=== PATIENT | female | born 1990 | race Caucasian/White ===

== ENCOUNTER 2021-05-09 09:49 | Outpatient (REF) | payer OTHER, SELFPAY ==
[2021-05-09 11:26] LABS: MANUAL DIFF FLAG NO
[2021-05-09 11:31] LABS: Basophils Percent Auto 0.5 % (0-2); Eosinophils Absolute Auto 0.3 X10*3/uL (0.0-0.4); Eosinophils Percent Auto 5.2 % (0-4); Hematocrit 39.8 % (37.0-47.0); Hemoglobin 13.6 g/dl (12.0-16.0); Imm Gran Abs Auto 0.03 X10*3/uL (0.00-0.03); Imm Gran Pct Auto 0.5 % (0.0-0.4); Lymphocytes Percent Auto 35.1 % (20-40); Mean Corpuscular HGB Conc 34.2 g/dl (31.0-35.0); Mean Corpuscular Volume 87.9 fL (80.0-98.0); Monocytes Absolute Auto 0.4 X10*3/uL (0.1-1.2); Monocytes Percent Auto 6.2 % (2-11); Neutrophils Percent Auto 52.5 % (45-73); Platelet Count 204 X10*3/uL (160-400); Red Blood Count 4.53 X10*6/uL (4.20-5.50); White Blood Count 5.8 X10*3/uL (4.8-10.8)
[2021-05-09 11:47] LABS: Alanine Aminotransferase 62 U/L (0-31); Albumin Level 4.3 g/dL (3.5-5.0); Alkaline Phosphatase 72 U/L (39-117); Anion Gap 9 (12-20); Aspartate Amino Transferase 24 U/L (5-31); Bilirubin Total 0.4 mg/dL (0.0-1.0); Blood Urea Nitrogen 14 mg/dL (9-16); Calcium 9.4 mg/dL (8.4-10.2); Carbon Dioxide 23 mmol/L (22-29); Chloride 110 mmol/L (96-108); Estimated Glomerular Filt Rate > 60; Glucose Random 126 mg/dL (60-115); Potassium 3.9 mmol/L (3.3-5.1); Sodium 138 mmol/L (135-145)
[2021-05-09 12:08] LABS: HBS Num1 242.15 mIU/mL (0-7.99); Hepatitis B Core Antibody Nonreactive (Nonreactive); ~Hepatitis B Surface Antibody REACTIVE (Nonreactive)
[2021-05-09 12:25] LABS: HBsAGNum1 0.25 S/CO (0.00-0.99); Hepatitis B Surface Antigen Negative (Negative); ~HepC Num1 0.23 S/CO (0.00-0.79); ~Hepatitis C Antibody Nonreactive (Nonreactive)
[2021-05-11 19:31] LABS: TS Negative Control Passed; TS Panel A 0; TS Panel B 0; TS Positive Control Passed; TSpotTB Negative (Negative)
== END 2021-05-09 09:50 | disposition home or self-care (01) ==
LOC: HO.WFDLDS 09:49
PROVIDERS: Visit Provider Physician Assistant Medical
DX: Z11.1 Encounter for screening for respiratory tuberculosis (principal); L73.2 Hidradenitis suppurativa
CPT/HCPCS: 36415; 80053; 85025; 86481; 86704; 86706; 86803; 87340

== ENCOUNTER 2021-06-10 10:12 | Outpatient (REF) | payer OTHER, SELFPAY ==
[2021-06-10 11:25] LABS: MANUAL DIFF FLAG NO
[2021-06-10 11:49] LABS: Basophils Percent Auto 0.3 % (0-2); Eosinophils Absolute Auto 0.3 X10*3/uL (0.0-0.4); Eosinophils Percent Auto 5.6 % (0-4); Hematocrit 38.7 % (37.0-47.0); Imm Gran Abs Auto 0.02 X10*3/uL (0.00-0.03); Imm Gran Pct Auto 0.3 % (0.0-0.4); Lymphocytes Absolute Auto 2.8 X10*3/uL (1.2-4.9); Lymphocytes Percent Auto 46.7 % (20-40); Mean Corpuscular HGB Conc 33.6 g/dl (31.0-35.0); Mean Corpuscular Volume 89.4 fL (80.0-98.0); Mean Platelet Volume 10.4 fL (9.4-12.3); Monocytes Absolute Auto 0.5 X10*3/uL (0.1-1.2); Monocytes Percent Auto 8.9 % (2-11); Neutrophils Absolute Auto 2.3 x10*3/uL (2.0-8.3); Neutrophils Percent Auto 38.2 % (45-73); Platelet Count 209 X10*3/uL (160-400); Red Blood Count 4.33 X10*6/uL (4.20-5.50); Red Cell Distribution Width 11.9 % (11.0-16.0)
[2021-06-10 12:37] LABS: Alanine Aminotransferase 135 U/L (0-31); Albumin Level 4.4 g/dL (3.5-5.0); Alkaline Phosphatase 73 U/L (39-117); Anion Gap 14 (12-20); Aspartate Amino Transferase 48 U/L (5-31); Bilirubin Total 0.3 mg/dL (0.0-1.0); Blood Urea Nitrogen 22 mg/dL (9-16); Calcium 9.4 mg/dL (8.4-10.2); Carbon Dioxide 19 mmol/L (22-29); Chloride 110 mmol/L (96-108); Cholesterol 254 mg/dL; Estimated Glomerular Filt Rate > 60; Glucose Fasting 87 mg/dL (60-99); HDL Cholesterol 35 mg/dL; LDL Cholesterol Calculated 150 mg/dl; Sodium 139 mmol/L (135-145); Thyroid Stimulating Hormone 3.04 uIU/mL (0.32-4.0); Total Protein 7.3 g/dL (6.5-8.0); Triglycerides 348 mg/dL; Vitamin D 25-OH Total 35.2 ng/mL (>30)
[2021-06-10 12:39] LABS: Estimated Average Glucose 91 mg/dL; Hemoglobin A1c % 4.8 %
[2021-06-10 13:16] LABS: T4 Thyroxine 5.3 ug/dL (4.5-12.0)
[2021-06-12 20:37] LABS: Triiodothyronine T3 Total 97 ng/dL (76-181)
== END 2021-06-10 10:13 | disposition home or self-care (01) ==
LOC: HO.WFDLDS 10:12
PROVIDERS: Visit Provider Nurse Practitioner
DX: F25.0 Schizoaffective disorder, bipolar type (principal); F40.01 Agoraphobia with panic disorder
CPT/HCPCS: 36415; 80053; 80061; 82306; 83036; 84436; 84443; 84480; 85025

== ENCOUNTER 2021-06-12 09:32 | Outpatient (REF) | payer OTHER, SELFPAY ==
[2021-06-12 11:55] LABS: Anion Gap 12 (12-20); Blood Urea Nitrogen 19 mg/dL (9-16); Calcium 9.3 mg/dL (8.4-10.2); Carbon Dioxide 20 mmol/L (22-29); Chloride 108 mmol/L (96-108); Estimated Glomerular Filt Rate > 60; Glucose Random 88 mg/dL (60-115); Potassium 4.3 mmol/L (3.3-5.1); Sodium 136 mmol/L (135-145)
== END 2021-06-12 09:33 | disposition home or self-care (01) ==
LOC: HO.WFDLDS 09:32
PROVIDERS: Visit Provider Physician Assistant Medical
DX: G40.209 Localization-related (focal) (partial) symptomatic epilepsy and epileptic syndromes with complex partial seizures, not intractable, without status epilepticus (principal)
CPT/HCPCS: 36415; 80048

== ENCOUNTER 2021-11-14 09:04 | Outpatient (REF) | payer OTHER, SELFPAY ==
[2021-11-14 10:33] LABS: MANUAL DIFF FLAG NO
[2021-11-14 10:49] LABS: Basophils Percent Auto 0.4 % (0-2); Eosinophils Absolute Auto 0.4 X10*3/uL (0.0-0.4); Eosinophils Percent Auto 7.9 % (0-4); Hematocrit 37.6 % (37.0-47.0); Hemoglobin 12.8 g/dl (12.0-16.0); Imm Gran Abs Auto 0.01 X10*3/uL (0.00-0.03); Imm Gran Pct Auto 0.2 % (0.0-0.4); Lymphocytes Absolute Auto 2.1 X10*3/uL (1.2-4.9); Lymphocytes Percent Auto 38.9 % (20-40); Mean Corpuscular Hemoglobin 30.7 pg (27.0-33.0); Mean Corpuscular Volume 90.2 fL (80.0-98.0); Mean Platelet Volume 10.5 fL (9.4-12.3); Monocytes Absolute Auto 0.4 X10*3/uL (0.1-1.2); Monocytes Percent Auto 6.8 % (2-11); Neutrophils Absolute Auto 2.4 x10*3/uL (2.0-8.3); Neutrophils Percent Auto 45.8 % (45-73); Platelet Count 206 X10*3/uL (160-400); Red Blood Count 4.17 X10*6/uL (4.20-5.50); Red Cell Distribution Width 11.9 % (11.0-16.0); White Blood Count 5.3 X10*3/uL (4.8-10.8)
[2021-11-14 11:08] LABS: Alanine Aminotransferase 84 U/L (0-31); Albumin Level 4.6 g/dL (3.5-5.0); Alkaline Phosphatase 71 U/L (39-117); Anion Gap 14 (12-20); Aspartate Amino Transferase 29 U/L (5-31); Bilirubin Total 0.3 mg/dL (0.0-1.0); Blood Urea Nitrogen 17 mg/dL (9-16); Calcium 9.2 mg/dL (8.4-10.2); Carbon Dioxide 21 mmol/L (22-29); Chloride 111 mmol/L (96-108); Estimated Glomerular Filt Rate 56; Glucose Fasting 90 mg/dL (60-99); Potassium 4.3 mmol/L (3.3-5.1); Sodium 142 mmol/L (135-145); Total Protein 7.1 g/dL (6.5-8.0)
[2021-11-14 11:28] LABS: T4 Thyroxine 4.3 ug/dL (4.5-12.0); Thyroid Stimulating Hormone 1.73 uIU/mL (0.32-4.0)
[2021-11-17 11:37] LABS: Triiodothyronine T3 Total 89 ng/dL (76-181)
== END 2021-11-14 09:05 | disposition home or self-care (01) ==
LOC: HO.WFDLDS 09:04
PROVIDERS: Visit Provider Nurse Practitioner
DX: F25.0 Schizoaffective disorder, bipolar type (principal); F40.01 Agoraphobia with panic disorder; Z79.899 Other long term (current) drug therapy
CPT/HCPCS: 36415; 80053; 80178; 84436; 84443; 84480; 85025

== ENCOUNTER → 2021-11-27 07:54 | Outpatient (BNVA) | payer OTHER, SELFPAY | PROVIDERS: PCP Internal Medicine; Visit Provider Psychiatry & Neurology Neurology | DX: G40.209 Localization-related (focal) (partial) symptomatic epilepsy and epileptic syndromes with complex partial seizures, not intractable, without status epilepticus (principal); G47.10 Hypersomnia, unspecified; R06.83 Snoring | CPT/HCPCS: 99202 ==

== ENCOUNTER → 2021-12-12 13:07 | Outpatient (REF) | payer OTHER, SELFPAY | LOC: HO.SL 13:07 | PROVIDERS: PCP Internal Medicine; Visit Provider Psychiatry & Neurology Neurology | DX: G47.19 Other hypersomnia (principal); R06.83 Snoring | CPT/HCPCS: 95806 ==

== ENCOUNTER → 2022-02-10 13:27 | Outpatient (BNVA) | payer OTHER, SELFPAY | PROVIDERS: PCP Internal Medicine; Visit Provider Psychiatry & Neurology Neurology | DX: G40.209 Localization-related (focal) (partial) symptomatic epilepsy and epileptic syndromes with complex partial seizures, not intractable, without status epilepticus (principal); G47.10 Hypersomnia, unspecified; R06.83 Snoring | CPT/HCPCS: 99212 ==

== ENCOUNTER → 2022-02-23 19:30 | Outpatient (REF) | payer OTHER, SELFPAY | LOC: HO.SL 19:30 | PROVIDERS: Visit Provider Psychiatry & Neurology Neurology | DX: G47.10 Hypersomnia, unspecified (principal); R06.83 Snoring | CPT/HCPCS: 95810 ==

== ENCOUNTER 2022-03-18 11:16 | Outpatient (REF) | payer OTHER, SELFPAY ==
--- NOTE | ~2022-03-18 | MR_ITS ---
EXAMINATION: MRI OF THE BRAIN WITHOUT CONTRAST CLINICAL INFORMATION: Malignant neoplasm of the brain. Astrocytoma follow-up. COMPARISON: MRI scan of the brain [facility] 06/03/2019. TECHNIQUE: MRI of the brain was obtained using routine sequences without contrast. The patient states allergy to Gadavist. FINDINGS: There are sequelae of a left temporoparietal craniotomy for resection of a underlying tumor. There is a resection cavity with CSF without significant surrounding hemosiderin staining. There is an area of fullness in the anteromedial hippocampal region on the left, which has mild increased FLAIR signal with corresponding low T2/FLAIR, and is unchanged compared to prior imaging. No mass effect is demonstrated, the sylvian fissure is slightly patulous. No diffusion abnormalities are identified to suggest an acute or subacute infarct. No mass effect or midline shift is seen. The ventricles and sulci are normal in size. Brain parenchymal signal elsewhere is unremarkable. No extra-axial fluid collections are seen. The brainstem and cerebellum are normal. There is mild low gradient signal from the craniotomy in the left temporoparietal regions. The cerebellar tonsillar tips are slightly low-lying and have a mildly pointed configuration, extending 4.5 mm below the level of foramen magnum, which may be consistent with a mild Chiari I malformation. Marrow signal, and midline structures are normal. The major intracranial flow-voids at the level of the port lions of [place] are preserved. The dural venous sinus flow-voids are maintained. The mastoid air cells are well-aerated. There is minimal mucoperiosteal thickening of the left maxillary sinus. MR/MR head/brain wo con IMPRESSION: 1. There are sequelae of a left sided temporoparietal craniotomy for resection of an underlying tumor. The resection cavity contains CSF without significant surrounding hemosiderin. There is an area of fullness in the anteromedial hippocampal region on the left, similar compared to prior imaging. There is no mass effect. Imaging is slightly suboptimal as no intravenous contrast was given. 2. The cerebellar tonsillar tips are low-lying and have a pointed configuration, which may be consistent with a mild Chiari I malformation. Correlate clinically.
== END 2022-03-18 11:17 | disposition home or self-care (01) ==
LOC: HO.MRI 11:16
PROVIDERS: Visit Provider Psychiatry & Neurology Neurology
DX: C71.9 Malignant neoplasm of brain, unspecified (principal)
CPT/HCPCS: 70551

== ENCOUNTER 2022-04-03 12:49 | Outpatient (REF) | payer OTHER, SELFPAY ==
--- NOTE | 2022-04-03 12:53 | EEG_ITS ---
Waking background activity consists of low voltage fast frequencies seen diffusely, intermixed with a low voltage 8 to 9 hertz posterior alpha frequency. Recurrent episodes of sharp configuration theta at 5 to 6 hertz are seen from the left central parietal region with some phase reversal at C3. The patient remains asymptomatic. During sleep, symmetrical frontal central sleep spindles develop over both hemispheres. Arousals are unremarkable. IMPRESSION: This EEG is considered mildly abnormal due to focal theta slowing and sharp configuration theta transients seen from the left central region suggesting a focus of cerebral irritability in the left central parietal region. The patient remains clinically asymptomatic. Clinical correlation is suggested. MD TAYLOR Oconnor/STEWART / [phone]
== END 2022-04-03 12:50 | disposition home or self-care (01) ==
LOC: HO.NEURO 12:49
PROVIDERS: Visit Provider Psychiatry & Neurology Neurology
DX: G40.209 Localization-related (focal) (partial) symptomatic epilepsy and epileptic syndromes with complex partial seizures, not intractable, without status epilepticus (principal)
CPT/HCPCS: 95708

== ENCOUNTER → 2022-06-11 09:10 | Outpatient (BNVA) | payer OTHER, SELFPAY | PROVIDERS: PCP Internal Medicine; Visit Provider Psychiatry & Neurology Neurology | DX: C71.9 Malignant neoplasm of brain, unspecified (principal); G40.209 Localization-related (focal) (partial) symptomatic epilepsy and epileptic syndromes with complex partial seizures, not intractable, without status epilepticus; R06.83 Snoring; G47.19 Other hypersomnia; F25.9 Schizoaffective disorder, unspecified; E66.9 Obesity, unspecified; Z68.36 Body mass index [BMI] 36.0-36.9, adult; Z79.899 Other long term (current) drug therapy | CPT/HCPCS: 99212 ==

== ENCOUNTER 2022-12-15 10:28 | Outpatient (AMB) | payer OTHER, SELFPAY ==
[2022-12-15 10:35] VITALS: BP 122/64; PULSE 86; O2SAT 99
--- NOTE | 2022-12-15 10:35 | A.OFFVIS_ITS ---
Intake Vital Signs 12/15/22 10:35 Weight 216 lb 6 oz BP 122/64 Blood Pressure Location Rt brachial Position Sitting Pulse 86 Pulse Source Pulse Oximeter Pulse Oximetry (%) 99 Oxygen Delivery Method Room Air Intake Visit Reasons: 6m seizure disorder-confirmed Intake Note: Pt presents today 6 month seizure fup no issues Allergies lamotrigine [From LAMICTAL] Allergy (Unknown, Verified 12/15/22 10:39) RASH gadobutrol [From Gadavist] Allergy (Verified 12/15/22 10:39) hives Medication List - Last Reconciled 12/15/22 by Patricia Goldberg MD acetaminophen (Tylenol Extra Strength) 500 mg PO Q6H PRN adalimumab (Humira Pen Crohn's-Ulc Colitis-Hid Sup Starter) inject one - 40 mg/0.8 mL pen every 2 weeks subcutaneously every week; betamethasone dipropionate 0.05% 1 appl topical BID chlorhexidine gluconate 4% (Hibiclens) 1 appl topical Q5M clindamycin phosphate 1% 1 appl topical DAILY clindamycin phosphate 1% 1 appl topical DAILY lorazepam 1 mg PO BID PRN medroxyprogesterone 10 mg PO .[id number] metformin 500 mg PO BID olanzapine 7.5 mg PO DAILY oxcarbazepine 600 mg PO BID Shower Chair As directed topiramate 1 tab qam and 1.5 tabs qhs orally 2 times a day; ( 100mg qama nd 150mg qhs ) HPI HPI Comments History of Present Illness Details 32y/o female comes for follow up of seiz ure disorder.she is doing well. Last week she felt like she was going to get seizures but did OK the rest of the time . No auras. Her daytime fatigue has improved with decrease in topiramate and olanzapine dose. Her trileptal dose was increased to 600mg bid . Her home sleep test was inconclusive. Her sleep study was normal. Previous history- She started having episodes at 9 mths of age - the episode was right hand raising followed by head turning to right and staring, unresponsive lasting 30- 60 seconds . 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 No chemo or radiation and was followed up at [facility] . she continued to have seizures though the semiology changed over time. No episodes of generalized tonic clonic seizures. she was tried on multiple medicationsThis includes lamictal, tegretol, depakote, keppra. .Currently she is on topiramate 150mg bi d and trileptal 600mg bid Now the seizures are more like staring episodes and can stand during some of the episodes. The episodes are milder and less frequent with less post ictal fatigue.she has 1 episode a month. She started having auditory hallucinations few years ago - she was trying to run into her neighbors yard thinking was getting her. Crisis was called and was hospitalized.she is diagnosed with schizoaffective disorder and is on lithium , risperdal ,geodan ,lorazepam as needed.She sees Jn Monsalve at [facility] she was seeing a neurologist at [facility] and then transferred to Dr. Parada she reports sleep issues in the past 2 years . she gained about 70 lbs in past 2 years related to medications ( haloperidol) SHe lives at home with parents and likes crafts . she graduated high school [employer] Medical History Hidradenitis suppurativa Astrocytoma brain tumor Complex partial seizures Schizoaffective disorder Surgical History H/O craniotomy Family History Father HTN (hypertension) Gout Diabetes mellitus Mother HTN (hypertension) Diabetes mellitus Psoriasis Social History Alcohol intake: current Patient Tobacco Use Status: Never used Tobacco Physical Exam Vital Signs: Last Vital Signs Pulse 86 12/15/22 10:35 BP 122/64 12/15/22 10:35 Pulse Ox 99 12/15/22 10:35 Oxygen Delivery Method Room Air 12/15/22 10:35 Assessment & Plan Assessment & Plan (1) Complex partial seizures: Code(s): G40.209 - Localization-related (focal) (partial) symptomatic epilepsy and epileptic syndromes with complex partial seizures, not intractable, without status epilepticus (2) Snoring: Code(s): R06.83 - Snoring (3) Hypersomnia: Comment: multifactorial medications Code(s): G47.10 - Hypersomnia, unspecified Plan Trileptal to 600mg bid topiramate 100mg qam and 150mg qhs Psychiatry follow up Reviewed mRI to monitor residual tumour Coding Level of Care Code Est Pt Level 4 (00990) Diagnoses Complex partial seizures G40.209 Snoring R06.83 Hypersomnia G47.10
== END 2022-12-15 10:56 | disposition home or self-care (01) ==
PROVIDERS: Visit Provider Psychiatry & Neurology Neurology
DX: G40.209 Localization-related (focal) (partial) symptomatic epilepsy and epileptic syndromes with complex partial seizures, not intractable, without status epilepticus (principal); R06.83 Snoring; G47.10 Hypersomnia, unspecified
CPT/HCPCS: 99214

== ENCOUNTER → 2022-12-15 10:28 | Outpatient (BNVA) | payer OTHER, SELFPAY | PROVIDERS: Visit Provider Psychiatry & Neurology Neurology | DX: G40.209 Localization-related (focal) (partial) symptomatic epilepsy and epileptic syndromes with complex partial seizures, not intractable, without status epilepticus (principal); R06.83 Snoring; G47.10 Hypersomnia, unspecified | CPT/HCPCS: 99212 ==

== ENCOUNTER 2023-03-12 14:10 | Outpatient (AMB) | payer OTHER, SELFPAY ==
--- NOTE | 2023-03-12 14:18 | MHC.OFFVIS ---
Intake Vital Signs 03/12/23 14:22 Height 5 ft 3 in Weight 214 lb 4 oz BMI 37.9 BP 122/72 Blood Pressure Location Rt brachial Position Sitting Respiration 16 Pulse 80 Pulse Source Pulse Oximeter Pulse Oximetry (%) 97 Oxygen Delivery Method Room Air Intake Visit Reasons: Urgent f/u - Confirmed Intake Note: Pt presents to the office for an urgent visit for evaluation of increase in seizures. Technology Methodology Consultant Required: No Allergies lamotrigine [From LAMICTAL] Allergy (Unknown, Verified 03/12/23 14:20) RASH gadobutrol [From Gadavist] Allergy (Verified 03/12/23 14:20) hives HPI HPI Comments History of Present Illness Details 32y/o female comes for follow up of seizure disorder.she is reporting brief episodes where she sees darkness, sees shadows of person trying to pull her out of seizure and hears voices. she has about 7-8 episodes a day and each episode lasts less than 1 minute. AFter the episode she has a brief headache or feels cold. she was seen by her facilities maintenance supervisor who did not think it was psychological.These are similar episodes that she had as a child Last week she felt like she was going to get seizures but did OK the rest of the time . No auras. Her topiramate she was supposed to be on 100mg qam and 150mg qhs but she is taking 100mg bid . Her trileptal dose 600mg bid . Her home sleep test was inconclusive. Her sleep study was normal. Previous history- She started having episodes at 9 mths of age - the episode was right hand raising followed by head turning to right and staring, unresponsive lasting 30-60 seconds . 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 No chemo or radiation and was followed up at [facility] . she continued to have seizures though the semiology changed over time. No episodes of generalized tonic clonic seizures. she was tried on multiple medicationsThis includes lamictal, tegretol, depakote, keppra. .Currently she is on topiramate 150mg bid and trileptal 600mg bid Now the seizures are more like staring episodes and can stand during some of the episodes. The episodes are milder and less frequent with less post ictal fatigue.she has 1 episode a month. She started having auditory hallucinations few years ago - she was trying to run into her neighbors yard thinking was getting her. Crisis was called and was hospitalized.she is diagnosed with schizoaffective disorder and is on lithium , risperdal ,geodan ,lorazepam as needed.She sees Jn Monsalve at [facility] she was seeing a neurologist at [facility] and then transferred to Dr. Parada she reports sleep issues in the past 2 years . she gained about 70 lbs in past 2 years related to medications ( haloperidol) SHe lives at home with parents and likes crafts . she graduated high school [employer] Medical History Hidradenitis suppurativa Astrocytoma brain tumor Complex partial seizures Schizoaffective disorder Surgical History H/O craniotomy Family History Father HTN (hypertension) Gout Diabetes mellitus Mother HTN (hypertension) Diabetes mellitus Psoriasis Social History Alcohol intake: current Patient Tobacco Use Status: Never used Tobacco Physical Exam Vital Signs: Last Vital Signs Pulse 80 03/12/23 14:22 Resp 16 03/12/23 14:22 BP 122/72 03/12/23 14:22 Pulse Ox 97 03/12/23 14:22 Oxygen Delivery Method Room Air 03/12/23 14:22 BMI result Body Mass Index 37.9 Const General: cooperative, healthy appearing, comfortable and no acute distress Nutritional Appearance: obese Orientation/consciousness: patient oriented x3 HEENT Other: mallampatti grade 4 Eyes Pupils: Equal, round and reactive pupils present Neuro Other: no involuntary movements General: patient oriented x3 Cranial nerves: Yes CN's II-XII intact bilaterally, Yes Facial sensation intact/muscles of mastication intact, Yes Equal, round and reactive pupils present, Yes Normal accommodation reflex present, Yes Bilaterally intact EOM present, Yes Nystagmus not present, Yes Normal facial strength present, Yes Midline tongue present and Yes Symmetric palate elevation present Cognition (Neuro): normal cognition Gait exam (Neuro): Normal gait present Motor exam (neuro): 5/5 motor strength present throughout, Normal motor muscle tone present throughout and Pronator motor function present Coordination: [id number] test normal Psych Appearance: grossly normal Speech and movement: Normal speech and movement present Assessment & Plan Assessment & Plan (1) Complex partial seizures: Comment: likely breakthrough seizures Code(s): G40.209 - Localization-related (focal) (partial) symptomatic epilepsy and epileptic syndromes with complex partial seizures, not intractable, without status epilepticus (2) Snoring: Code(s): R06.83 - Snoring (3) Hypersomnia: Comment: multifactorial medications Code(s): G47.10 - Hypersomnia, unspecified Plan Trileptal to 600mg bid INCREASE topiramate 100mg qam and 150mg qhs Reviewed mRI to monitor residual tumour Coding Level of Care Code Est Pt Level 4 (07139) Diagnoses Complex partial seizures G40.209 Snoring R06.83 Hypersomnia G47.10
[2023-03-12 14:22] VITALS: BP 122/72; PULSE 80; RESP 16; O2SAT 97; BMI 37.9
== END 2023-03-12 16:01 | disposition home or self-care (01) ==
PROVIDERS: PCP Internal Medicine; Visit Provider Psychiatry & Neurology Neurology
DX: G40.209 Localization-related (focal) (partial) symptomatic epilepsy and epileptic syndromes with complex partial seizures, not intractable, without status epilepticus (principal); R06.83 Snoring; G47.10 Hypersomnia, unspecified
CPT/HCPCS: 99214

== ENCOUNTER → 2023-03-12 14:10 | Outpatient (BNVA) | payer OTHER, SELFPAY | PROVIDERS: PCP Internal Medicine; Visit Provider Psychiatry & Neurology Neurology | DX: G40.209 Localization-related (focal) (partial) symptomatic epilepsy and epileptic syndromes with complex partial seizures, not intractable, without status epilepticus (principal); G47.10 Hypersomnia, unspecified; R06.83 Snoring | CPT/HCPCS: 99212 ==

== ENCOUNTER 2023-06-15 09:01 | Outpatient (AMB) | payer OTHER, SELFPAY ==
--- NOTE | 2023-06-15 09:03 | A.OFFVIS_ITS ---
Intake Vital Signs 06/15/23 09:04 Height 5 ft 3 in Weight 214 lb 6 oz BMI 38.0 BP 112/68 Blood Pressure Location Rt brachial Position Sitting Respiration 16 Pulse 82 Pulse Source Pulse Oximeter Pulse Oximetry (%) 98 Oxygen Delivery Method Room Air Intake Visit Reasons: 6m seizure disorder-LVM Intake Note: Pt presents for a 3 month follow up for complex partial seizures. Physics Instructor Required: No Allergies lamotrigine [From LAMICTAL] Allergy (Unknown, Verified 06/15/23 09:04) RASH gadobutrol [From Gadavist] Allergy (Verified 06/15/23 09:04) hives HPI HPI Comments History of Present Illness Details 32y/o female comes for follow up of seiz ure disorder.she was reporting brief episodes where she sees darkness, sees shadows of person trying to pull her out of seizure and hears voices.It has decreased significantly 1-2 times a month . she is tired after these episodes. Her topiramate she was supposed to be on 100mg qam and 150mg qhs . Her trileptal dose 600mg bid . Her home sleep test was inconclusive. Her sleep study was normal. Previous history- She started having episodes at 9 mths of age - the episode was right hand raising followed by head turning to right and staring, unresponsive lasting 30- 60 seconds . 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 No chemo or radiation and was followed up at [facility] . she continued to have seizures though the semiology changed over time. No episodes of generalized tonic clonic seizures. she was tried on multiple medicationsThis includes lamictal, tegretol, depakote, keppra. .Currently she is on topiramate 150mg bi d and trileptal 600mg bid Now the seizures are more like staring episodes and can stand during some of the episodes. The episodes are milder and less frequent with less post ictal fatigue.she has 1 episode a month. She started having auditory hallucinations few years ago - she was trying to run into her neighbors yard thinking was getting her. Crisis was called and was hospitalized.she is diagnosed with schizoaffective disorder and is on lithium , risperdal ,geodan ,lorazepam as needed.She [facility] she was seeing a neurologist at [facility] and then transferred to Dr. Parada she reports sleep issues in the past 2 years . she gained about 70 lbs in past 2 years related to medications ( haloperidol) SHe lives at home with parents and likes crafts . she graduated high school [employer] Medical History Hidradenitis suppurativa Astrocytoma brain tumor Complex partial seizures Schizoaffective disorder Surgical History H/O craniotomy Family History Father HTN (hypertension) Gout Diabetes mellitus Mother HTN (hypertension) Diabetes mellitus Psoriasis Social History Alcohol intake: current Patient Tobacco Use Status: Never used Tobacco Physical Exam Vital Signs: Last Vital Signs Pulse 82 06/15/23 09:04 Resp 16 06/15/23 09:04 BP 112/68 06/15/23 09:04 Pulse Ox 98 06/15/23 09:04 Oxygen Delivery Method Room Air 06/15/23 09:04 BMI result Body Mass Index 38.0 Const General: cooperative, healthy appearing, comfortable and no acute distress Nutritional Appearance: obese Orientation/consciousness: patient oriented x3 HEENT Other: mallampatti grade 4 Eyes Pupils: Equal, round and reactive pupils present Neuro Other: no involuntary movements General: patient oriented x3 Cranial nerves: Yes CN's II-XII intact bilaterally, Yes Facial sensation intact/muscles of mastication intact, Yes Equal, round and reactive pupils present, Yes Normal accommodation reflex present, Yes Bilaterally intact EOM pr esent, Yes Nystagmus not present, Yes Normal facial strength present, Yes Midline tongue present and Yes Symmetric palate elevation present Cognition (Neuro): normal cognition Gait exam (Neuro): Normal gait present Motor exam (neuro): 5/5 motor strength present throughout, Normal motor muscle tone present throughout and Pronator motor function present Coordination: [id number] test normal Psych Appearance: grossly normal Speech and movement: Normal speech and movement present Assessment & Plan Assessment & Plan (1) Complex partial seizures: Comment: likely breakthrough seizures Code(s): G40.209 - Localization-related (focal) (partial) symptomatic epilepsy and epileptic syndromes with complex partial seizures, not intractable, without status epilepticus Plan Trileptal to 600mg bid Continue topiramate 100mg qam and 150mg qhs Reviewed mRI to monitor residual tumour Orders: Orders Comprehensive Met. Panel Today G40.209 - Localization-related (focal) (partial) symptomatic epilepsy and epileptic syndromes with complex partial seizures, not intractable, without status epilepticus Complete Blood Count Auto Diff Today G40.209 - Localization-related (focal) (partial) symptomatic epilepsy and epileptic syndromes with complex partial seizures, not intractable, without status epilepticus Medications: Refilled topiramate 1 tab qam 1.5 tabs qhs orally; 60 tabs 6RF Coding Level of Care Code Est Pt Level 4 (61846) Diagnoses Complex partial seizures G40.209
[2023-06-15 09:04] VITALS: BP 112/68; PULSE 82; RESP 16; O2SAT 98; BMI 38.0
== END 2023-06-15 09:34 | disposition home or self-care (01) ==
PROVIDERS: PCP Internal Medicine; Visit Provider Psychiatry & Neurology Neurology
DX: G40.209 Localization-related (focal) (partial) symptomatic epilepsy and epileptic syndromes with complex partial seizures, not intractable, without status epilepticus (principal)
CPT/HCPCS: 99214

== ENCOUNTER → 2023-06-15 09:01 | Outpatient (BNVA) | payer OTHER, SELFPAY | PROVIDERS: PCP Internal Medicine; Visit Provider Psychiatry & Neurology Neurology | DX: R06.83 Snoring (principal); G47.19 Other hypersomnia; G40.209 Localization-related (focal) (partial) symptomatic epilepsy and epileptic syndromes with complex partial seizures, not intractable, without status epilepticus; G47.10 Hypersomnia, unspecified | CPT/HCPCS: 99212 ==

== ENCOUNTER 2023-10-21 10:00 | Outpatient (AMB) | payer OTHER, SELFPAY ==
--- NOTE | 2023-10-21 09:48 | A.OFFPC_ITS ---
Vital Signs 10/21/23 10:19 Height 5 ft 3.98 in Weight 205 lb BMI 35.2 BP 110/68 Blood Pressure Location Rt brachial Position Sitting Respiration 16 Pulse 80 Pulse Source Pulse Oximeter Temp 98.3 F Temp Source Oral Pulse Oximetry (%) 97 Oxygen Delivery Method Room Air Intake Visit Reasons: New patient Intake Note: New patient visit Allergies lamotrigine [From LAMICTAL] Allergy (Unknown, Verified 06/15/23 09:04) RASH gadobutrol [From Gadavist] Allergy (Verified 06/15/23 09:04) hives ozempic Allergy (Unknown, Uncoded 10/21/23 09:49) gi issues Medication List - Last Reconciled 10/21/23 by Sunitha Guardado PA-C acetaminophen (Tylenol Extra Strength) 500 mg PO Q6H PRN adalimumab (Humira Pen Crohn's-[facility] Colitis-Hid Sup Starter) inject one - 40 mg/0.8 mL pen every 2 weeks subcutaneously every week; adalimumab (Humira) inject one - 40 mg/0.8 mL syringe every 2 weeks subcut ammonium lactate 12% 1 appl topical DAILY betamethasone dipropionate 0.05% 1 appl topical BID chlorhexidine gluconate 4% (Hibiclens) 1 appl topical Q5M cholecalciferol (vitamin D3) 50 mcg PO DAILY cholecalciferol (vitamin D3) 50 mcg PO DAILY clindamycin phosphate 1% 1 appl topical DAILY clindamycin phosphate 1% 1 appl topical DAILY diclofenac sodium 1% (Arthritis Pain (diclofenac)) 2 grams topical QID escitalopram oxalate 10 mg PO DAILY famotidine 20 mg PO BID fluocinonide 0.05% 1 appl topical BID lisinopril 5 mg PO DAILY lorazepam 1 mg PO BID PRN lorazepam 1 mg PO BID PRN medroxyprogesterone 10 mg PO .c77ssmo metformin 500 mg PO BID olanzapine 7.5 mg PO DAILY oxcarbazepine 600 mg PO BID Shower Chair As directed spironolactone 50 mg PO QAM topiramate 1 tab qam 1.5 tabs qhs orally; Tobacco use date assessed: 10/21/23 Dental Screening Dental Screen Date: 10/21/23 Did you have a dental visit in the last 12 months?: Yes Did you have a dental problem in the last 6 months where you did not have access to dental care?: No Was dental information given to patient?: Patient has dentist HPI New patient HPI Details Patient is a 32-year-old female with a significant past medical history of hypertension, hyperlipidemia, type 2 diabetes, fatty liver schizoaffective schizophrenia, h/o astrocytoma, hidradenitis suppurative and seizures States last week she noted left ear discomfort. She states that it is on the outer part of her ear and it started off as a pimple and then she tried pushing on it and it got larger and now it is a little tender and red. No fever or chills. She has been using warm compresses. She denies any pain in her face or head. CV: Blood pressure today in the office is 110/68. She is on lisinopril 5 mg. GI: LFTs have been elevated since 2018. Last US was 2022 which was consistent withmoderate to severe fatty liver. She follows with GI at [facility]. She has an appointment scheduled in November. Endo: Last A1c was <7. Sees podiatry and eye services. She is on metformin 500 mg twice a day. Tolerates this well. She has tried Ozempic in the past and had nausea. She really wants to lose weight. She is trying to make better choices while eating. Derm: States that the BARRY as well-controlled with Humira. She follows with [facility]. Psych: Currently well-controlled. Recently had Lexapro added to her regimen and states that it has been helpful in controlling her anxiety. No SI/HI. Neuro: No breakthrough seizures. Doing well with her current regimen. Up-to-date with Neurology. [place]: Follows routinely. [facility] Medical History (Updated 10/21/23 @ 12:58 by Sunitha Guardado PA-C) Primary brain astrocytoma Uncontrolled type 2 diabetes mellitus with hyperglycemia Severe obesity (BMI 35.0-39.9) with comorbidity Seizure disorder Schizo-affective schizophrenia Major depression, recurrent, chronic Hyperlipidemia HTN (hypertension) History of astrocytoma of brain Generalized anxiety disorder Fatty liver Controlled type 2 diabetes mellitus Hidradenitis suppurativa Astrocytoma brain tumor Complex partial seizures Schizoaffective disorder Surgical History (Updated 10/21/23 @ 09:53 by Rosario Pleitez CMA) S/P brain surgery H/O craniotomy Family History (Updated 10/21/23 @ 09:56 by Rosario Pleitez CMA) Father HTN (hypertension) Gout Diabetes mellitus Depression Mother HTN (hypertension) Diabetes mellitus Psoriasis Depression Other FH: mental illness Social History Housing: Condominium Alcohol intake: current Patient Tobacco Use Status: Never used Tobacco e-Cigarette/Vaping Use: Never Used Second Hand Smoke Exposure: No service: No Current occupational status: disabled Cognitive needs: No Hearing needs: No Vision needs: Yes (glasses) Questionnaire PHQ-9 Over the last 2 weeks, how often have you been bothered by any of the following problems? 1. Little interest or pleasure in doing things: not at all 2. Feeling down, depressed, or hopeless: not at all 3. Trouble falling or staying asleep, or sleeping too much: more than half the days 4. Feeling tired or having little energy: not at all 5. Poor appetite or overeating: several days 6. Feeling bad about yourself - or that you are a failure or have let yourself or your family down: not at all 7. Trouble concentrating on things, such as reading the newspaper or watching television: not at all 8. Moving or speaking so slowly that other people could have noticed. Or the opposite - being so fidgety or restless that you have been moving around a lot more than usual: not at all 9. Thoughts that you would be better off or of hurting yourself in some way: not at all Total score: 3 Depression Screening Interpretation: Positive Depression Screening Follow-up: Existing condition and In treatment Depression Screening Done: Yes 61536 - PHQ-9 Billing: Yes Source: Developed by Drs. Al Garza, Eleanor Newell, Valdez Bautista and colleagues, with an educational tae from [employer]. Thrive Questionnaire Date Thrive assessed: 10/21/23 I am a: Patient What is your living situation today?: I have a steady place to live Within the past 12 months, did the food you bought not last and you didn't have the money to get more?: Never true Within the past 12 months, did you worry whether your food would run out before you got money to buy more?: Never true Do you have trouble paying for medicines?: No Do you have trouble getting transportation to medical appointments?: No Do you have trouble paying your heating and electricity bill?: No Do you have trouble taking care of your child, family member or friend?: No Do you have trouble with day-to-day activities such as bathing, preparing meals, shopping, managing finances, etc.?: No Are you currently unemployed and looking for a job?: Yes Are you interested in more education?: Yes Please select the resources that you would like help with: None Currently or been in a relationship where the following occur: No concerns reported THRIVE Score: 0 AUDIT C Alcohol Use Questionnaire (AUDIT-C) 1. How often do you have a drink containing alcohol?: Monthly or less 2. How many drinks containing alcohol do you have on a typical day when you are drinking?: 1 or 2 3. How often do you have six or more drinks on one occasion?: Never Total Score: 1 JENNA-7 AMB Questionnaire JENNA-7 Date JENNA - 7 assessed: 10/21/23 Feeling nervous, anxious, or on edge: 3 = Nearly every day Not being able to stop or control worryin = Not at all Worrying too much about different things: 0 = Not at all Trouble relaxin = Not at all Being so restless that it is hard to sit still: 0 = Not at all Becoming easily annoyed or irritable: 2 = More than half the days Feeling afraid as if something awful might happen: 1 = Several days Total JENNA-7 score (0-4 normal; 5-9 mild; 10-14 moderate; 15-21 severe): 6 Source: Developed by Drs. Al Garza, Eleanor Newell, Valdez Bautista and colleagues, with an educational tae from [employer]. JENNA-7 Assessment Billing JENNA-7 Assessment Tool: JENNA-7 Assessment 31553 Physical exam (Primary Care) Vital Signs: Last Vital Signs Temp 98.3 F 10/21/23 10:19 Pulse 80 10/21/23 10:19 Resp 16 10/21/23 10:19 BP 110/68 10/21/23 10:19 Pulse Ox 97 10/21/23 10:19 Oxygen Delivery Method Room Air 10/21/23 10:19 BMI result Body Mass Index 35.2 BMI Assessment/Plan discussion: High (We will start Mounjaro) BMI High, discussed plan: lifestyle, weight reduction, dietary and physical activity Tobacco/Smoking Status: Tobacco use Status Tobacco use date assessed 10/21/23 10/21/23 09:56 Patient Tobacco Use Status Never used Tobacco 10/21/23 09:56 e-Cigarette/Vaping Use Never Used 10/21/23 10:26 PHQ-9: PHQ-9 Score PHQ-9: Total score 3 10/21/23 10:47 Depression Screening Interpretation: Positive Depression Screening Follow-up: Existing condition and In treatment Thrive Assessment: Date of Thrive Assessment Date Thrive assessed 10/21/23 10/21/23 10:34 Currently or been in a relationship where the following occur: No concerns reported Const Orientation/consciousness: patient oriented x3 HENMT Other: There is a pea-sized, fluctuant, erythematous lesion noted over the left tragus. No tenderness surrounding the area. TM WNL. Canal clear. No mastoid tenderness. No lymphadenopathy. Ears: hearing grossly normal bilaterally Neck Thyroid: Thyroid normal Lymphatic: no lymphadenopathy noted Resp Auscultation: clear to auscultation bilaterally Cardio Rate: regular rate Rhythm: regular rhythm Heart sounds: S1 normal heart sound present and S2 normal heart sound present GI Inspection: Yes normal to inspection Palpation (GI): Soft to palpation and Other GI palpation findings present (nontender, no cva tenderness) Auscultation: normoactive bowel sounds Rectal Exam - Female: deferred Skin General skin exam: no rashes or lesions noted Neuro General: patient oriented x3, gait normal and no focal motor deficits Assessment and Plan Assessment & Plan (1) Controlled type 2 diabetes mellitus: Code(s): E11.9 - Type 2 diabetes mellitus without complications 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 Discussed risks and benefits and adverse effects including nausea, vomiting, increased risk of pancreatitis and thyroid malignancy. Continue with the metformin. Diabetic labs ordered today. I will refer her for diabetic Education as she did have this 1 time at [facility] but found that it was unhelpful. She would also like to see a occupational safety and health manager. Referral placed. (2) Schizoaffective disorder: Code(s): F25.9 - Schizoaffective disorder, unspecified Qualifiers: Schizoaffective disorder type: depressive Qualified Code(s): F25.1 - Schizoaffective disorder, depressive type Plan: Stable. (3) Fatty liver: Code(s): K76.0 - Fatty (change of) liver, not elsewhere classified Plan: Discussed the importance of weight loss. Following with GI. Limiting use of Tylenol. (4) HTN (hypertension): Code(s): I10 - Essential (primary) hypertension Qualifiers: Hypertension type: primary hypertension Qualified Code(s): I10 - Essential (primary) hypertension Plan: Continue current regimen (5) Hyperlipidemia: Code(s): E78.5 - Hyperlipidemia, unspecified Qualifiers: Hyperlipidemia type: mixed hyperlipidemia Qualified Code(s): E78.2 - Mixed hyperlipidemia Plan: We will check labs today. (6) Abscess of left earlobe: Code(s): H60.02 - Abscess of left external ear Plan: Start on doxycycline. Discussed risks and benefits and adverse effects of this medication including GI upset. I have encouraged her to continue with warm compresses. Advised to follow up in the ER if anything worsens or changes. Patient understands and agrees with this plan. Orders: Orders Comprehensive [place]. Panel Fast Today E11.9 - Type 2 diabetes mellitus without complications, E78.5 - Hyperlipidemia, unspecified, F25.9 - Schizoaffective disorder, unspecified, I10 - Essential (primary) hypertension, K76.0 - Fatty (change of) liver, not elsewhere classified Lipid Panel Today E11.9 - Type 2 diabetes mellitus without complications, E78.5 - Hyperlipidemia, unspecified, F25.9 - Schizoaffective disorder, unspecified, I1 0 - Essential (primary) hypertension, K76.0 - Fatty (change of) liver, not elsewhere classified Hemoglobin A1c Today E11.9 - Type 2 diabetes mellitus without complications, E78.5 - Hyperlipidemia, unspecified, F25.9 - Schizoaffective disorder, unspecified, I10 - Essential (primary) hypertension, K76.0 - Fatty (change of) liver, not elsewhere classified Microalbumin, Random (w Creat) Today E11.9 - Type 2 diabetes mellitus without complications, E78.5 - Hyperlipidemia, unspecified, F25.9 - Schizoaffective disorder, unspecified, I10 - Essential (primary) hypertension, K76.0 - Fatty (change of) liver, not elsewhere classified TSH reflex Free T4 Today E11.9 - Type 2 diabetes mellitus without complications, E78.5 - Hyperlipidemia, unspecified, F25.9 - Schizoaffective disorder, unspecified, I10 - Essential (primary) hypertension, K76.0 - Fatty (change of) liver, not elsewhere classified Complete Blood Count Auto Diff Today E11.9 - Type 2 diabetes mellitus without complications, E78.5 - Hyperlipidemia, unspecified, F25.9 - Schizoaffective disorder, unspecified, I10 - Essential (primary) hypertension, K76.0 - Fatty (change of) liver, not elsewhere classified Referrals Tool Builder Nutrition Referral E11.9 - Type 2 diabetes mellitus without complications Diabetes Education Referral E11.9 - Type 2 diabetes mellitus without complications Medications: New doxycycline hyclate 100 mg PO BID 20 tabs 0RF tirzepatide (Mounjaro) 2.5 mg (0.5 mL) subcut QWEEK 2 mL 2RF 4 weeks Coding Level of Care Code Est Pt Level 4 (82023) Complex EM visit Add On G2211 Diagnoses Controlled type 2 diabetes mellitus without complication, without long-term current use of insulin E11.9 Diabetes mellitus correction insulin use: without 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
[2023-10-21 10:19] VITALS: BP 110/68; PULSE 80; RESP 16; TEMP 36.8; O2SAT 97; BMI 35.2
== END 2023-10-21 11:26 | disposition home or self-care (01) ==
PROVIDERS: PCP Physician Assistant; Visit Provider Physician Assistant
DX: E11.9 Type 2 diabetes mellitus without complications (principal); F25.1 Schizoaffective disorder, depressive type; K76.0 Fatty (change of) liver, not elsewhere classified; I10 Essential (primary) hypertension; E78.2 Mixed hyperlipidemia; H60.02 Abscess of left external ear
CPT/HCPCS: 99214; G2211

== ENCOUNTER 2023-11-05 14:18 | Outpatient (REF) | payer OTHER, SELFPAY ==
[2023-11-05 14:51] LABS: MANUAL DIFF FLAG NO
[2023-11-05 15:02] LABS: Basophils Absolute Auto 0.1 X10*3/uL (0.0-0.2); Basophils Percent Auto 0.7 % (0-2); Eosinophils Absolute Auto 0.5 X10*3/uL (0.0-0.4); Eosinophils Percent Auto 6.8 % (0-4); Hematocrit 39.4 % (37.0-47.0); Hemoglobin 13.8 g/dl (12.0-16.0); Imm Gran Abs Auto 0.02 X10*3/uL (0.00-0.03); Imm Gran Pct Auto 0.3 % (0.0-0.4); Lymphocytes Absolute Auto 2.9 X10*3/uL (1.2-4.9); Lymphocytes Percent Auto 42.6 % (20-40); Mean Corpuscular Hemoglobin 31.6 pg (27.0-33.0); Mean Corpuscular Volume 90.2 fL (80.0-98.0); Mean Platelet Volume 10.2 fL (9.4-12.3); Monocytes Absolute Auto 0.6 X10*3/uL (0.1-1.2); Monocytes Percent Auto 8.1 % (2-11); Neutrophils Absolute Auto 2.9 x10*3/uL (2.0-8.3); Neutrophils Percent Auto 41.5 % (45-73); Platelet Count 191 X10*3/uL (160-400); Red Blood Count 4.37 X10*6/uL (4.20-5.50); Red Cell Distribution Width 11.6 % (11.0-16.0); White Blood Count 6.9 X10*3/uL (4.8-10.8)
[2023-11-05 15:21] LABS: Alanine Aminotransferase 54 U/L (0-31); Albumin Level 4.4 g/dL (3.5-5.0); Alkaline Phosphatase 63 U/L (39-117); Anion Gap 12 (12-20); Aspartate Amino Transferase 29 U/L (5-31); Bilirubin Total 0.2 mg/dL (0.0-1.0); Blood Urea Nitrogen 19 mg/dL (9-16); Calcium 9.6 mg/dL (8.4-10.2); Carbon Dioxide 22 mmol/L (22-29); Chloride 110 mmol/L (96-108); Estimated Glomerular Filt Rate > 60; Glucose Random 100 mg/dL (60-115); Potassium 4.1 mmol/L (3.3-5.1); Sodium 140 mmol/L (135-145); Total Protein 7.3 g/dL (6.5-8.0)
== END 2023-11-05 14:19 | disposition home or self-care (01) ==
LOC: HO.LAB 14:18
PROVIDERS: PCP Physician Assistant; Visit Provider Physician Assistant Medical
DX: L73.2 Hidradenitis suppurativa (principal); E28.2 Polycystic ovarian syndrome; Z79.899 Other long term (current) drug therapy; E11.9 Type 2 diabetes mellitus without complications
CPT/HCPCS: 36415; 80053; 85025; 99211

== ENCOUNTER 2023-11-05 14:56 | Outpatient (AMB) | payer OTHER, SELFPAY ==
--- NOTE | 2023-11-05 15:34 | A.OFFVIS_ITS ---
Intake Intake Visit Reasons: T2DM Alcohol Rubber Required: No Accompanied by: Mother Allergies lamotrigine [From LAMICTAL] Allergy (Unknown, Verified 06/15/23 09:04) RASH gadobutrol [From Gadavist] Allergy (Verified 06/15/23 09:04) hives ozempic Allergy (Unknown, Uncoded 10/21/23 09:49) gi issues HPI Comprehensive Diabetes Asmnt Most Recent Diabetes Results: Creatinine 0.88 mg/dL (0.5-1.4) 11/05/23 Blood Urea Nitrogen 19 mg/dL (9-16) H 11/05/23 Sodium 140 mmol/L (135-145) 11/05/23 Potassium 4.1 mmol/L (3.3-5.1) 11/05/23 Chloride 110 mmol/L (96-108) H 11/05/23 Carbon Dioxide 22 mmol/L (22-29) 11/05/23 Calcium 9.6 mg/dL (8.4-10.2) 11/05/23 AST 29 U/L (5-31) 11/05/23 ALT 54 U/L (0-31) H 11/05/23 Total Protein 7.3 g/dL (6.5-8.0) 11/05/23 Albumin 4.4 g/dL (3.5-5.0) 11/05/23 [facility] Medical History (Updated 10/21/23 @ 12:58 by Sunitha Guardado PA-C) Primary brain astrocytoma Uncontrolled type 2 diabetes mellitus with hyperglycemia Severe obesity (BMI 35.0-39.9) with comorbidity Seizure disorder Schizo-affective schizophrenia Major depression, recurrent, chronic Hyperlipidemia HTN (hypertension) History of astrocytoma of brain Generalized anxiety disorder Fatty liver Controlled type 2 diabetes mellitus Hidradenitis suppurativa Astrocytoma brain tumor Complex partial seizures Schizoaffective disorder Surgical History (Updated 10/21/23 @ 09:53 by Rosario Pleitez CMA) S/P brain surgery H/O craniotomy Family History (Updated 10/21/23 @ 09:56 by Rosario Pleitez CMA) Father HTN (hypertension) Gout Diabetes mellitus Depression Mother HTN (hypertension) Diabetes mellitus Psoriasis Depression Other FH: mental illness Social History Housing: Condominium Alcohol intake: current Patient Tobacco Use Status: Never used Tobacco e-Cigarette/Vaping Use: Never Used Second Hand Smoke Exposure: No service: No Current occupational status: disabled Cognitive needs: No Hearing needs: No Vision needs: Yes (glasses) Assessment & Plan Assessment & Plan (1) Controlled type 2 diabetes mellitus: Code(s): E11.9 - Type 2 diabetes mellitus without complications Qualifiers: Diabetes mellitus snf insulin use: without snf use Diabetes mellitus complication status: without complication Qualified Code(s): E11.9 - Type 2 diabetes mellitus without complications Plan: Learning objectives: The patient was provided with verbal and written education on the following topics as outlined below. The patient met all learning objectives and was able to verbalize understanding and provide teach back of education topics discussed . The patient was provided with the opportunity to ask questions and all questions were answered. Patient Assessment Patient questions/concerns patient at visit with her mother, patient reports her last A1c done by home nurse was 5%, patient was diagnosed with diabetes approximately a year and a half ago with an A1c in the high 6% Patient will be seeing registered dietitian on 11/25/2023, she is interested in weight loss What is Diabetes? Pathophysiology How the body produces and uses insulin Identify type of DM Risk factors Signs of Diabetes Brief overview of Diabetes Management Monitoring blood sugar Following a meal plan Regular exercise Maintaining a healthy weight Taking medication as needed Members of the care team (PCP, RN, MA, RD, CDE, coal trimmer machine operator) Blood glucose monitoring When/how often to test Target blood sugar ranges Patient did not bring meter to today's visit, reports that she test glucose once a day Introduction to Nutrition Importance of healthy diet in managing DM Diet is personalized to individual preference Review patient?s regular diet/food preferences Who prepares meals/does food shopping/ Dining out?/ Barriers? How diet effects glucose Eating 3 balanced meals a day with small, healthy snacks between meals Review food groups Carbohydrates: What is a carbohydrate/Which food/food groups are considered ca rbohydrates Effect of carbohydrates on blood glucose Portion sizes Reading food labels Basic carb counting (if applicable per nursing assessment) Plate method Meal planning Recommendations: Follow plate method, consistent carbs and read nutritional labels. Smart Goal: Patient will make commitment to physical activity goal Educational Materials: The patient was provided with the following written educational materials: Planning Healthy Meals Handout Patient Response to instructions: Comprehension of Instructions: Fair Readiness to make changes: Contemplation How confident they feel about making changes: Poor Portions of this note were created using voice recognition software, please excuse any words or phrases that may have been misinterpreted. Patient Instructions: Include regular daily activity. ADA recommends 30 minutes of exercise 5 days a week. Weight loss talk to PCP or Director Of Corporate Responsibility before starting new plan. Test blood sugar as directed; Fasting and 2hpp largest meal. Watch trends in results. Utilize results and to assess how food, physical activity and medications affect blood sugar results. Bring glucometer or CGM to next visit. Be knowledgeable about diabetes medication, its action, side effects, efficacy, toxicity, prescribed dosage, appropriate timing and frequency of administration, effect of missed and delayed doses and instructions for storage, travel and sa fety. Problem solving techniques to monitor hypo/hyperglycemia episodes and treatments. Reduce risk reduction behaviors, smoking cessation, regular eye, foot and dental examinations. Patient will follow-up with Diabetes Education nurse as needed Coding Level of Care Code Est Pt Level 1 (64762) Diagnoses Controlled type 2 diabetes mellitus without complication, without long-term current use of insulin E11.9 Diabetes mellitus snf insulin use: without snf use Diabetes mellitus complication status: without complication
== END 2023-11-05 15:37 | disposition home or self-care (01) ==
PROVIDERS: PCP Physician Assistant; Visit Provider Registered Nurse Diabetes Educator
DX: E11.9 Type 2 diabetes mellitus without complications (principal)

== ENCOUNTER 2023-11-25 13:20 | Outpatient (AMB) | payer OTHER, SELFPAY ==
[2023-11-25 13:48] VITALS: BMI 36.2
--- NOTE | 2023-11-25 13:48 | A.OFFVIS_ITS ---
VS Expanded 11/25/23 13:48 12/02/23 13:54 Height 5 ft 3.9 in 5 ft 3.9 in Weight 210 lb 5.136 oz 210 lb BMI 36.2 36.2 Intake Visit Reasons: T2DM Allergies lamotrigine [From LAMICTAL] Allergy (Unknown, Verified 06/15/23 09:04) RASH gadobutrol [From Gadavist] Allergy (Verified 06/15/23 09:04) hives ozempic Allergy (Unknown, Uncoded 10/21/23 09:49) gi issues Nutrition Presentation Details: Pt presets fro MNT for T2DM. Pt was referred by Cheryl from Endocrinology Pt presents with the mom during this appt. Pt reports having a tendency to have increased intake of foods more so in the evening and also keeping sedentary. BS Monitoring Most Recent Diabetes Results: Creatinine 0.88 mg/dL (0.5-1.4) 11/05/23 Blood Urea Nitrogen 19 mg/dL (9-16) H 11/05/23 Sodium 140 mmol/L (135-145) 11/05/23 Potassium 4.1 mmol/L (3.3-5.1) 11/05/23 Chloride 110 mmol/L (96-108) H 11/05/23 Carbon Dioxide 22 mmol/L (22-29) 11/05/23 Calcium 9.6 mg/dL (8.4-10.2) 11/05/23 AST 29 U/L (5-31) 11/05/23 ALT 54 U/L (0-31) H 11/05/23 Total Protein 7.3 g/dL (6.5-8.0) 11/05/23 Albumin 4.4 g/dL (3.5-5.0) 11/05/23 KEC-Lxyenav-Vv.Jeor Equation Height: 5 ft 3.9 in Weight: 210 lb Resting Metabolic Rate: 1642.67 Calculated Activity Level: Sedentary Calories Needed to Maintain Weight: 1971.20 Diagnosis Nutrition problem #1: excessive energy intake As related to (etiology) #1: diagnosis As evidenced by (sign/symptom) #1: knowledge deficit of diet COUNTS INCLUDE 234 BEDS AT THE [facility] Medical History (Updated 10/21/23 @ 12:58 by Sunitha Guardado PA-C) Primary brain astrocytoma Uncontrolled type 2 diabetes mellitus with hyperglycemia Severe obesity (BMI 35.0-39.9) with comorbidity Seizure disorder Schizo-affective schizophrenia Major depression, recurrent, chronic Hyperlipidemia HTN (hypertension) History of astrocytoma of brain Generalized anxiety disorder Fatty liver Controlled type 2 diabetes mellitus Hidradenitis suppurativa Astrocytoma brain tumor Complex partial seizures Schizoaffective disorder Surgical History (Updated 10/21/23 @ 09:53 by Rosario Pleitez CMA) S/P brain surgery H/O craniotomy Family History (Updated 10/21/23 @ 09:56 by Rosario Pleitez CMA) Father HTN (hypertension) Gout Diabetes mellitus Depression Mother HTN (hypertension) Diabetes mellitus Psoriasis Depression Other FH: mental illness Social History Housing: Condominium Alcohol intake: current Patient Tobacco Use Status: Never used Tobacco e-Cigarette/Vaping Use: Never Used Second Hand Smoke Exposure: No service: No Current occupational status: disabled Cognitive needs: No Hearing needs: No Vision needs: Yes (glasses) Assessment & Plan Assessment & Plan (1) Controlled type 2 diabetes mellitus: Code(s): E11.9 - Type 2 diabetes mellitus without complications Category: Medical Qualifiers: Diabetes mellitus terminal gauger supervisor insulin use: without halfway use Diabetes mellitus complication status: without complication Qualified Code(s): E11.9 - Type 2 diabetes mellitus without complications Plan: Wt: 95 Kg ( 12/21 ) Est kcal needs as per MSJ: 2000 (40% carb, 30% protein/fat) Est fluid needs as per 25-30 ml/d: 3000 Est prot per day as per 1 g/kg bw: 95 Recommend fiber intake : 8-10 g per day and gradually increase to 25-28 g per day for women and 35-38 g for men or as tolerated Recommend sodium intake per day : less than 1500 mg less than 2000 mg Educated patient on: ( R = reviewed V = verbalizes understanding N/R = needs review N/A = not applicable * Food sources of carbohydrate, adequate serving sizes and its role in various health conditions: R * Differences between complex carbohydrates a simple carbohydrates, role of fiber in diet: R * Lean protein sources of foods: R * Differences between types of fats and role in diet (mono on saturated fat fatty acids, saturated fatty acids, trans fats): R V N/R * Food sources of sodium in salt and healthy modifications for heart health in kidney health: R V R/V * Vitamins and minerals: R V N/R * Healthy plate method concept: R * Physical activity: Benefits a precaution: R V N/R * Hypoglycemia protocol (rule of 15): R V N/R * Dietary prevention of Hyperglycemia: R Patient Instructions: Work on following healthy plate method reducing on total carbs to 60 g at dinner and less than 20 g carbs as bedtime snack see list of food ideas/options Keep hydrated by having water, low sugar beverages , herb/fruit infused water Coding Level of Care Code Nutr Indiv Intake (86023) Diagnoses Controlled type 2 diabetes mellitus without complication, without long-term c urrent use of insulin E11.9 Diabetes mellitus halfway insulin use: without terminal gauger supervisor use Diabetes mellitus complication status: without complication Time Spent (min) 30
[2023-12-02 13:54] VITALS: BMI 36.2
== END 2023-11-25 14:12 | disposition home or self-care (01) ==
PROVIDERS: PCP Physician Assistant; Visit Provider Dietitian, Registered
DX: E11.9 Type 2 diabetes mellitus without complications (principal)

== ENCOUNTER → 2023-11-25 13:20 | Outpatient (BNVA) | payer OTHER, SELFPAY | PROVIDERS: PCP Physician Assistant; Visit Provider Dietitian, Registered | DX: E11.9 Type 2 diabetes mellitus without complications (principal); E66.9 Obesity, unspecified; Z71.3 Dietary counseling and surveillance; Z68.36 Body mass index [BMI] 36.0-36.9, adult | CPT/HCPCS: 97802 ==

== ENCOUNTER 2023-12-12 09:59 | Outpatient (REF) | payer OTHER, SELFPAY ==
[2023-12-12 10:38] LABS: MANUAL DIFF FLAG NO
[2023-12-12 11:01] LABS: Basophils Percent Auto 0.4 % (0-2); Eosinophils Absolute Auto 0.7 X10*3/uL (0.0-0.4); Eosinophils Percent Auto 9.8 % (0-4); Hematocrit 40.6 % (37.0-47.0); Hemoglobin 14.7 g/dl (12.0-16.0); Imm Gran Abs Auto 0.03 X10*3/uL (0.00-0.03); Imm Gran Pct Auto 0.4 % (0.0-0.4); Lymphocytes Absolute Auto 2.4 X10*3/uL (1.2-4.9); Mean Corpuscular HGB Conc 36.2 g/dl (31.0-35.0); Mean Corpuscular Hemoglobin 31.7 pg (27.0-33.0); Mean Corpuscular Volume 87.7 fL (80.0-98.0); Mean Platelet Volume 10.2 fL (9.4-12.3); Monocytes Absolute Auto 0.4 X10*3/uL (0.1-1.2); Monocytes Percent Auto 5.8 % (2-11); Neutrophils Absolute Auto 3.5 x10*3/uL (2.0-8.3); Neutrophils Percent Auto 49.6 % (45-73); Platelet Count 209 X10*3/uL (160-400); Red Blood Count 4.63 X10*6/uL (4.20-5.50); Red Cell Distribution Width 11.6 % (11.0-16.0); White Blood Count 7.1 X10*3/uL (4.8-10.8)
[2023-12-12 11:06] LABS: Estimated Average Glucose 94 mg/dL; Hemoglobin A1c % 4.9 % (<6.0)
[2023-12-12 11:34] LABS: Alanine Aminotransferase 68 U/L (0-31); Albumin Level 4.6 g/dL (3.5-5.0); Alkaline Phosphatase 75 U/L (39-117); Anion Gap 12 (12-20); Aspartate Amino Transferase 33 U/L (5-31); Bilirubin Total 0.5 mg/dL (0.0-1.0); Blood Urea Nitrogen 18 mg/dL (9-16); Calcium 9.7 mg/dL (8.4-10.2); Carbon Dioxide 20 mmol/L (22-29); Chloride 109 mmol/L (96-108); Cholesterol 282 mg/dL (<200); Estimated Glomerular Filt Rate > 60; Glucose Fasting 96 mg/dL (60-99); HDL Cholesterol 41 mg/dL (>40); LDL Cholesterol Calculated 188 mg/dL (<100); Potassium 4.2 mmol/L (3.3-5.1); Sodium 137 mmol/L (135-145); Total Protein 7.8 g/dL (6.5-8.0); Triglycerides 266 mg/dL (<150)
[2023-12-12 11:51] LABS: Creatinine Urine 149.97 mg/dL
[2023-12-12 11:51] LABS: TSH reflex Free T4 0.71 uIU/mL (0.32-4.0)
== END 2023-12-12 10:00 | disposition home or self-care (01) ==
LOC: HO.LAB 09:59
PROVIDERS: Absent Provider Physician Assistant Medical; PCP Physician Assistant; Visit Provider Physician Assistant
DX: K76.0 Fatty (change of) liver, not elsewhere classified (principal); F25.9 Schizoaffective disorder, unspecified; E78.5 Hyperlipidemia, unspecified; I10 Essential (primary) hypertension; E11.9 Type 2 diabetes mellitus without complications
CPT/HCPCS: 36415; 80053; 80061; 82043; 82570; 83036; 84443; 85025

== ENCOUNTER 2023-12-16 10:21 | Outpatient (AMB) | payer OTHER, SELFPAY ==
--- NOTE | 2023-12-16 10:21 | MHC.PC.OV ---
Vital Signs 12/16/23 10:29 Height 5 ft 3.9 in Weight 206 lb 6 oz BMI 35.5 BP 102/68 Blood Pressure Location Rt brachial Position Sitting Pulse 83 Pulse Source Pulse Oximeter Pulse Oximetry (%) 98 Oxygen Delivery Method Room Air Intake Visit Reasons: follow up labs and mounjaro Intake Note: Follow up labs. Stopped mounjaro due diarrhea, sulfur burp, stomach ached Accompanied by: Mother Allergies lamotrigine [From LAMICTAL] Allergy (Unknown, Verified 12/16/23 10:26) RASH tirzepatide [From Mounjaro] Allergy (Unknown, Verified 12/16/23 10:26) gi upset gadobutrol [From Gadavist] Allergy (Verified 12/16/23 10:26) hives ozempic Allergy (Unknown, Uncoded 12/16/23 10:26) gi issues Medication List - Last Reconciled 12/16/23 by Sunitha Guardado PA-C adalimumab (Humira Pen Crohn's-[facility] Colitis-Hid Sup Starter) inject one - 40 mg/0.8 mL pen every 2 weeks subcutaneously every week; adalimumab (Humira) inject one - 40 mg/0.8 mL syringe every 2 weeks subcut ammonium lactate 12% 1 appl topical DAILY betamethasone dipropionate 0.05% 1 appl topical BID blood sugar diagnostic ([employer]Touch Ultra Test strips) Use daily as directed to monitor blood sugars chlorhexidine gluconate 4% (Hibiclens) 1 appl topical Q5M cholecalciferol (vitamin D3) 50 mcg PO DAILY cholecalciferol (vitamin D3) 50 mcg PO DAILY clindamycin phosphate 1% 1 appl topical DAILY clindamycin phosphate 1% 1 appl topical DAILY diclofenac sodium 1% (Arthritis Pain (diclofenac)) 2 grams topical QID escitalopram oxalate 10 mg PO DAILY famotidine 20 mg PO BID fluocinonide 0.05% 1 appl topical BID lisinopril 5 mg PO DAILY lorazepam 1 mg PO BID PRN lorazepam 1 mg PO BID PRN medroxyprogesterone 10 mg PO .[id number] metformin 500 mg PO BID olanzapine 7.5 mg PO DAILY oxcarbazepine 600 mg PO BID Shower Chair As directed spironolactone 50 mg PO QAM topiramate 1 tab qam and 1 1/2 tab qhs orally; Tobacco use date assessed: 10/21/23 Dental Screening Dental Screen Date: 10/21/23 HPI follow up labs and mounjaro HPI Details Patient is a 33-year-old female with a significant past medical history of hypertension, hyperlipidemia, type 2 diabetes, fatty liver schizoaffective schizophrenia, h/o astrocytoma, hidradenitis suppurative and seizures -she does complain today of tinnitus. This started earlier this urine is on and off. It happens in both ears. No decreased hearing. It does not sound like it goes with her pulse. She states that she can is here faint buzzing sound. It is frustrating to her. She would like to see ENT. CV: Blood pressure today in the office is 102/68. She is on lisinopril 5 mg. Last cholesterol was elevated. She has never been on a statin before. She says that she has a hard time avoiding fatty foods and would like to try a medication. GI: LFTs have been elevated since 2018. Last US was 2022 which was consistent withm oderate to severe fatty liver. She follows with GI at [facility]. She had an appointment last week. States that everything has been stable. Endo: Last A1c was 4.9. She was trialed on Mounjaro which she states that she did not tolerate.. She he is on metformin 500 mg twice a day. Tolerates this well. She has been working harder on her diet and has lost a few lb. Derm: States that the BARRY as well-controlled with Humira. She follows with [facility]. Psych: Currently well-controlled. Follows with psychiatry. No SI/HI. Neuro: No breakthrough seizures. Doing well with her current regimen. Up-to-date with Neurology. Pediatric Social Worker: Follows routinely. [facility] Medical History (Updated 12/16/23 @ 10:50 by Sunitha Guardado PA-C) Primary brain astrocytoma Uncontrolled type 2 diabetes mellitus with hyperglycemia Severe obesity (BMI 35.0-39.9) with comorbidity Seizure disorder Schizo-affective schizophrenia Major depression, recurrent, chronic Hyperlipidemia HTN (hypertension) History of astrocytoma of brain Generalized anxiety disorder Fatty liver Controlled type 2 diabetes mellitus Hidradenitis suppurativa Astrocytoma brain tumor Complex partial seizures Schizoaffective disorder Surgical History (Updated 10/21/23 @ 09:53 by Rosario Pleitez CMA) S/P brain surgery H/O craniotomy Family History (Updated 10/21/23 @ 09:56 by Rosario Pleitez CMA) Father HTN (hypertension) Gout Diabetes mellitus Depression Mother HTN (hypertension) Diabetes mellitus Psoriasis Depression Other FH: mental illness Social History Housing: Condominium Alcohol intake: current Patient Tobacco Use Status: Never used Tobacco e-Cigarette/Vaping Use: Never Used Second Hand Smoke Exposure: No service: No Current occupational status: disabled Cognitive needs: No Hearing needs: No Vision needs: Yes (glasses) Questionnaire Thrive Questionnaire Date Thrive assessed: 12/14/23 I am a: Patient JENNA-7 AMB Questionnaire JENAN-7 Date JENNA - 7 assessed: 10/21/23 Source: Developed by Drs. Al Garza, Eleanor Newell, Valdez Bautista and colleagues, with an educational tae from [employer]. Physical exam (Primary Care) Vital Signs: Last Vital Signs Pulse 83 12/16/23 10:29 BP 102/68 12/16/23 10:29 Pulse Ox 98 12/16/23 10:29 Oxygen Delivery Method Room Air 12/16/23 10:29 BMI result Body Mass Index 35.5 Tobacco/Smoking Status: Tobacco use Status Tobacco use date assessed 10/21/23 12/16/23 10:21 Patient Tobacco Use Status Never used Tobacco 12/16/23 10:21 e-Cigarette/Vaping Use Never Used 12/16/23 10:21 Thrive Assessment: Date of Thrive Assessment Date Thrive assessed 12/14/23 12/16/23 10:21 Const Orientation/consciousness: patient oriented x3 HENMT Ears: hearing grossly normal bilaterally Neck Thyroid: Thyroid normal Lymphatic: no lymphadenopathy noted Resp Auscultation: clear to auscultation bilaterally Cardio Rate: regular rate Rhythm: regular rhythm Heart sounds: S1 normal heart sound present and S2 normal heart sound present GI Inspection: Yes normal to inspection Palpation (GI): Soft to palpation and Other GI palpation findings present (nontender, no cva tenderness) Auscultation: normoactive bowel sounds Rectal Exam - Female: deferred Skin General skin exam: no rashes or lesions noted Neuro General: patient oriented x3, gait normal and no focal motor deficits Results Reviewed Results Reviewed: Laboratory Tests 09/14/24 10:36 WBC 7.1 RBC 4.63 Hgb 14.7 Hct 40.6 MCV 87.7 MCH 31.7 Plt Count 209 Sodium 137 Potassium 4.2 Chloride 109 H Carbon Dioxide 20 L Anion Gap 12 BUN 18 H Creatinine 0.82 Estimated GFR > 60 Fasting Glucose 96 Estimat Average Glucose 94 Hemoglobin A1c % 4.9 Calcium 9.7 Total Bilirubin 0.5 AST 33 H ALT 68 H Alkaline Phosphatase 75 Triglycerides 266 H Cholesterol 282 H LDL Cholesterol, Calc 188 H HDL Cholesterol 41 TSH 0.71 Assessment and Plan Assessment & Plan (1) Tinnitus of both ears: Code(s): H93.13 - Tinnitus, bilateral Plan: Referral to ENT placed (2) Controlled type 2 diabetes mellitus: Code(s): E11.9 - Type 2 diabetes mellitus without complications Qualifiers: Diabetes mellitus complication status: without complication Diabetes mellitus extermination inspector insulin use: without extermination inspector use Qualified Code(s): E11.9 - Type 2 diabetes mellitus without complications Plan: reduced metformin to 500 mg once a day. We will monitor and recheck in 3 months. (3) HTN (hypertension): Code(s): I10 - Essential (primary) hypertension Qualifiers: Hypertension type: primary hypertension Qualified Code(s): I10 - Essential (primary) hypertension Plan: Continue current regimen (4) Hyperlipidemia: Code(s): E78.5 - Hyperlipidemia, unspecified Qualifiers: Hyperlipidemia type: mixed hyperlipidemia Qualified Code(s): E78.2 - Mixed hyperlipidemia Plan: will start simvastatin. We discussed risks, benefits and adverse effects of this medication at length. We will recheck lipids and LFTs after starting medicine. Orders: Orders Hemoglobin A1c Today E11.9 - Type 2 diabetes mellitus without complications, E78.2 - Mixed hyperlipidemia, I10 - Essential (primary) hypertension Comprehensive [place]. Panel Fast Today E11.9 - Type 2 diabetes mellitus without complications, E78.2 - Mixed hyperlipidemia, I10 - Essential (primary) hypertension Lipid Panel Today E11.9 - Type 2 diabetes mellitus without complications, E78.2 - Mixed hyperlipidemia, I10 - Essential (primary) hypertension Referrals Ear/Nose/Throat Referral H93.13 - Tinnitus, bilateral Medications: New simvastatin 10 mg PO BEDTIME 90 tabs 2RF Changed From metformin 500 mg PO BID To metformin 500 mg PO DAILY 90 tabs 3RF Coding Level of Care Code Est Pt Level 4 (19625) Complex EM visit Add On G2211 Diagnoses Tinnitus of both ears H93.13 Controlled type 2 diabetes mellitus without complication, without long-term current use of insulin E11.9 Diabetes mellitus complication status: without complication Diabetes mellitus extermination inspector insulin use: without fci use Primary hypertension I10 Hypertension type: primary hypertension Mixed hyperlipidemia E78.2 Hyperlipidemia type: mixed hyperlipidemia
[2023-12-16 10:29] VITALS: BP 102/68; PULSE 83; O2SAT 98; BMI 35.5
== END 2023-12-16 12:30 | disposition home or self-care (01) ==
PROVIDERS: PCP Physician Assistant; Visit Provider Physician Assistant
DX: H93.13 Tinnitus, bilateral (principal); E11.9 Type 2 diabetes mellitus without complications; I10 Essential (primary) hypertension; E78.2 Mixed hyperlipidemia

== ENCOUNTER → 2023-12-16 10:21 | Outpatient (BNVA) | payer OTHER, SELFPAY | PROVIDERS: PCP Physician Assistant; Visit Provider Physician Assistant ==

== ENCOUNTER 2023-12-16 11:13 | Outpatient (REF) | payer OTHER, SELFPAY ==
[2023-12-16 14:13] LABS: MANUAL DIFF FLAG NO
[2023-12-16 14:29] LABS: Basophils Absolute Auto 0.1 X10*3/uL (0.0-0.2); Basophils Percent Auto 0.7 % (0-2); Eosinophils Absolute Auto 0.8 X10*3/uL (0.0-0.4); Eosinophils Percent Auto 11.8 % (0-4); Hematocrit 40.3 % (37.0-47.0); Hemoglobin 13.9 g/dl (12.0-16.0); Imm Gran Abs Auto 0.04 X10*3/uL (0.00-0.03); Imm Gran Pct Auto 0.6 % (0.0-0.4); Lymphocytes Absolute Auto 2.8 X10*3/uL (1.2-4.9); Lymphocytes Percent Auto 39.7 % (20-40); Mean Corpuscular HGB Conc 34.5 g/dl (31.0-35.0); Mean Corpuscular Hemoglobin 31.2 pg (27.0-33.0); Mean Corpuscular Volume 90.4 fL (80.0-98.0); Mean Platelet Volume 10.6 fL (9.4-12.3); Monocytes Absolute Auto 0.4 X10*3/uL (0.1-1.2); Neutrophils Absolute Auto 2.9 x10*3/uL (2.0-8.3); Neutrophils Percent Auto 41.2 % (45-73); Platelet Count 189 X10*3/uL (160-400); Red Blood Count 4.46 X10*6/uL (4.20-5.50); Red Cell Distribution Width 11.9 % (11.0-16.0); White Blood Count 7.1 X10*3/uL (4.8-10.8)
[2023-12-16 15:21] LABS: Alanine Aminotransferase 62 U/L (0-31); Albumin Level 4.3 g/dL (3.5-5.0); Alkaline Phosphatase 68 U/L (39-117); Anion Gap 10 (12-20); Aspartate Amino Transferase 28 U/L (5-31); Bilirubin Total 0.3 mg/dL (0.0-1.0); Blood Urea Nitrogen 17 mg/dL (9-16); Calcium 9.2 mg/dL (8.4-10.2); Carbon Dioxide 21 mmol/L (22-29); Chloride 114 mmol/L (96-108); Estimated Glomerular Filt Rate > 60; Glucose Random 91 mg/dL (60-115); Potassium 3.8 mmol/L (3.3-5.1); Sodium 141 mmol/L (135-145); Total Protein 7.4 g/dL (6.5-8.0)
[2023-12-19 16:13] LABS: TS Negative Control Passed; TS Panel A 0; TS Panel B 0; TS Positive Control Passed; TSpotTB Negative (Negative)
== END 2023-12-16 11:14 | disposition home or self-care (01) ==
LOC: HO.WFDLDS 11:13
PROVIDERS: Referring Provider Physician Assistant Medical; Visit Provider Psychiatry & Neurology Neurology
DX: G40.209 Localization-related (focal) (partial) symptomatic epilepsy and epileptic syndromes with complex partial seizures, not intractable, without status epilepticus (principal); I10 Essential (primary) hypertension; E78.5 Hyperlipidemia, unspecified; H93.13 Tinnitus, bilateral; E11.9 Type 2 diabetes mellitus without complications; Z79.899 Other long term (current) drug therapy; E78.2 Mixed hyperlipidemia
CPT/HCPCS: 36415; 80053; 85025; 86481; 99212

== ENCOUNTER 2023-12-17 15:14 | Outpatient (AMB) | payer OTHER, SELFPAY ==
--- NOTE | 2023-12-17 15:14 | MHC.OFFVIS ---
Vital Signs 12/17/23 15:17 Height 5 ft 3.9 in Weight 209 lb 2 oz BMI 36.0 BP 112/78 Blood Pressure Location Rt brachial Position Sitting Pulse 96 Pulse Source Pulse Oximeter Pulse Oximetry (%) 98 Oxygen Delivery Method Room Air Intake Visit Reasons: 6 Month F/U Intake Note: Patient presents for a 6 mo f/u- Complex partial seizures. 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 Required: No Accompanied by: Mother Allergies lamotrigine [From LAMICTAL] Allergy (Unknown, Verified 12/17/23 15:17) RASH tirzepatide [From Mounjaro] Allergy (Unknown, Verified 12/17/23 15:17) gi upset gadobutrol [From Gadavist] Allergy (Verified 12/17/23 15:17) hives ozempic Allergy (Unknown, Uncoded 12/16/23 10:26) gi issues Medication List - Last Reconciled 12/17/23 by Patricia Goldberg MD adalimumab (Humira Pen Crohn's-[facility] Colitis-Hid Sup Starter) inject one - 40 mg/0.8 mL pen every 2 weeks subcutaneously every week; adalimumab (Humira) inject one - 40 mg/0.8 mL syringe every 2 weeks subcut ammonium lactate 12% 1 appl topical DAILY betamethasone dipropionate 0.05% 1 appl topical BID blood sugar diagnostic ([employer] Ultra Test strips) Use daily as directed to monitor blood sugars chlorhexidine gluconate 4% (Hibiclens) 1 appl topical Q5M cholecalciferol (vitamin D3) 50 mcg PO DAILY clindamycin phosphate 1% 1 appl topical DAILY clindamycin phosphate 1% 1 appl topical DAILY diclofenac sodium 1% (Arthritis Pain (diclofenac)) 2 grams topical QID famotidine 20 mg PO BID fluocinonide 0.05% 1 appl topical BID lisinopril 5 mg PO DAILY lorazepam 1 mg PO BID PRN medroxyprogesterone 10 mg PO .[id number] metformin 500 mg PO DAILY olanzapine 7.5 mg PO DAILY oxcarbazepine 600 mg PO BID Shower Chair As directed simvastatin 10 mg PO BEDTIME spironolactone 50 mg PO QAM topiramate 1 tab qam and 1 1/2 tab qhs orally; HPI Comments Details: 32y/o female comes for follow up of seizure disorder. she reports 3-4 episodes of seizure ( vision is blurred and dark for 1 minute) and auras ( out of body experience) lasting 30 seconds last weekend. she is compliant with medications. Her topiramate she was supposed to be on 100mg qam and 150mg qhs . Her trileptal dose 600mg bid . Her home sleep test was inconclusive. Her sleep study was normal. Previous history- She started having episodes at 9 mths of age - the episode was right hand raising followed by head turning to right and staring, unresponsive lasting 30-60 seconds . 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 No chemo or radiation and was followed up at [facility] . she continued to have seizures though the semiology changed over time. No episodes of generalized tonic clonic seizures. she was tried on multiple medicationsThis includes lamictal, tegretol, depakote, keppra. .Currently she is on topiramate 150mg bid and trileptal 600mg bid Now the seizures are more like staring episodes and can stand during some of the episodes. The episodes are milder and less frequent with less post ictal fatigue.she has 1 episode a month. She started having auditory hallucinations few years ago - she was trying to run into her neighbors yard thinking was getting her. Crisis was called and was hospitalized.she is diagnosed with schizoaffective disorder and is on lithium , risperdal ,geodan ,lorazepam as needed.She sees Jn Monsalve at [facility] she was seeing a neurologist at [facility] and then transferred to Dr. Parada she reports sleep issues in the past 2 years . she gained about 70 lbs in past 2 years related to medications ( haloperidol) SHe lives at home with parents and likes crafts . she graduated high school [employer] Medical History Primary brain astrocytoma Uncontrolled type 2 diabetes mellitus with hyperglycemia Severe obesity (BMI 35.0-39.9) with comorbidity Seizure disorder Schizo-affective schizophrenia Major depression, recurrent, chronic Hyperlipidemia HTN (hypertension) History of astrocytoma of brain Generalized anxiety disorder Fatty liver Controlled type 2 diabetes mellitus Hidradenitis suppurativa Astrocytoma brain tumor Complex partial seizures Schizoaffective disorder Surgical History S/P brain surgery H/O craniotomy Family History Father HTN (hypertension) Gout Diabetes mellitus Depression Mother HTN (hypertension) Diabetes mellitus Psoriasis Depression Other FH: mental illness Social History Housing: Condominium Alcohol intake: current Patient Tobacco Use Status: Never used Tobacco e-Cigarette/Vaping Use: Never Used Second Hand Smoke Exposure: No service: No Current occupational status: disabled Cognitive needs: No Hearing needs: No Vision needs: Yes (glasses) Physical Exam Vital Signs: Last Vital Signs Pulse 96 12/17/23 15:17 BP 112/78 12/17/23 15:17 Pulse Ox 98 12/17/23 15:17 Oxygen Delivery Method Room Air 12/17/23 15:17 BMI result Body Mass Index 36.0 Const General: cooperative, healthy appearing, comfortable and no acute distress Nutritional Appearance: obese Orientation/consciousness: patient oriented x3 HEENT Other: mallampatti grade 4 Eyes Pupils: Equal, round and reactive pupils present Neuro Other: no involuntary movements General: patient oriented x3 Cranial nerves: Yes CN's II-XII intact bilaterally, Yes Facial sensation intact/muscles of mastication intact, Yes Equal, round and reactive pupils present, Yes Normal accommodation reflex present, Yes Bilaterally intact EOM present, Yes Nystagmus not present, Yes Normal facial strength present, Yes Midline tongue present and Yes Symmetric palate elevation present Cognition (Neuro): normal cognition Gait exam (Neuro): Normal gait present Motor exam (neuro): 5/5 motor strength present throughout, Normal motor muscle tone present throughout and Pronator motor function present Coordination: [id number] test normal Psych Appearance: grossly normal Speech and movement: Normal speech and movement present Assessment & Plan Assessment & Plan (1) Complex partial seizures: Comment: likely breakthrough seizures Code(s): G40.209 - Localization-related (focal) (partial) symptomatic epilepsy and epileptic syndromes with complex partial seizures, not intractable, without status epilepticus Category: Medical Plan Trileptal to 600mg bid Increase topiramate 150mg qam and 150mg qhs Repeat MRI- with [facility] to monitor residual astrocytoma Orders: Orders MR head/brain wo/w con Today Z85.841 - Personal history of malignant neoplasm of brain Medications: Changed From topiramate 1 tab qam and 1 1/2 tab qhs orally; 75 tabs 6RF To topiramate (1.5 x 100 mg) 150 mg orally ; 90 tabs 6RF Coding Level of Care Code Est Pt Level 4 (98729) Complex EM visit Add On G2211 Diagnoses Complex partial seizures G40.209
[2023-12-17 15:17] VITALS: BP 112/78; PULSE 96; O2SAT 98; BMI 36.0
== END 2023-12-17 15:44 | disposition home or self-care (01) ==
PROVIDERS: PCP Internal Medicine; Visit Provider Psychiatry & Neurology Neurology
DX: G40.209 Localization-related (focal) (partial) symptomatic epilepsy and epileptic syndromes with complex partial seizures, not intractable, without status epilepticus (principal)
CPT/HCPCS: 99214; G2211

== ENCOUNTER → 2023-12-17 15:14 | Outpatient (BNVA) | payer OTHER, SELFPAY | PROVIDERS: PCP Internal Medicine; Visit Provider Psychiatry & Neurology Neurology | DX: G40.209 Localization-related (focal) (partial) symptomatic epilepsy and epileptic syndromes with complex partial seizures, not intractable, without status epilepticus (principal) | CPT/HCPCS: 99212 ==

== ENCOUNTER 2024-01-20 13:13 | Outpatient (AMB) | payer OTHER, SELFPAY ==
--- NOTE | 2024-01-20 13:15 | A.OFFPC_ITS ---
Vital Signs 01/20/24 13:16 Height 5 ft 3.9 in Weight 208 lb 6 oz BMI 35.9 BP 114/78 Blood Pressure Location Rt brachial Position Sitting Pulse 92 Pulse Source Pulse Oximeter Pulse Oximetry (%) 99 Oxygen Delivery Method Room Air Intake Visit Reasons: Cyst on her ear Intake Note: Cyst on left ear Mental Health Coordinator Required: No Allergies lamotrigine [From LAMICTAL] Allergy (Unknown, Verified 01/20/24 13:16) RASH tirzepatide [From Mounjaro] Allergy (Unknown, Verified 01/20/24 13:16) gi upset gadobutrol [From Gadavist] Allergy (Verified 01/20/24 13:16) hives ozempic Allergy (Unknown, Uncoded 01/20/24 13:16) gi issues Tobacco use date assessed: 10/21/23 Dental Screening Dental Screen Date: 10/21/23 HPI Cyst on her ear HPI Details Patient is a 33-year-old female with a significant past medical history of hypertension, hyperlipidemia, type 2 diabetes, fatty liver schizoaffective schizophrenia, h/o astrocytoma, hidradenitis suppurative and seizures presenting today for a follow up. HEENT: At our last visit I did refer her to ENT for tinnitus. She states that she has not yet heard yet but is aware that there is a long wait for ENT. She requests a referral today to General surgery as she keeps getting a recurrent abscess of the left tragus. She has seen Dermatology who told her that they are not comfortable removing the cyst but it should come out and needs to be seen by a general surgeon. She states that they tried to triamcinolone injection recently which was effective for a few weeks but then it reoccurred. It last reoccurred and ruptured on 01/14. No surrounding erythema. CV: Blood pressure today in the office is 114/78. She is on lisinopril 5 mg. Last cholesterol was elevated. She has never been on a statin before. She says that she has a hard time avoiding fatty foods and would like to try a medication. GI: LFTs have been elevated since 2018. Last US was 2022 which was consistent with severe fatty liver. She follows with GI at [facility]. She had an appointment last month. States that everything has been stable. Endo: Last A1c was 4.9. She was trialed on Mounjaro which she states that she did not tolerate. She tried Ozempic as well which caused nausea and vomiting. She he is on metformin 500 mg twice a day. Tolerates this well. She has been working harder on her diet and has lost a few lb. Derm: States that the BARRY as well-controlled with Humira. She follows with [facility]. Psych: Currently well-controlled. Follows with psychiatry. No SI/HI. Neuro: Recently has had breakthrough seizures is scheduled tonight to get an MRI. Up-to-date with Neurology. 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 [facility] Medical History Primary brain astrocytoma Uncontrolled type 2 diabetes mellitus with hyperglycemia Severe obesity (BMI 35.0-39.9) with comorbidity Seizure disorder Schizo-affective schizophrenia Major depression, recurrent, chronic Hyperlipidemia HTN (hypertension) History of astrocytoma of brain Generalized anxiety disorder Fatty liver Controlled type 2 diabetes mellitus Hidradenitis suppurativa Astrocytoma brain tumor Complex partial seizures Schizoaffective disorder Surgical History S/P brain surgery H/O craniotomy Family History Father HTN (hypertension) Gout Diabetes mellitus Depression Mother HTN (hypertension) Diabetes mellitus Psoriasis Depression Other FH: mental illness Social History Housing: Condominium Alcohol intake: current Patient Tobacco Use Status: Never used Tobacco e-Cigarette/Vaping Use: Never Used Second Hand Smoke Exposure: No service: No Current occupational status: disabled Cognitive needs: No Hearing needs: No Vision needs: Yes (glasses) Questionnaire Thrive Questionnaire Date Thrive assessed: 12/14/23 JENNA-7 AMB Questionnaire JNENA-7 Date JENNA - 7 assessed: 10/21/23 Source: Developed by Drs. Al Garza, Eleanor Newell, Valdez Bautista and colleagues, with an educational tae from [employer]. Physical exam (Primary Care) Vital Signs: Last Vital Signs Pulse 92 01/20/24 13:16 BP 114/78 01/20/24 13:16 Pulse Ox 99 01/20/24 13:16 Oxygen Delivery Method Room Air 01/20/24 13:16 BMI result Body Mass Index 35.9 Tobacco/Smoking Status: Tobacco use Status Tobacco use date assessed 10/21/23 01/20/24 13:19 Patient Tobacco Use Status Never used Tobacco 01/20/24 13:19 e-Cigarette/Vaping Use Never Used 01/20/24 13:19 Thrive Assessment: Date of Thrive Assessment Date Thrive assessed 12/14/23 01/20/24 13:19 Const Orientation/consciousness: patient oriented x3 HENMT Other: There is a small, lump noted over the October. Ears: hearing grossly normal bilaterally Neck Thyroid: Thyroid normal Lymphatic: no lymphadenopathy noted Resp Auscultation: clear to auscultation bilaterally Cardio Rate: regular rate Rhythm: regular rhythm Heart sounds: S1 normal heart sound present and S2 normal heart sound present GI Inspection: Yes normal to inspection Palpation (GI): Soft to palpation and Other GI palpation findings present (nontender, no cva tenderness) Auscultation: normoactive bowel sounds Rectal Exam - Female: deferred Skin General skin exam: no rashes or lesions noted Neuro General: patient oriented x3, gait normal and no focal motor deficits Coding Level of Care Code Est Pt Level 4 (06137) Complex EM visit Add On G2211 Diagnoses Abscess of left earlobe H60.02 Primary hypertension I10 Hypertension type: primary hypertension Controlled type 2 diabetes mellitus without complication, without long-term current use of insulin E11.9 Diabetes mellitus fdc insulin use: without fdc use Diabetes mellitus complication status: without complication Assessment & Plan Assessment & Plan (1) Abscess of left earlobe: Code(s): H60.02 - Abscess of left external ear Category: Medical Plan: Referral to General surgery placed. (2) HTN (hypertension): Code(s): I10 - Essential (primary) hypertension Category: Medical Qualifiers: Hypertension type: primary hypertension Qualified Code(s): I10 - Essential (primary) hypertension Plan: WNL. Continue current regimen (3) Controlled type 2 diabetes mellitus: Code(s): E11.9 - Type 2 diabetes mellitus without complications Category: Medical Qualifiers: Diabetes mellitus termite exterminator insulin use: without termite exterminator use Diabetes mellitus complication status: without complication Qualified Code(s): E11.9 - Type 2 diabetes mellitus without complications Plan: Doing well with metformin. Blood sugars have been normal. Plan Follow up in a few months. Labs prior to appointment. Patient understands and agrees with the plan. Orders: Referrals General Surgery Referral H60.02 - Abscess of left external ear
[2024-01-20 13:16] VITALS: BP 114/78; PULSE 92; O2SAT 99; BMI 35.9
== END 2024-01-20 13:48 | disposition home or self-care (01) ==
LOC: HO.HMCFM 13:13
PROVIDERS: PCP Physician Assistant; Visit Provider Physician Assistant
DX: H60.02 Abscess of left external ear (principal); I10 Essential (primary) hypertension; E11.9 Type 2 diabetes mellitus without complications

== ENCOUNTER → 2024-01-20 18:10 | Outpatient (BNV) | payer OTHER, SELFPAY | PROVIDERS: PCP Internal Medicine; Visit Provider Radiology Diagnostic Radiology | DX: R56.9 Unspecified convulsions (principal); Z85.841 Personal history of malignant neoplasm of brain | CPT/HCPCS: 70551 ==

== ENCOUNTER 2024-01-20 18:14 | Outpatient (REF) | payer OTHER, SELFPAY ==
--- NOTE | ~2024-01-20 | MR_ITS ---
EXAMINATION: MR BRAIN WITHOUT CONTRAST CLINICAL INFORMATION: . Seizures. Personal history of malignancy of the brain (astrocytoma). Status post surgery. COMPARISON: MRI dated March 18, 2022. TECHNIQUE: MRI of the brain was obtained using routine sequences without contrast. FINDINGS: Submitted for interpretation on 02/10/2024. Limited examination due to lack of IV contrast. No restricted diffusion. Status post anterior left temporal lobe resection resulting in extra-axial CSF prominence. There is hyperintense T2 FLAIR signal at the parenchyma surgical site and likely extending into the left hippocampus.. No acute intracranial hemorrhage, mass effect, midline shift, hydrocephalus or herniation. Susceptibility signal mixed with hyperintense T2 FLAIR signal within the left temporoparietal bony calvarium likely post treatment changes. Flow-void signal within the main cerebral vessels is normal. Posterior cranial fossa contents demonstrated no signal abnormality or mass effect. There is a borderline position of the cerebellar tonsils. Sellar/suprasellar region demonstrated no signal abnormality or masses. MR/MR head/brain wo con IMPRESSION: No acute brain abnormality. Post surgical/treatment changes. This could be a source of seizures. Electronically signed by: Ramesh Mccarthy MD 02/10/2024 08:43 AM EST
== END 2024-01-20 18:15 | disposition home or self-care (01) ==
LOC: HO.MRI 18:14
PROVIDERS: PCP Internal Medicine; Visit Provider Psychiatry & Neurology Neurology
DX: Z85.841 Personal history of malignant neoplasm of brain (principal); H60.02 Abscess of left external ear; I10 Essential (primary) hypertension; E11.9 Type 2 diabetes mellitus without complications
CPT/HCPCS: 70551; 99212

== ENCOUNTER 2024-02-09 10:08 | Outpatient (AMB) | payer OTHER, SELFPAY ==
--- NOTE | 2024-02-09 10:09 | A.OFFVIS_ITS ---
Vital Signs 3 02/09/24 10:14 Height 5 ft 3.9 in Weight 208 lb 2 oz BMI 35.8 BP 121/73 Blood Pressure Location Lt brachial Position Sitting Pulse 95 Intake Visit Reasons: Abscess~ Lt ear Intake Note: Patient is seen in office for abscess of the left ear. Pt c/o: onset for a year, rené on and off, last time was a months ago, has used antbx and steroids in the past with no relief, currently is just a bump, not irritated Allergies lamotrigine [From LAMICTAL] Allergy (Unknown, Verified 02/09/24 10:15) RASH tirzepatide [From Mounjaro] Allergy (Unknown, Verified 02/09/24 10:15) gi upset gadobutrol [From Gadavist] Allergy (Verified 02/09/24 10:15) hives ozempic Allergy (Unknown, Uncoded 02/09/24 10:15) gi issues Medication List - Last Reconciled 02/09/24 by Albino Mckee MD adalimumab (Humira [facility] St[facility]) inject one - 40 mg/0.8 mL pen every 2 weeks subcutaneously every week; adalimumab (Humira) inject one - 40 mg/0.8 mL syringe every 2 weeks subcut ammonium lactate 12% 1 appl topical DAILY betamethasone dipropionate 0.05% 1 appl topical BID blood sugar diagnostic (Pepperf[employer].comTouch Ultra Test strips) Use daily as directed to monitor blood sugars chlorhexidine gluconate 4% (Hibiclens) 1 appl topical Q5M cholecalciferol (vitamin D3) 50 mcg PO DAILY clindamycin phosphate 1% 1 appl topical DAILY clindamycin phosphate 1% 1 appl topical DAILY diclofenac sodium 1% (Arthritis Pain (diclofenac)) 2 grams topical QID famotidine 20 mg PO BID fluocinonide 0.05% 1 appl topical BID lisinopril 5 mg PO DAILY lorazepam 1 mg PO BID PRN medroxyprogesterone 10 mg PO .[id number] metformin 500 mg PO DAILY olanzapine 7.5 mg PO DAILY oxcarbazepine 600 mg PO BID Shower Chair As directed simvastatin 10 mg PO BEDTIME spironolactone 50 mg PO QAM topiramate orally; 1 1/2 tab bid HPI Comments Details: 33-year-old female patient presenting for evaluation of a recurrent left ear cyst located in the tragus. She has undergone previous infections at the site over the past year requiring antibiotics. The cyst has increased in size to the size of a pea and subsequently broke open draining a combination of pus and blood. There is significant amount of pain at the time but currently she denies any discharge or pain. She presents today to discuss excision of this lesion. [facility] Medical History Primary brain astrocytoma Uncontrolled type 2 diabetes mellitus with hyperglycemia Severe obesity (BMI 35.0-39.9) with comorbidity Seizure disorder Schizo-affective schizophrenia Major depression, recurrent, chronic Hyperlipidemia HTN (hypertension) History of astrocytoma of brain Generalized anxiety disorder Fatty liver Controlled type 2 diabetes mellitus Hidradenitis suppurativa Astrocytoma brain tumor Complex partial seizures Schizoaffective disorder Surgical History S/P brain surgery H/O craniotomy Family History Father HTN (hypertension) Gout Diabetes mellitus Depression Mother HTN (hypertension) Diabetes mellitus Psoriasis Depression Other FH: mental illness Social History Housing: Condominium Alcohol intake: current Patient Tobacco Use Status: Never used Tobacco e-Cigarette/Vaping Use: Never Used Second Hand Smoke Exposure: No service: No Current occupational status: disabled Cognitive needs: No Hearing needs: No Vision needs: Yes (glasses) Review of Systems Const All systems reviewed & are unremarkable except as noted in HPI and below Denies fever(s), Denies headache(s), Denies night sweats and Denies weakness ENT Denies headache(s) Card Denies chest pain, Denies irregular heart rhythm, Denies palpitations and Denies dyspnea Resp Denies cough, Denies excessive phlegm production and Denies dyspnea GI Denies abdominal pain, Denies bloating, Denies change in bowel habits, Denies constipation, Denies heartburn, Denies diarrhea, Denies nausea and Denies vomiting Denies urinary frequency Musc Denies back pain, Denies muscle weakness and Denies numbness Skin/Breast Denies changing lesions and Denies unusual bruising Neuro Denies headache(s), Denies numbness, Reports seizure-like activity and Denies weakness Psych Denies anxiety and Denies depression Endo Denies palpitations Harman/Lymph Denies lymphadenopathy Physical Exam Vital Signs: Last Vital Signs Pulse 95 02/09/24 10:14 BP 121/73 02/09/24 10:14 BMI result Body Mass Index 36.3 Const General: cooperative and no acute distress Nutritional Appearance: well nourished Orientation/consciousness: patient oriented x3 Limitations: no limitations HEENT Head: Yes normocephalic and Yes atraumatic Ears: hearing grossly normal bilaterally Outer ear/TM images: 2 1. Scar area with central punctum suggestive of an epidermal inclusion cyst at the tragus left ear. No current infection noted. Resp Effort & Inspection: normal respiratory effort, no audible wheezes, no cough and no respiratory distress Cardio Jugular venous distension: no JVD GI Inspection: Yes normal to inspection Palpation (GI): Soft to palpation Skin Other: Warm, dry, no rash, left ear cyst as noted above Neuro General: patient oriented x3 Extrem General: Yes no clubbing, cyanosis or edema Assessment & Plan Assessment & Plan (1) Epidermal inclusion cyst: Comment: Left ear with recurrent infections Code(s): L72.0 - Epidermal cyst Category: Medical Plan 33-year-old female patient with recurrent infections involving the left tragus of the ear. I recommended an excision of the lesion either under local anesthesia verses general anesthesia. After discussion of the procedure, risks, and alternatives, she consents to excision of the left ear cyst as a short-stay surgery. Coding Level of Care Code New Pt Level 4 (18256) Diagnoses Epidermal inclusion cyst L72.0
[2024-02-09 10:14] VITALS: BP 121/73; PULSE 95; BMI 35.8
== END 2024-02-09 10:26 | disposition home or self-care (01) ==
PROVIDERS: PCP Physician Assistant; Referring Provider Physician Assistant; Visit Provider Surgery
DX: L72.0 Epidermal cyst (principal)
CPT/HCPCS: 99204

== ENCOUNTER → 2024-02-09 10:08 | Outpatient (BNVA) | payer OTHER, SELFPAY | PROVIDERS: PCP Physician Assistant; Referring Provider Physician Assistant; Visit Provider Surgery | DX: L72.0 Epidermal cyst (principal) | CPT/HCPCS: 99202 ==

== ENCOUNTER 2024-03-16 11:29 | Outpatient (AMB) | payer OTHER, SELFPAY ==
--- NOTE | 2024-03-16 11:42 | MHC.PC.OV ---
Vital Signs 03/16/24 11:46 Height 5 ft 3.9 in Weight 211 lb BMI 36.3 BMI Reason not done Palliative Care Patient BP 104/68 Blood Pressure Location Rt brachial Position Sitting Pulse 86 Pulse Source Pulse Oximeter Pulse Oximetry (%) 99 Oxygen Delivery Method Room Air Intake Visit Reasons: follow up labs/preop cyst Intake Note: Preop for cyst removal Correspondence Coordinator Required: No Allergies lamotrigine [From LAMICTAL] Allergy (Unknown, Verified 03/16/24 11:44) RASH tirzepatide [From Mounjaro] Allergy (Unknown, Verified 03/16/24 11:44) gi upset gadobutrol [From Gadavist] Allergy (Verified 03/16/24 11:44) hives ozempic Allergy (Unknown, Uncoded 03/16/24 11:44) gi issues Tobacco use date assessed: 10/21/23 Dental Screening Dental Screen Date: 10/21/23 HPI follow up labs/preop cyst HPI Details The patient is a 33-year-old female presenting with a request for a preoperative evaluation for the removal of a left ear cyst. The surgery is expected to be performed under general anesthesia, although its date has not yet been confirmed. In addition to the issue concerning the ear cyst, the patient struggles with several chronic conditions. Type 2 diabetes mellitus is being managed with 500 mg of metformin daily. Although not regularly checking blood glucose levels, she reports occasional monitoring with a reading of 95 mg/dL and no episodes of hypoglycemia. Her essential hypertension appears well-controlled with lisinopril 5 mg daily, presenting with a blood pressure reading of 104/68 mmHg at the visit. Hyperlipidemia treatment with simvastatin has not resulted in any side effects such as myalgia. Has not yet rechecked labs Regarding her seizure disorder, the patient experienced one or two seizure events in the past month. Though the MRI showed no changes, she remains on Topamax without recent dosage adjustments. It is noted that the patient may require a letter of clearance from her neurologist for surgery due to her uncontrolled seizure activity. Moreover, the patient is managing her anxiety disorder with olanzapine and lorazepam, using lorazepam primarily for situational necessity rather than on a daily basis, as previous trials with buspirone were unsuccessful. Lastly, her hidradenitis suppurativa is stable under treatment with Humira, although there has been a recent change in the dispensing pharmacy. [facility] Medical History Primary brain astrocytoma Uncontrolled type 2 diabetes mellitus with hyperglycemia Severe obesity (BMI 35.0-39.9) with comorbidity Seizure disorder Schizo-affective schizophrenia Major depression, recurrent, chronic Hyperlipidemia HTN (hypertension) History of astrocytoma of brain Generalized anxiety disorder Fatty liver Controlled type 2 diabetes mellitus Hidradenitis suppurativa Astrocytoma brain tumor Complex partial seizures Schizoaffective disorder Surgical History S/P brain surgery H/O craniotomy Family History Father HTN (hypertension) Gout Diabetes mellitus Depression Mother HTN (hypertension) Diabetes mellitus Psoriasis Depression Other FH: mental illness Social History Housing: Condominium Alcohol intake: current Patient Tobacco Use Status: Never used Tobacco e-Cigarette/Vaping Use: Never Used Second Hand Smoke Exposure: No service: No Current occupational status: disabled Cognitive needs: No Hearing needs: No Vision needs: Yes (glasses) Questionnaire Thrive Questionnaire Date Thrive assessed: 12/14/23 I am a: Patient What is your living situation today?: I have a steady place to live Within the past 12 months, did the food you bought not last and you didn't have the money to get more?: Never true Within the past 12 months, did you worry whether your food would run out before you got money to buy more?: Never true Do you have trouble paying for medicines?: No Do you have trouble getting transportation to medical appointments?: No Do you have trouble paying your heating and electricity bill?: No Do you have trouble taking care of your child, family member or friend?: No Do you have trouble with day-to-day activities such as bathing, preparing meals, shopping, managing finances, etc.?: No Are you currently unemployed and looking for a job?: Yes Are you interested in more education?: No Please select the resources that you would like help with: None Currently or been in a relationship where the following occur: No concerns reported THRIVE Score: 0 JENNA-7 AMB Questionnaire JENNA-7 Date JENNA - 7 assessed: 10/21/23 Source: Developed by Drs. Al Garza, Eleanor Newell, Valdez Bautista and colleagues, with an educational tae from [employer]. Physical exam (Primary Care) Vital Signs: Last Vital Signs Pulse 86 03/16/24 11:46 BP 104/68 03/16/24 11:46 Pulse Ox 99 03/16/24 11:46 Oxygen Delivery Method Room Air 03/16/24 11:46 BMI result Body Mass Index 36.3 Tobacco/Smoking Status: Tobacco use Status Tobacco use date assessed 10/21/23 03/16/24 11:42 Patient Tobacco Use Status Never used Tobacco 03/16/24 11:42 e-Cigarette/Vaping Use Never Used 03/16/24 11:42 Thrive Assessment: Date of Thrive Assessment Date Thrive assessed 12/14/23 03/16/24 11:42 Currently or been in a relationship where the following occur: No concerns reported Const Orientation/consciousness: patient oriented x3 HENMT Ears: hearing grossly normal bilaterally Neck Thyroid: Thyroid normal Lymphatic: no lymphadenopathy noted Resp Auscultation: clear to auscultation bilaterally Cardio Rate: regular rate Rhythm: regular rhythm Heart sounds: S1 normal heart sound present and S2 normal heart sound present GI Inspection: Yes normal to inspection Palpation (GI): Soft to palpation and Other GI palpation findings present (nontender, no cva tenderness) Auscultation: normoactive bowel sounds Rectal Exam - Female: deferred Skin General skin exam: no rashes or lesions noted Neuro General: patient oriented x3, gait normal and no focal motor deficits Coding Level of Care Code Est Pt Level 4 (00054) Complex EM visit Add On G2211 Diagnoses Controlled type 2 diabetes mellitus without complication, without long-term current use of insulin E11.9 Diabetes mellitus supervisor intermediates insulin use: without supervisor intermediates use Diabetes mellitus complication status: without complication Primary hypertension I10 Hypertension type: primary hypertension Mixed hyperlipidemia E78.2 Hyperlipidemia type: mixed hyperlipidemia Epidermal inclusion cyst L72.0 Pre-op exam Z01.818 Assessment & Plan Assessment & Plan (1) Controlled type 2 diabetes mellitus: Code(s): E11.9 - Type 2 diabetes mellitus without complications Category: Medical Qualifiers: Diabetes mellitus supervisor intermediates insulin use: without halfway use Diabetes mellitus complication status: without complication Qualified Code(s): E11.9 - Type 2 diabetes mellitus without complications Plan: Continue current regimen. A1c ordered. (2) HTN (hypertension): Code(s): I10 - Essential (primary) hypertension Category: Medical Qualifiers: Hypertension type: primary hypertension Qualified Code(s): I10 - Essential (primary) hypertension Plan: WNL. Continue current regimen (3) Hyperlipidemia: Code(s): E78.5 - Hyperlipidemia, unspecified Category: Medical Qualifiers: Hyperlipidemia type: mixed hyperlipidemia Qualified Code(s): E78.2 - Mixed hyperlipidemia Plan: Tolerating the simvastatin. Recheck LFTs and lipids. (4) Epidermal inclusion cyst: Comment: Left ear with recurrent infections Code(s): L72.0 - Epidermal cyst Category: Medical Plan: Discussed the benefits of doing this in the office as opposed to under general anesthesia. Advised if she has to go under general anesthesia she will need to talk with her neurologist as her seizures have not been well-controlled in the last couple of weeks. (5) Pre-op exam: Code(s): Z01.818 - Encounter for other preprocedural examination Category: Medical Plan: EKG today is normal sinus rhythm at a rate of 80 beats per minute with nonspecific ST wave abnormalities. No prior study to compare. Preop labs ordered We will follow up pending test results. Orders: Orders Complete Blood Count Auto Diff Today E11.9 - Type 2 diabetes mellitus without complications, E78.2 - Mixed hyperlipidemia, I10 - Essential (primary) hypertension, L72.0 - Epidermal cyst, Z01.818 - Encounter for other preprocedural examination Prothrombin Time INR Today E11.9 - Type 2 diabetes mellitus without complications, E78.2 - Mixed hyperlipidemia, I10 - Essential (primary) hypertension, L72.0 - Epidermal cyst, Z01.818 - Encounter for other preprocedural examination AMB EKG-In Office Today E11.9 - Type 2 diabetes mellitus without complications, E78.2 - Mixed hyperlipidemia, I10 - Essential (primary) hypertension, L72.0 - Epidermal cyst, Z01.818 - Encounter for other preprocedural examination
[2024-03-16 11:46] VITALS: BP 104/68; PULSE 86; O2SAT 99; BMI 36.3
== END 2024-03-16 12:23 | disposition home or self-care (01) ==
PROVIDERS: PCP Physician Assistant; Visit Provider Physician Assistant
DX: E11.9 Type 2 diabetes mellitus without complications (principal); I10 Essential (primary) hypertension; E78.2 Mixed hyperlipidemia; L72.0 Epidermal cyst; Z01.818 Encounter for other preprocedural examination

== ENCOUNTER → 2024-03-16 11:29 | Outpatient (BNVA) | payer OTHER, SELFPAY | PROVIDERS: PCP Physician Assistant; Visit Provider Physician Assistant | DX: Z01.818 Encounter for other preprocedural examination (principal); L72.0 Epidermal cyst; E78.2 Mixed hyperlipidemia; I10 Essential (primary) hypertension; E11.9 Type 2 diabetes mellitus without complications | CPT/HCPCS: 99212 ==

== ENCOUNTER 2024-03-29 09:51 | Outpatient (REF) | payer OTHER, SELFPAY ==
[2024-03-29 11:25] LABS: MANUAL DIFF FLAG NO
[2024-03-29 11:28] LABS: Basophils Absolute Auto 0.1 X10*3/uL (0.0-0.2); Basophils Percent Auto 0.7 % (0-2); Eosinophils Absolute Auto 0.6 X10*3/uL (0.0-0.4); Eosinophils Percent Auto 7.5 % (0-4); Hematocrit 39.2 % (37.0-47.0); Hemoglobin 13.4 g/dl (12.0-16.0); Imm Gran Abs Auto 0.03 X10*3/uL (0.00-0.03); Imm Gran Pct Auto 0.4 % (0.0-0.4); Lymphocytes Absolute Auto 2.9 X10*3/uL (1.2-4.9); Lymphocytes Percent Auto 39.4 % (20-40); Mean Corpuscular HGB Conc 34.2 g/dl (31.0-35.0); Mean Corpuscular Hemoglobin 30.1 pg (27.0-33.0); Mean Corpuscular Volume 88.1 fL (80.0-98.0); Mean Platelet Volume 10.2 fL (9.4-12.3); Monocytes Absolute Auto 0.4 X10*3/uL (0.1-1.2); Monocytes Percent Auto 5.8 % (2-11); Neutrophils Absolute Auto 3.4 x10*3/uL (2.0-8.3); Neutrophils Percent Auto 46.2 % (45-73); Platelet Count 187 X10*3/uL (160-400); Red Blood Count 4.45 X10*6/uL (4.20-5.50); Red Cell Distribution Width 11.8 % (11.0-16.0); White Blood Count 7.4 X10*3/uL (4.8-10.8)
[2024-03-29 11:34] LABS: INTERNATIONAL NORM RATIO 0.9 (0.9-1.1); Prothrombin Time 10.8 SEC (10.9-12.4)
[2024-03-29 11:37] LABS: Estimated Average Glucose 94 mg/dL; Hemoglobin A1C 107.9279 umol/L; Hemoglobin A1c % 4.9 % (<6.0); Total Hemoglobin (HGBA1C) 3533.0304 umol/L
[2024-03-29 12:22] LABS: Alanine Aminotransferase 55 U/L (0-31); Albumin Level 4.2 g/dL (3.5-5.0); Alkaline Phosphatase 79 U/L (39-117); Anion Gap 12 (12-20); Aspartate Amino Transferase 26 U/L (5-31); Bilirubin Total 0.2 mg/dL (0.0-1.0); Blood Urea Nitrogen 16 mg/dL (9-16); Calcium 8.8 mg/dL (8.4-10.2); Carbon Dioxide 18 mmol/L (22-29); Chloride 115 mmol/L (96-108); Cholesterol 186 mg/dL (<200); Estimated Glomerular Filt Rate > 60; Glucose Fasting 96 mg/dL (60-99); HDL Cholesterol 34 mg/dL (>40); LDL Cholesterol Calculated 86 mg/dL (<100); Potassium 3.8 mmol/L (3.3-5.1); Sodium 141 mmol/L (135-145); Total Protein 7.1 g/dL (6.5-8.0); Triglycerides 333 mg/dL (<150)
== END 2024-03-29 09:52 | disposition home or self-care (01) ==
LOC: HO.WFDLDS 09:51
PROVIDERS: Visit Provider Physician Assistant
DX: Z01.818 Encounter for other preprocedural examination (principal); I10 Essential (primary) hypertension; E11.9 Type 2 diabetes mellitus without complications; E78.2 Mixed hyperlipidemia; L72.0 Epidermal cyst
CPT/HCPCS: 36415; 80053; 80061; 83036; 85025; 85610

== ENCOUNTER 2024-04-05 13:30 | Outpatient (AMB) | payer OTHER, SELFPAY ==
--- NOTE | 2024-04-05 14:08 | MHC.OFFVIS ---
Vital Signs 04/05/24 14:09 Height 5 ft 3.9 in Weight 210 lb 15.718 oz BMI 36.3 BP 104/62 Blood Pressure Location Lt brachial Position Sitting Intake Visit Reasons: excision cyst of left ear Intake Note: Patient is seen for office procedure, excision of left ear cyst. Independent Sales Representative Required: No Accompanied by: Mother Allergies lamotrigine [From LAMICTAL] Allergy (Unknown, Verified 04/05/24 14:09) RASH tirzepatide [From Mounjaro] Allergy (Unknown, Verified 04/05/24 14:09) gi upset gadobutrol [From Gadavist] Allergy (Verified 04/05/24 14:09) hives ozempic Allergy (Unknown, Uncoded 04/05/24 14:09) gi issues HPI Comments Details: Patient returns for excision of the epidermal inclusion cyst of her left ear, tragus. She denies any recent infections. We reviewed the procedure, risks, and alternatives and she consents to the surgery. [facility] Medical History Primary brain astrocytoma Uncontrolled type 2 diabetes mellitus with hyperglycemia Severe obesity (BMI 35.0-39.9) with comorbidity Seizure disorder Schizo-affective schizophrenia Major depression, recurrent, chronic Hyperlipidemia HTN (hypertension) History of astrocytoma of brain Generalized anxiety disorder Fatty liver Controlled type 2 diabetes mellitus Hidradenitis suppurativa Astrocytoma brain tumor Complex partial seizures Schizoaffective disorder Surgical History S/P brain surgery H/O craniotomy Family History Father HTN (hypertension) Gout Diabetes mellitus Depression Mother HTN (hypertension) Diabetes mellitus Psoriasis Depression Other FH: mental illness Social History Housing: Condominium Alcohol intake: current Patient Tobacco Use Status: Never used Tobacco e-Cigarette/Vaping Use: Never Used Second Hand Smoke Exposure: No service: No Current occupational status: disabled Cognitive needs: No Hearing needs: No Vision needs: Yes (glasses) Physical Exam Vital Signs: BMI result Body Mass Index 36.3 HEENT Outer ear/TM images: 1. Site of cysts left ear, approximately 3 mm diameter Office Procedures Excision Details: Preoperative diagnosis: Epidermal inclusion cyst tragus left ear Postoperative diagnosis: Same Procedure: Excision of epidermal inclusion cyst tragus left ear Surgeon: Albino Mckee MD Quality Control Scientist: None Anesthesia: Lidocaine 1% with epinephrine Indications for procedure: Multiple infections involving the tragus left ear with a persistent epidermal inclusion cyst Operative findings: 2 apparent epidermal inclusion cysts located in the left tragus Specimen: Epidermal inclusion cyst tragus left ear Estimated blood loss: Less than 1 mL Complications: None Procedure details: Patient was brought to the procedure room and placed in a supine position with her head turned to the right. After assuring informed consent and confirming the site of surgery in the ear, the skin was prepped with Betadine and draped in a sterile fashion. Local anesthesia was then infiltrated around the cyst. Elliptical incision oriented transversely was then created over the tragus to include the cyst and the central punctum. Incision was carried out through subcutaneous tissue up to the cyst wall. Sharp dissection was used to dissect the cyst wall from the subcutaneous tissue. A 2nd cyst was noted slightly adjacent to this and was also included in the excision. Both lesions were passed off the table and sent to pathology for further examination. Light pressure was held to maintain hemostasis. Skin was then closed using a single 5 0 nylon suture. A sterile bandage was then applied. The patient tolerated the procedure well. She was discharged to home in stable condition. [id number]-[id number] face/ear/eyelid/nose/lip/mucous membrane <0.5cm Procedure code (CPT) selection complete Assessment & Plan Assessment & Plan (1) Epidermal inclusion cyst: Comment: Left ear with recurrent infections Code(s): L72.0 - Epidermal cyst Category: Medical Plan Patient presents with an epidermal inclusion cyst with previous infections involving the tragus of the left ear. She underwent excision of the cyst today and tolerated the procedure well. She will return in 1 week for suture removal. Orders: Orders Surgical Today L72.0 - Epidermal cyst Coding Level of Care Code Procedure Only Diagnoses Epidermal inclusion cyst L72.0 CPT Codes Face/Ear/Eyelid/Nose/Lip/Mucous Membrane - CPT: 80659-Wjyobrwy face/ear/eyelid/nose/lip/mucous membrane <0.5cm ([id number])
[2024-04-05 14:09] VITALS: BP 104/62; BMI 36.3
== END 2024-04-05 14:14 | disposition home or self-care (01) ==
PROVIDERS: PCP Physician Assistant; Visit Provider Surgery
DX: L72.0 Epidermal cyst (principal)
CPT/HCPCS: 11441

== ENCOUNTER 2024-04-05 13:30 | Outpatient (REF) | payer OTHER, SELFPAY | END 2024-04-05 13:31 | disposition home or self-care (01) | LOC: HO.LNP 13:30 | PROVIDERS: PCP Physician Assistant; Visit Provider Surgery | DX: L72.0 Epidermal cyst (principal) | CPT/HCPCS: 11441; 88304 ==

== ENCOUNTER 2024-04-12 11:30 | Outpatient (AMB) | payer OTHER, SELFPAY ==
--- NOTE | 2024-04-12 11:35 | MHC.OFFVIS ---
Vital Signs 04/12/24 11:42 Height 5 ft 3.9 in Weight 209 lb 6 oz BMI 36.0 BP 135/78 Blood Pressure Location Lt brachial Position Sitting Pulse 89 Intake Visit Reasons: s/p excision cyst of left ear Intake Note: Patient is seen in office for post op assessment post excision of epidermal inclusion cyst of the left ear. Pt c/o: denies any concerns, suture removed at visit off proc: 04/05/24 Executive Staff Assistant Required: No Accompanied by: Mother Allergies lamotrigine [From LAMICTAL] Allergy (Unknown, Verified 04/12/24 11:43) RASH tirzepatide [From Mounjaro] Allergy (Unknown, Verified 04/12/24 11:43) gi upset gadobutrol [From Gadavist] Allergy (Verified 04/12/24 11:43) hives ozempic Allergy (Unknown, Uncoded 04/12/24 11:43) gi issues HPI Comments Details: 33-year-old female status post excision of a left ear tragus skin cyst. Pathology confirmed an epidermal inclusion cyst. She tolerated the procedure well but does report itchiness at the incision. [facility] Medical History Primary brain astrocytoma Uncontrolled type 2 diabetes mellitus with hyperglycemia Severe obesity (BMI 35.0-39.9) with comorbidity Seizure disorder Schizo-affective schizophrenia Major depression, recurrent, chronic Hyperlipidemia HTN (hypertension) History of astrocytoma of brain Generalized anxiety disorder Fatty liver Controlled type 2 diabetes mellitus Hidradenitis suppurativa Astrocytoma brain tumor Complex partial seizures Schizoaffective disorder Surgical History S/P brain surgery H/O craniotomy Family History Father HTN (hypertension) Gout Diabetes mellitus Depression Mother HTN (hypertension) Diabetes mellitus Psoriasis Depression Other FH: mental illness Social History Housing: Condominium Alcohol intake: current Patient Tobacco Use Status: Never used Tobacco e-Cigarette/Vaping Use: Never Used Second Hand Smoke Exposure: No service: No Current occupational status: disabled Cognitive needs: No Hearing needs: No Vision needs: Yes (glasses) Physical Exam Vital Signs: Last Vital Signs Pulse 89 04/12/24 11:42 BP 135/78 04/12/24 11:42 BMI result Body Mass Index 36.0 HEENT Other: Incision over the left tragus is clean, dry, and intact. Sutures removed and wounds found to be well healed. Assessment & Plan Assessment & Plan (1) Epidermal inclusion cyst: Comment: Left ear with recurrent infections Code(s): L72.0 - Epidermal cyst Category: Medical Plan 33-year-old female status post excision of a left ear tragus cyst. She tolerated the procedure well the wounds are healing nicely. She should follow up as needed. Coding Level of Care Code Global (91561) Diagnoses Epidermal inclusion cyst L72.0
[2024-04-12 11:42] VITALS: BP 135/78; PULSE 89; BMI 36.0
== END 2024-04-12 11:45 | disposition home or self-care (01) ==
PROVIDERS: PCP Physician Assistant; Visit Provider Surgery
DX: L72.0 Epidermal cyst (principal)
CPT/HCPCS: 99024

== ENCOUNTER → 2024-04-12 11:30 | Outpatient (BNVA) | payer OTHER, SELFPAY | PROVIDERS: PCP Physician Assistant; Visit Provider Surgery | DX: Z48.817 Encounter for surgical aftercare following surgery on the skin and subcutaneous tissue (principal); Z98.890 Other specified postprocedural states | CPT/HCPCS: 99212 ==

== ENCOUNTER 2024-04-28 14:16 | Outpatient (AMB) | payer OTHER, SELFPAY ==
--- NOTE | 2024-04-28 14:23 | A.OFFPC_ITS ---
Vital Signs 04/28/24 14:25 Height 5 ft 3.9 in Weight 213 lb 8 oz BMI 36.8 BP 108/70 Blood Pressure Location Rt brachial Position Sitting Pulse 78 Pulse Source Pulse Oximeter Pulse Oximetry (%) 98 Oxygen Delivery Method Room Air Intake Visit Reasons: f/u ENDO Intake Note: Diabetes follow up. Lab results. Cutter First Required: No Accompanied by: Parent Allergies lamotrigine [From LAMICTAL] Allergy (Unknown, Verified 04/12/24 11:43) RASH tirzepatide [From Mounjaro] Allergy (Unknown, Verified 04/12/24 11:43) gi upset gadobutrol [From Gadavist] Allergy (Verified 04/12/24 11:43) hives ozempic Allergy (Unknown, Uncoded 04/12/24 11:43) gi issues Medication List - Last Reconciled 04/28/24 by Sunitha Guardado PA-C adalimumab (Humira Pen [facility] Colitis-Hid Sup Starter) inject one - 40 mg/0.8 mL pen every 2 weeks subcutaneously every week; adalimumab (Humira) inject one - 40 mg/0.8 mL syringe every 2 weeks subcut ammonium lactate 12% 1 appl topical DAILY betamethasone dipropionate 0.05% 1 appl topical BID blood sugar diagnostic (ZINK ImagingTouch Ultra Test strips) Use daily as directed to monitor blood sugars chlorhexidine gluconate 4% (Hibiclens) 1 appl topical Q5M cholecalciferol (vitamin D3) 50 mcg PO DAILY clindamycin phosphate 1% 1 appl topical DAILY diclofenac sodium 1% (Arthritis Pain (diclofenac)) 2 grams topical QID famotidine 20 mg PO BID fluocinonide 0.05% 1 appl topical BID lisinopril 5 mg PO DAILY lorazepam 1 mg PO BID PRN metformin 500 mg PO DAILY olanzapine 7.5 mg PO DAILY oxcarbazepine 600 mg PO BID Shower Chair As directed simvastatin 10 mg PO BEDTIME spironolactone 50 mg PO QAM topiramate orally; 1 1/2 tab bid Tobacco use date assessed: 10/21/23 Dental Screening Dental Screen Date: 10/21/23 HPI f/u ENDO HPI Details Patient is a 33-year-old female who presents today for a follow up. Endo: Last A1c was 4.9. She is on 500 mg of metformin but does not notice any significant appetite suppression or improvement of her cycles. She would like to trial coming off of this. CV: Blood pressure today in the office is 108/70. She is on lisinopril 5 mg daily. Her cholesterol is controlled with simvastatin 10 mg. Tolerating this well. No myalgias. Derm: She is following with Dermatology for her HS. She is well-controlled with Humira, Hibiclens, spironolactone. Psych: Stable. Is doing a lot better with the current dosage of the olanzapine. The only concern is that the olanzapine is causing increased appetite. Patient is really struggling with her appetite in the evening. She has what the psychiatrist know. [facility] Medical History Primary brain astrocytoma Uncontrolled type 2 diabetes mellitus with hyperglycemia Severe obesity (BMI 35.0-39.9) with comorbidity Seizure disorder Schizo-affective schizophrenia Major depression, recurrent, chronic Hyperlipidemia HTN (hypertension) History of astrocytoma of brain Generalized anxiety disorder Fatty liver Controlled type 2 diabetes mellitus Hidradenitis suppurativa Astrocytoma brain tumor Complex partial seizures Schizoaffective disorder Surgical History S/P brain surgery H/O craniotomy Family History Father HTN (hypertension) Gout Diabetes mellitus Depression Mother HTN (hypertension) Diabetes mellitus Psoriasis Depression Other FH: mental illness Social History Housing: Condominium Alcohol intake: current Patient Tobacco Use Status: Never used Tobacco e-Cigarette/Vaping Use: Never Used Second Hand Smoke Exposure: No service: No Current occupational status: disabled Cognitive needs: No Hearing needs: No Vision needs: Yes (glasses) Questionnaire PHQ-9 Over the last 2 weeks, how often have you been bothered by any of the following problems? 1. Little interest or pleasure in doing things: not at all 2. Feeling down, depressed, or hopeless: not at all 3. Trouble falling or staying asleep, or sleeping too much: not at all 4. Feeling tired or having little energy: not at all 5. Poor appetite or overeating: nearly every day 6. Feeling bad about yourself - or that you are a failure or have let yourself or your family down: not at all 7. Trouble concentrating on things, such as reading the newspaper or watching television: not at all 8. Moving or speaking so slowly that other people could have noticed. Or the opposite - being so fidgety or restless that you have been moving around a lot more than usual: not at all 9. Thoughts that you would be better off or of hurting yourself in some way: not at all Total score: 3 Source: Developed by Drs. Al Garza, Eleanor Newell, Valdez Bautista and colleagues, with an educational tae from [email or web address]. Thrive Questionnaire Date Thrive assessed: 04/21/24 I am a: Patient What is your living situation today?: I have a steady place to live Within the past 12 months, did the food you bought not last and you didn't have the money to get more?: Never true Within the past 12 months, did you worry whether your food would run out before you got money to buy more?: Never true Do you have trouble paying for medicines?: No Do you have trouble getting transportation to medical appointments?: No Do you have trouble paying your heating and electricity bill?: No Do you have trouble taking care of your child, family member or friend?: No Do you have trouble with day-to-day activities such as bathing, preparing meals, shopping, managing finances, etc.?: No Are you currently unemployed and looking for a job?: No Are you interested in more education?: No Please select the resources that you would like help with: None Currently or been in a relationship where the following occur: No concerns repo rted THRIVE Score: 0 AUDIT C Alcohol Use Questionnaire (AUDIT-C) 1. How often do you have a drink containing alcohol?: Monthly or less 2. How many drinks containing alcohol do you have on a typical day when you are drinking?: 1 or 2 3. How often do you have six or more drinks on one occasion?: Never Total Score: 1 JENNA-7 AMB Questionnaire JENNA-7 Date JENNA - 7 assessed: 10/21/23 Feeling nervous, anxious, or on edge: 3 = Nearly every day Not being able to stop or control worryin = Nearly every day Worrying too much about different things: 3 = Nearly every day Trouble relaxin = Nearly every day Being so restless that it is hard to sit still: 0 = Not at all Becoming easily annoyed or irritable: 2 = More than half the days Feeling afraid as if something awful might happen: 2 = More than half the days Total JENNA-7 score (0-4 normal; 5-9 mild; 10-14 moderate; 15-21 severe): 16 Source: Developed by Drs. Al Garza, Eleanor Newell, Valdez Bautista and colleagues, with an educational tae from [email or web address]. Physical exam (Primary Care) Vital Signs: Last Vital Signs Pulse 78 04/28/24 14:25 BP 108/70 04/28/24 14:25 Pulse Ox 98 04/28/24 14:25 Oxygen Delivery Method Room Air 04/28/24 14:25 BMI result Body Mass Index 36.8 Tobacco/Smoking Status: Tobacco use Status Tobacco use date assessed 10/21/23 04/28/24 14:24 Patient Tobacco Use Status Never used Tobacco 04/28/24 14:24 e-Cigarette/Vaping Use Never Used 04/28/24 14:24 PHQ-9: PHQ-9 Score PHQ-9: Total score 3 04/28/24 14:24 Thrive Assessment: Date of Thrive Assessment Date Thrive assessed 04/21/24 04/28/24 14:24 Currently or been in a relationship where the following occur: No concerns reported Const Orientation/consciousness: patient oriented x3 HENMT Ears: hearing grossly normal bilaterally Neck Thyroid: Thyroid normal Lymphatic: no lymphadenopathy noted Resp Auscultation: clear to auscultation bilaterally Cardio Rate: regular rate Rhythm: regular rhythm Heart sounds: S1 normal heart sound present and S2 normal heart sound present GI Inspection: Yes normal to inspection Palpation (GI): Soft to palpation and Other GI palpation findings present (nontender, no cva tenderness) Auscultation: normoactive bowel sounds Rectal Exam - Female: deferred Skin General skin exam: no rashes or lesions noted Neuro General: patient oriented x3, gait normal and no focal motor deficits Results Reviewed Results Reviewed: Laboratory Tests 12/12/23 10:35 Urine Creatinine 149.97 Urine Microalbumin 39.0 Microalb/Creat Ratio 26.0 Coding Level of Care Code Est Pt Level 4 (59065) Complex EM visit Add On G2211 Diagnoses Controlled type 2 diabetes mellitus without complication, without long-term current use of insulin E11.9 Diabetes mellitus vehicle glass technician insulin use: without retirement use Diabetes mellitus complication status: without complication Primary hypertension I10 Hypertension type: primary hypertension Mixed hyperlipidemia E78.2 Hyperlipidemia type: mixed hyperlipidemia Assessment & Plan Assessment & Plan (1) Controlled type 2 diabetes mellitus: Code(s): E11.9 - Type 2 diabetes mellitus without complications Category: Medical Qualifiers: Diabetes mellitus vehicle glass technician insulin use: without retirement use Diabetes mellitus complication status: without complication Qualified Code(s): E11.9 - Type 2 diabetes mellitus without complications Plan: We will check in a few months after stopping metformin. She is going to try to control this with diet. (2) HTN (hypertension): Code(s): I10 - Essential (primary) hypertension Category: Medical Qualifiers: Hypertension type: primary hypertension Qualified Code(s): I10 - Essential (primary) hypertension Plan: WNL. Continue current regimen (3) Hyperlipidemia: Code(s): E78.5 - Hyperlipidemia, unspecified Category: Medical Qualifiers: Hyperlipidemia type: mixed hyperlipidemia Qualified Code(s): E78.2 - Mixed hyperlipidemia Plan: Lipids and LFTs ordered to be rechecked. Orders: Orders Comprehensive Met. Panel Today E11.9 - Type 2 diabetes mellitus without complications, E78.2 - Mixed hyperlipidemia, I10 - Essential (primary) hypertension Hemoglobin A1c Today E11.9 - Type 2 diabetes mellitus without complications, E78.2 - Mixed hyperlipidemia, I10 - Essential (primary) hypertension, R73.01 - I mpaired fasting glucose Lipid Panel Today E11.9 - Type 2 diabetes mellitus without complications, E78.2 - Mixed hyperlipidemia, I10 - Essential (primary) hypertension Medications: Discontinued metformin Discontinued Reason: Doctor's Order 500 mg PO DAILY 90 tabs 3RF Patient Instructions: Stop metformin ask your psychiatrist about phentermine if phentermine is not a good option, ask insurance about covering wegovy recheck labs in 3 months after stopping metformin
[2024-04-28 14:25] VITALS: BP 108/70; PULSE 78; O2SAT 98; BMI 36.8
--- OUTSIDE RECORDS SUMMARY | 2024-04-28 18:05 | XMS_ITS | Encounter Summary ---
Author Organization [facility] Address [address] [place] [address] Care Team Providers Care Organic Section Technical Lead Name Role Phone Prakash Perez MD Primary Care Provider Adarsh Blanchard MD Primary Care Provider Brian Larios MD Primary Care Provider Adarsh Smith MD Primary Care Provider Brian Larios MD Primary Care Provider Ruben Barry MD Unavailable [phone] Robinson Zelaya MD Unavailable Unavailable Aracelis Arteaga MD Primary Care Prov ider Aracelis Arteaga MD Primary Care Prov ider Patricia Goldberg MD Unavailable Unavailable Encounter Details Date Type Department Care Team Description 05/17/2012 Analysis Analyst Report Medical Records [address] [place] [address] Rene Gupta MD Social History Tobacco Use Types Packs/Day Years Used Date Smoking Tobacco: Never Smokeless Tobacco: Never Alcohol Use Standard Drinks/Week Comments Yes 0 (1 standard drink = 0.6 oz pur e alcohol) rarely Sex Assigned at Date Recorded Not on file Job Start Date Occupation Industry Not on file Not on file Not on file documented as of this encounter Plan of Treatment Not on file documented as of this encounter Visit Diagnoses Not on filedocumented in this encounter Care Teams Organic Section Technical Lead Relationship Specialty Start Date End Date Prakash Perez MD PCP - General Internal Medicine 01/20/12 04/04/13 Adarsh Valverde MD PCP - General Internal Medicine 04/05/13 Brian Gonzalez MD PCP - General Internal Medicine 01/12/14 12/07/14 Adarsh Valverde MD PCP - General Internal Medicine 12/08/14 Brian Gonzalez MD PCP - General Internal Medicine 12/11/14 10/16/21 Aracelis Arteaga MD [address] [place] [id number] PCP - General Internal Medicine 10/28/21 Aracelis Arteaga MD [address] [place] [id number] PCP - General Internal Medicine 10/17/21 10/27/21 Ruben Franco MD [address] [place] [address] [place] [address] Specialist Cardiovascular Disease 08/12/21 2 Robinson Zelaya MD [address] [place] [address] [place] [address] Specialist Cardiovascular Disease 08/12/21 Patricia Goldberg MD [address] [place] [id number] Specialist Neurology 06/17/23 documented as of this encounter
--- OUTSIDE RECORDS SUMMARY | 2024-04-28 18:06 | XMS_ITS | Encounter Summary ---
Author Organization [facility] Address [address] [place] [address] Care Team Providers Care Bog Worker Name Role Phone Prakash Perez MD Primary Care Provider Adarsh Blanchard MD Primary Care Provider Brian Larios MD Primary Care Provider Adarsh Smith MD Primary Care Provider Brian Larios MD Primary Care Provider Ruben Barry MD Unavailable [phone] Robinson Zelaya MD Unavailable Unavailable Aracelis Arteaga MD Primary Care Prov ider Aracelis Arteaga MD Primary Care Prov ider Patricia Goldberg MD Unavailable Unavailable Encounter Details Date Type Department Care Team Description 09/03/2012 Transfer Records Medical Records [address] [place] [address] Abstract, Provider Social History Tobacco Use Types Packs/Day Years [...] on filedocumented in this encounter Care Teams Bog Worker Relationship Specialty Start Date End Date Prakash Perez MD PCP - General Internal Medicine 01/20/12 04/04/13 Adarsh Valverde MD PCP - General Internal Medicine 04/05/13 Brian Gonzalez MD PCP - General Internal Medicine 01/12/14 12/07/14 Adarsh Valverde MD PCP - General Internal Medicine 12/08/14 Brian Gonzalez MD PCP - General Internal Medicine 12/11/14 10/16/21 Aracelis Arteaga MD [address] [place] [id number] PCP - General Internal Medicine 10/28/21 Aracelis Arteaga MD [address] [place] [id number] PCP - General Internal Medicine 10/17/21 10/27/21 Ruben Franco MD [address] [place] [address] [place] [address] Specialist Cardiovascular Disease 08/12/21 2 Robinson Zelaya MD [address] [place] [address] [place] [address] Specialist Cardiovascular Disease 08/12/21 Patricia Goldberg MD [address] [place] [id number] Specialist Neurology 06/17/23 documented as of this encounter
--- OUTSIDE RECORDS SUMMARY | 2024-04-28 18:06 | XMS_ITS | Encounter Summary ---
Author Organization [facility] Address [address] [place] [address] Care Team Providers Care C Programmer Name Role Phone Brian Gonzalez MD Primary Care Provider Ruben Barry MD Unavailable [phone] Robinson Zelaya MD Unavailable Unavailable Aracelis Arteaga MD Primary Care Prov ider Aracelis Arteaga MD Primary Care Prov ider Patricia Goldberg MD Unavailable Unavailable Encounter Details Date Type Department Care Team Description 01/10/2021 Placing Judge Report Medical Records [address] [place] [id number] Prakash Parada MD Social History Tobacco Use Types Packs/Day Years Used Date Smoking Tobacco: Never Smokeless Tobacco: Never Alcohol Use Standard Drinks/Week Comments Yes 0 (1 standard drink = 0.6 oz pur e alcohol) rarely Sex Assigned at Date Recorded Not on file Job Start Date Occupation Industry Not on file Not on file Not on file COVID-19 Exposure Response Date Recorded In the last month, have you been in contact with someone who was confirmed or suspected to have Coronavirus / COVID-19? Unable to assess 12/26/2020 8:26 AM EDT documented as of this encounter Plan of Treatment Not on file documented as of this encounter Visit Diagnoses Not on filedocumented in this encounter Care Teams C Programmer Relationship Specialty Start Date End Date Brian Gonzalez MD PCP - General Internal Medicine 12/11/14 10/16/21 Aracelis Arteaga MD [address] [place] [id number] PCP - General Internal Medicine 10/28/21 Aracelis Arteaga MD [address] [place] [id number] PCP - General Internal Medicine 10/17/21 10/27/21 Ruben Franco MD [address] [place] [address] [place] [address] Specialist Cardiovascular Disease 08/12/21 2 Robinson Zelaya MD [address] [place] [address] [place] [address] Specialist Cardiovascular Disease 08/12/21 Patricia Goldberg MD [address] [place] [id number] Specialist Neurology 06/17/23 documented as of this encounter
--- OUTSIDE RECORDS SUMMARY | 2024-04-28 18:06 | XMS_ITS | Encounter Summary ---
Author Organization [facility] Address [address] [place] [address] Care Team Providers Care Licensed Nuclear Operator Name Role Phone Brian Gonzalez MD Primary Care Provider Ruben Barry MD Unavailable [phone] Robinson Zelaya MD Unavailable Unavailable Aracelis Arteaga MD Primary Care Prov ider Aracelis Arteaga MD Primary Care Prov ider Patricia Goldberg MD Unavailable Unavailable Encounter Details Date Type Department Care Team Description 09/27/2018 [place] Net Report Medical Records [address] [place] [id number] [facility] Social History Tobacco Use Types Packs/Day Years [...] on filedocumented in this encounter Care Teams Licensed Nuclear Operator Relationship Specialty Start Date End Date Brian Gonzalez MD PCP - General Internal Medicine 12/11/14 10/16/21 Aracelis Arteaga MD [address] [place] [address] [phone] PCP - General Internal Medicine 10/28/21 Aracelis Arteaga MD [address] [place] [phone] PCP - General Internal Medicine 10/17/21 10/27/21 Ruben Franco MD [address] [place] [address] Dr Uribe [address] [place] [phone] Specialist Cardiovascular Disease 08/12/21 2 Robinson Zelaya MD [address] [place] [address] [place] [address] Specialist Cardiovascular Disease 08/12/21 Patricia Goldberg MD [address] [place] [phone] Specialist Neurology 06/17/23 documented as of this encounter
--- OUTSIDE RECORDS SUMMARY | 2024-04-28 18:06 | XMS_ITS | Encounter Summary ---
Author Organization [employer] [facility] Address [address] [place] [address] Care Team Providers Care Dental Mechanic Name Role Phone Brian Gonzalez MD Primary Care Provider Ruben Barry MD Unavailable [phone] Robinson Zelaya MD Unavailable Unavailable Aracelis Arteaga MD Primary Care Prov ider Aracelis Arteaga MD Primary Care Prov ider Patricia Goldberg MD Unavailable Unavailable Encounter Details Date Type Department Care Team Description 01/04/2019 Old Medical Records Medical Records [address] [place] [id number] Abstract, Provider Social History Tobacco Use Types [...] on filedocumented in this encounter Care Teams Dental Mechanic Relationship Specialty Start Date End Date Brian Gonzalez MD PCP - General Internal Medicine 12/11/14 10/16/21 Aracelis Arteaga MD [address] [place] [phone] PCP - General Internal Medicine 10/28/21 Aracelis Arteaga MD [address] [place] [phone] PCP - General Internal Medicine 10/17/21 10/27/21 Ruben Franco MD [address] [place] [address] Dr Uribe [address] [place] [phone] Specialist Cardiovascular Disease 08/12/21 2 Robinson Zelaya MD [address] [place] [address] [place] [address] Specialist Cardiovascular Disease 08/12/21 Patricia Goldberg MD [address] [place] [phone] Specialist Neurology 06/17/23 documented as of this encounter
--- OUTSIDE RECORDS SUMMARY | 2024-04-28 18:06 | XMS_ITS | Encounter Summary ---
Author Organization [facility] Address [address] [place] [address] Care Team Providers Care Supervisor Paint Name Role Phone Brian Gonzalez MD Primary Care Provider Adarsh Smith MD Primary Care Provider Brian Larios MD Primary Care Provider Ruben Barry MD Unavailable [phone] Robinson Zelaya MD Unavailable Unavailable Aracelis Arteaga MD Primary Care Prov ider Aracelis Arteaga MD Primary Care Prov ider Patricia Goldberg MD Unavailable Unavailable Encounter Details Date Type Department Care Team Description 06/26/2014 Track Car Operator Report Medical Records [address] [place] [id number] [place] [address] Social History Tobacco Use Types Packs/Day Years [...] on filedocumented in this encounter Care Teams Supervisor Paint Relationship Specialty Start Date End Date Brian Gonzalez MD PCP - General Internal Medicine 01/12/14 12/07/14 Adarsh Valverde MD PCP - General Internal Medicine 12/08/14 5 Brian Gonzalez MD PCP - General Internal Medicine 12/11/14 10/16/21 Aracelis Arteaga MD [address] [place] [phone] PCP - General Internal Medicine 10/28/21 Aracelis Arteaga MD [address] [place] [phone] PCP - General Internal Medicine 10/17/21 10/27/21 Ruben Franco MD [address] [place] [address] Dr Uribe [address] [place] [phone] Specialist Cardiovascular Disease 08/12/21 2 Robinson Zelaya MD [address] [place] [address] Dr Uribe [address] [place] [phone] Specialist Cardiovascular Disease 08/12/21 Patricia Goldberg MD [address] [place] [phone] Specialist Neurology 06/17/23 documented as of this encounter
--- OUTSIDE RECORDS SUMMARY | 2024-04-28 18:06 | XMS_ITS | Encounter Summary ---
Author Organization [facility] Address [address] [place] [address] Care Team Providers Care Hourly Manager Name Role Phone Brian Gonzalez MD Primary Care Provider Ruben Barry MD Unavailable [phone] Robinson Zelaya MD Unavailable Unavailable Aracelis Arteaga MD Primary Care Prov ider Aracelis Arteaga MD Primary Care Prov ider Patricia Goldberg MD Unavailable Unavailable Reason for Visit * Reason Onset Date Comments refill request 08/02/2020 Encounter Details Date Type Department Care Team Description 08/02/2020 Refill Allergy [place] [address] [place] [id number] Lor Contreras MD refill request Social History Tobacco Use Types Packs/Day Years [...] or suspected to have Coronavirus / COVID-19? No / Unsure 07/04/2020 1:29 PM EDT documented as of this encounter Miscellaneous Notes * Telephone Encounter - Jennifer Chatman - 08/02/2020 11:58 AM EDT ISABELLE 07.11.20 telehealth NOV 10.31.20 in office documented in this encounter Plan of Treatment Not on file documented as of this encounter Visit Diagnoses Not on filedocumented in this encounter Care Teams Hourly Manager Relationship Specialty Start Date End Date Brian Gonzalez MD PCP - General Internal Medicine 12/11/14 10/16/21 Aracelis Arteaga MD [address] [place] [phone] PCP - General Internal Medicine 10/28/21 Aracelis Arteaga MD [address] [place] [phone] PCP - General Internal Medicine 10/17/21 10/27/21 Ruben Franco MD [address] [place] [address] [place] [address] Specialist Cardiovascular Disease 08/12/21 2 Robinson Zelaya MD [address] [place] [address] [place] [address] Specialist Cardiovascular Disease 08/12/21 Patricia Goldberg MD [address] [place] [address] Specialist Neurology 06/17/23 documented as of this encounter
--- OUTSIDE RECORDS SUMMARY | 2024-04-28 18:06 | XMS_ITS | Data Portability ---
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 There are no urgent indications for alteration of management for neurology. The patient explicitly says that she is happy with current management. She is unsure if there is any current side effect from oxcarbazepine and topiramate. Her mother adds that somnolence which has been the main side effect from medications in general in recent times is also a potential side effect from many of her psychiatric medications. These are being actively changed. For all of the above reasons, we will make no changes, just take over management of the medications. Richard Dominguez nurse practitioner manages her from the psychiatric context. The mother says that he is not in the same address as is shown in the [employer] EMR for us to fax a note. We will try to obtain his updated address and include him with it for copies of all of our notes. LETICIA Stearns January 10, 2021 I have taken over the following medications with 90-day supply and refills: Topiramate 50 mg twice a day Topiramate 100 mg twice a day Oxcarbazepine 600 mg twice a day Follow-up in 6 months or sooner with neurological concerns. Please bring her mother to all neurology outpatient visits. 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 She and her mother feel that her seizures are stable from standpoint of frequency although she does describe a slightly increased frequency of 1-2 events per month compared to 1 event every 1 to 2 months described at consult. There have been some flashing lights in red that move transiently when she takes perphenazine from her psychiatrist. She has not had any eye pain to suggest acute angle glaucoma and she has also seen her java consultant and has reported that there is nothing to treat other than dry eyes. Discussed her mother's question of whether and underlying seizure would present itself as a hallucination to Tal: this would be exceedingly rare. Confirmed today that we do have her records from [facility] from Dr. Ruth from 09/24/2020 (brain MRI from April 30, 2017 is summarized in data review.) Has had more recent EEG and brain MRI at [facility] about 2 years ago. We will request these records PREVIOUSLY January 10, 2021: There are no urgent indications for alteration of management for neurology. The patient explicitly says that she is happy with current management. She is unsure if there is any current side effect from oxcarbazepine and topiramate. Her mother adds that somnolence which has been the main side effect from medications in general in recent times is also a potential side effect from many of her psychiatric medications. These are being actively changed. For all of the above reasons, we will make no changes, just take over management of the medications. Richard Dominguez nurse practitioner manages her from the psychiatric context. The mother says that he is not in the same address as is shown in the [employer] EMR for us to fax a note. We will try to obtain his updated address and include him with it for copies of all of our notes. LETICIA Stearns June 04, 2021 We will obtain electrolyte levels with particular attention to sodium to establish a baseline while you are on ox carbamazepine. We have faxed this to the [facility] laboratory at [address] in [place] at your request. This address was newly added to our EMR so please do not hesitate to contact us if you have any difficulties when you go to the lab. CONTINUE Topiramate 50 mg twice a day. 90-day Rx with 3 refills sent to your pharmacy today CONTINUE topiramate 100 mg twice a day. 90-day Rx with 3 refills sent to your pharmacy today CONTINUE oxcarbazepine 600 mg twice a day. 90-day Rx with 3 refills sent to your pharmacy today We will request records from [facility] with your MRI and EEG from about 2 years ago. Follow-up in 1 month after your electrolyte levels and if there are no issues, we may resume 6-month follow-ups (or sooner with neurological concerns). Please bring her mother to all neurology outpatient visits. Discussed with Dr. Parada, impression and plan were developed with him. CC Richard AGUILAR I have reviewed chart note, discussed the situation with Melanie Santacruz neurology PA, and agree with note contents and with assessment/plan in particular. Prakash Parada MD, PhD [email or web address] Not available 06/05/2021 14:36:58 Plan of Treatment Reminders Order Date Submit Date Provider Last Modified By Organization Details Last Modified Time Details Appointments None recorded. Lab BMP, serum or plasma - R94.4 Attn Phlebotomy 2021 022 sally 1 [facility], [address] [facility], [place], [address], 13:49:46 Referral None recorded. Procedures None recorded. Surgeries None recorded. Imaging None recorded. Medication Orders oxcarbazepi ne 600 mg tablet 2020 021 [facility], [address] [place], [address], 12:46:13 topiramate 100 mg tablet 2020 021 [facility], [address] [place], [address], 12:46:15 topiramate 50 mg tablet 2020 [facility], [address] [place], [address], 12:46:13 oxcarbazepi ne 600 mg tablet 2021 [facility], [address] [place], [address], 13:35:57 topiramate 100 mg tablet 2021 [facility], [address] [place], [address], 13:36:53 topiramate 50 mg tablet 2021 [facility], [address] [place], [address], 13:37:27 Patient TargetsNo targets recorded. Patient InstructionsNo instructions recorded. Reason for Referral None Reported. Results Created Date Observation Date Name Description Value Unit Range Abnormal Flag Note LastModifiedBy Organization Detail LastModifiedTime 06/06/19 22 06/03/2019 MRI, brain , w/wo contr ast No observ ation record ed. Not Available 06/05 09:58:59 Result Notes None recorded. Problems Name Problem SNOMED Code Status Onset Date Resolution Date Notes Provider Name and Address Organization Details Recorded Time Seizure 35707287 Active Nella Veliz [facility] 01/10/2021 11:17:10 Problem Notes None recorded. Procedures Surgical History Date Name Laterality Status Provider Name and Address Organization Details Recorded Time craniotomy completed Nella Veliz [facility] 01/10/2021 11:18:51 Imaging Results Imaging Date Name Status LastModified by Organiz ation Details LastModified Time 06/03/2019 MRI, brain, w/wo contrast completed Information not available 06/05/2021 09:58:59 Procedure Notes None recorded. Medical Equipment None Reported. Allergies Allergen ID Allergen Name Allergen Category Reaction Reaction Severity Criticality Documentation Date Start Date Code Code System Note Provider Name and Address Organization Details Recorded Time 606 gadobutro l medicatio n Not available Not available Not available 01/10/2021 76279 RxNorm Nella Veliz [facility] 11:25:59 607 Lamictal medicatio n Not available Not available Not available 01/10/2021 57450 2 RxNorm Nella Veliz [facility] 11:26:07 Medications Name Sig Start Date Stop Date Status Note LastModified by Organization Details LastModified Time medroxyprog esterone 10 mg tablet TAKE 1 TABLET BY MOUTH ONCE DAILY FOR 10 DAYS active Not Available Not Available No t Available oxcarbazepi ne 150 mg tablet TAKE 1 TABLET BY MOUTH EVERY EVENING WITH 600 MG TABLET FOR TOTAL DOSE OF 750 EVERY EVENING 01/10 completed Not Available Not Available Not Available haloperidol 5 mg tablet TAKE ONE TABLET BY MOUTH TWICE A DAY active Not Available Not Available No t Available cetirizine 10 mg tablet TAKE ONE TABLET BY MOUTH ONCE DAILY active Not Available Not Available No t Available lithium carbonate 150 mg capsule TAKE ONE CAPSULE BY MOUTH EVERY MORNING active Not Available Not Available No t Available ciprofloxac in 500 mg tablet TAKE 1 TABLET BY MOUTH TWICE A DAY FOR 7 DAYS active Not Available Not Available No t Available prednisolon e acetate 1 % eye drops,suspe nsion INSTILL 1 DROP IN EACH EYE FOUR TIMES A DAY active Not Available Not Available No t Available lorazepam 0.5 mg tablet TAKE ONE TABLET BY MOUTH AT BEDTIME NEEDED active Not Available Not Available No t Available lithium carbonate 300 mg capsule TAKE ONE CAPSULE BY MOUTH TWICE A DAY active Not Available Not Available No t Available perphenazin e 4 mg tablet TAKE ONE TABLET BY MOUTH TWICE A DAY active Not Available Not Available No t Available oxcarbazepi ne 600 mg tablet TAKE ONE TABLET BY MOUTH TWICE A DAY 2021 active Not Available Not Available Not Avai lable diclofenac sodium 75 mg tablet,nathalia yed release TAKE ONE TABLET BY MOUTH TWICE A DAY WITH FOOD active Not Available Not Available No t Available topiramate 200 mg tablet TAKE 1 TABLET BY MOUTH TWICE A DAY 01/10 completed Not Available Not Available Not Available dexamethaso ne sodium phosphate 4 mg/mL injection solution APPLY 1 ML ON THE SKIN DIRECTED; TO BE USED BY PHYSICAL THERAPIST S DIRECTED. active Not Available Not Available No t Available lorazepam 1 mg tablet TAKE ONE TABLET BY MOUTH TWICE A DAY NEEDED active Not Available Not Available No t Available perphenazin e 8 mg tablet TAKE 1 TABLET BY MOUTH TWICE A DAY. active Not Available Not Available No t Available ketoconazol e 2 % topical cream APPLY ON THE SKIN, IN BETWEEN ALL TOES, ONCE A DAY FOR 2-3 WEEKS active Not Available Not Available No t Available betamethaso ne dipropionat e 0.05 % topical ointment APPLY TO INFLAMED LESIONS ON THE BUTTOCKS TWICE DAILY FOR UP TO 2 WEEKS, BREAK FOR 1 WEEK. REPEAT NEEDED active Not Available Not Available No t Available topiramate 100 mg tablet TAKE ONE TABLET BY MOUTH TWICE A DAY active Not Available Not Available No t Available clotrimazol e 1 % topical cream APPLY TO AFFECTED AREAS ON FEET TWICE A DAY FOR 2 WEEKS active Not Available Not Available No t Available Hibiclens 4 % topical liquid USE EVERY OTHER DAY BODY WASH TO AFFECTED AREAS ON THE BODY active Not Available Not Available No t Available topiramate 50 mg tablet TAKE ONE TABLET BY MOUTH TWICE A DAY active Not Available Not Available No t Available paliperidon e ER 9 mg tablet,exte nded release 24 hr TAKE 1 TABLET BY MOUTH EVERY MORNING active Not Available Not Available No t Available paliperidon e ER 6 mg tablet,exte nded release 24 hr TAKE 1 TABLET BY MOUTH EVERY MORNING active Not Available Not Available No t Available olopatadine 0.2 % eye drops INSTILL 1 DROP INTO EACH EYE TWO TIMES A DAY NEEDED FOR ITCHING active Not Available Not Available No t Available Vraylar 6 mg capsule TAKE ONE CAPSULE BY MOUTH AT BEDTIME active Not Available Not Available No t Available Vraylar 1.5 mg capsule TAKE ONE CAPSULE BY MOUTH AT BEDTIME active Not Available Not Available No t Available Humira(CF) Pen 40 mg/0.4 mL subcutaneou s kit active Not Available Not Available Not Available Humira(CF) Pen Crohn's-Ulc Colitis-Hid Sup Strt 80 mg/0.8 mL subcut kt active Not Available Not Available No t Available Vitals Date Recorded Body height Body mass index (BMI) Body weight Provider Name and Address Organization Details Last Updated DateTime 01/10/2021 162.56 cm 36 kg/m2 00900.4 g Nella Veliz [facility] 01/10/2021 11:10:21 Social History Question Answer Notes LastModified by Organizat ion Details LastModified Time Tobacco Smoking Status Never Smoker Nella zepeda [facility] 01/10/2021 11:18:09 What Is Your Level Of Alcohol Consumption? Occasional Information not available 01/10/2021 What Is Your Level Of Caffeine Consumption? Occasional Information not available 01/10/2021 What Is Your Relationship Status? Single Information not available 01/10/2021 Sex: Unknown Functional Status None recorded. Mental Status None recorded. Family History Relationship Description Onset Age of this Age Resolved Age Notes LastModified by Organization Details LastModified Time Mother Diabetes mellitus Not available 01/10 11:19:53 Father Hypertensive disorder Not available 01/10 11:20:01 Maternal Grandfather Leukemia Not available 11:20:24 Paternal Grandfather Carcinoma of colon Not available 01/10 11:20:47 Maternal Aunt Malignant tumor of breast Not available 01/10 11:21:05 Maternal Aunt Malignant tumor of ovary Not available 01/10 11:25:28 Medical History No medical history recorded. Gynecological HistoryNo gynecological history recorded. Obstetrics History GPAL:G 0 P 0 0 0 0 Past Encounters Encounter ID Performer Location Encounter Start Date Encounter Closed Date Diagnosis/Indication Diagnosis SNOMED-CT Code Diagnosis ICD10 Code Diagnosis Note [id number] Prakash Parada MD [facility] [address] [place] [address] [place] [address] 01/10/2021 11:08:49 01/10/2021 13:08:35 Focal onset impaired awareness epileptic seizure 335818470 G40.209 Absence seizure 03510289 G40.A09 Decreased level of consciousness 189287073 R40.4 [id number] Prakash Parada MD [facility] [address] [place] [address] [place] [address] 06/04/2021 10:09:35 06/06/2021 16:48:46 Focal onset impaired awareness epileptic seizure 127711002 G40.209 Absence seizure 00648430 G40.A09 Decreased level of consciousness 857850527 R40.4 Health Concerns Section Related Observation LastModified by Organization Detai ls LastModified Time None Recorded Concern Status LastModified by Organization Details LastModified Time None Recorded Advance Directives Directive None Recorded Payers Encounter Date Sequence Insurance Name Policy Number Policy Hamm Covered Member ID Hamm Member ID Guarantor Name 01/10/2021 1 [facility] - DOS PRIOR TO 2022 - DUAL ELIGIBLE (MEDICARE REPLACEMENT/AD VANTAGE - HMO) Wale Gaston [id number] Wale Stearns 06/04/2021 1 [facility] - DOS PRIOR TO 2022 - DUAL ELIGIBLE (MEDICARE REPLACEMENT/AD VANTAGE - HMO) Wale Gaston [id number] Wale Stearns Notes Date Note Type Note Provider Name and Address Organization Details Recorded Time 01/10/2021 text/html She presents for initial neurology consultation for assessment and 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 Past history includes schizoaffective disorder under management of psychiatry. She is accompanied by her mother, Wanda Stearns. She lives with her parents. She takes her medications independently although her mother helps her put medications in her medication organizer once a week. Both mother and daughter feel that she has seizures every month to 2 months. Her mother adds that the longest. Between seizures has been about 6 months. Sometimes the patient reports feeling somewhat off to her mother and the mother is unsure whether this reflected a seizure. The patient describes her most recent seizure: She was walking and remembers having trouble turning off the water in the sink. The next thing she remembers she was in her bedroom. She never went back to turn off the water as after which she thought that she had turned off the water. Her mother last witnessed a seizure about a year ago although her daughter tells her about other seizures. The last witnessed seizure by the mother started when she observed her daughter kind of falter at the kitchen sink. As usual when she asked if she was okay she did not respond. Soon after she did begin to speak but was slurring and was confused. She denied that there had been or was a seizure. The whole event lasts a minute or less after which she is tired but not confused. She then remembers retrospectively that she just had a seizure. Seizures were different earlier in the patient's life from her mother's observation, starting as an infant: She would turn her head to the right and her right arm would go up. She would turn ashen and gasp or go up. An event lasted under a minute and she would invariably fall asleep. This stereotypic character was unchanged until about 2019 when seizures started becoming more like the above described seizure at the kitchen sink a year ago. Her mother thinks that addition of Topamax may have correlated with this transformation of the seizures. She is currently on oxcarbazepine 600 mg twice a day and topiramate 150 mg twice a day. Most recent changes have been in topiramate with successive reductions from 200/200 down to 150/200 down to 150/150 in September and November 2020, each reduction for drowsiness. Neither patient nor mother have noticed any definitive increase in seizure frequency. There was also a reduction of oxcarbazepine from 900 mg twice a day down 600 mg twice a day. Again, for drowsiness, and again neither remember an increase of seizures around that time. This has all been done by previous neurologist at [facility] who is moving to [place], last visit in August 2020 and from whom I have notes from 2018 in the chart. He has been managing by telephone since then. Previous medications have included Tegretol, gabapentin, levetiracetam and Depakote. Neither patient nor mother remember precisely the reason for transitioning off these medications but her mother generally remembers that seizure breakthrough generally was the reason to move toward other medications. Her mother describes mood disorder emerging in 2012 and 10-day hospitalization in 2018 with association new diagnosis of schizoaffective disorder. There was another hospitalization for 6 weeks in 2019 during which time lithium and paliperidone were started. During late summer and early 2020, psychiatry has been actively adjusting medications. Prakash Parada MD [address] [place] [address] [place], [phone], [facility] 01/10/2021 13:07:21 06/04/2021 text/html Follow up for assessment and 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 Past history includes schizoaffective disorder under management of psychiatry. She is accompanied by her mother, Wanda Stearns. She lives with her parents. She takes her medications independently although her mother helps her put medications in her medication organizer once a week Since January 10, 2022 initial neurology consultation, she reports that breakthrough seizures are about the same. She says that this is usually 1-2 seizures every month (note at consult she said 1 every 1 to 2 months). This usually last about 1 minute. The left or the right arm twitches. She has some awareness of this. Her mother notes that the character is a little different than it was a few years ago: , she would collapse but now she can be standing and make eye contact but she stopped speaking and will often slur her words and her arm can be seen trembling. Sometimes she does not realize it is happening. She reports that she has been getting some red flashing lights in her vision. There is not any eye pain. She has started perphenazine with her psychiatrist which helps does not last. She has been to her java consultant who does not have any specific recommendation other than [id number] drops for dry eyes. Her mother has noticed that she seems to have hallucinations but only transiently and sometimes wonders if this is hallucinations blend into the seizure activity and given her history of left temporal lobe astrocytoma, wonders if this could be related. Her most recent MRI and EEG were done at [facility] 2 years ago. Which confirm that we have records from [facility] from 4 years ago. She continues on topiramate 150 mg daily and on oxcarbazepine 600 mg tablet twice daily.Since her last visit, she is also on diclofenac for plantar fasciitis and has started Humira weekly 40 mg auto injection pen for hidradenitis January 10 2022 initial neurology consultation reviewed:Both mother and daughter feel that she has seizures every month to 2 months. Her mother adds that the longest. Between seizures has been about 6 months. Sometimes the patient reports feeling somewhat off to her mother and the mother is unsure whether this reflected a seizure. The patient describes her most recent seizure: She was walking and remembers having trouble turning off the water in the sink. The next thing she remembers she was in her bedroom. She never went back to turn off the water as after which she thought that she had turned off the water. Her mother last witnessed a seizure about a year ago although her daughter tells her about other seizures. The last witnessed seizure by the mother started when she observed her daughter kind of falter at the kitchen sink. As usual when she asked if she was okay she did not respond. Soon after she did begin to speak but was slurring and was confused. She denied that there had been or was a seizure. The whole event lasts a minute or less after which she is tired but not confused. She then remembers retrospectively that she just had a seizure. Seizures were different earlier in the patient's life from her mother's observation, starting as an infant: She would turn her head to the right and her right arm would go up. She would turn ashen and gasp or go up. An event lasted under a minute and she would invariably fall asleep. This stereotypic character was unchanged until about 2019 when seizures started becoming more like the above described seizure at the kitchen sink a year ago. Her mother thinks that addition of Topamax may have correlated with this transformation of the seizures. She is currently on oxcarbazepine 600 mg twice a day and topiramate 150 mg twice a day. Most recent changes have been in topiramate with successive reductions from 200/200 down to 150/200 down to 150/150 in September and November 2020, each reduction for drowsiness. Neither patient nor mother have noticed any definitive increase in seizure frequency. There was also a reduction of oxcarbazepine from 900 mg twice a day down 600 mg twice a day. Again, for drowsiness, and again neither remember an increase of seizures around that time. This has all been done by previous neurologist at [facility] who is moving to [place], last visit in August 2020 and from whom I have notes from 2018 in the chart. He has been managing by telephone since then. Previous medications have included Tegretol, gabapentin, levetiracetam and Depakote. Neither patient nor mother remember precisely the reason for transitioning off these medications but her mother generally remembers that seizure breakthrough generally was the reason to move toward other medications. Her mother describes mood disorder emerging in 2012 and 10-day hospitalization in 2019 with association new diagnosis of schizoaffective disorder. There was another hospitalization for 6 weeks in 2019 during which time lithium and paliperidone were started. During late summer and early 2020, psychiatry has been actively adjusting medications. Prakash Parada MD [address] [place] [address] [place], [phone], [facility] 06/05/2021 14:37:13 OBGyn Episode No OBEpisode recorded.
--- OUTSIDE RECORDS SUMMARY | 2024-04-28 18:06 | XMS_ITS | Encounter Summary ---
Author Organization [facility] Address [address] [place] [address] Care Team Providers Care Certified Prosthetist Vice President Name Role Phone Brian Gonzalez MD Primary Care Provider Ruben Barry MD Unavailable [phone] Robinson Zelaya MD Unavailable Unavailable Aracelis Arteaga MD Primary Care Prov ider Aracelis Arteaga MD Primary Care Prov ider Patricia Goldberg MD Unavailable Unavailable Encounter Details Date Type Department Care Team Description 09/24/2020 Advertising Specialist Report Medical Records [address] [place] [id number] [place] [address] Social History Tobacco Use Types Packs/Day Years [...] on filedocumented in this encounter Care Teams Certified Prosthetist Vice President Relationship Specialty Start Date End Date Brian Gonzalez MD PCP - General Internal Medicine 12/11/14 10/16/21 Aracelis Arteaga MD [address] [place] [address] PCP - General Internal Medicine 10/28/21 Aracelis Arteaga MD [address] [place] [address] PCP - General Internal Medicine 10/17/21 10/27/21 Ruben Franco MD [address] [place] [address] Dr Uribe [address] [place] [address] Specialist Cardiovascular Disease 08/12/21 2 Robinson Zelaya MD [address] [place] [address] [place] [address] Specialist Cardiovascular Disease 08/12/21 Patricia Goldberg MD [address] [place] [address] Specialist Neurology 06/17/23 documented as of this encounter
--- OUTSIDE RECORDS SUMMARY | 2024-04-28 18:07 | XMS_ITS | Encounter Summary ---
Demographics Address [address] [place] [address] Home Phone Preferred Language Occitan Marital Status Unknown Confucianist Affiliation Unknown Race White Ethnic Group Unknown Author Organization [facility] Address [address] [place] [address] Phone Support Name Relationship Address Phone Karon Stearns Mother [address] [place] [address] Prakash Ferrari Father [address] [place] [address] Care Team Providers Care Commercial Attache Name Role Phone Nuria Luna MD Primary Care Provider Encounter Details Date Type Department Care Team (Late st Contact Info) Description 01/15/2010 Documentation [facility] Family Medicine [address] [place], [place] [id number] Family Medicine, Physician [address] [place], [place] [address] Social History Tobacco Use Types Packs/Day Years Used Date Smoking Tobacco: Never Assessed Comments Unknown Sex and Gender Information Value Date Recorded Sex Assigned at Not on file Legal Sex Female 4:31 PM EDT Gender Identity Not on file Sexual Orientation Not on file documented as of this encounter Plan of Treatment Not on file documented as of this encounter Visit Diagnoses Not on filedocumented in this encounter Care Teams Commercial Attache Relationship Specialty Start Date End Date Nuria Luna MD [address] [place] [address] JATINDER De Santiago [address] PCP - General 11/07/16 06/29/22 documented as of this encounter
--- OUTSIDE RECORDS SUMMARY | 2024-04-28 18:07 | XMS_ITS | Encounter Summary ---
Author Organization [employer] [facility] Address [address] [place] [address] Care Team Providers Care Marketing Analytics Manager Name Role Phone Brian Gonzalez MD Primary Care Provider Robinson Brody MD Unavailable Unavailable Aracelis Arteaga MD Primary Care Prov ider Aracelis Arteaga MD Primary Care Prov ider Patricia Goldberg MD Unavailable Unavailable Encounter Details Date Type Department Care Team Description 08/28/2021 [facility] Medical Records [address] [place] [address] Abstract, Provider Social History Tobacco Use Types [...] Exposure Response Date Recorded In the last 10 days, have yo u been in contact with someone who was confirmed or suspected to have Coronavirus/COVID-19? No / Unsure 08/07/2021 8:08 AM EDT documented as of this encounter Plan of Treatment Not on file documented as of this encounter Visit Diagnoses Not on filedocumented in this encounter Care Teams Marketing Analytics Manager Relationship Specialty Start Date End Date Brian Gonzalez MD PCP - General Internal Medicine 12/11/14 10/16/21 Aracelis Arteaga MD [address] [place] [address] PCP - General Internal Medicine 10/28/21 Aracelis Arteaga MD [address] [place] [address] PCP - General Internal Medicine 10/17/21 10/27/21 Robinson Zelaya MD Specialist Cardiovascular Disease 08/12/21 Patricia Goldberg MD [address] [place] [address] Specialist Neurology 06/17/23 documented as of this encounter
--- OUTSIDE RECORDS SUMMARY | 2024-04-28 18:07 | XMS_ITS | Encounter Summary ---
Demographics Address [address] [place] [address] Home Phone Preferred Language Frisian Marital Status Unknown Restorationist Affiliation Unknown Race White Ethnic Group Unknown Author Organization [facility] Address [address] [place] [address] Phone Support Name Relationship Address Phone Karon Stearns Mother [address] [place] [address] Prakash Ferrari Father [address] [place] [address] Care Team Providers Care Drier Tender Name Role Phone Nuria Luna MD Primary Care Provider [phone] Encounter Details Date Type Department Care Team (Late st Contact Info) Description 11/13/2016 Conversion Encounter [facility] [address] [place] [address] Social History Tobacco Use Types Packs/Day Years [...] on filedocumented in this encounter Care Teams Drier Tender Relationship Specialty Start Date End Date Nuria Luna MD [address] [place] [address] PCP - General 11/07/16 06/29/22 documented as of this encounter
--- OUTSIDE RECORDS SUMMARY | 2024-04-28 18:07 | XMS_ITS | Encounter Summary ---
Author Organization [facility] Address [address] [place] [address] Care Team Providers Care Director Custom Name Role Phone Robinson Zelaya MD Unavailable Unavailable Aracelis Arteaga MD Primary Care Prov ider Patricia Goldberg MD Unavailable Unavailable Encounter Details Date Type Department Care Team Description 02/12/2022 Telephone [facility] [address] [address] Tarik Harris DPM [address] [address] Social History Tobacco Use Types Packs/Day Years Used Date Smoking Tobacco: Never Smokeless Tobacco: Never Alcohol Use Standard Drinks/Week Comments Yes 0 (1 standard drink = 0.6 oz pur e alcohol) wine - maybe twice per year Sex Assigned at Date Recorded Not on file Job Start Date Occupation Industry Not on file Not on file Not on file COVID-19 Exposure Response Date Recorded In the last 10 days, have jessica u been in contact with someone who was confirmed or suspected to have Coronavirus/COVID-19? No / Unsure 01/13/2022 10:01 AM EDT documented as of this encounter Plan of Treatment Not on file documented as of this encounter Visit Diagnoses Not on filedocumented in this encounter Care Teams Director Custom Relationship Specialty Start Date End Date Aracelis Arteaga MD [address] [place] [address] PCP - General Internal Medicine 10/28/21 Robinson Zelaya MD Specialist Cardiovascular Disease 08/12/21 Patricia Goldberg MD [address] [place] [address] Specialist Neurology 06/17/23 documented as of this encounter
--- OUTSIDE RECORDS SUMMARY | 2024-04-28 18:07 | XMS_ITS | Encounter Summary ---
Author Organization [facility] Address [address] [place] [address] Care Team Providers Care Fiberglass Roller Name Role Phone Brian Gonzalez MD Primary Care Provider Ruben Barry MD Unavailable [phone] Robinson Zelaya MD Unavailable Unavailable Aracelis Arteaga MD Primary Care Prov ider Aracelis Arteaga MD Primary Care Prov ider Patricia Goldberg MD Unavailable Unavailable Reason for Visit * Reason Onset Date Comments Medicare Wellness Visit 09/10/2015 Encounter Details Date Type Department Care Team Description 09/10/2015 Telephone [facility] [address] [phone] Wellness Nurse, [address] [phone] Medicare Wellness Visit Social History Tobacco Use Types Packs/Day Years Used Date Smoking Tobacco: Never Smokeless Tobacco: Never Alcohol Use Standard Drinks/Week Comments Yes 0 (1 standard drink = 0.6 oz pur e alcohol) rarely Sex Assigned at Date Recorded Not on file Job Start Date Occupation Industry Not on file Not on file Not on file documented as of this encounter Miscellaneous Notes * Telephone Encounter - Rinku Alberts - 09/10/2015 12:48 PM EDT Patient cancelled appointment for 06.15.16, would like a call back to zack her visit, call back at [phone] documented in this encounter Plan of Treatment Not on file documented as of this encounter Visit Diagnoses Not on filedocumented in this encounter Care Teams Fiberglass Roller Relationship Specialty Start Date End Date Brian Gonzalez MD PCP - General Internal Medicine 12/11/14 10/16/21 Aracelis Arteaga MD [address] [place] [address] PCP - General Internal Medicine 10/28/21 Aracelis Arteaga MD [address] [place] [address] PCP - General Internal Medicine 10/17/21 10/27/21 Ruben Franco MD [address] [place] [address] [place] [address] Specialist Cardiovascular Disease 08/12/21 2 Robinson Zelaya MD [address] [place] [address] [place] [address] Specialist Cardiovascular Disease 08/12/21 Patricia Goldberg MD [address] [place] [address] Specialist Neurology 06/17/23 documented as of this encounter
--- OUTSIDE RECORDS SUMMARY | 2024-04-28 18:07 | XMS_ITS | Clinical Summary ---
Demographics Address [address] [place] [address] Home Phone Preferred Language Bahraini Marital Status Unknown Jew Affiliation Unknown Race White Ethnic Group Unknown Author Organization [facility] Address [address] [place] [address] Phone Support Name Relationship Address Phone Karon Stearns Mother [address] [place] [address] Prakash Ferrari Father [address] [place] [address] Care Team Providers Care Regional Dedicated Truck Driver Name Role Phone Unavailable Primary Care Provider Unavailabl e Immunizations Name Administration Dates Next Due DTP 09/23/1995, 2,02/16/1991,12/15,1990 HPV, Quadrivalent 06/02/2008,02/03/2008,11/09/19 08 Hep B, ped/adol 02/25/2000, 0,08/22/1999,09/22 Hib (PRP-T) 11/15/1991, 1,1990,10/13 Influenza Split 12/28/2009 Influenza, injectable, trivalent 02/03/2008,122 03/2005 MMR 09/23/1995,11/15/1991 Meningococcal Conj (Menactra) MCV4P 07/31/2006 OPV 09/23/1995, 2,1990,10/13 Td (adult) (MBL), 2 Lf tetan us toxoid, PF, adsorbed 09/16/2001 Tdap 11/09/2007 Family History Relation Name Status Comments Father Alive Father: Alive a nd well Maternal Grandfather Alive Materna l grandfather: Coronary artery disease Mother Alive Mother: Alive a nd well Social History Tobacco Use Types Packs/Day Years Used Date Smoking Tobacco: Never Assessed Comments Unknown Sex and Gender Information Value Date Recorded Sex Assigned at Not on file Legal Sex Female 4:31 PM EDT Gender Identity Not on file Sexual Orientation Not on file Last Filed Vital Signs Vital Sign Reading Time Taken Comments Blood Pressure 116/64 12/27/2009 12:00 AM EDT Pulse - - Temperature - - Respiratory Rate - - Oxygen Saturation - - Inhaled Oxygen Concentration - - Weight 80.3 kg (177 lb) 12/27/2009 12:00 AM EDT Height 162.6 cm (5' 4 ) 12/27/2009 12:00 AM EDT Body Mass Index 30.38 12/27/2009 12:00 AM EDT Plan of Treatment Health Maintenance Due Date Last Done Comments Varicella Vaccines (1 of 2 - 13+ 2-dose series) 08/11/2003 Consider Men B Vaccine (1 of 2 - Bexsero 2-dose series) 2006 DTaP,Tdap,and Td Vaccines (7 - Td or Tdap) 11/08/2017 11/09/2007, 09/16/2001, 09/23/1995, Additional history exists Influenza Vaccines (#1) 2023 12/29/19, 02/03/2008, 03/19/2006 COVID-19 Vaccine ( season) 2023 HIB Vaccines Completed 11/15/1991, 01/29, 1990, Additional history exists IPV Vaccines Completed 09/23/1995, 10/28, 1990, Additional history exists MMR Vaccines Completed 09/23/1995, 11/15/1991 Hepatitis B Vaccines Completed 02/25/2000, 10/04/1999, 08/22/1999, Additional history exists Meningococcal Vaccine Aged Out 07/31/2006 No kristin silvia eligible based on patient's age to complete this topic HPV Vaccines Completed 06/02/2008, 11/0 08/2007, 11/09/2007 Hepatitis A Vaccines Aged Out No long er eligible based on patient's age to complete this topic Men B Vaccine Aged Out No longer elig ible based on patient's age to complete this topic Pneumococcal Vaccine Aged Out No long er eligible based on patient's age to complete this topic
--- OUTSIDE RECORDS SUMMARY | 2024-04-28 18:07 | XMS_ITS | Encounter Summary ---
Author Organization [facility] Address [address] [place] [address] Care Team Providers Care Diagnostics Sales Developer Name Role Phone Robinson Zelaya MD Unavailable Unavailable Aracelis Arteaga MD Primary Care Prov ider Patricia Goldberg MD Unavailable Unavailable Reason for Visit * Reason Onset Date Comments Medication 07/13/2023 Encounter Details Date Type Department Care Team Description 07/13/2023 Telephone [facility] [address] [phone] Tarik Harris DPM [address] [address] Medication Social History Tobacco Use Types Packs/Day Years [...] encounter Miscellaneous Notes * Telephone Encounter - Greta Haywood C.M.A. - 07/13/2023 11:38 AM EDT ISABELLE 03/04/2023 NOV 07/30/23 Please advise if you will prescribe * Telephone Encounter - Mali Kelsey - 07/13/2023 11:28 AM EDT Received call from patient she is requesting a Script for her Diclofenac Topical Gel. She states itwas Previously prescribed by her by PCP, but she will no longer prescribe it. Her next OV is on 07/[address] Harris. [facility]/ Please call her back @ [phone] w/any questions. Thanks. documented in this encounter Plan of Treatment Not on file documented as of this encounter Visit Diagnoses Not on filedocumented in this encounter Care Teams Diagnostics Sales Developer Relationship Specialty Start Date End Date Aracelis Arteaga MD [address] [place] [address] PCP - General Internal Medicine 10/28/21 Robinson Zelaya MD Specialist Cardiovascular Disease 08/12/21 Patricia Goldberg MD [address] [place] [address] Specialist Neurology 06/17/23 documented as of this encounter
--- OUTSIDE RECORDS SUMMARY | 2024-04-28 18:07 | XMS_ITS | Encounter Summary ---
Author Organization [facility] Address [address] [place] [address] Care Team Providers Care Field Technical Assistant Name Role Phone Brian Gonzalez MD Primary Care Provider Ruben Barry MD Unavailable [phone] Robinson Zelaya MD Unavailable Unavailable Aracelis Arteaga MD Primary Care Prov ider Aracelis Arteaga MD Primary Care Prov ider Patricia Goldberg MD Unavailable Unavailable Encounter Details Date Type Department Care Team Description 11/15/2020 Pt. Non Urgent Medic al Question Adult Medicine [address] [address] Brian Gonzalez MD Social History Tobacco Use Types Packs/Day [...] have Coronavirus / COVID-19? No / Unsure 10/31/2020 10:23 AM EDT documented as of this encounter Plan of Treatment Not on file documented as of this encounter Visit Diagnoses Not on filedocumented in this encounter Care Teams Field Technical Assistant Relationship Specialty Start Date End Date Brian Gonzalez MD PCP - General Internal Medicine 12/11/14 10/16/21 Aracelis Arteaga MD [address] [place] [address] PCP - General Internal Medicine 10/28/21 Aracelis Arteaga MD [address] [place] [address] PCP - General Internal Medicine 10/17/21 10/27/21 Ruben Franco MD [address] [place] [address] [place] [address] Specialist Cardiovascular Disease 08/12/21 2 Robinson Zelaya MD [address] [place] [address] [place] [address] Specialist Cardiovascular Disease 08/12/21 Patricia Goldberg MD [address] [place] [address] Specialist Neurology 06/17/23 documented as of this encounter
--- OUTSIDE RECORDS SUMMARY | 2024-04-28 18:07 | XMS_ITS | Encounter Summary ---
Demographics Address [address] [place] [address] Home Phone Preferred Language Maltese Marital Status Unknown Rastafarian Affiliation Unknown Race White Ethnic Group Unknown Author Organization [facility] Address [address] [place] [address] Phone Support Name Relationship Address Phone Karon Stearns Mother [address] [place] [address] Prakash Ferrari Father [address] [place] [address] Care Team Providers Care Tandem Operator Name Role Phone Nuria Luna MD Primary Care Provider Encounter Details Date Type Department Care Team (Late st Contact Info) Description 10/29/2010 Documentation [facility] [address] [place], [place] [phone] Family Medicine, Physician [address] [place], [place] [address] Social History Tobacco Use Types Packs/Day Years [...] on filedocumented in this encounter Care Teams Tandem Operator Relationship Specialty Start Date End Date Nuria Luna MD [address] [place] [address] JATINDER De Santiago [address] PCP - General 11/07/16 06/29/22 documented as of this encounter
--- OUTSIDE RECORDS SUMMARY | 2024-04-28 18:07 | XMS_ITS | Encounter Summary ---
Author Organization [facility] Address [address] [place] [address] Care Team Providers Care Radio Installer Automobile Name Role Phone Brian Gonzalez MD Primary Care Provider Ruben Barry MD Unavailable [phone] Robinson Zelaya MD Unavailable Unavailable Aracelis Arteaga MD Primary Care Prov ider Aracelis Arteaga MD Primary Care Prov ider Patricia Goldberg MD Unavailable Unavailable Encounter Details Date Type Department Care Team Description 06/04/2021 Char Filter Tank Tender Head Report Medical Records [address] [place] [address] Melanie Santacruz PA-C Social History Tobacco Use Types Packs/Day Years [...] on filedocumented in this encounter Care Teams Radio Installer Automobile Relationship Specialty Start Date End Date Brian Gonzalez MD PCP - General Internal Medicine 12/11/14 10/16/21 Aracelis Arteaga MD [address] [place] [address] [phone] PCP - General Internal Medicine 10/28/21 Aracelis Arteaga MD [address] [place] [address] PCP - General Internal Medicine 10/17/21 10/27/21 Ruben Franco MD [address] [place] [address] Dr Uribe [address] [place] [address] Specialist Cardiovascular Disease 08/12/21 2 Robinson Zelaya MD [address] [place] [address] [place] [address] Specialist Cardiovascular Disease 08/12/21 Patricia Goldberg MD [address] [place] [address] Specialist Neurology 06/17/23 documented as of this encounter
--- OUTSIDE RECORDS SUMMARY | 2024-04-28 18:07 | XMS_ITS | Encounter Summary ---
Author Organization [employer] [facility] Address [address] [place] [address] Care Team Providers Care Construction Rep Name Role Phone Brian Gonzalez MD Primary Care Provider Ruben Barry MD Unavailable [phone] Robinson Zelaya MD Unavailable Unavailable Aracelis Arteaga MD Primary Care Prov ider Aracelis Arteaga MD Primary Care Prov ider Patricia Goldberg MD Unavailable Unavailable Encounter Details Date Type Department Care Team Description 09/19/2015 Wellness Visit Medical Records [address] [place] [address] Brian Gonzalez MD Social History Tobacco Use [...] on filedocumented in this encounter Care Teams Construction Rep Relationship Specialty Start Date End Date Brian Gonzalez MD PCP - General Internal Medicine 12/11/14 10/16/21 Aracelis Arteaga MD [address] [place] [address] PCP - General Internal Medicine 10/28/21 Aracelis Arteaga MD [address] [place] [address] PCP - General Internal Medicine 10/17/21 10/27/21 Ruben Franco MD [address] [place] [address] Dr Uribe [address] [place] [address] Specialist Cardiovascular Disease 08/12/21 2 Robinson Zelaya MD [address] [place] [address] [place] [address] Specialist Cardiovascular Disease 08/12/21 Patricia Goldberg MD [address] [place] [address] Specialist Neurology 06/17/23 documented as of this encounter
--- OUTSIDE RECORDS SUMMARY | 2024-04-28 18:07 | XMS_ITS | Encounter Summary ---
Author Organization [facility] Address [address] [place] [address] Care Team Providers Care Window Cleaner Name Role Phone Brian Gonzalez MD Primary Care Provider Ruben Barry MD Unavailable [phone] Robinson Zelaya MD Unavailable Unavailable Aracelis Arteaga MD Primary Care Prov ider Aracelis Arteaga MD Primary Care Prov ider Patricia Goldberg MD Unavailable Unavailable Encounter Details Date Type Department Care Team Description 07/10/2021 Pt. Non Urgent Medic al Question Adult Medicine [address] [phone] Brian Gonzalez MD Social History Tobacco Use [...] on filedocumented in this encounter Care Teams Window Cleaner Relationship Specialty Start Date End Date Brian Gnozalez MD PCP - General Internal Medicine 12/11/14 10/16/21 Aracelis Arteaga MD [address] [place] [address] PCP - General Internal Medicine 10/28/21 Aracelis Arteaga MD [address] [place] [address] PCP - General Internal Medicine 10/17/21 10/27/21 Ruben Franco MD [address] [place] [address] Dr Uribe [address] [place] [address] Specialist Cardiovascular Disease 08/12/21 2 Robinson Zelaya MD [address] [place] [address] Dr Uribe [address] [place] [address] Specialist Cardiovascular Disease 08/12/21 Patricia Goldberg MD [address] [place] [address] Specialist Neurology 06/17/23 documented as of this encounter
--- OUTSIDE RECORDS SUMMARY | 2024-04-28 18:07 | XMS_ITS | Encounter Summary ---
Author Organization [facility] Address [address] [place] [address] Care Team Providers Care Information Systems Manager Name Role Phone Robinson Zelaya MD Unavailable Unavailable Aracelis Arteaga MD Primary Care Prov ider Aracelis Arteaga MD Primary Care Prov ider Patricia Goldberg MD Unavailable Unavailable Reason for Visit * Reason Onset Date Comments REFERRAL 10/18/2021 Encounter Details Date Type Department Care Team Description 10/18/2021 Telephone [facility] [address] [address] Tarik Harris DPM [address] [address] REFERRAL Social History Tobacco Use Types Packs/Day Years [...] Recorded In the last 10 days, have jessiac u been in contact with someone who was confirmed or suspected to have Coronavirus/COVID-19? No / Unsure 10/16/2021 10:38 AM EDT documented as of this encounter Plan of Treatment Not on file documented as of this encounter Visit Diagnoses Not on filedocumented in this encounter Care Teams Information Systems Manager Relationship Specialty Start Date End Date Aracelis Arteaga MD [address] [place] [address] PCP - General Internal Medicine 10/28/21 Aracelis Arteaga MD [address] [place] [address] PCP - General Internal Medicine 10/17/21 10/27/21 Robinson Zelaya MD Specialist Cardiovascular Disease 08/12/21 Patricia Goldberg MD [address] [place] [address] Specialist Neurology 06/17/23 documented as of this encounter
--- OUTSIDE RECORDS SUMMARY | 2024-04-28 18:07 | XMS_ITS | Encounter Summary ---
Author Organization [facility] Address [address] [place] [address] Care Team Providers Care Public Health Service Officer Name Role Phone Robinson Zelaya MD Unavailable Unavailable Aracelis Arteaga MD Primary Care Prov ider Patricia Goldberg MD Unavailable Unavailable Reason for Visit * Reason Onset Date Comments refill request 11/11/2022 Encounter Details Date Type Department Care Team Description 11/11/2022 Refill Adult Medicine [address] [address] Aracelis Arteaga MD [address] [place] [address] [phone] refill request Social History Tobacco Use Types [...] encounter Miscellaneous Notes * Telephone Encounter - Dariusz Aguirre - 11/11/2022 10:46 AM EDT Patient would like script to be: E-PRESCRIBED/FAXED TO PHARMACY WHEN WAS THE PATIENT'S LAST APPOINTMENT IN ADULT MEDICINE? 08/19/22 WHEN WAS THE LAST TIME THE PATIENT SAW THEIR PCP? 07/23/22 Does patient have an upcoming appointment? (THE MEDICATION REQUESTED IS ON THE MED LIST ABOVE) All of the medications requested were on the CURRENT MEDS list Did you check the Pharmacy information above?: YES Patient wants: 90 -day supply Is this a mail order prescription request ? NO If the refill is from a FAXED refill request what is the RX # listed on the fax? N/A Patients current insurance carrier is: Payor: [employer] [facility] QSecure MCR / Plan: [facility] / Product Type: HMO [id number] documented in this encounter Plan of Treatment Not on file documented as of this encounter Visit Diagnoses Not on filedocumented in this encounter Care Teams Public Health Service Officer Relationship Specialty Start Date End Date Aracelis Arteaga MD [address] [place] [address] PCP - General Internal Medicine 10/28/21 Robinson Zelaya MD Specialist Cardiovascular Disease 08/12/21 Patricia Goldberg MD [address] [place] [address] Specialist Neurology 06/17/23 documented as of this encounter
--- OUTSIDE RECORDS SUMMARY | 2024-04-28 18:07 | XMS_ITS | Encounter Summary ---
Author Organization [facility] Address [address] [place] [address] Care Team Providers Care Process Checker Name Role Phone Brian Gonzalez MD Primary Care Provider Ruben Barry MD Unavailable [phone] Robinson Zelaya MD Unavailable Unavailable Aracelis Arteaga MD Primary Care Prov ider Aracelis Arteaga MD Primary Care Prov ider Patricia Goldberg MD Unavailable Unavailable Encounter Details Date Type Department Care Team Description 01/18/2016 Ambulatory Blood Pressure Monitoring Medical Records [address] [place] [address] Abstract, Provider Social History Tobacco Use Types [...] on filedocumented in this encounter Care Teams Process Checker Relationship Specialty Start Date End Date Brian Gonzalez MD PCP - General Internal Medicine 12/11/14 10/16/21 Aracelis Arteaga MD [address] [place] [address] PCP - General Internal Medicine 10/28/21 Aracelis Arteaga MD [address] [place] [address] 80284 PCP - General Internal Medicine 10/17/21 10/27/21 Ruben Franco MD [address] [place] [address] Dr Uribe [address] [place] [address] Specialist Cardiovascular Disease 08/12/21 2 Robinson Zelaya MD [address] [place] [address] [place] [address] Specialist Cardiovascular Disease 08/12/21 Patricia Goldberg MD [address] [place] [address] Specialist Neurology 06/17/23 documented as of this encounter
--- OUTSIDE RECORDS SUMMARY | 2024-04-28 18:07 | XMS_ITS | Encounter Summary ---
Author Organization [facility] Address [address] [place] [address] Care Team Providers Care Yard Conductor Name Role Phone Brian Gonzalez MD Primary Care Provider Robinson Brody MD Unavailable Unavailable Aracelis Arteaga MD Primary Care Prov ider Aracelis Arteaga MD Primary Care Prov ider Patricia Goldberg MD Unavailable Unavailable Encounter Details Date Type Department Care Team Description 08/15/2021 [facility] Medical Records [address] [place] [phone] [place] [address] Social History Tobacco Use Types Packs/Day Years [...] on filedocumented in this encounter Care Teams Yard Conductor Relationship Specialty Start Date End Date Brian Gonzalez MD PCP - General Internal Medicine 12/11/14 10/16/21 Aracelis Arteaga MD [address] [place] [address] PCP - General Internal Medicine 10/28/21 Aracelis Arteaga MD [address] [place] [address]34 PCP - General Internal Medicine 10/17/21 10/27/21 Robinson Zelaya MD Specialist Cardiovascular Disease 08/12/21 Patricia Goldberg MD [address] [place] [address] Specialist Neurology 06/17/23 documented as of this encounter
--- OUTSIDE RECORDS SUMMARY | 2024-04-28 18:08 | XMS_ITS | Encounter Summary ---
Author Organization [facility] Address [address] [place] [address] Care Team Providers Care Corporate Traffic Manager Name Role Phone Brian Gonzalez MD Primary Care Provider Ruben Barry MD Unavailable [phone] Robinson Zelaya MD Unavailable Unavailable Aracelis Arteaga MD Primary Care Prov ider Aracelis Arteaga MD Primary Care Prov ider Patricia Goldberg MD Unavailable Unavailable Encounter Details Date Type Department Care Team Description 01/25/2016 Carburetor Expert Report Medical Records [address] [place] [address] Abstract, Provider Social History Tobacco Use Types [...] on filedocumented in this encounter Care Teams Corporate Traffic Manager Relationship Specialty Start Date End Date Brian Gonzalez MD PCP - General Internal Medicine 12/11/14 10/16/21 Aracelis Arteaga MD [address] [place] [address] PCP - General Internal Medicine 10/28/21 Aracelis Arteaga MD [address] [place] [address] PCP - General Internal Medicine 10/17/21 10/27/21 Ruben Franco MD [address] [place] [address] Dr Uribe [address] [place] [address] Specialist Cardiovascular Disease 08/12/21 2 Robinson Zelaya MD [address] [place] [address] Dr Uribe [address] [place] [address] Specialist Cardiovascular Disease 08/12/21 Patricia Goldberg MD [address] [place] [address] Specialist Neurology 06/17/23 documented as of this encounter
--- OUTSIDE RECORDS SUMMARY | 2024-04-28 18:08 | XMS_ITS | Encounter Summary ---
Author Organization [facility] Address [address] [place] [address] Care Team Providers Care Bargeman Name Role Phone Brian Gonzalez MD Primary Care Provider Ruben Barry MD Unavailable [phone] Robinson Zelaya MD Unavailable Unavailable Aracelis Arteaga MD Primary Care Prov ider Aracelis Arteaga MD Primary Care Prov ider Patricia Goldberg MD Unavailable Unavailable Encounter Details Date Type Department Care Team Description 02/05/2016 Transportation Job Titles Report Medical Records [address] [place] [address] Shawn Torres MD Social History Tobacco Use Types Packs/Day [...] on filedocumented in this encounter Care Teams Bargeman Relationship Specialty Start Date End Date Brian Gonzalez MD PCP - General Internal Medicine 12/11/14 10/16/21 Aracelis Arteaga MD [address] [place] [address] PCP - General Internal Medicine 10/28/21 Aracelis Arteaga MD [address] [place] [address] PCP - General Internal Medicine 10/17/21 10/27/21 Ruben Franco MD [address] [place] [address] Dr Uribe [address] [place] [address] Specialist Cardiovascular Disease 08/12/21 2 Robinson Zelaya MD [address] [place] [address] [place] [address] Specialist Cardiovascular Disease 08/12/21 Patricia Goldberg MD [address] [place] [address] Specialist Neurology 06/17/23 documented as of this encounter
--- OUTSIDE RECORDS SUMMARY | 2024-04-28 18:08 | XMS_ITS | Encounter Summary ---
Author Organization [facility] Address [address] [place] [address] Care Team Providers Care Developer Architect Name Role Phone Brian Gonzalez MD Primary Care Provider Ruben Barry MD Unavailable [phone] Robinson Zelaya MD Unavailable Unavailable Aracelis Arteaga MD Primary Care Prov ider Aracelis Arteaga MD Primary Care Prov ider Patricia Goldberg MD Unavailable Unavailable Encounter Details Date Type Department Care Team Description 10/22/2016 Wellness Visit Medical Records [address] [place] [address] Brian Gonzalez MD Social History Tobacco Use [...] on filedocumented in this encounter Care Teams Developer Architect Relationship Specialty Start Date End Date Brian Gonzalez MD PCP - General Internal Medicine 12/11/14 10/16/21 Aracelis Arteaga MD [address] [place] [address] PCP - General Internal Medicine 10/28/21 Aracelis Arteaga MD [address] [place] [address] PCP - General Internal Medicine 10/17/21 10/27/21 Ruben Franco MD [address] [place] [address] Dr Uribe [address] [place] [address] Specialist Cardiovascular Disease 08/12/21 2 Robinson Zelaya MD [address] [place] [address] [place] [address] Specialist Cardiovascular Disease 08/12/21 Patricia Goldberg MD [address] [place] [address] Specialist Neurology 06/17/23 documented as of this encounter
--- OUTSIDE RECORDS SUMMARY | 2024-04-28 18:09 | XMS_ITS | Encounter Summary ---
Demographics Address [address] [place] [place] [address] Home Phone Preferred Language Wolof Marital Status Unknown Confucianist Affiliation Unknown Race White Ethnic Group Unknown Author Organization [facility] Address [address] [place] [address] Phone Support Name Relationship Address Phone Karon Stearns Mother [address] [place] [address] Prakash Ferrari Father [address] [place] [address] Care Team Providers Care Horologist Apprentice Name Role Phone Nuria Luna MD Primary Care Provider Encounter Details Date Type Department Care Team (Late st Contact Info) Description 11/06/2009 Documentation [facility] Family Medicine [address] [place], [place] [phone] Family Medicine, Physician [address] [place], [place] [phone] Social History Tobacco Use Types Packs/Day Years [...] on filedocumented in this encounter Care Teams Horologist Apprentice Relationship Specialty Start Date End Date Nuria Luna MD [address] [place] [address] JATINDER De Santiago [address] PCP - General 11/07/16 06/29/22 documented as of this encounter
--- OUTSIDE RECORDS SUMMARY | 2024-04-28 18:09 | XMS_ITS | Encounter Summary ---
Demographics Address [address] [place] [address] Home Phone Preferred Language Sinhala Marital Status Unknown Scientology Affiliation Unknown Race White Ethnic Group Unknown Author Organization [facility] Address [address] [place] [address] Phone Support Name Relationship Address Phone Karon Stearns Mother [address] [place] [address] Prakash Ferrari Father [address] [place] [address] Care Team Providers Care Flap Lining Binder Name Role Phone Nuria Luna MD Primary Care Provider Encounter Details Date Type Department Care Team (Late st Contact Info) Description 10/03/2009 Documentation [facility] Family Medicine [address] [place], [place] [phone] Family Medicine, Physician [address] [place], [place] [phone] Social History Tobacco Use Types Packs/Day Years [...] on filedocumented in this encounter Care Teams Flap Lining Binder Relationship Specialty Start Date End Date Nuria Luna MD [address] [place] [address] JATINDER De Santiago [address] PCP - General 11/07/16 06/29/22 documented as of this encounter
--- OUTSIDE RECORDS SUMMARY | 2024-04-28 18:09 | XMS_ITS | Encounter Summary ---
Author Organization [facility] Address [address] [place] [address] Care Team Providers Care Bell Spinner Sousaphones Name Role Phone Prakash Perez MD Primary Care Provider Adarsh Blanchard MD Primary Care Provider Brian Larios MD Primary Care Provider Adarsh Smith MD Primary Care Provider Brian Larios MD Primary Care Provider Ruben Barry MD Unavailable [phone] Robinson eZlaya MD Unavailable Unavailable Aracelis Arteaga MD Primary Care Prov ider Aracelis Arteaga MD Primary Care Prov ider Patricia Goldberg MD Unavailable Unavailable Encounter Details Date Type Department Care Team Description 03/22/2012 Director Of Email Marketing Report Medical Records [address] [place] [address] Rene Gupta MD Social History Tobacco Use [...] on filedocumented in this encounter Care Teams Bell Spinner Sousaphones Relationship Specialty Start Date End Date Prakash Perez MD PCP - General Internal Medicine 01/20/12 04/04/13 Adarsh Valverde MD PCP - General Internal Medicine 04/05/13 Brian Gonzalez MD PCP - General Internal Medicine 01/12/14 12/07/14 Adarsh Valverde MD PCP - General Internal Medicine 12/08/14 Brian Gonzalez MD PCP - General Internal Medicine 12/11/14 10/16/21 Aracelis Arteaga MD [address] [place] [address] PCP - General Internal Medicine 10/28/21 Aracelis Arteaga MD [address] [place] [address] PCP - General Internal Medicine 10/17/21 10/27/21 Ruben Franco MD [address] [place] [address] [place] [address] Specialist Cardiovascular Disease 08/12/21 2 Robinson Zelaya MD [address] [place] [address] [place] [address] Specialist Cardiovascular Disease 08/12/21 Patricia Goldberg MD [address] [place] [address] Specialist Neurology 06/17/23 documented as of this encounter
--- OUTSIDE RECORDS SUMMARY | 2024-04-28 18:09 | XMS_ITS | Encounter Summary ---
Demographics Address [address] [place] [place] [address] Home Phone Preferred Language Telugu Marital Status Unknown Adventist Affiliation Unknown Race White Ethnic Group Unknown Author Organization [facility] Address [address] [place] [address] Phone Support Name Relationship Address Phone Karon Stearns Mother [address] [place] [address] Prakash Ferrari Father [address] [place] [address] Care Team Providers Care Java Android Developer Name Role Phone Nuria Luna MD Primary Care Provider Encounter Details Date Type Department Care Team (Late st Contact Info) Description 09/11/2009 Documentation [facility] Family Medicine [address] [place], [place] [phone] Family Medicine, Physician [address] [place], [place] [address] Social History Tobacco Use Types Packs/Day Years [...] on filedocumented in this encounter Care Teams Java Android Developer Relationship Specialty Start Date End Date Nuria Luna MD [address] [place] [address] JATINDER De Santiago [address] PCP - General 11/07/16 06/29/22 documented as of this encounter
== END 2024-04-28 14:50 | disposition home or self-care (01) ==
PROVIDERS: PCP Physician Assistant; Visit Provider Physician Assistant
DX: E11.9 Type 2 diabetes mellitus without complications (principal); I10 Essential (primary) hypertension; E78.2 Mixed hyperlipidemia

== ENCOUNTER → 2024-04-28 14:16 | Outpatient (BNVA) | payer OTHER, SELFPAY | PROVIDERS: PCP Physician Assistant; Visit Provider Physician Assistant | DX: E11.9 Type 2 diabetes mellitus without complications (principal); I10 Essential (primary) hypertension; E78.2 Mixed hyperlipidemia | CPT/HCPCS: 99212 ==

== ENCOUNTER 2024-05-25 14:58 | Outpatient (REF) | payer OTHER, SELFPAY ==
--- OUTSIDE RECORDS SUMMARY | 2024-05-25 18:28 | XMS_ITS | Encounter Summary ---
Author Organization [facility] Address [address] [place] [address] Care Team Providers Care Electric Solderer Name Role Phone Brian Gonzalez MD Primary Care Provider Ruben Barry MD Unavailable [phone] Robinson Zelaya MD Unavailable Unavailable Aracelis Arteaga MD Primary Care Prov ider Aracelis Arteaga MD Primary Care Prov ider Patricia Goldberg MD Unavailable Unavailable Reason for Visit * Reason Onset Date Comments Medication 05/26/2019 Encounter Details Date Type Department Care Team Description 05/26/2019 Telephone Adult Medicine [address] [phone] Brian Gonzalez MD Medication Social History Tobacco Use Types Packs/Day [...] encounter Miscellaneous Notes * Telephone Encounter - Jack Zamora L.P.N. - 05/27/2019 3:53 PM EST Called patient read her the message from Dr. Gonzalez * Telephone Encounter - Marsha Soto - 05/27/2019 10:16 AM EST Patient mom Mali Gaston is returning Sarah call from yesterday. Can be reached @ * Telephone Encounter - Sarah Ackerman M.A. - 05/26/2019 5:07 PM EST Lm for return call Ext [phone] * Telephone Encounter - Brian Gonzalez - 05/26/2019 4:55 PM EST With her hx of psychiatric disoder and seizure, I am not sure what med can be safely given. Please ask her to discuss with her psychiatry or neurology * Telephone Encounter - Jazmin Grier M.A. - 05/26/2019 1:52 PM EST Please advise * Telephone Encounter - Cheryl Montano - 05/26/2019 12:55 PM EST Caller requesting call back from provider: Dr Gonzalez Is the caller the patient? YES Reason for call back: Patient is having an mri ordered by neurology on 06-03-19. Asking if she can have medication for anxiety for the mri Caller offered to speak with the nurse for assistance: YES Response: Patient offered to speak with nurse for assistance and patient agreed. Message forwarded to nurse. documented in this encounter Plan of Treatment Not on file documented as of this encounter Visit Diagnoses Not on filedocumented in this encounter Care Teams Electric Solderer Relationship Specialty Start Date End Date Brian Gonzalez MD PCP - General Internal Medicine 12/11/14 10/16/21 Aracelis Arteaga MD [address] [place] [address] PCP - General Internal Medicine 10/28/21 Aracelis Arteaga MD [address] [place] [address] 96857 PCP - General Internal Medicine 10/17/21 10/27/21 Ruben Franco MD [address] [place] [address] Dr Uribe [address] [place] [address] Specialist Cardiovascular Disease 08/12/21 2 Robinson Zelaya MD [address] [place] [address] Dr Uribe [address] [place] [address] Specialist Cardiovascular Disease 08/12/21 Patricia Goldberg MD [address] [place] [address] Specialist Neurology 06/17/23 documented as of this encounter
--- OUTSIDE RECORDS SUMMARY | 2024-05-25 18:28 | XMS_ITS | Encounter Summary ---
Author Organization [facility] Address [address] [place] [address] Care Team Providers Care Seismic Computer Name Role Phone Brian Gonzalez MD Primary Care Provider Rubne Barry MD Unavailable [phone] Robinson Zelaya MD Unavailable Unavailable Aracelis Arteaga MD Primary Care Prov ider Aracelis Arteaga MD Primary Care Prov ider Patricia Goldberg MD Unavailable Unavailable Encounter Details Date Type Department Care Team Description 05/12/2019 Hospital Medical Records [address] [place] [address] Jonas Horton Social History Tobacco Use Types Packs/Day Years [...] on filedocumented in this encounter Care Teams Seismic Computer Relationship Specialty Start Date End Date Brian Gonzalez MD PCP - General Internal Medicine 12/11/14 10/16/21 Aracelis Arteaga MD [address] [place] [address] [id number] PCP - General Internal Medicine 10/28/21 Aracelis Arteaga MD [address] [place] [address] 37447 PCP - General Internal Medicine 10/17/21 10/27/21 Ruben Franco MD [address] [place] [address] Dr Uribe [address] [place] [address] Specialist Cardiovascular Disease 08/12/21 2 Robinson Zelaya MD [address] [place] [address] [place] [address] Specialist Cardiovascular Disease 08/12/21 Patricia Goldberg MD [address] [place] [address] Specialist Neurology 06/17/23 documented as of this encounter
--- OUTSIDE RECORDS SUMMARY | 2024-05-25 18:29 | XMS_ITS | Encounter Summary ---
Author Organization [facility] Address [address] [place] [address] Care Team Providers Care Stull Hewer Name Role Phone Brian Gonzalez MD Primary Care Provider Ruben Barry MD Unavailable [phone] Robinson Zelaya MD Unavailable Unavailable Aracelis Arteaga MD Primary Care Prov ider Aracelis Arteaga MD Primary Care Prov ider Patricia Goldberg MD Unavailable Unavailable Encounter Details Date Type Department Care Team Description 04/05/2019 SCAN Medical Records [address] [place] [address] Abstract, Provider Social History Tobacco Use Types [...] on file documented as of this encounter Procedures Procedure Name Priority Date/Time Associated Diagnosis Comments OUTSIDE EKG Routine 04/05/2019 documented in this encounter Results * OUTSIDE EKG (04/05/2019) Provider Abstract CARDIOLOGY documented in this encounter Visit Diagnoses Not on filedocumented in this encounter Care Teams Stull Hewer Relationship Specialty Start Date End Date Brian Gonzalez MD PCP - General Internal Medicine 12/11/14 10/16/21 Aracelis Arteaga MD [address] [place] [address] PCP - General Internal Medicine 10/28/21 Aracelis Arteaga MD [address] [place] [address] 97887 PCP - General Internal Medicine 10/17/21 10/27/21 Ruben Franco MD [address] [place] [address] [place] [address] Specialist Cardiovascular Disease 08/12/21 2 Robinson Zelaya MD [address] [place] [address] [place] [address] Specialist Cardiovascular Disease 08/12/21 Patricia Goldberg MD [address] [place] [address] Specialist Neurology 06/17/23 documented as of this encounter
--- OUTSIDE RECORDS SUMMARY | 2024-05-25 18:29 | XMS_ITS | Encounter Summary ---
Author Organization [facility] Address [address] [place] [address] Care Team Providers Care Tiler Name Role Phone Brian Gonzalez MD Primary Care Provider Ruben Barry MD Unavailable [phone] Robinson Zelaya MD Unavailable Unavailable Aracelis Arteaga MD Primary Care Prov ider Aracelis Arteaga MD Primary Care Prov ider Patricia Goldberg MD Unavailable Unavailable Encounter Details Date Type Department Care Team Description 09/24/2020 Gas Analyst Report Medical Records [address] [place] [phone] [place] [address] Social History Tobacco Use Types Packs/Day Years [...] on filedocumented in this encounter Care Teams Tiler Relationship Specialty Start Date End Date Brian Gonzalez MD PCP - General Internal Medicine 12/11/14 10/16/21 Aracelis Arteaga MD [address] [place] [address] 79659 PCP - General Internal Medicine 10/28/21 Aracelis Arteaga MD [address] [place] [address] 93666 PCP - General Internal Medicine 10/17/21 10/27/21 Ruben Franco MD [address] [place] [address] Dr Uribe [address] [place] [address] Specialist Cardiovascular Disease 08/12/21 2 Robinson Zelaya MD [address] [place] [address] [place] [address] Specialist Cardiovascular Disease 08/12/21 Patricia Goldberg MD [address] [place] [address] Specialist Neurology 06/17/23 documented as of this encounter
--- OUTSIDE RECORDS SUMMARY | 2024-05-25 18:29 | XMS_ITS | Encounter Summary ---
Demographics Address [address] [place] [address] Home Phone Preferred Language Citizen Of [place] Marital Status Unknown Restorationist Affiliation Unknown Race White Ethnic Group Unknown Author Organization [facility] Address [address] [place] [address] Phone Support Name Relationship Address Phone Karon Stearns Mother [address] [place] [address] Prakash Ferrari Father [address] [place] [address] Care Team Providers Care Strip Winder Name Role Phone Nuria Luna MD Primary Care Provider Encounter Details Date Type Department Care Team (Late st Contact Info) Description 11/13/2016 Conversion Encounter [facility] [address] [place] [address] Social History Tobacco Use Types Packs/Day Years [...] on filedocumented in this encounter Care Teams Strip Winder Relationship Specialty Start Date End Date Nuria Luna MD [address] [place] [address] PCP - General 11/07/16 06/29/22 documented as of this encounter
--- OUTSIDE RECORDS SUMMARY | 2024-05-25 18:29 | XMS_ITS | Encounter Summary ---
Author Organization [facility] Address [address] [place] [address] Care Team Providers Care Planning Analyst Name Role Phone Robinson Zelaya MD Unavailable Unavailable Aracelis Arteaga MD Primary Care Prov ider Patricia Goldberg MD Unavailable Unavailable Encounter Details Date Type Department Care Team Description 02/12/2022 Telephone [facility] [address] [phone] Tarik Harris DPM [address] [address] Social History Tobacco Use Types Packs/Day Years [...] on filedocumented in this encounter Care Teams Planning Analyst Relationship Specialty Start Date End Date Aracelis Arteaga MD [address] [place] [address] PCP - General Internal Medicine 10/28/21 Robinson Zelaya MD Specialist Cardiovascular Disease 08/12/21 Patricia Goldberg MD [address] [place] [address] Specialist Neurology 06/17/23 documented as of this encounter
--- OUTSIDE RECORDS SUMMARY | 2024-05-25 18:29 | XMS_ITS | Encounter Summary ---
Demographics Address [address] [place] [address] Home Phone Preferred Language British Virgin Islander Marital Status Unknown Yarsanism Affiliation Unknown Race White Ethnic Group Unknown Author Organization [facility] Address [address] [place] [address] Phone Support Name Relationship Address Phone Karon Stearns Mother [address] [place] [address] Prakash Ferrari Father [address] [place] [address] Care Team Providers Care Plastic Dolls Mold Filler Name Role Phone Nuria Luna MD Primary Care Provider Encounter Details Date Type Department Care Team (Late st Contact Info) Description 09/11/2009 Documentation [facility] [address] [place], [place] [phone] Family Medicine, Physician [address] [place], [place] [id number] Social History Tobacco Use Types Packs/Day Years [...] on filedocumented in this encounter Care Teams Plastic Dolls Mold Filler Relationship Specialty Start Date End Date Nuria Luna MD [address] [place] [address] JATINDER De Santiago [address] PCP - General 11/07/16 06/29/22 documented as of this encounter
--- OUTSIDE RECORDS SUMMARY | 2024-05-25 18:29 | XMS_ITS | Clinical Summary ---
Demographics Address [address] [place] [address] Home Phone Preferred Language Vietnamese Marital Status Unknown Episcopalian Affiliation Unknown Race White Ethnic Group Unknown Author Organization [facility] Address [address] [place] [address] Phone Support Name Relationship Address Phone Karon Stearns Mother [address] [place] [address] Prakash Ferrari Father [address] [place] [address] Care Team Providers Care Rotary Peel Oven Tender Name Role Phone Unavailable Primary Care Provider Unavailabl e Immunizations Immunization Administration Dates Next Due DTP 09/23/1995, 2,02/16/1991,12/15,1990 HPV, Quadrivalent 06/02/2008,02/03/2008,11/09/19 08 Hep B, ped/adol 02/25/2000, 0,08/22/1999,09/22 Hib (PRP-T) 11/15/1991, 1,1990,10/13 Influenza Split 12/28/2009 Influenza, injectable, trivalent 02/03/2008,12/2 03/2005 MMR 09/23/1995,11/15/1991 Meningococcal Conj (Menactra) MCV4P [...] of 2 - 13+ 2-dose series) 08/11/2003 DTaP,Tdap,and Td Vaccines (7 - Td or [...] complete this topic HPV Vaccines Completed 06/02/2008, 0 08/2007, 11/09/2007 Hepatitis A Vaccines Aged Out No long er eligible based on patient's age to complete this topic Men B Vaccine Aged Out No longer elig ible based on patient's age to complete this topic Pneumococcal Vaccine Aged Out No long er eligible based on patient's age to complete this topic
--- OUTSIDE RECORDS SUMMARY | 2024-05-25 18:29 | XMS_ITS | Encounter Summary ---
Author Organization [facility] Address [address] [place] [address] Care Team Providers Care Wire Sawyer Name Role Phone Robinson Zelaya MD Unavailable Unavailable Aracelis Arteaga MD Primary Care Prov ider Patricia Goldberg MD Unavailable Unavailable Reason for Visit * Reason Onset Date Comments Cough 12/27/2021 Fever 12/27/2021 Encounter Details Date Type Department Care Team Description 12/27/2021 Telephone Triage [address] [place] [address] Aracelis Arteaga MD [address] [place] [address] Cough; Fever Social History Tobacco Use Types Packs/Day Years [...] suspected to have Coronavirus/COVID-19? No / Unsure 12/09/2021 11:04 AM EDT documented as of this encounter Miscellaneous Notes * Telephone Encounter - Lucille Rodriguez L.P.N. - 12/27/2021 9:49 AM EDT [facility] - Telephone Triage Documentation CHIEF COMPLAINT:pos COVID Home care sx rx call as needed Er with any severe sx Call as neded [facility] website for treatment and reccomendations PCP: Aracelis Butler LMP/EDC: Current Outpatient Medications Medication Sig Dispense Refill ??? clotrimazole (LOTRIMIN) 1 % cream Apply to toenails daily for 3 months 30 g 3 ??? meloxicam (MOBIC) 7.5 MG tablet Take 1 Tablet by mouth daily for 360 days. 30 Tablet 1 ? ? lorazepam (ATIVAN) 1 MG tablet 1mg tab at bedtime & 0.5 mg prn during the day ??? paliperidone (INVEGA) 3 MG 24 hr tablet Take 3 mg by mouth every evening. ??? Topiramate ER 150 MG Capsule ER 24 Hour Sprinkle Take 1 Capsule by mouth 2 Times Daily. ??? acetaminophen (TYLENOL) 500 MG tablet Take 2 Tablets by mouth 2 Times Daily. ??? ziprasidone (GEODON) 80 MG capsule Take 80 mg by mouth 2 times daily (with meals). ??? Adalimumab 40 MG/0.8ML Pen-injector Kit Inject into the skin once a week. ??? medroxyPROGESTERone (PROVERA) 10 MG tablet Take 1 Tablet by mouth. For 10 days ??? VITAMIN D OR Take 2,000 Int'l Units by mouth daily. ??? lithium 300 MG tablet Take 300 mg by mouth 2 times daily. ??? oxcarbazepine (TRILEPTAL) 600 MG tablet Take 600 mg by mouth 2 Times Daily. No current facility-administered medications for this visit. Allergies: Gadavist [gadobutrol] and Lamictal xr Patient Active Problem List Diagnosis Code ??? Seizure disorder (HCC) G40.909 ??? Shingles B02.9 ??? 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 Dysmenorrhea N94.6 ??? Hypertriglyceridemia E78.1 ??? Elevated glucose R73.09 ??? Elevated liver enzymes R74.8 ??? Electrocardiogram showing T wave abnormalities R94.31 ??? Plantar fasciitis, bilateral M72.2 DISPOSITION:Advice given. Pt. will call back if worsens or no improvement. REFERENCE:[facility] Telephone Triage Protocols for Nurses by Keke Garber CALLER UNDERSTANDS & AGREES WITH ADVICE:YES * Telephone Encounter - Marsha Soto - 12/27/2021 9:23 AM EDT Symptoms patient is presenting: patient did at home covid test which came back positive - she has acough and fever and would like to speak with nurse for some advice For ALL patients calling to schedule any appointment (routine, sick visit, follow up, consult, etc.) in the outpatient setting please ask the following questions: ?? Do you have fever of higher than 101, sore throat with difficulty swallowing or severe shortnessof breath? NO If YES to any of these above symptoms, send a message to triage and do not book. Red dot. If no, an audio or video visit should be booked. ?? Have you had close contact with someone with Coronavirus in the last 14 days? NO ?? Have you traveled abroad? NO ?? Have you traveled recently to another state outside of [place], [place], [place], [place], [place], [place], [place]? NO o If yes, did you quarantine for 14 days or have a negative covid test? NO If yes to any of the above, patient is not to be scheduled in office until after 14 day quarantine or negative covid test. If pain or injury related was it due to an accident at work or from a motor vehicle accident? NO If yes, gather 3rd green party insurance information Date of accident/Injury: n/a How long has patient had these symptoms?: few days PCP: Aracelis Butler Payor: [facility] M[facility] / Plan: [facility] / Product Type: HMO [id number] documented in this encounter Plan of Treatment Not on file documented as of this encounter Visit Diagnoses Not on filedocumented in this encounter Care Teams Wire Sawyer Relationship Specialty Start Date End Date Aracelis Arteaga MD [address] [place] [address] PCP - General Internal Medicine 10/28/21 Robinson Zelaya MD Specialist Cardiovascular Disease 08/12/21 Patricia Goldberg MD [address] [place] [address] Specialist Neurology 06/17/23 documented as of this encounter
--- OUTSIDE RECORDS SUMMARY | 2024-05-25 18:29 | XMS_ITS | Encounter Summary ---
Author Organization [facility] Address [address] [place] [address] Care Team Providers Care Furniture Repair Technician Name Role Phone Brian Gonzalez MD Primary Care Provider Ruben Barry MD Unavailable [phone] Robinson Zelaya MD Unavailable Unavailable Aracelis Arteaga MD Primary Care Prov ider Aracelis Arteaga MD Primary Care Prov ider Patricia Goldberg MD Unavailable Unavailable Encounter Details Date Type Department Care Team Description 06/04/2021 Oncology Consultant Report Medical Records [address] [place] [address] Melanie Santacruz PA-C Social History Tobacco Use [...] on filedocumented in this encounter Care Teams Furniture Repair Technician Relationship Specialty Start Date End Date Brian Gonzalez MD PCP - General Internal Medicine 12/11/14 10/16/21 Aracelis Arteaga MD [address] [place] [address] [id number] PCP - General Internal Medicine 10/28/21 Aracelis Arteaga MD [address] [place] [address] PCP - General Internal Medicine 10/17/21 10/27/21 Ruben Franco MD [address] [place] [address] Dr Uribe [address] [place] [address] Specialist Cardiovascular Disease 08/12/21 2 Robinson Zelaya MD [address] [place] [address] [place] [address] Specialist Cardiovascular Disease 08/12/21 Patricia Goldberg MD [address] [place] [address] Specialist Neurology 06/17/23 documented as of this encounter
--- OUTSIDE RECORDS SUMMARY | 2024-05-25 18:29 | XMS_ITS | Encounter Summary ---
Author Organization [facility] Address [address] [place] [address] Care Team Providers Care Necktie Maker Name Role Phone Robinson Zelaya MD Unavailable Unavailable Aracelis Arteaga MD Primary Care Prov ider Patricia Goldberg MD Unavailable Unavailable Reason for Visit * Reason Comments E-prescribe Rx Request Encounter Details Date Type Department Care Team Description 10/29/2023 Refill Dermatology - [address] [phone] Lidia Mcclain PA-C E-prescribe Rx Request Social History Tobacco Use Types Packs/Day Years [...] on filedocumented in this encounter Care Teams Necktie Maker Relationship Specialty Start Date End Date Aracelis Arteaga MD [address] [place] [address] PCP - General Internal Medicine 10/28/21 Robinson Zelaya MD Specialist Cardiovascular Disease 08/12/21 Patricia Goldberg MD [address] [place] [address], [place] [address] Specialist Neurology 06/17/23 documented as of this encounter
--- OUTSIDE RECORDS SUMMARY | 2024-05-25 18:29 | XMS_ITS | Encounter Summary ---
Author Organization [facility] Address [address] [place] [address] Care Team Providers Care Assembler Fitter Name Role Phone Brian Gonzalez MD Primary Care Provider Ruben Barry MD Unavailable [phone] Robinson Zelaya MD Unavailable Unavailable Aracelis Arteaga MD Primary Care Prov ider Aracelis Arteaga MD Primary Care Prov ider Patricia Goldberg MD Unavailable Unavailable Encounter Details Date Type Department Care Team Description 09/19/2017 Blow Up Operator Report Medical Records [address] [place] [address] [facility] Social History Tobacco Use Types Packs/Day Years [...] on filedocumented in this encounter Care Teams Assembler Fitter Relationship Specialty Start Date End Date Brian Gonzalez MD PCP - General Internal Medicine 12/11/14 10/16/21 Aracelis Arteaga MD [address] [place] [address] PCP - General Internal Medicine 10/28/21 Aracelis Arteaga MD [address] [place] [address] PCP - General Internal Medicine 10/17/21 10/27/21 Ruben Franco MD [address] [place] [address] Dr Uribe [address] [place] [address] Specialist Cardiovascular Disease 08/12/21 2 Robinson Zelaya MD [address] [place] [address] [place] [address] Specialist Cardiovascular Disease 08/12/21 Patricia Goldberg MD [address] [place] [address] Specialist Neurology 06/17/23 documented as of this encounter
--- OUTSIDE RECORDS SUMMARY | 2024-05-25 18:29 | XMS_ITS | Encounter Summary ---
Author Organization [facility] Address [address] [place] [address] Care Team Providers Care Chief Operator Reformer Name Role Phone Prakash Perez MD Primary Care Provider Adarsh Blanchard MD Primary Care Provider Brian Larios MD Primary Care Provider Adarsh Smith MD Primary Care Provider Brian Larios MD Primary Care Provider Ruben Barry MD Unavailable [phone] Robinson Zelaya MD Unavailable Unavailable Aracelis Arteaga MD Primary Care Prov ider Aracelis Arteaga MD Primary Care Prov ider Patricia Goldberg MD Unavailable Unavailable Encounter Details Date Type Department Care Team Description 09/28/2012 Sat Act Instructor Report Medical Records [address] [place] [address] Lesly Larios, PH.D Social History Tobacco Use Types Packs/Day Years [...] on filedocumented in this encounter Care Teams Chief Operator Reformer Relationship Specialty Start Date End Date Prakash Perez MD PCP - General Internal Medicine 01/20/12 04/04/13 Adarsh Valverde MD PCP - General Internal Medicine 04/05/13 Brian Gonzalez MD PCP - General Internal Medicine 01/12/14 12/07/14 Adarsh Valverde MD PCP - General Internal Medicine 12/08/14 Brian Gonzalez MD PCP - General Internal Medicine 12/11/14 10/16/21 Aracelis Arteaga MD [address] [place] [address] PCP - General Internal Medicine 10/28/21 Aracelis Arteaga MD [address] [place] [address] PCP - General Internal Medicine 10/17/21 10/27/21 Ruben Franco MD [address] [place] [address] [place] [address] Specialist Cardiovascular Disease 08/12/21 2 Robinson Zelaya MD [address] [place] [address] [place] [address] Specialist Cardiovascular Disease 08/12/21 Patricia Goldberg MD [address] [place] [address] Specialist Neurology 06/17/23 documented as of this encounter
--- OUTSIDE RECORDS SUMMARY | 2024-05-25 18:29 | XMS_ITS | Encounter Summary ---
Author Organization [facility] Address [address] [place] [address] Care Team Providers Care Transitional Nurse Name Role Phone Brian Gonzalez MD Primary Care Provider Ruben Barry MD Unavailable [phone] Robinson Zelaya MD Unavailable Unavailable Aracelis Arteaga MD Primary Care Prov ider Aracelis Arteaga MD Primary Care Prov ider Patricia Goldberg MD Unavailable Unavailable Encounter Details Date Type Department Care Team Description 07/29/2021 Telephone Gastroenterology - [address] [place] [address] Leena Saenz DScPAS Social History Tobacco Use Types Packs/Day Years [...] on filedocumented in this encounter Care Teams Transitional Nurse Relationship Specialty Start Date End Date Brian Gonzalez MD PCP - General Internal Medicine 12/11/14 10/16/21 Aracelis Arteaga MD [address] [place] [address] PCP - General Internal Medicine 10/28/21 Aracelis Arteaga MD [address] [place] [address] PCP - General Internal Medicine 10/17/21 10/27/21 Ruben Franco MD [address] [place] [address] Dr Uribe [address] [place] [address] Specialist Cardiovascular Disease 08/12/21 2 Robinson Zelaya MD [address] [place] [address] Dr Uribe [address] [place] [address] Specialist Cardiovascular Disease 08/12/21 Patricia Goldberg MD [address] [place] [address] Specialist Neurology 06/17/23 documented as of this encounter
--- OUTSIDE RECORDS SUMMARY | 2024-05-25 18:29 | XMS_ITS | Encounter Summary ---
Author Organization [facility] Address [address] [place] [address] Care Team Providers Care Steam Box Tender Name Role Phone Brian Gonzalez MD Primary Care Provider Ruben Barry MD Unavailable [phone] Robinson Zelaya MD Unavailable Unavailable Aracelis Arteaga MD Primary Care Prov ider Aracelis Arteaga MD Primary Care Prov ider Patricia Goldberg MD Unavailable Unavailable Encounter Details Date Type Department Care Team Description 09/27/2018 Promotional Advertising Assistant Report Medical Records [address] [place] [address] [facility] [place] Social History Tobacco Use Types Packs/Day Years [...] on filedocumented in this encounter Care Teams Steam Box Tender Relationship Specialty Start Date End Date Brian Gonzalez MD PCP - General Internal Medicine 12/11/14 10/16/21 Aracelis Arteaga MD [address] [place] [address] [phone] PCP - General Internal Medicine 10/28/21 Aracelis Arteaga MD [address] [place] [address] PCP - General Internal Medicine 10/17/21 10/27/21 Ruben Franco MD [address] [place] [address] Dr Uribe [address] [place] [address] Specialist Cardiovascular Disease 08/12/21 2 Robinson Zelaya MD [address] [place] [address] [place] [address] Specialist Cardiovascular Disease 08/12/21 Patricia Goldberg MD [address] [place] [address] Specialist Neurology 06/17/23 documented as of this encounter
--- OUTSIDE RECORDS SUMMARY | 2024-05-25 18:29 | XMS_ITS | Encounter Summary ---
Author Organization [facility] Address [address] [place] [address] Care Team Providers Care Slitting Machine Operator Helper Name Role Phone Brian Gonzalez MD Primary Care Provider Ruben Barry MD Unavailable [phone] Robinson Zelaya MD Unavailable Unavailable Aracelis Arteaga MD Primary Care Prov ider Aracelis Arteaga MD Primary Care Prov ider Patricia Goldberg MD Unavailable Unavailable Encounter Details Date Type Department Care Team Description 01/10/2021 Faculty Physician Report Medical Records [address] [place] [address] Prakash Parada MD Social History Tobacco Use [...] on filedocumented in this encounter Care Teams Slitting Machine Operator Helper Relationship Specialty Start Date End Date Brian Gonzalez MD PCP - General Internal Medicine 12/11/14 10/16/21 Aracelis Arteaga MD [address] [place] [address] PCP - General Internal Medicine 10/28/21 Aracelis Arteaga MD [address] [place] [address] PCP - General Internal Medicine 10/17/21 10/27/21 Ruben Franco MD [address] [place] [address] [place] [address] Specialist Cardiovascular Disease 08/12/21 2 Robinson Zelaya MD [address] [place] [address] [place] [address] Specialist Cardiovascular Disease 08/12/21 Patricia Goldberg MD [address] [place] [address] Specialist Neurology 06/17/23 documented as of this encounter
--- OUTSIDE RECORDS SUMMARY | 2024-05-25 18:29 | XMS_ITS | Encounter Summary ---
Author Organization [facility] Address [address] [place] [address] Care Team Providers Care Motor Assembler Name Role Phone Robinson Zelaya MD Unavailable Unavailable Aracelis Arteaga MD Primary Care Prov ider Patricia Goldberg MD Unavailable Unavailable Reason for Visit * Reason Comments E-prescribe Rx Request Encounter Details Date Type Department Care Team Description 10/22/2023 Refill Dermatology - [address] [phone] Lidia Mcclain PA-C E-prescribe Rx Request Social [...] on filedocumented in this encounter Care Teams Motor Assembler Relationship Specialty Start Date End Date Aracelis Arteaga MD [address] [place] [address] PCP - General Internal Medicine 10/28/21 Robinson Zelaya MD Specialist Cardiovascular Disease 08/12/21 Patricia Goldberg MD [address] [place] [address], [place] [address] Specialist Neurology 06/17/23 documented as of this encounter
--- OUTSIDE RECORDS SUMMARY | 2024-05-25 18:29 | XMS_ITS | Encounter Summary ---
Author Organization [employer] [facility] Address [address] [place] [address] Care Team Providers Care Superintendent Schools Name Role Phone Brian Gonzalez MD Primary Care Provider Ruben Barry MD Unavailable [phone] Robinson Zelaya MD Unavailable Unavailable Aracelis Arteaga MD Primary Care Prov ider Aracelis Arteaga MD Primary Care Prov ider Patricia Goldberg MD Unavailable Unavailable Encounter Details Date Type Department Care Team Description 02/05/2016 Agriculture Internship Report Medical Records [address] [place] [address] Shawn Torres MD Social History Tobacco Use [...] on filedocumented in this encounter Care Teams Superintendent Schools Relationship Specialty Start Date End Date Brian Gonzalez MD PCP - General Internal Medicine 12/11/14 10/16/21 Aracelis Arteaga MD [address] [place] [address] PCP - General Internal Medicine 10/28/21 Aracelis Arteaga MD [address] [place] [address] PCP - General Internal Medicine 10/17/21 10/27/21 Ruben Franco MD [address] [place] [address] Dr Uribe [address] [place] [address] Specialist Cardiovascular Disease 08/12/21 2 Robinson Zelaya MD [address] [place] [address] [place] [address] Specialist Cardiovascular Disease 08/12/21 Patricia Goldberg MD [address] [place] [address] Specialist Neurology 06/17/23 documented as of this encounter
--- OUTSIDE RECORDS SUMMARY | 2024-05-25 18:29 | XMS_ITS | Encounter Summary ---
Demographics Address [address] [place] [address] Home Phone Preferred Language Czech Marital Status Unknown Druze Affiliation Unknown Race White Ethnic Group Unknown Author Organization [facility] Address [address] [place] [address] Phone Support Name Relationship Address Phone Karon Stearns Mother [address] [place] [address] Prakash Ferrari Father [address] [place] [address] Care Team Providers Care Cork Mixer Name Role Phone Nuria Luna MD Primary Care Provider [phone] Encounter Details Date Type Department Care Team (Late st Contact Info) Description 01/15/2010 Documentation [facility] [address] [place], [place] [phone] Family Medicine, Physician [address] [place], [place] [address] Social History Tobacco Use Types Packs/Day Years [...] on filedocumented in this encounter Care Teams Cork Mixer Relationship Specialty Start Date End Date Nuria Luna MD [address] [place] [address] JATINDER De Santiago [address] PCP - General 11/07/16 06/29/22 documented as of this encounter
--- OUTSIDE RECORDS SUMMARY | 2024-05-25 18:29 | XMS_ITS | Encounter Summary ---
Demographics Address [address] [place] [address] Home Phone Preferred Language Romanian Marital Status Unknown Confucianism Affiliation Unknown Race White Ethnic Group Unknown Author Organization [facility] Address [address] [place] [address] Phone Support Name Relationship Address Phone Karon Stearns Mother [address] [place] [address] Prakash Ferrari Father [address] [place] [address] Care Team Providers Care Desktop Publisher Name Role Phone Nuria Luna MD Primary Care Provider [phone] Encounter Details Date Type Department Care Team (Late st Contact Info) Description 10/03/2009 Documentation [facility] [address] [place], [place] [phone] Family Medicine, Physician [address] [place], [place] [address] Social History Tobacco Use Types Packs/Day Years [...] on filedocumented in this encounter Care Teams Desktop Publisher Relationship Specialty Start Date End Date Nuria Luna MD [address] [place] [address] JATINDER De Santiago [address] PCP - General 11/07/16 06/29/22 documented as of this encounter
--- OUTSIDE RECORDS SUMMARY | 2024-05-25 18:29 | XMS_ITS | Encounter Summary ---
Author Organization [facility] Address [address] [place] [address] Care Team Providers Care Balloon Maker Name Role Phone Brian Gonzalez MD Primary Care Provider Ruben Barry MD Unavailable [phone] Robinson Zelaya MD Unavailable Unavailable Aracelis Arteaga MD Primary Care Prov ider Aracelis Arteaga MD Primary Care Prov ider Patricia Goldberg MD Unavailable Unavailable Reason for Visit * Reason Onset Date Comments APPOINTMENT 07/18/2021 Encounter Details Date Type Department Care Team Description 07/18/2021 Pt. Non Urgent Medic al Question Adult Medicine [address] [address] Brian Gonzalez MD Social History Tobacco Use [...] encounter Miscellaneous Notes * Telephone Encounter - Carrillo Mitchell M.A. - 07/18/2021 12:00 PM EDTFrom: Wale Stearns To: Pati Gonzalez Sent: 07/18/2021 11:53 AM EDT Subject: Physical appointment Dear dr. Park, You scheduled a physical for me on September 03, 2021. I can't make that day could you give me another day. Are there any sooner appointments ? Thank you Wale Stearns documented in this encounter Plan of Treatment Not on file documented as of this encounter Visit Diagnoses Not on filedocumented in this encounter Care Teams Balloon Maker Relationship Specialty Start Date End Date Brian Gonzalez MD PCP - General Internal Medicine 12/11/14 10/16/21 Aracelis Arteaga MD [address] [place] [address] PCP - General Internal Medicine 10/28/21 Aracelis Arteaga MD [address] [place] [address] PCP - General Internal Medicine 10/17/21 10/27/21 Ruben Franco MD [address] [place] [address] [place] [address] Specialist Cardiovascular Disease 08/12/21 2 Robinson Zelaya MD [address] [place] [address] [place] [address] Specialist Cardiovascular Disease 08/12/21 Patricia Goldberg MD [address] [place] [address] Specialist Neurology 06/17/23 documented as of this encounter
--- OUTSIDE RECORDS SUMMARY | 2024-05-25 18:29 | XMS_ITS | Encounter Summary ---
Author Organization [facility] Address [address] [place] [address] Care Team Providers Care Rollout Manager Name Role Phone Prakash Perez MD Primary Care Provider Adarsh Blanchard MD Primary Care Provider Brian Larios MD Primary Care Provider Adarsh Smith MD Primary Care Provider Brian Larios MD Primary Care Provider Ruben Barry MD Unavailable [phone] Robinson Zelaya MD Unavailable Unavailable Aracelis Arteaga MD Primary Care Prov ider Aracelis Arteaga MD Primary Care Prov ider Patricia Goldberg MD Unavailable Unavailable Encounter Details Date Type Department Care Team Description 06/17/2007 [facility] Medical Records [address] [place] [address] Don Berman Social History Tobacco Use Types Packs/Day Years Used Date Smoking Tobacco: Never Assessed Sex Assigned at Date Recorded Not on file Job Start Date Occupation Industry Not on file Not on file Not on file documented as of this encounter Plan of Treatment Not on file documented as of this encounter Procedures Procedure Name Priority Date/Time Associated Diagnosis Comments OUTSIDE MRI/MRA Routine 06/17/2007 documented in this encounter Results * OUTSIDE MRI/MRA (06/17/2007) Provider Abstract RADIOLOGY documented in this encounter Visit Diagnoses Not on filedocumented in this encounter Care Teams Rollout Manager Relationship Specialty Start Date End Date Prakash Perez MD PCP - General Internal Medicine 01/20/12 04/04/13 Adarsh Valverde MD PCP - General Internal Medicine 04/05/13 Brian Gonzalez MD PCP - General Internal Medicine 01/12/14 12/07/14 Adarsh Valverde MD PCP - General Internal Medicine 12/08/14 Brian Gonzalez MD PCP - General Internal Medicine 12/11/14 10/16/21 Aracelis Arteaga MD [address] [place] [address] PCP - General Internal Medicine 10/28/21 Aracelis Arteaga MD [address] [place] [address] PCP - General Internal Medicine 10/17/21 10/27/21 Ruben Franco MD [address] [place] [address] [place] [address] Specialist Cardiovascular Disease 08/12/21 2 Robinson Zelaya MD [address] [place] [address] [place] [address] Specialist Cardiovascular Disease 08/12/21 Patricia Goldberg MD [address] [place] [address] Specialist Neurology 06/17/23 documented as of this encounter
--- OUTSIDE RECORDS SUMMARY | 2024-05-25 18:29 | XMS_ITS | Encounter Summary ---
Author Organization [employer] [facility] Address [address] [place] [address] Care Team Providers Care Sheet Metal Smith Name Role Phone Brian Gonzalez MD Primary Care Provider Robinson Brody MD Unavailable Unavailable Aracelis Arteaga MD Primary Care Prov ider Aracelis Arteaga MD Primary Care Prov ider Patricia Goldberg MD Unavailable Unavailable Encounter Details Date Type Department Care Team Description 08/15/2021 [facility] Medical Records [address] [place] [id number] [place] [address] Social History Tobacco Use Types Packs/Day Years [...] on filedocumented in this encounter Care Teams Sheet Metal Smith Relationship Specialty Start Date End Date Brian Gonzalez MD PCP - General Internal Medicine 12/11/14 10/16/21 Aracelis Aretaga MD [address] [place] [address] PCP - General Internal Medicine 10/28/21 Aracelis Arteaga MD [address] [place] [address] PCP - General Internal Medicine 10/17/21 10/27/21 Robinson Zelaya MD Specialist Cardiovascular Disease 08/12/21 Patricia Goldberg MD [address] [place] [address] Specialist Neurology 06/17/23 documented as of this encounter
--- OUTSIDE RECORDS SUMMARY | 2024-05-25 18:29 | XMS_ITS | Encounter Summary ---
Author Organization [facility] Address [address] [place] [address] Care Team Providers Care Customs Entry Clerk Name Role Phone Brian Gonzalez MD Primary Care Provider Ruben Barry MD Unavailable [phone] Robinson Zelaya MD Unavailable Unavailable Aracelis Arteaga MD Primary Care Prov ider Aracelis Arteaga MD Primary Care Prov ider Patricia Goldberg MD Unavailable Unavailable Encounter Details Date Type Department Care Team Description 11/15/2020 Pt. Non Urgent Medic al Question Adult Medicine [address] [address] Brian Gonzalez MD Social History Tobacco Use [...] on filedocumented in this encounter Care Teams Customs Entry Clerk Relationship Specialty Start Date End Date Brian Gonzalez MD PCP - General Internal Medicine 12/11/14 10/16/21 Aracelis Arteaga MD [address] [place] [address] PCP - General Internal Medicine 10/28/21 Aracelis Arteaga MD [address] [place] [address] PCP - General Internal Medicine 10/17/21 10/27/21 Ruben Franco MD [address] [place] [address] [place] [address] Specialist Cardiovascular Disease 08/12/21 2 Robinson Zelaya MD [address] [place] [address] [place] [address] Specialist Cardiovascular Disease 08/12/21 Patricia Goldberg MD [address] [place] [address] Specialist Neurology 06/17/23 documented as of this encounter
--- OUTSIDE RECORDS SUMMARY | 2024-05-25 18:29 | XMS_ITS | Encounter Summary ---
Author Organization [facility] Address [address] [place] [address] Care Team Providers Care Supervisor Photocomposition Name Role Phone Brian Gonzalez MD Primary Care Provider Robinson Brody MD Unavailable Unavailable Aracelis Arteaga MD Primary Care Prov ider Aracelis Arteaga MD Primary Care Prov ider Patricia oGldberg MD Unavailable Unavailable Encounter Details Date Type Department Care Team Description 08/28/2021 [facility] Medical Records [address] [place] [address] Abstract, Provider Social History Tobacco Use Types [...] filedocumented in this encounter Care Teams Supervisor Photocomposition Relationship Specialty Start Date End Date Brian Gonzalez MD PCP - General Internal Medicine 12/11/14 10/16/21 Aracelis Arteaga MD [address] [place] [address] PCP - General Internal Medicine 10/28/21 Aracelis Arteaga MD [address] [place] [address] PCP - General Internal Medicine 10/17/21 10/27/21 Robinson Zelaya MD Specialist Cardiovascular Disease 08/12/21 Patricia Goldberg MD [address] [place] [address] Specialist Neurology 06/17/23 documented as of this encounter
--- OUTSIDE RECORDS SUMMARY | 2024-05-25 18:29 | XMS_ITS | Encounter Summary ---
Author Organization [employer] [facility] Address [address] [place] [address] Care Team Providers Care Secretarial Teacher Name Role Phone Brian Gonzalez MD Primary Care Provider Ruben Barry MD Unavailable [phone] Robinson Zelaya MD Unavailable Unavailable Aracelis Arteaga MD Primary Care Prov ider Aracelis Arteaga MD Primary Care Prov ider Patricia Goldberg MD Unavailable Unavailable Encounter Details Date Type Department Care Team Description 01/18/2016 Ambulatory Blood Pressure Monitoring Medical Records [address] [place] [address] Abstract, Provider Social History Tobacco Use Types [...] on filedocumented in this encounter Care Teams Secretarial Teacher Relationship Specialty Start Date End Date Brian Gonzalez MD PCP - General Internal Medicine 12/11/14 10/16/21 Aracelis Arteaga MD [address] [place] [address] PCP - General Internal Medicine 10/28/21 Aracelis Arteaga MD [address] [place] [address] PCP - General Internal Medicine 10/17/21 10/27/21 Ruben Franco MD [address] [place] [address] Dr Uribe [address] [place] [address] Specialist Cardiovascular Disease 08/12/21 2 Robinson Zelaya MD [address] [place] [address] [place] [address] Specialist Cardiovascular Disease 08/12/21 Patricia Goldberg MD [address] [place] [address] Specialist Neurology 06/17/23 documented as of this encounter
--- OUTSIDE RECORDS SUMMARY | 2024-05-25 18:29 | XMS_ITS | Encounter Summary ---
Demographics Address [address] [place] [address] Home Phone Preferred Language [place] Citizen Marital Status Unknown Roman Catholic Affiliation Unknown Race White Ethnic Group Unknown Author Organization [facility] Address [address] [place] [address] Phone Support Name Relationship Address Phone Karon Stearns Mother [address] [place] [address] Prakash Ferrari Father [address] [place] [address] Care Team Providers Care Offender Job Retention Specialist Name Role Phone Nuria Luna MD Primary Care Provider Encounter Details Date Type Department Care Team (Late st Contact Info) Description 11/06/2009 Documentation [facility] Family Medicine [address] [place], [place] [id number] Family Medicine, Physician [address] [place], [place] [address] Social History Tobacco Use Types Packs/Day Years [...] on filedocumented in this encounter Care Teams Offender Job Retention Specialist Relationship Specialty Start Date End Date Nuria Luna MD [address] [place] [address] JATINDER De Santiago [address] PCP - General 11/07/16 06/29/22 documented as of this encounter
--- OUTSIDE RECORDS SUMMARY | 2024-05-25 18:29 | XMS_ITS | Data Portability ---
Author Organization [facility] [employer] Address [address] [place] [address] [place] [address] Care Team Providers Care Commercial Construction Project Manager Name Role Phone MARK SINGH Referring Provider [...] same address as is shown in the [facility] for us to fax a note. [...] glaucoma and she has also seen her lead pharmacy technician and has reported that there is nothing to treat other than dry eyes. Discussed her mother's question of whether and underlying seizure would present itself as a hallucination to Tal: this would be exceedingly rare. Confirmed today that we do have her records from [facility] from Dr. Ruth from 09/24/2020 (brain MRI from April 30, 2017 is summarized in data review.) Has had more recent EEG and brain MRI at [facility] about 2 years ago. We will [...] same address as is shown in the [facility] for us to fax a note. We will try to obtain his updated address and include him with it for copies of all of our notes. LETICIA Stearns June 04, 2021 We will obtain electrolyte levels with particular attention to sodium to establish a baseline while you are on ox carbamazepine. We have faxed this to the [facility] laboratory at [address] in [place] at your request. This address was newly [...] pharmacy today We will request records from [facility] with your MRI and EEG from about [...] assessment/plan in particular. Prakash Parada MD, PhD [facility] Not available 06/05/2021 14:36:58 Plan of Treatment Reminders Order Date Submit Date Provider Last Modified By Organization Details Last Modified Time Details Appointments None recorded. Lab BMP, serum or plasma - R94.4 Attn Phlebotomy 2021 022 sally 1 [facility], [address] [facility], [place], [address], 13:49:46 Referral None recorded. Procedures None recorded. Surgeries None recorded. Imaging None recorded. Medication Orders oxcarbazepi ne 600 mg tablet 2021 [facility], [address] [facility], [place], [address], 13:35:57 topiramate 100 mg tablet 2021 [place] [facility], [address] [place], [address], 13:36:53 topiramate 50 mg tablet 2021 [place] [facility], [address] [place], [address], 13:37:27 oxcarbazepi ne 600 mg tablet 2020 [place] [facility], [address] [place], [address], 12:46:13 topiramate 100 mg tablet 2020 [place] [facility], [address] [place], [address], 12:46:15 topiramate 50 mg tablet 2020 [place] [facility], [address] [place], [address], 12:46:13 Patient TargetsNo targets recorded. Patient InstructionsNo instructions [...] and Address Organization Details Recorded Time Seizure 06288602 Active Nella Veliz [facility] 01/10/2021 11:17:10 Problem Notes None recorded. Procedures [...] Not available Not available Not available 01/10/2021 23010 RxNorm Nella Veliz [facility] 11:25:59 607 Lamictal medicatio n Not available Not available Not available 01/10/2021 08282 2 RxNorm Nella Veliz [facility] 11:26:07 Medications Name Sig Start Date Stop [...] Updated DateTime 01/10/2021 162.56 cm 36 kg/m2 04524.4 g Nella Veliz [facility] [...] Code Diagnosis Note 2312 Prakash Parada MD [facility] [address] [place] [address] [place] [address] 01/10/2021 11:08:49 01/10/2021 13:08:35 Focal onset impaired awareness epileptic seizure 361439188 G40.209 Absence seizure 65157868 G40.A09 Decreased level of consciousness 397791132 R40.4 4261 Prakash Parada MD [facility] [address] [place] [address] [place] [address] 06/04/2021 10:09:35 06/06/2021 16:48:46 Focal onset impaired awareness epileptic seizure 502125923 G40.209 Absence seizure 69664550 G40.A09 Decreased level of consciousness 881600270 R40.4 Health Concerns Section Related Observation LastModified by Organization Detai ls LastModified Time None Recorded Concern Status LastModified by Organization Details LastModified Time None Recorded Advance Directives Directive None Recorded Payers Encounter Date Sequence Insurance Name Policy Number Policy Hamm Covered Member ID Hamm Member ID Guarantor Name 01/10/2021 1 [facility] - DOS PRIOR TO 2022 - DUAL ELIGIBLE (MEDICARE REPLACEMENT/AD VANTAGE - HMO) Wale Gaston [id number] Wale Stearns 06/04/2021 1 [facility] - DOS PRIOR TO 2022 - DUAL ELIGIBLE (MEDICARE REPLACEMENT/AD VANTAGE - HMO) Wale Gaston [id number] Wale Stearns Notes Date Note Type Note Provider Name and Address Organization Details Recorded Time 01/10/2021 text/html She presents for initial neurology consultation for assessment and 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 Past history includes schizoaffective disorder under management of psychiatry. She is accompanied by her mother, Wadna Stearns. She lives with her parents. She [...] from her mother's observation, starting as an : She would turn her head to the [...] all been done by previous neurologist at [facility] who is moving to [place], last visit in August 2020 and from [...] been actively adjusting medications. Prakash Parada MD [address] [place] [address] [place], [address], [facility] 01/10/2021 13:07:21 06/04/2021 text/html Follow up for [...] than it was a few years ago: Infant, she would collapse but now she can [...] not last. She has been to her lead pharmacy technician who does not have any specific recommendation other than wdwa-yrp-[id number] drops for dry eyes. Her mother has noticed that she seems to have hallucinations but only transiently and sometimes wonders if this is hallucinations blend into the seizure activity and given her history of left temporal lobe astrocytoma, wonders if this could be related. Her most recent MRI and EEG were done at [facility] 2 years ago. Which confirm that we have records from [facility] from 4 years ago. She continues [...] from her mother's observation, starting as an : She would turn her head to the [...] all been done by previous neurologist at [facility] who is moving to [place], last visit in August 2020 and from [...] been actively adjusting medications. Prakash Parada MD [address] [place] [address] [place], [address], [facility] 06/05/2021 14:37:13 OBGyn Episode No OBEpisode recorded.
--- OUTSIDE RECORDS SUMMARY | 2024-05-25 18:29 | XMS_ITS | Encounter Summary ---
Author Organization [facility] Address [address] [place] [address] Care Team Providers Care Puppet Developer Name Role Phone Adarsh Valverde MD Primary Care Provider Brian Larios MD Primary Care Provider Adarsh Smith MD Primary Care Provider Brian Larios MD Primary Care Provider Ruben Barry MD Unavailable [phone] Robinson Zelaya MD Unavailable Unavailable Aracelis Arteaga MD Primary Care Prov ider Aracelis Arteaga MD Primary Care Prov ider Patricia Goldberg MD Unavailable Unavailable Encounter Details Date Type Department Care Team Description 07/25/2013 Console Attendant Report Medical Records [address] [place] [address] Rene Gupta MD Social History Tobacco Use [...] on filedocumented in this encounter Care Teams Puppet Developer Relationship Specialty Start Date End Date Adarsh Valverde MD PCP - General Internal Medicine 04/05/13 Brian Gonzalez MD PCP - General Internal Medicine 01/12/14 12/07/14 Adarsh Valverde MD PCP - General Internal Medicine 12/08/14 Brian Gonzalez MD PCP - General Internal Medicine 12/11/14 10/16/21 Aracelis Arteaga MD [address] [place] [address] PCP - General Internal Medicine 10/28/21 Aracelis Arteaga MD [address] [place] [address] PCP - General Internal Medicine 10/17/21 10/27/21 Ruben Franco MD [address] [place] [address] [place] [address] Specialist Cardiovascular Disease 08/12/21 2 Robinson Zelaya MD [address] [place] [address] [place] [address] Specialist Cardiovascular Disease 08/12/21 Patricia Goldberg MD [address] [place] [address] Specialist Neurology 06/17/23 documented as of this encounter
--- OUTSIDE RECORDS SUMMARY | 2024-05-25 18:29 | XMS_ITS | Encounter Summary ---
Author Organization [facility] Address [address] [place] [address] Care Team Providers Care Laundry Housekeeping Aide Name Role Phone Robinson Zelaya MD Unavailable Unavailable Aracelis Arteaga MD Primary Care Prov ider Patricia Goldberg MD Unavailable Unavailable Reason for Visit * Reason Onset Date Comments refill request 11/11/2022 Encounter Details Date Type Department Care Team Description 11/11/2022 Refill Adult Medicine [address] [address] Aracelis Arteaga MD [address] [place] [address] [phone] refill request Social History Tobacco Use Types [...] N/A Patients current insurance carrier is: Payor: [employer] [facility] [employer] / Plan: [facility] / Product Type: HMO [id number] documented in this encounter Plan of Treatment Not on file documented as of this encounter Visit Diagnoses Not on filedocumented in this encounter Care Teams Laundry Housekeeping Aide Relationship Specialty Start Date End Date Aracelis Arteaga MD [address] [place] [address] PCP - General Internal Medicine 10/28/21 Robinson Zelaya MD Specialist Cardiovascular Disease 08/12/21 Patricia Goldberg MD [address] [place] [address] Specialist Neurology 06/17/23 documented as of this encounter
--- OUTSIDE RECORDS SUMMARY | 2024-05-25 18:29 | XMS_ITS | Encounter Summary ---
Author Organization [employer] [facility] Address [address] [place] [address] Care Team Providers Care Diesel Engine Mechanic Apprentice Name Role Phone Brian Gonzalez MD Primary Care Provider Ruben Barry MD Unavailable [phone] Robinson Zelaya MD Unavailable Unavailable Aracelis Arteaga MD Primary Care Prov ider Aracelis Arteaga MD Primary Care Prov ider Patricia Goldberg MD Unavailable Unavailable Encounter Details Date Type Department Care Team Description 01/25/2016 Linen Controller Report Medical Records [address] [place] [address] Abstract, Provider Social History Tobacco Use Types [...] on filedocumented in this encounter Care Teams Diesel Engine Mechanic Apprentice Relationship Specialty Start Date End Date Brian Gonzalez MD PCP - General Internal Medicine 12/11/14 10/16/21 Aracelis Arteaga MD [address] [place] [address] PCP - General Internal Medicine 10/28/21 Aracelis Arteaga MD [address] [place] [address] PCP - General Internal Medicine 10/17/21 10/27/21 Ruben Franco MD [address] [place] [address] Dr Uribe [address] [place] [address] Specialist Cardiovascular Disease 08/12/21 2 Robinson Zelaya MD [address] [place] [address] Dr Uribe [address] [place] [address] Specialist Cardiovascular Disease 08/12/21 Patricia Goldberg MD [address] [place] [address] Specialist Neurology 06/17/23 documented as of this encounter
--- OUTSIDE RECORDS SUMMARY | 2024-05-25 18:29 | XMS_ITS | Encounter Summary ---
Author Organization [facility] Address [address] [place] [address] Care Team Providers Care Drapery Maker Name Role Phone Prakash Perez MD Primary Care Provider Adarsh Blanchard MD Primary Care Provider Brian Larios MD Primary Care Provider Adarsh Smith MD Primary Care Provider Brian Larios MD Primary Care Provider Ruben Barry MD Unavailable [phone] Robinson Zelaya MD Unavailable Unavailable Aracelis Arteaga MD Primary Care Prov ider Aracelis Arteaga MD Primary Care Prov ider Patricia Goldberg MD Unavailable Unavailable Encounter Details Date Type Department Care Team Description 03/08/2009 [facility] Records [address] [place] [address] Don Berman Social History Tobacco Use Types [...] Date/Time Associated Diagnosis Comments OUTSIDE MRI/MRA Routine 03/08/2009 documented in this encounter Results * OUTSIDE MRI/MRA (03/08/2009) Provider Abstract RADIOLOGY documented in this encounter Visit Diagnoses Not on filedocumented in this encounter Care Teams Drapery Maker Relationship Specialty Start Date End Date Prakash Perez MD PCP - General Internal Medicine 01/20/12 04/04/13 Adarsh Valverde MD PCP - General Internal Medicine 04/05/13 Brian Gonzalez MD PCP - General Internal Medicine 01/12/14 12/07/14 Adarsh Valverde MD PCP - General Internal Medicine 12/08/14 Brian Gonzalez MD PCP - General Internal Medicine 12/11/14 10/16/21 Aracelis Arteaga MD [address] [place] [address] PCP - General Internal Medicine 10/28/21 Aracelis Arteaga MD [address] [place] [address] PCP - General Internal Medicine 10/17/21 10/27/21 Ruben Franco MD [address] [place] [address] [place] [address] Specialist Cardiovascular Disease 08/12/21 2 Robinson Zelaya MD [address] [place] [address] [place] [address] Specialist Cardiovascular Disease 08/12/21 Patricia Goldberg MD [address] [place] [address] Specialist Neurology 06/17/23 documented as of this encounter
--- OUTSIDE RECORDS SUMMARY | 2024-05-25 18:29 | XMS_ITS | Encounter Summary ---
Demographics Address [address] [place] [address] Home Phone Preferred Language Micronesian Marital Status Unknown Taoist Affiliation Unknown Race White Ethnic Group Unknown Author Organization [facility] Address [address] [place] [address] Phone Support Name Relationship Address Phone Karon Stearns Mother [address] [place] [address] Prakash Ferrari Father [address] [place] [address] Care Team Providers Care Sparker And Patcher Name Role Phone Nuria uLna MD Primary Care Provider Encounter Details Date Type Department Care Team (Late st Contact Info) Description 10/29/2010 Documentation [facility] [place] Family Medicine [address] [place], [place] [phone] Family Medicine, Physician [address] [place], [place] [address] Social History Tobacco Use Types Packs/Day Years [...] on filedocumented in this encounter Care Teams Sparker And Patcher Relationship Specialty Start Date End Date Nuria Luna MD [address] [place] [address] JATINDER De Santiago [address] PCP - General 11/07/16 06/29/22 documented as of this encounter
--- OUTSIDE RECORDS SUMMARY | 2024-05-25 18:29 | XMS_ITS | Encounter Summary ---
Author Organization [facility] Address [address] [place] [address] Care Team Providers Care Ophthalmic Technologist Name Role Phone Robinson Zelaya MD Unavailable Unavailable Aracelis Arteaga MD Primary Care Prov ider Patricia Goldberg MD Unavailable Unavailable Encounter Details Date Type Department Care Team Description 12/03/2021 Pt. Non Urgent Medic al Question Adult Medicine [address] [address] Sandy Naylor PA Social History Tobacco Use Types Packs/Day Years [...] suspected to have Coronavirus/COVID-19? No / Unsure 11/27/2021 12:51 PM EDT documented as of this encounter Miscellaneous Notes * Telephone Encounter - Livia Mckeon M.A. - 12/03/2021 9:23 AM EDTFrom: Wale Stearns To: Christiano Dumas Sent: 12/03/2021 8:01 AM EDT Subject: Meloxicam 7.5 MG I am out of refills of meloxicam. [facility] you [facility] unless you feel I don't need it. Thanks! Wale Stearns documented in this encounter Plan of Treatment Not on file documented as of this encounter Visit Diagnoses Not on filedocumented in this encounter Care Teams Ophthalmic Technologist Relationship Specialty Start Date End Date Aracelis Arteaga MD [address] [place] [address] PCP - General Internal Medicine 10/28/21 Robinson Zelaya MD Specialist Cardiovascular Disease 08/12/21 Patricia Goldberg MD [address] [place] [address] Specialist Neurology 06/17/23 documented as of this encounter
--- OUTSIDE RECORDS SUMMARY | 2024-05-25 18:29 | XMS_ITS | Encounter Summary ---
Author Organization [facility] Address [address] [place] [address] Care Team Providers Care Safe And Vault Service Mechanic Name Role Phone Brian Gonzalez MD Primary Care Provider Ruben Barry MD Unavailable [phone] Robinson Zelaya MD Unavailable Unavailable Aracelis Arteaga MD Primary Care Prov ider Aracelis Arteaga MD Primary Care Prov ider Patricia Goldberg MD Unavailable Unavailable Encounter Details Date Type Department Care Team Description 11/24/2018 [facility] Medical Records [address] [place] [address] Social History Tobacco Use Types Packs/Day Years [...] Name Priority Date/Time Associated Diagnosis Comments OUTSIDE CT Routine 11/24/2018 documented in this encounter Results * OUTSIDE CT (11/24/2018) Provider Abstract RADIOLOGY documented in this encounter Visit Diagnoses Not on filedocumented in this encounter Care Teams Safe And Vault Service Mechanic Relationship Specialty Start Date End Date Brian Gonzalez MD PCP - General Internal Medicine 12/11/14 10/16/21 Aracelis Arteaga MD [address] [place] [address] PCP - General Internal Medicine 10/28/21 Aracelis Arteaga MD [address] [place] [address] PCP - General Internal Medicine 10/17/21 10/27/21 Ruben Franco MD [address] [place] [address] [place] [address] Specialist Cardiovascular Disease 08/12/21 2 Robinson Zelaya MD [address] [place] [address] [place] [address] Specialist Cardiovascular Disease 08/12/21 Patricia Goldberg MD [address] [place] [address] Specialist Neurology 06/17/23 documented as of this encounter
[2024-05-25 18:30] LABS: MANUAL DIFF FLAG NO
[2024-05-25 18:51] LABS: Basophils Percent Auto 0.5 % (0-2); Eosinophils Absolute Auto 0.4 X10*3/uL (0.0-0.4); Eosinophils Percent Auto 5.5 % (0-4); Hematocrit 40.5 % (37.0-47.0); Hemoglobin 14.2 g/dl (12.0-16.0); Imm Gran Abs Auto 0.04 X10*3/uL (0.00-0.03); Imm Gran Pct Auto 0.5 % (0.0-0.4); Lymphocytes Absolute Auto 2.5 X10*3/uL (1.2-4.9); Lymphocytes Percent Auto 32.1 % (20-40); Mean Corpuscular HGB Conc 35.1 g/dl (31.0-35.0); Mean Corpuscular Hemoglobin 30.9 pg (27.0-33.0); Mean Platelet Volume 10.7 fL (9.4-12.3); Monocytes Absolute Auto 0.5 X10*3/uL (0.1-1.2); Monocytes Percent Auto 6.8 % (2-11); Neutrophils Absolute Auto 4.3 x10*3/uL (2.0-8.3); Neutrophils Percent Auto 54.6 % (45-73); Platelet Count 221 X10*3/uL (160-400); Red Cell Distribution Width 12.1 % (11.0-16.0); White Blood Count 7.8 X10*3/uL (4.8-10.8)
[2024-05-25 19:06] LABS: Anion Gap 12 (12-20); Blood Urea Nitrogen 26 mg/dL (9-16); Calcium 9.2 mg/dL (8.4-10.2); Carbon Dioxide 21 mmol/L (22-29); Chloride 111 mmol/L (96-108); Estimated Glomerular Filt Rate 30; Glucose Random 80 mg/dL (60-115); Potassium 4.5 mmol/L (3.3-5.1); Sodium 139 mmol/L (135-145)
[2024-05-25 19:07] LABS: Alanine Aminotransferase 53 U/L (0-31); Albumin Level 4.5 g/dL (3.5-5.0); Alkaline Phosphatase 85 U/L (39-117); Anion Gap 11 (12-20); Aspartate Amino Transferase 29 U/L (5-31); Bilirubin Total 0.3 mg/dL (0.0-1.0); Blood Urea Nitrogen 26 mg/dL (9-16); Calcium 9.5 mg/dL (8.4-10.2); Carbon Dioxide 21 mmol/L (22-29); Chloride 112 mmol/L (96-108); Cholesterol 187 mg/dL (<200); Estimated Glomerular Filt Rate 30; Glucose Random 82 mg/dL (60-115); HDL Cholesterol 39 mg/dL (>40); LDL Cholesterol Calculated 78 mg/dL (<100); Potassium 4.6 mmol/L (3.3-5.1); Sodium 139 mmol/L (135-145); Total Protein 8.2 g/dL (6.5-8.0); Triglycerides 354 mg/dL (<150)
[2024-05-26 07:23] LABS: Estimated Average Glucose 97 mg/dL; Total Hemoglobin (HGBA1C) 3751.9476 umol/L
[2024-05-28 01:34] LABS: TS Negative Control Passed; TS Panel A 0; TS Panel B 0; TS Positive Control Passed; TSpotTB Negative (Negative)
== END 2024-05-25 14:59 | disposition home or self-care (01) ==
LOC: HO.WFDLDS 14:58
PROVIDERS: Referring Provider Physician Assistant Medical; Visit Provider Physician Assistant
DX: E78.2 Mixed hyperlipidemia (principal); I10 Essential (primary) hypertension; E11.9 Type 2 diabetes mellitus without complications; R73.01 Impaired fasting glucose; L73.2 Hidradenitis suppurativa; E28.2 Polycystic ovarian syndrome; Z79.899 Other long term (current) drug therapy
CPT/HCPCS: 36415; 80048; 80053; 80061; 83036; 85025; 86481

== ENCOUNTER 2024-05-27 09:56 | Outpatient (REF) | payer OTHER, SELFPAY ==
--- OUTSIDE RECORDS SUMMARY | 2024-05-27 10:57 | XMS_ITS | Clinical Summary ---
Demographics Address [address] [place] [place] [address] Home Phone Preferred Language Lithuanian Marital Status Unknown Amish Affiliation Unknown Race White Ethnic Group Unknown Author Organization [facility] Address [address] [place] [address] Phone Support Name Relationship Address Phone Karon Stearns Mother [address] [place] [address] Prakash Ferrari Father [address] [place] [address] Care Team Providers Care Territory Supervisor Name Role Phone Unavailable Primary Care Provider [...]
--- OUTSIDE RECORDS SUMMARY | 2024-05-27 10:57 | XMS_ITS | Encounter Summary ---
Demographics Address [address] [place] [address] Home Phone Preferred Language Malian Marital Status Unknown Yarsani Affiliation Unknown Race White Ethnic Group Unknown Author Organization [facility] Address [address] [place] [address] Phone Support Name Relationship Address Phone Karon Stearns Mother [address] [place] [address] Prakash Ferrari Father [address] [place] [address] Care Team Providers Care Nanny Caregiver Name Role Phone Nuria Luna MD Primary Care Provider Encounter Details Date Type Department Care Team (Late st Contact Info) Description 11/13/2016 Conversion Encounter [facility] [address] [place] [address] Social History Tobacco Use Types Packs/Day Years [...] on filedocumented in this encounter Care Teams Nanny Caregiver Relationship Specialty Start Date End Date Nuria Luna MD [address] [place] [address] PCP - General 11/07/16 06/29/22 documented as of this encounter
--- OUTSIDE RECORDS SUMMARY | 2024-05-27 10:57 | XMS_ITS | Encounter Summary ---
Demographics Address [address] [place] [address] Home Phone Preferred Language Djiboutian Marital Status Unknown Congregation Affiliation Unknown Race White Ethnic Group Unknown Author Organization [facility] Address [address] [place] [address] Phone Support Name Relationship Address Phone Karon Stearns Mother [address] [place] [address] Prakash Ferrari Father [address] [place] [address] Care Team Providers Care Plastic Welding Machine Operator Name Role Phone Nuria Luna MD Primary Care Provider [phone] Encounter Details Date Type Department Care Team (Late st Contact Info) Description 10/03/2009 Documentation [facility] Family Medicine [address] [place], [place] [phone] Family Medicine, Physician [address] [place], [place] [address] Social History Tobacco Use Types Packs/Day Years [...] filedocumented in this encounter Care Teams Plastic Welding Machine Operator Relationship Specialty Start Date End Date Nuria Luna MD [address] [place] [address] JATINDER De Santiago [address] PCP - General 11/07/16 06/29/22 documented as of this encounter
--- OUTSIDE RECORDS SUMMARY | 2024-05-27 10:58 | XMS_ITS | Encounter Summary ---
Demographics Address [address] [place] [address] Home Phone Preferred Language Costa Rican Marital Status Unknown Shinto Affiliation Unknown Race White Ethnic Group Unknown Author Organization [facility] Address [address] [place] [address] Phone Support Name Relationship Address Phone Karon Stearns Mother [address] [place] [address] Prakash Ferrari Father [address] [place] [address] Care Team Providers Care Director Of Healthcare Systems Name Role Phone Nuria Luna MD Primary Care Provider [phone] Encounter Details Date Type Department Care Team (Late st Contact Info) Description 10/29/2010 Documentation [facility] [place] [address] [place], [place] [phone] Family Medicine, Physician [address] [place], [place] [address] Social History Tobacco Use Types Packs/Day Years [...] filedocumented in this encounter Care Teams Director Of Healthcare Systems Relationship Specialty Start Date End Date Nuira Luna MD [address] [place] [address] JATINDER De Santiago [address] PCP - General 11/07/16 06/29/22 documented as of this encounter
--- OUTSIDE RECORDS SUMMARY | 2024-05-27 10:58 | XMS_ITS | Encounter Summary ---
Demographics Address [address] [place] [address] Home Phone Preferred Language Gambian Marital Status Unknown Hoahaoism Affiliation Unknown Race White Ethnic Group Unknown Author Organization [facility] Address [address] [place] [address] Phone Support Name Relationship Address Phone Karon Stearns Mother [address] [place] [address] Prakash Ferrari Father [address] [place] [address] Care Team Providers Care Owner Professional Engineer Name Role Phone Nuria Luna MD Primary Care Provider Encounter Details Date Type Department Care Team (Late st Contact Info) Description 09/11/2009 Documentation [facility] [place] [address] [place], [place] [phone] Family Medicine, Physician [address] [place], [place] [address] Social History Tobacco Use Types Packs/Day Years [...] on filedocumented in this encounter Care Teams Owner Professional Engineer Relationship Specialty Start Date End Date Nuria Luna MD [address] [place] [address] JATINDER De Santiago [address] PCP - General 11/07/16 06/29/22 documented as of this encounter
--- OUTSIDE RECORDS SUMMARY | 2024-05-27 10:58 | XMS_ITS | Encounter Summary ---
Demographics Address [address] [place] [address] Home Phone Preferred Language Nicaraguan Marital Status Unknown Yazidi Affiliation Unknown Race White Ethnic Group Unknown Author Organization [facility] Address [address] [place] [address] Phone Support Name Relationship Address Phone Karon Stearns Mother [address] [place] [address] Prakash Ferrari Father [address] [place] [address] Care Team Providers Care Nuclear Equipment Design Engineer Name Role Phone Nuria Luna MD Primary Care Provider Encounter Details Date Type Department Care Team (Late st Contact Info) Description 01/15/2010 Documentation [facility] [place] Family Medicine [address] [place], [place] [phone] Family Medicine, Physician [address] [place], [place] [address] Social History Tobacco Use Types Packs/Day Years [...] on filedocumented in this encounter Care Teams Nuclear Equipment Design Engineer Relationship Specialty Start Date End Date Nuria Luna MD [address] [place] [address] JATINDER De Santiago [address] PCP - General 11/07/16 06/29/22 documented as of this encounter
--- OUTSIDE RECORDS SUMMARY | 2024-05-27 10:58 | XMS_ITS | Encounter Summary ---
Demographics Address [address] [place] [address] Home Phone Preferred Language Cook Islander Marital Status Unknown Taoist Affiliation Unknown Race White Ethnic Group Unknown Author Organization [facility] Address [address] [place] [address] Phone Support Name Relationship Address Phone Karon Stearns Mother [address] [place] [address] Prakash Ferrari Father [address] [place] [address] Care Team Providers Care Bag Repairer Name Role Phone Nuria Luna MD Primary Care Provider Encounter Details Date Type Department Care Team (Late st Contact Info) Description 11/06/2009 Documentation [facility] [place] Family Medicine [address] [place], [place] [phone] Family Medicine, Physician [address] [place], [place] [address] Social History Tobacco Use Types Packs/Day Years [...] on filedocumented in this encounter Care Teams Bag Repairer Relationship Specialty Start Date End Date Nuria Luna MD [address] [place] [address] JATINDER De Santiago [address] PCP - General 11/07/16 06/29/22 documented as of this encounter
--- OUTSIDE RECORDS SUMMARY | 2024-05-27 10:58 | XMS_ITS | Data Portability ---
Author Organization [facility] Address [address] [place] [address] [place] [address] Care Team Providers Care Technical Publications Manager Name Role Phone MARK SINGH Referring [...] same address as is shown in the [facility] EMR for us to fax a note. [...] glaucoma and she has also seen her nurse educator and has reported that there is nothing to treat other than dry eyes. Discussed her mother's question of whether and underlying seizure would present itself as a hallucination to Tal: this would be exceedingly rare. Confirmed today that we do have her records from [facility] from Dr. Ruth from 09/24/2020 (brain MRI from April 30, 2017 is summarized in data review.) Has had more recent EEG and brain MRI at [facility] about 2 years ago. We will [...] same address as is shown in the [facility] for us to fax a note. We will try to obtain his updated address and include him with it for copies of all of our notes. LETICIA Stearns June 04, 2021 We will obtain electrolyte levels with particular attention to sodium to establish a baseline while you are on ox carbamazepine. We have faxed this to the [facility] laboratory at [address] in [place] at your request. This address was newly [...] pharmacy today We will request records from [facility] with your MRI and EEG from about [...] assessment/plan in particular. Prakash Parada MD, PhD [facility] mrossen Not available 06/05/2021 14:36:58 Plan of Treatment Reminders Order Date Submit Date Provider Last Modified By Organization Details Last Modified Time Details Appointments None recorded. Lab BMP, serum or plasma - R94.4 Attn Phlebotomy 2021 022 sally 1 [facility], [address], [place], [address], 13:49:46 Referral None recorded. Procedures None recorded. Surgeries None recorded. Imaging None recorded. Medication Orders oxcarbazepi ne 600 mg tablet 2021 [facility], [address], [place], [address], 13:35:57 topiramate 100 mg tablet 2021 [facility], [address] [place], [address], 13:36:53 topiramate 50 mg tablet 2021 [facility], [address] [place], [address], 13:37:27 oxcarbazepi ne 600 mg tablet 2020 [facility], [address] [place], [address], 12:46:13 topiramate 100 mg tablet 2020 [facility], [address] [place], [address], 12:46:15 topiramate 50 mg tablet 2020 [facility], [address] [place], [address], 12:46:13 Patient TargetsNo targets recorded. Patient InstructionsNo [...] and Address Organization Details Recorded Time Seizure 41635671 Active Nella Veliz [facility] 01/10/2021 11:17:10 Problem Notes None recorded. Procedures Surgical History Date Name Laterality Status Provider Name and Address Organization Details Recorded Time craniotomy completed Nella Vel[facility] 01/10/2021 11:18:51 Imaging Results Imaging Date Name [...] Not available Not available Not available 01/10/2021 23471 RxNorm Nella Veliz [facility] 11:25:59 607 Lamictal medicatio n Not available Not available Not available 01/10/2021 50502 2 RxNorm Nella Veliz [facility] 11:26:07 Medications Name Sig Start Date [...] Updated DateTime 01/10/2021 162.56 cm 36 kg/m2 86168.4 g Nella Veliz [facility] 01/10/2021 11:10:21 Social History Question Answer Notes LastModified by Organizat ion Details LastModified Time Tobacco Smoking Status Never Smoker Nella z[facility] 01/10/2021 11:18:09 What Is Your Level Of [...] Code Diagnosis Note 2312 Prakash Parada MD [facility] [address] [place] [address] [place] [address] 01/10/2021 11:08:49 01/10/2021 13:08:35 Focal onset impaired awareness epileptic seizure 474720076 G40.209 Absence seizure 37731363 G40.A09 Decreased level of consciousness 987036177 R40.4 4261 Prakash Parada MD [facility] [address] [place] [address] [place] [address] 06/04/2021 10:09:35 06/06/2021 16:48:46 Focal onset impaired awareness epileptic seizure 724153333 G40.209 Absence seizure 74744945 G40.A09 Decreased level of consciousness 980797762 R40.4 Health Concerns Section Related Observation LastModified by Organization Detai ls LastModified Time None Recorded Concern Status LastModified by Organization Details LastModified Time None Recorded Advance Directives Directive None Recorded Payers Encounter Date Sequence Insurance Name Policy Number Policy Hamm Covered Member ID Hamm Member ID Guarantor Name 01/10/2021 1 [facility] - DOS PRIOR TO 2022 - DUAL ELIGIBLE (MEDICARE REPLACEMENT/AD VANTAGE - HMO) Wale Gaston [id number] Wale Stearns 06/04/2021 1 [facility] - DOS PRIOR TO 2022 - DUAL ELIGIBLE (MEDICARE REPLACEMENT/AD VANTAGE - HMO) Wale Gaston [id number] Wale Stearns Notes Date Note Type Note [...] all been done by previous neurologist at [facility] who is moving to [place], last visit in August 2020 and from [...] been actively adjusting medications. Prakash Parada MD [address] [place] [address] [place], [phone], [facility] 01/10/2021 13:07:21 06/04/2021 text/html Follow up [...] not last. She has been to her nurse educator who does not have any specific recommendation other than [id number] drops for dry eyes. Her mother has noticed that she seems to have hallucinations but only transiently and sometimes wonders if this is hallucinations blend into the seizure activity and given her history of left temporal lobe astrocytoma, wonders if this could be related. Her most recent MRI and EEG were done at [facility] 2 years ago. Which confirm that we have records from [facility] from 4 years ago. She continues on [...] all been done by previous neurologist at [facility] who is moving to [place], last visit in August 2020 and from [...] been actively adjusting medications. Prakash Parada MD [address] [place] [address] [place], [phone], [facility] 06/05/2021 14:37:13 OBGyn Episode No OBEpisode recorded.
[2024-05-27 11:35] LABS: Anion Gap 11 (12-20); Blood Urea Nitrogen 21 mg/dL (9-16); Calcium 9.5 mg/dL (8.4-10.2); Carbon Dioxide 20 mmol/L (22-29); Chloride 110 mmol/L (96-108); Estimated Glomerular Filt Rate > 60; Glucose Random 149 mg/dL (60-115); Potassium 4.4 mmol/L (3.3-5.1); Sodium 137 mmol/L (135-145)
== END 2024-05-27 09:57 | disposition home or self-care (01) ==
LOC: HO.WFDLDS 09:56
PROVIDERS: Visit Provider Physician Assistant
DX: N17.9 Acute kidney failure, unspecified (principal)
CPT/HCPCS: 36415; 80048

== ENCOUNTER 2024-06-06 10:10 | Outpatient (REF) | payer OTHER, SELFPAY ==
--- OUTSIDE RECORDS SUMMARY | 2024-06-06 11:22 | XMS_ITS | Encounter Summary ---
Author Organization [facility] Address [address] [place] [address] Care Team Providers Care Gear Tooth Lapping Machine Operator Name Role Phone Brian Gonzalez MD Primary Care Provider Ruben Barry MD Unavailable [phone] Robinson Zelaya MD Unavailable Unavailable Aracelis Arteaga MD Primary Care Prov ider Aracelis Arteaga MD Primary Care Prov ider Patricia Goldberg MD Unavailable Unavailable Reason for Visit * Reason Onset Date Comments REFERRAL 07/13/2020 Encounter Details Date Type Department Care Team Description 07/13/2020 Telephone Adult [address] [id number] Brian Gonzalez MD REFERRAL Social History Tobacco Use Types Packs/Day [...] encounter Miscellaneous Notes * Telephone Encounter - Angie Waters - 07/16/2020 12:29 PM EDT I will start faxing the referrals over to the department. Thanks * Telephone Encounter - Chely Muñiz - 07/13/2020 4:37 PM EDT In order to process an out of network for the patient I will need to know the diagnosis, without this I cannot do anything. *DIAGNOSIS Patient is being seen for (Not a body part or a procedure): not stated on fax Please in the future just fax an incoming referrals to the referrals office. Thanks so much, Chely Referrals Department * Telephone Encounter - Angie Waters - 07/13/2020 3:57 PM EDT What insurance does the patient have today? Payor: [employer] [facility] / Plan: [facility] / Product Type: HMO [id number] Effective 12/28/08: [employer] will not retro referral requests over 90 days. If request is for this please instruct patient to call the 800# on their insurance card to appeal. Do not submit a request. Referrals cannot be processed if the insurance is not accurate. If the insurance listed above in red is NO BILLING INFORMATION FOUND FOR THIS ENCOUTNER The patients correct insurance must be obtained and registered in [facility] or their referral can not be processed. Is this a retro request? NO. If yes for what date of service do you need the retro referral? N/A Who is calling to request this referral? [facility] If the caller is not the patient, what is their name? N/A Ask the patient WHO referred them to this specialty: Not an initial visit; it is for follow up/continuation of care. Patients PCP is Dr. Gonzalez FIRST and LAST NAME of SPECIALIST PATIENT is seeing: Dr.Arnold Ruth What specialty is this? Neurophysiology DIAGNOSIS Patient is being seen for (Not a body part or a procedure): not stated on fax Have you seen this SPECIALIST for this PROBLEM/DX before?YES If YES, when: Have you checked REVIEW or the APPT DESK to see if this referral has already been done or has visits left? YES Is this visit:Follow Up Address of Specialist: Phone # of Specialist: [phone] Fax #: (if applicable):[phone] Does patient have an appointment scheduled?: YES Date of appointment- (including a retro-request): 09/24/20 Is this appointment related to: documented in this encounter Plan of Treatment Not on file documented as of this encounter Visit Diagnoses Not on filedocumented in this encounter Care Teams Gear Tooth Lapping Machine Operator Relationship Specialty Start Date End Date Brian Gonzalez MD PCP - General Internal Medicine 12/11/14 10/16/21 Aracelis Arteaga MD [address] [place] [address] PCP - General Internal Medicine 10/28/21 Aracelis Arteaga MD [address] [place] [address] 61947 PCP - General Internal Medicine 10/17/21 10/27/21 Ruben Franco MD [address] [place] [address] [place] [address] Specialist Cardiovascular Disease 08/12/21 2 Robinson Zelaya MD [address] [place] [address] [place] [address] Specialist Cardiovascular Disease 08/12/21 Patricia Goldberg MD [address] [place] [address] Specialist Neurology 06/17/23 documented as of this encounter
--- OUTSIDE RECORDS SUMMARY | 2024-06-06 11:22 | XMS_ITS | Encounter Summary ---
Author Organization [employer] [facility] Address [address] [place] [address] Care Team Providers Care Microsoft Windows Engineer Name Role Phone Brian Gonzalez MD Primary Care Provider Ruben Barry MD Unavailable [phone] Robinson Zelaya MD Unavailable Unavailable Aracelis Arteaga MD Primary Care Prov ider Aracelis Arteaga MD Primary Care Prov ider Patricia Goldberg MD Unavailable Unavailable Encounter Details Date Type Department Care Team Description 09/24/2020 Director Digital Sales Report Medical Records [address] [place] [address] [facility] Social History Tobacco Use Types Packs/Day Years [...] on filedocumented in this encounter Care Teams Microsoft Windows Engineer Relationship Specialty Start Date End Date Brian Gonzalez MD PCP - General Internal Medicine 12/11/14 10/16/21 Aracelis Arteaga MD [address] [place] [address] PCP - General Internal Medicine 10/28/21 Aracelis Arteaga MD [address] [place] [address] 46266 PCP - General Internal Medicine 10/17/21 10/27/21 Ruben Franco MD [address] [place] [address] Dr Uribe [address] [place] [address] Specialist Cardiovascular Disease 08/12/21 2 Robinson Zelaya MD [address] [place] [address] [place] [address] Specialist Cardiovascular Disease 08/12/21 Patricia Goldberg MD [address] [place] [address] Specialist Neurology 06/17/23 documented as of this encounter
--- OUTSIDE RECORDS SUMMARY | 2024-06-06 11:22 | XMS_ITS | Encounter Summary ---
Author Organization [employer] [facility] Address [address] [place] [address] Care Team Providers Care Final Canoe Inspector Name Role Phone Brian Gonzalez MD Primary Care Provider Ruben Barry MD Unavailable [phone] Robinson Zelaya MD Unavailable Unavailable Aracelis Arteaga MD Primary Care Prov ider Aracelis Arteaga MD Primary Care Prov ider Patricia Goldberg MD Unavailable Unavailable Encounter Details Date Type Department Care Team Description 11/24/2018 [facility] Medical Records [address] [place] [address] Social History Tobacco Use Types Packs/Day Years [...] on filedocumented in this encounter Care Teams Final Canoe Inspector Relationship Specialty Start Date End Date Brian Gonzalez MD PCP - General Internal Medicine 12/11/14 10/16/21 Aracelis Arteaga MD [address] [place] [address] PCP - General Internal Medicine 10/28/21 Aracelis Arteaga MD [address] [place] [address]141 PCP - General Internal Medicine 10/17/21 10/27/21 Ruben Franco MD [address] [place] [address] [place] [address] Specialist Cardiovascular Disease 08/12/21 2 Robinson Zelaya MD [address] [place] [address] [place] [address] Specialist Cardiovascular Disease 08/12/21 Patricia Goldberg MD [address] [place] [address] Specialist Neurology 06/17/23 documented as of this encounter
--- OUTSIDE RECORDS SUMMARY | 2024-06-06 11:22 | XMS_ITS | Encounter Summary ---
Author Organization [facility] Address [address] [place] [address] Care Team Providers Care Debarker Operator Name Role Phone Prakash Perez MD Primary Care Provider Adarsh Blanchard MD Primary Care Provider Brian Larios MD Primary Care Provider Adarsh Smith MD Primary Care Provider Brian Larios MD Primary Care Provider Ruben Barry MD Unavailable [phone] Robinson Zelaya MD Unavailable Unavailable Aracelis Arteaga MD Primary Care Prov ider Aracelis Arteaga MD Primary Care Prov ider Patricia Goldberg MD Unavailable Unavailable Encounter Details Date Type Department Care Team Description 05/11/2012 Release of Information Medical Records [address] [place] [address] Abstract, Provider Social History Tobacco Use Types [...] on filedocumented in this encounter Care Teams Debarker Operator Relationship Specialty Start Date End Date Prakash Perez MD PCP - General Internal Medicine 01/20/12 04/04/13 Adarsh Valverde MD PCP - General Internal Medicine 04/05/13 Brian Gonzalez MD PCP - General Internal Medicine 01/12/14 12/07/14 Adarsh Valverde MD PCP - General Internal Medicine 12/08/14 Brian Gonzalez MD PCP - General Internal Medicine 12/11/14 10/16/21 Aracelis Arteaga MD [address] [place] [address] 35961 PCP - General Internal Medicine 10/28/21 Aracelis Arteaga MD [address] [place] [address] PCP - General Internal Medicine 10/17/21 10/27/21 Ruben Franco MD [address] [place] [address] [place] [address] Specialist Cardiovascular Disease 08/12/21 2 Robinson Zelaya MD [address] [place] [address] [place] [address] Specialist Cardiovascular Disease 08/12/21 Patricia Goldberg MD [address] [place] [address] Specialist Neurology 06/17/23 documented as of this encounter
--- OUTSIDE RECORDS SUMMARY | 2024-06-06 11:22 | XMS_ITS | Encounter Summary ---
Author Organization [facility] Address [address] [place] [address] Care Team Providers Care Laboratory Scientist Name Role Phone Adarsh Valverde MD Primary Care Provider Brian Larios MD Primary Care Provider Adarsh Smith MD Primary Care Provider Brian Larios MD Primary Care Provider Ruben Barry MD Unavailable [phone] Robinson Zelaya MD Unavailable Unavailable Aracelis Arteaga MD Primary Care Prov ider Aracelis Arteaga MD Primary Care Prov ider Patricia Goldberg MD Unavailable Unavailable Encounter Details Date Type Department Care Team Description 07/25/2013 Pilot Can Router Report Medical Records [address] [place] [address] Rene Gupta MD Social History Tobacco Use [...] on filedocumented in this encounter Care Teams Laboratory Scientist Relationship Specialty Start Date End Date Adarsh Valverde MD PCP - General Internal Medicine 04/05/13 Brian Gonzalez MD PCP - General Internal Medicine 01/12/14 12/07/14 Adarsh Valverde MD PCP - General Internal Medicine 12/08/14 Brian Gonzalez MD PCP - General Internal Medicine 12/11/14 10/16/21 Aracelis Arteaga MD [address] [place] [address] PCP - General Internal Medicine 10/28/21 Aracelis Arteaga MD [address] [place] [address]84 PCP - General Internal Medicine 10/17/21 10/27/21 Ruben Franco MD [address] [place] [address] [place] [address] Specialist Cardiovascular Disease 08/12/21 2 Robinson Zelaya MD [address] [place] [address] [place] [address] Specialist Cardiovascular Disease 08/12/21 Patricia Goldberg MD [address] [place] [address] Specialist Neurology 06/17/23 documented as of this encounter
--- OUTSIDE RECORDS SUMMARY | 2024-06-06 11:22 | XMS_ITS | Encounter Summary ---
Demographics Address [address] [place] [address] Home Phone Preferred Language Spanish Marital Status Unknown Confucianist Affiliation Unknown Race White Ethnic Group Unknown Author Organization [facility] Address [address] [place] [address] Phone Support Name Relationship Address Phone Karon Stearns Mother [address] [place] [address] Prakash Ferrari Father [address] [place] [address] Care Team Providers Care Internal Medicine Nurse Name Role Phone Nuria Luna MD Primary Care Provider [phone] Encounter Details Date Type Department Care Team (Late st Contact Info) Description 10/29/2010 Documentation [facility] [place] [address] [place], [place] [id number] Family Medicine, Physician [address] [place], [place] [address] Social History Tobacco Use Types Packs/Day Years [...] on filedocumented in this encounter Care Teams Internal Medicine Nurse Relationship Specialty Start Date End Date Nuria Luna MD [address] [place] [address] JATINDER De Santiago [address] PCP - General 11/07/16 06/29/22 documented as of this encounter
--- OUTSIDE RECORDS SUMMARY | 2024-06-06 11:22 | XMS_ITS | Encounter Summary ---
Author Organization [facility] Address [address] [place] [address] Care Team Providers Care Key Bed Installer Name Role Phone Brian Gonzalez MD Primary Care Provider Ruben Barry MD Unavailable [phone] Robinson Zelaya MD Unavailable Unavailable Aracelis Arteaga MD Primary Care Prov ider Aracelis Arteaga MD Primary Care Prov ider Patricia Goldberg MD Unavailable Unavailable Encounter Details Date Type Department Care Team Description 09/27/2018 Cable Rigger Report Medical Records [address] [place] [address] [facility] Social History Tobacco Use Types Packs/Day Years [...] on filedocumented in this encounter Care Teams Key Bed Installer Relationship Specialty Start Date End Date Brian Gonzalez MD PCP - General Internal Medicine 12/11/14 10/16/21 Aracelis Arteaga MD [address] [place] [address] [id number] PCP - General Internal Medicine 10/28/21 Aracelis Arteaga MD [address] [place] [address]181 PCP - General Internal Medicine 10/17/21 10/27/21 Ruben Franco MD [address] [place] [address] Dr U[address] [place] [address] Specialist Cardiovascular Disease 08/12/21 2 Robinson Zelaya MD [address] [place] [address] [place] [address] Specialist Cardiovascular Disease 08/12/21 Patricia Goldberg MD [address] [place] [address] Specialist Neurology 06/17/23 documented as of this encounter
--- OUTSIDE RECORDS SUMMARY | 2024-06-06 11:22 | XMS_ITS | Encounter Summary ---
Author Organization [facility] Address [address] [place] [address] Care Team Providers Care Facilities Engineering Manager Name Role Phone Brian Gonzalez MD Primary Care Provider Ruben Barry MD Unavailable [phone] Robinson Zelaya MD Unavailable Unavailable Aracelis Arteaga MD Primary Care Prov ider Aracelis Arteaga MD Primary Care Prov ider Patricia Goldberg MD Unavailable Unavailable Encounter Details Date Type Department Care Team Description 09/19/2015 Wellness Visit Medical Records [address] [place] [address] Brian Gonzalez MD Social History Tobacco Use [...] on filedocumented in this encounter Care Teams Facilities Engineering Manager Relationship Specialty Start Date End Date Brian Gonzalez MD PCP - General Internal Medicine 12/11/14 10/16/21 Aracelis Arteaga MD [address] [place] [address] PCP - General Internal Medicine 10/28/21 Aracelis Arteaga MD [address] [place] [address]21 PCP - General Internal Medicine 10/17/21 10/27/21 Ruben Franco MD [address] [place] [address] Dr Uribe [address] [place] [address] Specialist Cardiovascular Disease 08/12/21 2 Robinson Zelaya MD [address] [place] [address] [place] [address] Specialist Cardiovascular Disease 08/12/21 Patricia Goldberg MD [address] [place] [address] Specialist Neurology 06/17/23 documented as of this encounter
--- OUTSIDE RECORDS SUMMARY | 2024-06-06 11:22 | XMS_ITS | Encounter Summary ---
Demographics Address [address] [place] [address] Home Phone Preferred Language Cameroonian Marital Status Unknown Scientology Affiliation Unknown Race White Ethnic Group Unknown Author Organization [facility] Address [address] [place] [address] Phone Support Name Relationship Address Phone Karon Stearns Mother [address] [place] [address] Prakash Ferrari Father [address] [place] [address] Care Team Providers Care Risk Mgr Name Role Phone Nruia Luna MD Primary Care Provider [phone] Encounter Details Date Type Department Care Team (Late st Contact Info) Description 11/13/2016 Conversion Encounter [facility] [address] [place] [address] Social History Tobacco Use Types Packs/Day Years [...] on filedocumented in this encounter Care Teams Risk Mgr Relationship Specialty Start Date End Date Nuria Luna MD [address] [place] [address] PCP - General 11/07/16 06/29/22 documented as of this encounter
--- OUTSIDE RECORDS SUMMARY | 2024-06-06 11:22 | XMS_ITS | Encounter Summary ---
Author Organization [facility] Address [address] [place] [address] Care Team Providers Care Paper Hanger Name Role Phone Brian Gonzalez MD Primary Care Provider Robinson Brody MD Unavailable Unavailable Aracelis Arteaga MD Primary Care Prov ider Aracelis Arteaga MD Primary Care Prov ider Patricia Goldberg MD Unavailable Unavailable Encounter Details Date Type Department Care Team Description 08/28/2021 [facility]LY [facility] Medical Records [address] [place] [address] Abstract, Provider Social History Tobacco Use Types [...] on filedocumented in this encounter Care Teams Paper Hanger Relationship Specialty Start Date End Date Brian Gonzalez MD PCP - General Internal Medicine 12/11/14 10/16/21 Aracelis Arteaga MD [address] [place] [address] PCP - General Internal Medicine 10/28/21 Aracelis Arteaga MD [address] [place] [address]26 PCP - General Internal Medicine 10/17/21 10/27/21 Robinson Zelaya MD Specialist Cardiovascular Disease 08/12/21 Patricia Goldberg MD [address] [place] [address] Specialist Neurology 06/17/23 documented as of this encounter
--- OUTSIDE RECORDS SUMMARY | 2024-06-06 11:22 | XMS_ITS | Encounter Summary ---
Author Organization [facility] Address [address] [place] [address] Care Team Providers Care Rubber Roller Grinder Name Role Phone Brian Gonzalez MD Primary Care Provider Ruben Barry MD Unavailable [phone] Robinson Zelaya MD Unavailable Unavailable Aracelis Arteaga MD Primary Care Prov ider Aracelis Arteaga MD Primary Care Prov ider Patricia Goldberg MD Unavailable Unavailable Encounter Details Date Type Department Care Team Description 09/23/2019 Microfilm Clerk Report Medical Records [address] [place] [address] [facility] Social History Tobacco Use Types Packs/Day Years [...] on filedocumented in this encounter Care Teams Rubber Roller Grinder Relationship Specialty Start Date End Date Brian Gonzalez MD PCP - General Internal Medicine 12/11/14 10/16/21 Aracelis Arteaga MD [address] [place] [address] PCP - General Internal Medicine 10/28/21 Aracelis Arteaga MD [address] [place] [address] PCP - General Internal Medicine 10/17/21 10/27/21 Ruben Franco MD [address] [place] [address] Dr Uribe [address] [place] [address] Specialist Cardiovascular Disease 08/12/21 2 Robinson Zelaya MD [address] [place] [address] [place] [address] Specialist Cardiovascular Disease 08/12/21 Patricia Goldberg MD [address] [place] [address] Specialist Neurology 06/17/23 documented as of this encounter
--- OUTSIDE RECORDS SUMMARY | 2024-06-06 11:22 | XMS_ITS | Encounter Summary ---
Author Organization [facility] Address [address] [place] [address] Care Team Providers Care Nonprofit Manager Name Role Phone Brian Gonzalez MD Primary Care Provider Ruben Barry MD Unavailable [phone] Robinson Zelaya MD Unavailable Unavailable Aracelis Arteaga MD Primary Care Prov ider Aracelis Arteaga MD Primary Care Prov ider Patricia Goldberg MD Unavailable Unavailable Encounter Details Date Type Department Care Team Description 04/05/2019 SCAN Medical Records [address] [place] [address] Abstract, Provider Social History Tobacco Use Types [...] on filedocumented in this encounter Care Teams Nonprofit Manager Relationship Specialty Start Date End Date Brian Gonzalez MD PCP - General Internal Medicine 12/11/14 10/16/21 Aracelis Arteaga MD [address] [place] [address] PCP - General Internal Medicine 10/28/21 Aracelis Arteaga MD [address] [place] [address]29 PCP - General Internal Medicine 10/17/21 10/27/21 Ruben Franco MD [address] [place] [address] [place] [address] Specialist Cardiovascular Disease 08/12/21 2 Robinson Zelaya MD [address] [place] [address] [place] [address] Specialist Cardiovascular Disease 08/12/21 Patricia Goldberg MD [address] [place] [address] Specialist Neurology 06/17/23 documented as of this encounter
--- OUTSIDE RECORDS SUMMARY | 2024-06-06 11:22 | XMS_ITS | Clinical Summary ---
Demographics Address [address] [place] [address] Home Phone Preferred Language Frisian Marital Status Unknown Christian Affiliation Unknown Race White Ethnic Group Unknown Author Organization [facility] Address [address] [place] [address] Phone Support Name Relationship Address Phone Karon Stearns Mother [address] [place] [address] Prakash Ferrari Father [address] [place] [address] Care Team Providers Care Salad Chef Name Role Phone Unavailable Primary Care Provider [...]
--- OUTSIDE RECORDS SUMMARY | 2024-06-06 11:22 | XMS_ITS | Encounter Summary ---
Author Organization [facility] Address [address] [place] [address] Care Team Providers Care Medical Territory Manager Name Role Phone Prakash Perez MD Primary Care Provider Adarsh Blanchard MD Primary Care Provider Brian Larios MD Primary Care Provider Adarsh Smith MD Primary Care Provider Brian Larios MD Primary Care Provider Ruben Barry MD Unavailable [phone] Robinson Zelaya MD Unavailable Unavailable Aracelis Arteaga MD Primary Care Prov ider Aracelis Arteaga MD Primary Care Prov ider Patricia Goldberg MD Unavailable Unavailable Encounter Details Date Type Department Care Team Description 12/02/2012 Licensed Club Manager Report Medical Records [address] [place] [address] Rene Gupta MD Social History Tobacco Use [...] on filedocumented in this encounter Care Teams Medical Territory Manager Relationship Specialty Start Date End Date Prakash Perez MD PCP - General Internal Medicine 01/20/12 04/04/13 Adarsh Valverde MD PCP - General Internal Medicine 04/05/13 Brian Gonzalez MD PCP - General Internal Medicine 01/12/14 12/07/14 Adarsh Valverde MD PCP - General Internal Medicine 12/08/14 Brian Gonzalez MD PCP - General Internal Medicine 12/11/14 10/16/21 Aracelis Arteaga MD [address] [place] [address] PCP - General Internal Medicine 10/28/21 Aracelis Arteaga MD [address] [place] [address] PCP - General Internal Medicine 10/17/21 10/27/21 Ruben Franco MD [address] [place] [address] [place] [address] Specialist Cardiovascular Disease 08/12/21 2 Robinson Zelaya MD [address] [place] [address] [place] [address] Specialist Cardiovascular Disease 08/12/21 Patricia Goldberg MD [address] [place] [address] Specialist Neurology 06/17/23 documented as of this encounter
--- OUTSIDE RECORDS SUMMARY | 2024-06-06 11:22 | XMS_ITS | Encounter Summary ---
Author Organization [facility] Address [address] [place] [address] Care Team Providers Care Fruit Thinner Machine Operator Name Role Phone Brian Gonzalez MD Primary Care Provider Ruben Barry MD Unavailable [phone] Robinson Zelaya MD Unavailable Unavailable Aracelis Arteaga MD Primary Care Prov ider Aracelis Arteaga MD Primary Care Prov ider Patricia Goldberg MD Unavailable Unavailable Encounter Details Date Type Department Care Team Description 07/10/2021 Pt. Non Urgent Medic al Question Adult Medicine [address] [phone] Brian Gonzalez MD Social History Tobacco Use [...] on filedocumented in this encounter Care Teams Fruit Thinner Machine Operator Relationship Specialty Start Date End Date Brian Gonzalez MD PCP - General Internal Medicine 12/11/14 10/16/21 Aracelis Arteaga MD [address] [place] [address] 86762 PCP - General Internal Medicine 10/28/21 Aracelis Arteaga MD [address] [place] [address] 79405 PCP - General Internal Medicine 10/17/21 10/27/21 Ruben Franco MD [address] [place] [address] Dr Urieb [address] [place] [address] 45802 Specialist Cardiovascular Disease 08/12/21 2 Robinson Zelaya MD [address] [place] [address] Dr Uribe [address] [place] [address] 51598 Specialist Cardiovascular Disease 08/12/21 Patricia Goldberg MD [address] [place] [address] 98951 Specialist Neurology 06/17/23 documented as of this encounter
--- OUTSIDE RECORDS SUMMARY | 2024-06-06 11:22 | XMS_ITS | Encounter Summary ---
Author Organization [employer] [facility] Address [address] [place] [address] Care Team Providers Care Staff Field Engineer Name Role Phone Robinson Zelaya MD Unavailable Unavailable Aracelis Arteaga MD Primary Care Prov ider Patricia Goldberg MD Unavailable Unavailable Encounter Details Date Type Department Care Team Description 11/29/2021 Release of Information Medical Records [address] [place] [address] 99140 Abstract, Provider Social History Tobacco Use Types [...] In the last 10 days, have jessica mata been in contact with someone who was confirmed or suspected to have Coronavirus/COVID-19? No / Unsure 11/27/2021 12:51 PM EDT documented as of this encounter Plan of Treatment Not on file documented as of this encounter Visit Diagnoses Not on filedocumented in this encounter Care Teams Staff Field Engineer Relationship Specialty Start Date End Date Aracelis Arteaga MD [address] [place] [address] 73762 PCP - General Internal Medicine 10/28/21 Robinson Zelaya MD Specialist Cardiovascular Disease 08/12/21 Patricia Goldberg MD [address] [place] [address] 86773 Specialist Neurology 06/17/23 documented as of this encounter
--- OUTSIDE RECORDS SUMMARY | 2024-06-06 11:22 | XMS_ITS | Encounter Summary ---
Author Organization [facility] Address [address] [place] [address] Care Team Providers Care Machine Ironer Name Role Phone Brian Gonzalez MD Primary Care Provider Adrash Smith MD Primary Care Provider Brian Larios MD Primary Care Provider Ruben Barry MD Unavailable [phone] Robinson Zelaya MD Unavailable Unavailable Aracelis Arteaga MD Primary Care Prov ider Aracelis Arteaga MD Primary Care Prov ider Patricia Goldberg MD Unavailable Unavailable Encounter Details Date Type Department Care Team Description 06/26/2014 Supervisor Net Making Report Medical Records [address] [place] [id number] [place] [address] Social History Tobacco Use Types Packs/Day Years [...] on filedocumented in this encounter Care Teams Machine Ironer Relationship Specialty Start Date End Date Brian Gonzalez MD PCP - General Internal Medicine 01/12/14 12/07/14 Adarsh Valverde MD PCP - General Internal Medicine 12/08/14 5 Brian Gonzalez MD PCP - General Internal Medicine 12/11/14 10/16/21 Aracelis Arteaga MD [address] [place] [address] 61174 PCP - General Internal Medicine 10/28/21 Aracelis Arteaga MD [address] [place] [address] 49947 PCP - General Internal Medicine 10/17/21 10/27/21 Ruben Franco MD [address] [place] [address] Dr Uribe [address] [place] [address] 87250 Specialist Cardiovascular Disease 08/12/21 2 Robinson Zelaya MD [address] [place] [address] Dr Uribe [address] [place] [address] 42593 Specialist Cardiovascular Disease 08/12/21 Patricia Goldberg MD [address] [place] [address] 41982 Specialist Neurology 06/17/23 documented as of this encounter
--- OUTSIDE RECORDS SUMMARY | 2024-06-06 11:22 | XMS_ITS | Encounter Summary ---
Author Organization [facility] Address [address] [place] [address] Care Team Providers Care Territory Sales Executive Name Role Phone Brian Gonzalez MD Primary Care Provider Ruben Barry MD Unavailable [phone] Robinson Zelaya MD Unavailable Unavailable Aracelis Arteaga MD Primary Care Prov ider Aracelis Arteaga MD Primary Care Prov ider Patricia Goldberg MD Unavailable Unavailable Reason for Visit * Reason Onset Date Comments Medication 05/26/2019 Encounter Details Date Type Department Care Team Description 05/26/2019 Telephone Adult Medicine [address] [phone] Brian Gonzalez MD Medication Social History Tobacco [...] on filedocumented in this encounter Care Teams Territory Sales Executive Relationship Specialty Start Date End Date Brian Gonzalez MD PCP - General Internal Medicine 12/11/14 10/16/21 Aracelis Arteaga MD [address] [place] [address] 91343 PCP - General Internal Medicine 10/28/21 Aracelis Arteaga MD [address] [place] [address] 91669 PCP - General Internal Medicine 10/17/21 10/27/21 Ruben Franco MD [address] [place] [address] Dr Uribe [address] [place] [address] 87144 Specialist Cardiovascular Disease 08/12/21 2 Robinson Zelaya MD [address] [place] [address] Dr Uribe [address] [place] [address] 41650 Specialist Cardiovascular Disease 08/12/21 Patricia Goldberg MD [address] [place] [address] 57181 Specialist Neurology 06/17/23 documented as of this encounter
--- OUTSIDE RECORDS SUMMARY | 2024-06-06 11:22 | XMS_ITS | Encounter Summary ---
Author Organization [facility] Address [address] [place] [address] Care Team Providers Care Director Prison Name Role Phone Robinson Zelaya MD Unavailable Unavailable Aracelis Arteaga MD Primary Care Prov ider Aracelis Arteaga MD Primary Care Prov ider Patricia Goldberg MD Unavailable Unavailable Encounter Details Date Type Department Care Team Description 10/21/2021 Pt. Non Urgent Medical Question Adult Medicine [address] [address] Aracelis Arteaga MD [address] [place] [address] [phone] Social History Tobacco Use Types Packs/Day Years [...] AM EDT documented as of this encounter Progress Notes * Chen Robertson M.A. - 10/21/2021 1:46 PM EDT Mychart msg sent documented in this encounter Miscellaneous Notes * Telephone Encounter - Chen Robertson M.A. - 10/21/2021 1:44 PM EDTFrom: Wale Stearns To: Mario Butler Sent: 10/21/2021 1:18 PM EDT Subject: Molxicam and diclofenac gel I started molxicam tablet perscribed by marilyn longoria. Unfortunately that wasn't helping me. I was suggested to try diclofenac gel and I have. It helps me more. The diclofenac tablet I tried with dr. Dunaway but unfortunately I was told that it would mess with my stomach and liver. documented in this encounter Plan of Treatment Not on file documented as of this encounter Visit Diagnoses Not on filedocumented in this encounter Care Teams Director Prison Relationship Specialty Start Date End Date Aracelis Arteaga MD [address] [place] [address] 33225 PCP - General Internal Medicine 10/28/21 Aracelis Arteaga MD [address] [place] [address] 66394 PCP - General Internal Medicine 10/17/21 10/27/21 Robinson Zelaya MD Specialist Cardiovascular Disease 08/12/21 Patricia Goldberg MD [address] [place] [address] 28567 Specialist Neurology 06/17/23 documented as of this encounter
--- OUTSIDE RECORDS SUMMARY | 2024-06-06 11:22 | XMS_ITS | Encounter Summary ---
Author Organization [facility] Address [address] [place] [address] Care Team Providers Care Locker Room Attendant Name Role Phone Robinson Zelaya MD Unavailable Unavailable Aracelis Arteaga MD Primary Care Prov ider Aracelis Arteaga MD Primary Care Prov ider Patricia Goldberg MD Unavailable Unavailable Reason for Visit * Reason Onset Date Comments Advice 10/18/2021 Encounter Details Date Type Department Care Team Description 10/18/2021 Pt. Non Urgent Medic al Question Adult Medicine [address] [address] Sandy Naylor PA Social History Tobacco Use [...] encounter Miscellaneous Notes * Telephone Encounter - Sallie Elliott M.A. 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 I started taking the medicine as requested and the pain hasn't improved. My parent recommended diclofenac gel compared to the tablet. Can I try this or is it the same that it would hurt me? Thank you! documented in this encounter Plan of Treatment Not on file documented as of this encounter Visit Diagnoses Not on filedocumented in this encounter Care Teams Locker Room Attendant Relationship Specialty Start Date End Date Aracelis Arteaga MD [address] [place] [address] 29112 PCP - General Internal Medicine 10/28/21 Aracelis Arteaga MD [address] [place] [address] 00956 PCP - General Internal Medicine 10/17/21 10/27/21 Robinson Zelaya MD Specialist Cardiovascular Disease 08/12/21 Patricia Goldberg MD [address] [place] [address] Specialist Neurology 06/17/23 documented as of this encounter
--- OUTSIDE RECORDS SUMMARY | 2024-06-06 11:22 | XMS_ITS | Encounter Summary ---
Author Organization [employer] [facility] Address [address] [place] [address] Care Team Providers Care Bone Density Technician Name Role Phone Brian Gonzalez MD Primary Care Provider Ruben Barry MD Unavailable [phone] Robinson Zelaya MD Unavailable Unavailable Aracelis Arteaga MD Primary Care Prov ider Aracelis Arteaga MD Primary Care Prov ider Patricia Goldberg MD Unavailable Unavailable Encounter Details Date Type Department Care Team Description 01/04/2019 Old Medical Records Medical Records [address] [place] [address] 90074 Abstract, Provider Social History Tobacco Use Types [...] on filedocumented in this encounter Care Teams Bone Density Technician Relationship Specialty Start Date End Date Brian Gonzalez MD PCP - General Internal Medicine 12/11/14 10/16/21 Aracelis Arteaga MD [address] [place] [address] 01020 PCP - General Internal Medicine 10/28/21 Aracelis Arteaga MD [address] [place] [address] 26833 PCP - General Internal Medicine 10/17/21 10/27/21 Ruben Franco MD [address] [place] [address] Dr Uribe [address] [place] [address] 12180 Specialist Cardiovascular Disease 08/12/21 2 Robinson Zelaya MD [address] [place] [address] [place] [address] Specialist Cardiovascular Disease 08/12/21 Patricia Goldberg MD [address] [place] [address] 50061 Specialist Neurology 06/17/23 documented as of this encounter
--- OUTSIDE RECORDS SUMMARY | 2024-06-06 11:22 | XMS_ITS | Encounter Summary ---
Author Organization [employer] [facility] Address [address] [place] [address] Care Team Providers Care Song Lyricist Name Role Phone Robinson Zelaya MD Unavailable Unavailable Aracelis Arteaga MD Primary Care Prov ider Patricia Goldberg MD Unavailable Unavailable Encounter Details Date Type Department Care Team Description 03/12/2023 Network Management Specialist Report Medical Records [address] [place] [address] Patricia Goldberg MD Social History Tobacco Use Types Packs/Day [...] on filedocumented in this encounter Care Teams Song Lyricist Relationship Specialty Start Date End Date Aracelis Arteaga MD [address] [place] [address] [phone] PCP - General Internal Medicine 10/28/21 Robinson Zelaya MD Specialist Cardiovascular Disease 08/12/21 Patricia Goldberg MD [address] [place] [address] 08610 Specialist Neurology 06/17/23 documented as of this encounter
--- OUTSIDE RECORDS SUMMARY | 2024-06-06 11:22 | XMS_ITS | Encounter Summary ---
Author Organization [facility] Address [address] [place] [address] Care Team Providers Care Animal Technician Name Role Phone Robinson Zelaya MD Unavailable Unavailable Aracelis Arteaga MD Primary Care Prov ider Patricia Goldberg MD Unavailable Unavailable Encounter Details Date Type Department Care Team Description 06/15/2023 Entry Processor Report Medical Records [address] [place] [address] 50780 Patricia Goldberg MD Social History Tobacco Use [...] on filedocumented in this encounter Care Teams Animal Technician Relationship Specialty Start Date End Date Aracelis Arteaga MD [address] [place] [address] [phone] PCP - General Internal Medicine 10/28/21 Robinson Zelaya MD Specialist Cardiovascular Disease 08/12/21 Patricia Goldberg MD [address] [place] [address] 90158 Specialist Neurology 06/17/23 documented as of this encounter
--- OUTSIDE RECORDS SUMMARY | 2024-06-06 11:22 | XMS_ITS | Encounter Summary ---
Author Organization [employer] [facility] Address [address] [place] [address] Care Team Providers Care Cableman Name Role Phone Brian Gonzalez MD Primary Care Provider Ruben Barry MD Unavailable [phone] Robinson Zelaya MD Unavailable Unavailable Aracelis Arteaga MD Primary Care Prov ider Aracelis Arteaga MD Primary Care Prov ider Patricia Goldberg MD Unavailable Unavailable Encounter Details Date Type Department Care Team Description 05/12/2019 Hospital Medical Records [address] [place] [address] Jonas Horton Social History Tobacco Use Types [...] on filedocumented in this encounter Care Teams Cableman Relationship Specialty Start Date End Date Brian Gonzalez MD PCP - General Internal Medicine 12/11/14 10/16/21 Aracelis Arteaga MD [address] [place] [address] [phone] PCP - General Internal Medicine 10/28/21 Aracelis Arteaga MD [address] [place] [address] 36032 PCP - General Internal Medicine 10/17/21 10/27/21 Ruben Franco MD [address] [place] [address] Dr Uribe [address] [place] [address] 71362 Specialist Cardiovascular Disease 08/12/21 2 Robinson Zelaya MD [address] [place] [address] [place] [address] Specialist Cardiovascular Disease 08/12/21 Patricia Goldberg MD [address] [place] [address] 55140 Specialist Neurology 06/17/23 documented as of this encounter
--- OUTSIDE RECORDS SUMMARY | 2024-06-06 11:22 | XMS_ITS | Encounter Summary ---
Demographics Address [address] [place] [address] Home Phone Preferred Language Cypriot Marital Status Unknown Yarsani Affiliation Unknown Race White Ethnic Group Unknown Author Organization [facility] Address [address] [place] [address] Phone Support Name Relationship Address Phone Karon Stearns Mother [address] [place] [address] Prakash Ferrari Father [address] [place] [address] Care Team Providers Care Manager Hvac Name Role Phone Nuria Luna MD Primary Care Provider [phone] Encounter Details Date Type Department Care Team (Late st Contact Info) Description 01/15/2010 Documentation [facility] [place] Medicine [address] [place], [place] [phone] Family Medicine, Physician [address] [place], [place] 873891 Social History Tobacco Use Types Packs/Day Years [...] on filedocumented in this encounter Care Teams Manager Hvac Relationship Specialty Start Date End Date Nuria Luna MD [address] [place] [address] JATINDER De Santiago [address] PCP - General 11/07/16 06/29/22 documented as of this encounter
--- OUTSIDE RECORDS SUMMARY | 2024-06-06 11:22 | XMS_ITS | Encounter Summary ---
Author Organization [facility] Address [address] [place] [address] Care Team Providers Care Rod Puller And Coiler Name Role Phone Prakash Perez MD Primary Care Provider Adarsh Blanchard MD Primary Care Provider Brian Larios MD Primary Care Provider Adarsh Smith MD Primary Care Provider Brian Larios MD Primary Care Provider Ruben Barry MD Unavailable [phone] Robinson Zelaya MD Unavailable Unavailable Aracelis Arteaga MD Primary Care Prov ider Aracelis Arteaga MD Primary Care Prov ider Patricia Goldberg MD Unavailable Unavailable Encounter Details Date Type Department Care Team Description 09/03/2012 Transfer Records Medical Records [address] [place] [address] Abstract, Provider Social History Tobacco Use Types [...] on filedocumented in this encounter Care Teams Rod Puller And Coiler Relationship Specialty Start Date End Date Prakash Perez MD PCP - General Internal Medicine 01/20/12 04/04/13 Adarsh Valverde MD PCP - General Internal Medicine 04/05/13 Brian Gonzalez MD PCP - General Internal Medicine 01/12/14 12/07/14 Adarsh Valverde MD PCP - General Internal Medicine 12/08/14 Brian Gonzalez MD PCP - General Internal Medicine 12/11/14 10/16/21 Aracelis Arteaga MD [address] [place] [address] 92717 PCP - General Internal Medicine 10/28/21 Aracelis Arteaga MD [address] [place] [address] 79469 PCP - General Internal Medicine 10/17/21 10/27/21 Ruben Franco MD [address] [place] [address] [place] [address] Specialist Cardiovascular Disease 08/12/21 2 Robinson Zelaya MD [address] [place] [address] [place] [address] Specialist Cardiovascular Disease 08/12/21 Patricia Goldberg MD [address] [place] [address] Specialist Neurology 06/17/23 documented as of this encounter
--- OUTSIDE RECORDS SUMMARY | 2024-06-06 11:22 | XMS_ITS | Encounter Summary ---
Author Organization [facility] Address [address] [place] [address] Care Team Providers Care Bank Courier Name Role Phone Robinson Zelaya MD Unavailable Unavailable Aracelis Arteaga MD Primary Care Prov ider Patricia Goldberg MD Unavailable Unavailable Reason for Visit * Reason Onset Date Comments Provider Call Back 11/29/2021 Encounter Details Date Type Department Care Team Description 11/29/2021 Telephone Adult Medicine [address] [phone] Aracelis Arteaga MD [address] [place] [address] [phone] Provider Call Back Social History Tobacco Use Types Packs/Day Years [...] encounter Miscellaneous Notes * Telephone Encounter - Latha Berg M.A. - 12/03/2021 2:31 PM EDT Spoke with patient she is aware. * Telephone Encounter - Sandy Dumas PA-C - 11/29/2021 4:48 PM EDT Patient did not really need appointment today anyway. She has upcoming appointment with her PCP. I reviewed her to voicemail that her cholesterol increased slightly and that she is not diabetic. She can continue her follow-up in March. * Telephone Encounter - Deb Avila M.A. - 11/29/2021 4:45 PM EDT Missed telehealth at 4 * Telephone Encounter - Dariusz Aguirre - 11/29/2021 4:41 PM EDT Caller requesting call back from provider: Sandy Dumas PA-C Is the caller the patient? YES If caller is not the patient, what is the callers name? N/A Callers relationship to patient? N/A If person calling is not the patient themselves, is there a verbal release in FYI or permanent comments for this person: NO Reason for call back: Lab work Caller offered to speak with the nurse for assistance: YES Response: Patient offered to speak with nurse for assistance and patient agreed. Message forwarded to nurse. documented in this encounter Plan of Treatment Not on file documented as of this encounter Visit Diagnoses Not on filedocumented in this encounter Care Teams Bank Courier Relationship Specialty Start Date End Date Aracelis Arteaga MD [address] [place] [address]19 PCP - General Internal Medicine 10/28/21 Robinson Zelaya MD Specialist Cardiovascular Disease 08/12/21 Patricia Goldberg MD [address] [place] [address] 51429 Specialist Neurology 06/17/23 documented as of this encounter
--- OUTSIDE RECORDS SUMMARY | 2024-06-06 11:22 | XMS_ITS | Encounter Summary ---
Author Organization [facility] Address [address] [place] [address] Care Team Providers Care Hosiery Mater Name Role Phone Prakash Perez MD Primary Care Provider Adarsh Blanchard MD Primary Care Provider Brian Larios MD Primary Care Provider Adarsh Smith MD Primary Care Provider Brian Larios MD Primary Care Provider Ruben Barry MD Unavailable [phone] Robinson Zelaya MD Unavailable Unavailable Aracelis Arteaga MD Primary Care Prov ider Aracelis Arteaga MD Primary Care Prov ider Patricia Goldberg MD Unavailable Unavailable Encounter Details Date Type Department Care Team Description 05/17/2012 Custody Officer Report Medical Records [address] [place] [address] Rene Gupta MD Social History Tobacco Use [...] on filedocumented in this encounter Care Teams Hosiery Mater Relationship Specialty Start Date End Date Prakash Perez MD PCP - General Internal Medicine 01/20/12 04/04/13 Adarsh Valverde MD PCP - General Internal Medicine 04/05/13 Brian Gonzalez MD PCP - General Internal Medicine 01/12/14 12/07/14 Adarsh Valverde MD PCP - General Internal Medicine 12/08/14 Brian Gonzalez MD PCP - General Internal Medicine 12/11/14 10/16/21 Aracelis Arteaga MD [address] [place] [address]42 PCP - General Internal Medicine 10/28/21 Aracelis Arteaga MD [address] [place] [address] 04040 PCP - General Internal Medicine 10/17/21 10/27/21 Ruben Franco MD [address] [place] [address] [place] [address] Specialist Cardiovascular Disease 08/12/21 2 Robinson Zelaya MD [address] [place] [address] [place] [address] Specialist Cardiovascular Disease 08/12/21 Patricia Goldberg MD [address] [place] [address] Specialist Neurology 06/17/23 documented as of this encounter
--- OUTSIDE RECORDS SUMMARY | 2024-06-06 11:23 | XMS_ITS | Encounter Summary ---
Demographics Address [address] [place] [address] Home Phone Preferred Language Gabonese Marital Status Unknown Voodoo Affiliation Unknown Race White Ethnic Group Unknown Author Organization [facility] Address [address] [place] [address] Phone Support Name Relationship Address Phone Karon Stearns Mother [address] [place] [address] Prakash Ferrari Father [address] [place] [address] Care Team Providers Care Speech Pathologist Name Role Phone Nuria Luna MD Primary Care Provider Encounter Details Date Type Department Care Team (Late st Contact Info) Description 09/11/2009 Documentation [facility] Family Medicine [address] [place], [place] [phone] Family Medicine, Physician [address] [place], [place] [phone] Social History Tobacco Use Types Packs/Day Years [...] on filedocumented in this encounter Care Teams Speech Pathologist Relationship Specialty Start Date End Date Nuria Luna MD [address] [place] [address] JATINDER De Santiago [address] PCP - General 11/07/16 06/29/22 documented as of this encounter
--- OUTSIDE RECORDS SUMMARY | 2024-06-06 11:23 | XMS_ITS | Encounter Summary ---
Author Organization [facility] Address [address] [place] [address] Care Team Providers Care Furnace Installer Helper Name Role Phone Prakash Perez MD Primary Care Provider Adarsh Blanchard MD Primary Care Provider Brian Larios MD Primary Care Provider Adarsh Smith MD Primary Care Provider Brian Larios MD Primary Care Provider Ruben Barry MD Unavailable [phone] Robinson Zelaya MD Unavailable Unavailable Aracelis Arteaga MD Primary Care Prov ider Aracelis Arteaga MD Primary Care Prov ider Patricia Goldberg MD Unavailable Unavailable Encounter Details Date Type Department Care Team Description 04/27/2001 SCAN Medical Records [address] [place] [address] Abstract, Provider Social History Tobacco Use Types [...] Date/Time Associated Diagnosis Comments OUTSIDE MRI/MRA Routine 04/27/2001 documented in this encounter Results * OUTSIDE MRI/MRA (04/27/2001) Provider Abstract RADIOLOGY documented in this encounter Visit Diagnoses Not on filedocumented in this encounter Care Teams Furnace Installer Helper Relationship Specialty Start Date End Date Prakash Perez MD PCP - General Internal Medicine 01/20/12 04/04/13 Adarsh Valverde MD PCP - General Internal Medicine 04/05/13 Brian Gonzalez MD PCP - General Internal Medicine 01/12/14 12/07/14 Adarsh Valverde MD PCP - General Internal Medicine 12/08/14 Brian Gonzalez MD PCP - General Internal Medicine 12/11/14 10/16/21 Aracelis Arteaga MD [address] [place] [address] PCP - General Internal Medicine 10/28/21 Aracelis Arteaga MD [address] [place] [address] PCP - General Internal Medicine 10/17/21 10/27/21 Ruben Franco MD [address] [place] [address] [place] [address] Specialist Cardiovascular Disease 08/12/21 2 Robinson Zelaya MD [address] [place] [address] [place] [address] Specialist Cardiovascular Disease 08/12/21 Patricia Goldberg MD [address] [place] [address] Specialist Neurology 06/17/23 documented as of this encounter
--- OUTSIDE RECORDS SUMMARY | 2024-06-06 11:23 | XMS_ITS | Encounter Summary ---
Author Organization [facility] Address [address] [place] [address] Care Team Providers Care Rn Palliative Care Name Role Phone Prakash Perez MD Primary Care Provider Adarsh Blanchard MD Primary Care Provider Brian Larios MD Primary Care Provider Adarsh Smith MD Primary Care Provider Brian Larios MD Primary Care Provider Rubne Barry MD Unavailable [phone] Robinson Zelaya MD Unavailable Unavailable Aracelis Arteaga MD Primary Care Prov ider Aracelis Arteaga MD Primary Care Prov ider Patricia Goldberg MD Unavailable Unavailable Encounter Details Date Type Department Care Team Description 06/17/2007 SCAN Medical Records [address] [place] [id number] Don Berman Social History Tobacco Use Types [...] on filedocumented in this encounter Care Teams Rn Palliative Care Relationship Specialty Start Date End Date Prakash Perez MD PCP - General Internal Medicine 01/20/12 04/04/13 Adarsh Valverde MD PCP - General Internal Medicine 04/05/13 Brian Gonzalez MD PCP - General Internal Medicine 01/12/14 12/07/14 Adarsh Valverde MD PCP - General Internal Medicine 12/08/14 Brian Gonzalez MD PCP - General Internal Medicine 12/11/14 10/16/21 Aracelis Arteaga MD [address] [place] [address] PCP - General Internal Medicine 10/28/21 Aracelis Arteaga MD [address] [place] [address] PCP - General Internal Medicine 10/17/21 10/27/21 Ruben Franco MD [address] [place] [address] [place] [address] Specialist Cardiovascular Disease 08/12/21 2 Robinson Zelaya MD [address] [place] [address] [place] [address] Specialist Cardiovascular Disease 08/12/21 Patricia Goldberg MD [address] [place] [address] Specialist Neurology 06/17/23 documented as of this encounter
--- OUTSIDE RECORDS SUMMARY | 2024-06-06 11:23 | XMS_ITS | Encounter Summary ---
Demographics Address [address] [place] [place] [address] Home Phone Preferred Language Dominican Marital Status Unknown Judaism Affiliation Unknown Race White Ethnic Group Unknown Author Organization [facility] Address [address] [place] [address] Phone Support Name Relationship Address Phone Karon Stearns Mother [address] [place] [address] Prakash Ferrari Father [address] [place] [address] Care Team Providers Care Foot Setter Name Role Phone Nuria Luna MD Primary Care Provider [phone] Encounter Details Date Type Department Care Team (Late st Contact Info) Description 11/06/2009 Documentation [facility] Family Medicine [address] [place], [place] [phone] Family Medicine, Physician [address] [place], [place] [id number] Social History Tobacco Use Types Packs/Day Years [...] on filedocumented in this encounter Care Teams Foot Setter Relationship Specialty Start Date End Date Nuria Luna MD [address] [place] [address] JATINDER De Santiago [address] PCP - General 11/07/16 06/29/22 documented as of this encounter
--- OUTSIDE RECORDS SUMMARY | 2024-06-06 11:23 | XMS_ITS | Encounter Summary ---
Author Organization [facility] Address [address] [place] [address] Care Team Providers Care Land Surveyor Assistant Name Role Phone Prakash Perez MD Primary Care Provider Adarsh Blanchard MD Primary Care Provider Brian Larios MD Primary Care Provider Adarsh Smith MD Primary Care Provider Brian Larios MD Primary Care Provider Ruben Barry MD Unavailable [phone] Robinson Zelaya MD Unavailable Unavailable Aracelis Arteaga MD Primary Care Prov ider Aracelis Arteaga MD Primary Care Prov ider Patricia Goldberg MD Unavailable Unavailable Encounter Details Date Type Department Care Team Description 03/08/2009 SCAN Medical Records [address] [place] [address] Don Berman Social History Tobacco Use Types [...] on filedocumented in this encounter Care Teams Land Surveyor Assistant Relationship Specialty Start Date End Date Prakash Perez MD PCP - General Internal Medicine 01/20/12 04/04/13 Adarsh Valverde MD PCP - General Internal Medicine 04/05/13 Brian Gonzalez MD PCP - General Internal Medicine 01/12/14 12/07/14 Adarsh Valverde MD PCP - General Internal Medicine 12/08/14 Brian Gonzalez MD PCP - General Internal Medicine 12/11/14 10/16/21 Aracelis Arteaga MD [address] [place] [address] PCP - General Internal Medicine 10/28/21 Aracelis Arteaga MD [address] [place] [address] PCP - General Internal Medicine 10/17/21 10/27/21 Ruben Franco MD [address] [place] [address] [place] [address] Specialist Cardiovascular Disease 08/12/21 2 Robinson Zelaya MD [address] [place] [address] [place] [address] Specialist Cardiovascular Disease 08/12/21 Patricia Goldberg MD [address] [place] [address] Specialist Neurology 06/17/23 documented as of this encounter
--- OUTSIDE RECORDS SUMMARY | 2024-06-06 11:23 | XMS_ITS | Encounter Summary ---
Author Organization [facility] Address [address] [place] [address] Care Team Providers Care Chicken Picker Name Role Phone Brian Gonzalez MD Primary Care Provider Ruben Barry MD Unavailable [phone] Robinson Zelaya MD Unavailable Unavailable Aracelis Arteaga MD Primary Care Prov ider Aracelis Arteaga MD Primary Care Prov ider Patricia Goldberg MD Unavailable Unavailable Encounter Details Date Type Department Care Team Description 09/19/2017 Railroad Signal And Switch Operator Report Medical Records [address] [place] [address] [facility] Social History Tobacco Use Types [...] on filedocumented in this encounter Care Teams Chicken Picker Relationship Specialty Start Date End Date Brian Gonzalez MD PCP - General Internal Medicine 12/11/14 10/16/21 Aracelis Arteaga MD [address] [place] [address] PCP - General Internal Medicine 10/28/21 Aracelis Arteaga MD [address] [place] [address] PCP - General Internal Medicine 10/17/21 10/27/21 Ruben Franco MD [address] [place] [address] Dr Uribe [address] [place] [address] Specialist Cardiovascular Disease 08/12/21 2 Robinson Zelaya MD [address] [place] [address] [place] [address] Specialist Cardiovascular Disease 08/12/21 Patricia Goldberg MD [address] [place] [address] Specialist Neurology 06/17/23 documented as of this encounter
--- OUTSIDE RECORDS SUMMARY | 2024-06-06 11:23 | XMS_ITS | Encounter Summary ---
Author Organization [facility] Address [address] [place] [address] Care Team Providers Care Casino Supervisor Name Role Phone Brian Gonzalez MD Primary Care Provider Ruben Barry MD Unavailable [phone] Robinson Zelaya MD Unavailable Unavailable Aracelis Arteaga MD Primary Care Prov ider Aracelis Arteaga MD Primary Care Prov ider Patricia Goldberg MD Unavailable Unavailable Encounter Details Date Type Department Care Team Description 03/08/2018 Supervisor Component Assembler Report Medical Records [address] [place] [address] [facility] [place] [facility] Social History Tobacco Use Types Packs/Day Years [...] on filedocumented in this encounter Care Teams Casino Supervisor Relationship Specialty Start Date End Date Brian Gonzalez MD PCP - General Internal Medicine 12/11/14 10/16/21 Aracelis Arteaga MD [address] [place] [address] [phone] PCP - General Internal Medicine 10/28/21 Aracelis Arteaga MD [address] [place] [address] PCP - General Internal Medicine 10/17/21 10/27/21 Ruben Franco MD [address] [place] [address] Dr Uribe [address] [place] [address] Specialist Cardiovascular Disease 08/12/21 2 Robinson Zelaya MD [address] [place] [address] [place] [address] Specialist Cardiovascular Disease 08/12/21 Patricia Goldberg MD [address] [place] [address] Specialist Neurology 06/17/23 documented as of this encounter
--- OUTSIDE RECORDS SUMMARY | 2024-06-06 11:23 | XMS_ITS | Encounter Summary ---
Author Organization [facility] Address [address] [place] [address] Care Team Providers Care Slunk Skin Curer Name Role Phone Robinson Zelaya MD Unavailable Unavailable Aracelis Arteaga MD Primary Care Prov ider Patricia Goldberg MD Unavailable Unavailable Reason for Visit * Reason Comments E-prescribe Rx Request Encounter Details Date Type Department Care Team Description 10/29/2023 Refill Dermatology - [address] [phone] Lidia Mcclain PA-C E-prescribe Rx Request Social [...] on filedocumented in this encounter Care Teams Slunk Skin Curer Relationship Specialty Start Date End Date Aracelis Arteaga MD [address] [place] [address] PCP - General Internal Medicine 10/28/21 Robinson Zelaya MD Specialist Cardiovascular Disease 08/12/21 Patricia Goldberg MD [address] [place] [address], [place] [address] Specialist Neurology 06/17/23 documented as of this encounter
--- OUTSIDE RECORDS SUMMARY | 2024-06-06 11:23 | XMS_ITS | Encounter Summary ---
Demographics Address [address] [place] [address] Home Phone Preferred Language Nigerian Marital Status Unknown Muslim Affiliation Unknown Race White Ethnic Group Unknown Author Organization [facility] Address [address] [place] [address] Phone Support Name Relationship Address Phone Karon Stearns Mother [address] [place] [address] Prakash Ferrari Father [address] [place] [address] Care Team Providers Care Transformation Analyst Name Role Phone Nuria Luna MD Primary Care Provider Encounter Details Date Type Department Care Team (Late st Contact Info) Description 10/03/2009 Documentation [facility] Family Medicine [address] [place], [place] [phone] Family Medicine, Physician [address] [place], [place] [address] Social History Tobacco Use Types Packs/Day Years [...] on filedocumented in this encounter Care Teams Transformation Analyst Relationship Specialty Start Date End Date Nuria Luna MD [address] [place] [address] JATINDER De Santiago [address] PCP - General 11/07/16 06/29/22 documented as of this encounter
--- OUTSIDE RECORDS SUMMARY | 2024-06-06 11:23 | XMS_ITS | Encounter Summary ---
Author Organization [facility] Address [address] [place] [address] Care Team Providers Care Php Website Developer Name Role Phone Robinson Zelaya MD Unavailable Unavailable Aracelis Arteaga MD Primary Care Prov ider Patricia Goldberg MD Unavailable Unavailable Encounter Details Date Type Department Care Team Description 12/03/2023 Pt. Non Urgent Medical Question [facility] [address] [phone] Tarik Harris DPM [address] [address] Social History Tobacco Use Types Packs/Day Years [...] on filedocumented in this encounter Care Teams Php Website Developer Relationship Specialty Start Date End Date Aracelis Arteaga MD [address] [place] [address] PCP - General Internal Medicine 10/28/21 Robinson Zelaya MD Specialist Cardiovascular Disease 08/12/21 Patricia Goldberg MD [address] [place] [address] Specialist Neurology 06/17/23 documented as of this encounter
--- OUTSIDE RECORDS SUMMARY | 2024-06-06 11:23 | XMS_ITS | Encounter Summary ---
Author Organization [facility] Address [address] [place] [address] Care Team Providers Care Nuclear Scientist Name Role Phone Brian Gonzalez MD Primary Care Provider Ruben Barry MD Unavailable [phone] Robinson Zelaya MD Unavailable Unavailable Aracelis Arteaga MD Primary Care Prov ider Aracelis Arteaga MD Primary Care Prov ider Patricia Goldberg MD Unavailable Unavailable Encounter Details Date Type Department Care Team Description 01/14/2017 Release of Information Medical Records [address] [place] [address] Abstract, Provider Social History Tobacco Use Types [...] filedocumented in this encounter Care Teams Nuclear Scientist Relationship Specialty Start Date End Date Brian Gonzalez MD PCP - General Internal Medicine 12/11/14 10/16/21 Aracelis Arteaga MD [address] [place] [phone] PCP - General Internal Medicine 10/28/21 Aracelis Arteaga MD [address] [place] [address] PCP - General Internal Medicine 10/17/21 10/27/21 Ruben Franco MD [address] [place] [address] Dr Uribe [address] [place] [address] Specialist Cardiovascular Disease 08/12/21 2 Robinson Zelaya MD [address] [place] [address] [place] [address] Specialist Cardiovascular Disease 08/12/21 Patricia Goldberg MD [address] [place] [address] Specialist Neurology 06/17/23 documented as of this encounter
[2024-06-06 12:39] LABS: Anion Gap 10 (12-20); Blood Urea Nitrogen 25 mg/dL (9-16); Calcium 9.9 mg/dL (8.4-10.2); Carbon Dioxide 24 mmol/L (22-29); Chloride 114 mmol/L (96-108); Estimated Glomerular Filt Rate > 60; Glucose Random 80 mg/dL (60-115); Potassium 4.2 mmol/L (3.3-5.1); Sodium 144 mmol/L (135-145)
== END 2024-06-06 10:11 | disposition home or self-care (01) ==
LOC: HO.WFDLDS 10:10
PROVIDERS: Visit Provider Physician Assistant
DX: N17.9 Acute kidney failure, unspecified (principal)
CPT/HCPCS: 36415; 80048

== ENCOUNTER 2024-07-21 09:50 | Outpatient (AMB) | payer OTHER, SELFPAY ==
--- NOTE | 2024-07-21 10:02 | MHC.PC.OV ---
Vital Signs 07/21/24 10:11 Height 5 ft 3.9 in Weight 212 lb 4 oz BMI 36.5 BP 108/70 Blood Pressure Location Rt brachial Position Sitting Respiration 12 Pulse 85 Pulse Source Pulse Oximeter Pulse Oximetry (%) 97 Oxygen Delivery Method Room Air Intake Visit Reasons: f/u labs Intake Note: Follow up. Allergies lamotrigine [From LAMICTAL] Allergy (Unknown, Verified 04/12/24 11:43) RASH tirzepatide [From Mounjaro] Allergy (Unknown, Verified 04/12/24 11:43) gi upset gadobutrol [From Gadavist] Allergy (Verified 04/12/24 11:43) hives ozempic Allergy (Unknown, Uncoded 04/12/24 11:43) gi issues Medication List - Last Reconciled 07/21/24 by Sunitha Guardado PA-C adalimumab (Humira) inject one - 40 mg/0.8 mL syringe every 2 weeks subcut ammonium lactate 12% 1 appl topical DAILY betamethasone dipropionate 0.05% 1 appl topical BID blood sugar diagnostic (Axerion TherapeuticsTouch Ultra Test strips) Use daily as directed to monitor blood sugars chlorhexidine gluconate 4% (Hibiclens) 1 appl topical Q5M cholecalciferol (vitamin D3) 50 mcg PO DAILY clindamycin phosphate 1% 1 appl topical DAILY diclofenac sodium 1% (Arthritis Pain (diclofenac)) 2 grams topical QID fluocinonide 0.05% 1 appl topical BID lisinopril 5 mg PO DAILY lorazepam 1 mg PO BID PRN olanzapine 7.5 mg PO DAILY oxcarbazepine 600 mg PO BID Shower Chair As directed simvastatin 10 mg PO BEDTIME topiramate orally; 1 1/2 tab bid Tobacco use date assessed: 07/21/24 Dental Screening Dental Screen Date: 07/21/24 Did you have a dental visit in the last 12 months?: No Did you have a dental problem in the last 6 months where you did not have access to dental care?: No Was dental information given to patient?: Patient declined (Looking for a dentist) HPI f/u labs HPI Details Patient is a 33-year-old female who presents today for a follow up. Endo: Last A1c was 4.9. She was previously on metformin but did not notice any significant appetite suppression so this was discontinued a couple of months ago. She tried GLP ones but was intolerant. CV: Blood pressure today in the office is 108/70. She is on lisinopril 5 mg daily. Her cholesterol is controlled with simvastatin 10 mg. Tolerating this well. No myalgias. Derm: She is following with Dermatology for her HS. She is well-controlled with Humira, Hibiclens -we checked labs after her last appointment and believe that the spironolactone caused an TYRELL. She was discontinued on this and repeat labs showed normalization of kidney function. Psych: Stable. [facility] Medical History Primary brain astrocytoma Uncontrolled type 2 diabetes mellitus with hyperglycemia Severe obesity (BMI 35.0-39.9) with comorbidity Seizure disorder Schizo-affective schizophrenia Major depression, recurrent, chronic Hyperlipidemia HTN (hypertension) History of astrocytoma of brain Generalized anxiety disorder Fatty liver Controlled type 2 diabetes mellitus Hidradenitis suppurativa Astrocytoma brain tumor Complex partial seizures Schizoaffective disorder Surgical History S/P brain surgery H/O craniotomy Family History Father HTN (hypertension) Gout Diabetes mellitus Depression Mother HTN (hypertension) Diabetes mellitus Psoriasis Depression Other FH: mental illness Social History (Updated 07/21/24 @ 10:12 by Rosario Pleitez CMA) Housing: Condominium Alcohol intake: current Patient Tobacco Use Status: Never used Tobacco e-Cigarette/Vaping Use: Never Used Second Hand Smoke Exposure: No service: No Current occupational status: disabled Cognitive needs: No Hearing needs: No Vision needs: Yes (glasses) Questionnaire Thrive Questionnaire Date Thrive assessed: 04/21/24 I am a: Patient What is your living situation today?: I have a steady place to live Within the past 12 months, did the food you bought not last and you didn't have the money to get more?: Never true Within the past 12 months, did you worry whether your food would run out before you got money to buy more?: Never true Do you have trouble paying for medicines?: No Do you have trouble getting transportation to medical appointments?: No Do you have trouble paying your heating and electricity bill?: No Do you have trouble taking care of your child, family member or friend?: No Do you have trouble with day-to-day activities such as bathing, preparing meals, shopping, managing finances, etc.?: No Are you currently unemployed and looking for a job?: No Are you interested in more education?: No Please select the resources that you would like help with: None Currently or been in a relationship where the following occur: No concerns reported THRIVE Score: 0 JENNA-7 AMB Questionnaire JENNA-7 Date JENNA - 7 assessed: 10/21/23 Source: Developed by Drs. Al Garza, Eleanor Newell, Valdez Bautista and colleagues, with an educational tae from [employer]. Physical exam (Primary Care) Vital Signs: Last Vital Signs Pulse 85 07/21/24 10:11 Resp 12 07/21/24 10:11 BP 108/70 07/21/24 10:11 Pulse Ox 97 07/21/24 10:11 Oxygen Delivery Method Room Air 07/21/24 10:11 BMI result Body Mass Index 36.5 Tobacco/Smoking Status: Tobacco use Status Tobacco use date assessed 07/21/24 07/21/24 10:04 Patient Tobacco Use Status Never used Tobacco 07/21/24 10:12 e-Cigarette/Vaping Use Never Used 07/21/24 10:12 Thrive Assessment: Date of Thrive Assessment Date Thrive assessed 04/21/24 07/21/24 10:03 Currently or been in a relationship where the following occur: No concerns reported Const Orientation/consciousness: patient oriented x3 HENMT Ears: hearing grossly normal bilaterally Neck Thyroid: Thyroid normal Lymphatic: no lymphadenopathy noted Resp Auscultation: clear to auscultation bilaterally Cardio Rate: regular rate Rhythm: regular rhythm Heart sounds: S1 normal heart sound present and S2 normal heart sound present GI Inspection: Yes normal to inspection Palpation (GI): Soft to palpation and Other GI palpation findings present (nontender, no cva tenderness) Auscultation: normoactive bowel sounds Rectal Exam - Female: deferred Skin General skin exam: no rashes or lesions noted Neuro General: patient oriented x3, gait normal and no focal motor deficits Coding Level of Care Code Est Pt Level 4 (72618) Complex EM visit Add On G2211 Diagnoses Schizoaffective disorder, depressive type F25.1 Schizoaffective disorder type: depressive Controlled type 2 diabetes mellitus without complication, without long-term current use of insulin E11.9 Diabetes mellitus complication status: without complication 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 (2) Controlled type 2 diabetes mellitus: Code(s): E11.9 - Type 2 diabetes mellitus without complications Category: Medical Qualifiers: Diabetes mellitus complication status: without complication Diabetes mellitus fpc insulin use: without intermodal owner operator truck driver use Qualified Code(s): E11.9 - Type 2 diabetes mellitus without complications Plan: We will check A1c off of medication. (3) HTN (hypertension): Code(s): I10 - Essential (primary) hypertension Category: Medical Qualifiers: Hypertension type: primary hypertension Qualified Code(s): I10 - Essential (primary) hypertension Plan: WNL. Continue current regimen (4) Hyperlipidemia: Code(s): E78.5 - Hyperlipidemia, unspecified Category: Medical Qualifiers: Hyperlipidemia type: mixed hyperlipidemia Qualified Code(s): E78.2 - Mixed hyperlipidemia Plan: Lipids and LFTs ordered. Orders: Orders Comprehensive Erving. Panel Fast Today E11.9 - Type 2 diabetes mellitus without complications, E78.2 - Mixed hyperlipidemia, F25.1 - Schizoaffective disorder, depressive type, I10 - Essential (primary) hypertension TSH reflex Free T4 Today E11.9 - Type 2 diabetes mellitus without complications, E78.2 - Mixed hyperlipidemia, F25.1 - Schizoaffective disorder, depressive type, I10 - Essential (primary) hypertension Hemoglobin A1c Today E11.9 - Type 2 diabetes mellitus without complications, E78.2 - Mixed hyperlipidemia, F25.1 - Schizoaffective disorder, depressive type, I10 - Essential (primary) hypertension, R73.01 - Impaired fasting glucose Complete Blood Count Auto Diff Today E11.9 - Type 2 diabetes mellitus without complications, E78.2 - Mixed hyperlipidemia, F25.1 - Schizoaffective disorder, depressive type, I10 - Essential (primary) hypertension Lipid Panel Today E11.9 - Type 2 diabetes mellitus without complications, E78.2 - Mixed hyperlipidemia, F25.1 - Schizoaffective disorder, depressive type, I10 - Essential (primary) hypertension
[2024-07-21 10:11] VITALS: BP 108/70; PULSE 85; RESP 12; O2SAT 97; BMI 36.5
--- OUTSIDE RECORDS SUMMARY | 2024-07-21 11:04 | XMS_ITS | Encounter Summary ---
Demographics Address [address] [place] [address] Home Phone Preferred Language Argentine Marital Status Unknown Samaritan Affiliation Unknown Race White Ethnic Group Unknown Author Organization [facility] Address [address] [place] [address] Phone Support Name Relationship Address Phone Karon Stearns Mother [address] [place] [address] Prakash Ferrari Father [address] [place] [address] Care Team Providers Care Switchboard Clerk Name Role Phone Nuria Luna MD Primary Care Provider Encounter Details Date Type Department Care Team (Late st Contact Info) Description 10/03/2009 Documentation [facility] [place] [address] [place], [place] [id number] Family Medicine, Physician [address] [place], [place] [address] Social History Tobacco Use Types Packs/Day Years [...] on filedocumented in this encounter Care Teams Switchboard Clerk Relationship Specialty Start Date End Date Nuria Luna MD [address] [place] [address] JATINDER De Santiago [address] PCP - General 11/07/16 06/29/22 documented as of this encounter
--- OUTSIDE RECORDS SUMMARY | 2024-07-21 11:04 | XMS_ITS | Encounter Summary ---
Demographics Address [address] [place] [address] Home Phone Preferred Language Sammarinese Marital Status Unknown Jainism Affiliation Unknown Race White Ethnic Group Unknown Author Organization [facility] Address [address] [place] [address] Phone Support Name Relationship Address Phone Karon Stearns Mother [address] [place] [address] Prakash Ferrari Father [address] [place] [address] Care Team Providers Care Finish Molder Name Role Phone Nuria Luna MD Primary Care Provider Encounter Details Date Type Department Care Team (Late st Contact Info) Description 11/13/2016 Conversion Encounter [facility] [place] [address] [place] [address] Social History Tobacco Use Types Packs/Day Years [...] on filedocumented in this encounter Care Teams Finish Molder Relationship Specialty Start Date End Date Nuria Luna MD [address] [place] [address] PCP - General 11/07/16 06/29/22 documented as of this encounter
--- OUTSIDE RECORDS SUMMARY | 2024-07-21 11:04 | XMS_ITS | Clinical Summary ---
Demographics Address [address] [place] [address] Home Phone Preferred Language Arabic Marital Status Unknown Christian Affiliation Unknown Race White Ethnic Group Unknown Author Organization [facility] Address [address] [place] [address] Phone Support Name Relationship Address Phone Karon Stearns Mother [address] [place] [address] Prakash Ferrari Father [address] [place] [address] Care Team Providers Care Digital Marketing Associate Name Role Phone Unavailable Primary Care Provider [...]
--- OUTSIDE RECORDS SUMMARY | 2024-07-21 11:04 | XMS_ITS | Data Portability ---
Author Organization [facility] [place] Address [address] [place] [address] [place] [address] Care Team Providers Care Glost Kiln Placer Name Role Phone MARK SINGH Referring Provider [...] same address as is shown in the [place] EMR for us to fax a note. [...] glaucoma and she has also seen her drift miner and has reported that there is nothing to treat other than dry eyes. Discussed her mother's question of whether and underlying seizure would present itself as a hallucination to [place]: this would be exceedingly rare. Confirmed today that we do have her records from [facility] [place] [facility] from Dr. Ruth from 09/24/2020 (brain MRI from April 30, 2017 is summarized in data review.) Has had more recent EEG and brain MRI at [facility] about 2 years ago. We will [...] same address as is shown in the [place] EMR for us to fax a note. We will try to obtain his updated address and include him with it for copies of all of our notes. LETICIA Stearns June 04, 2021 We will obtain electrolyte levels with particular attention to sodium to establish a baseline while you are on ox carbamazepine. We have faxed this to the [facility] laboratory at [address] in [place] at your request. This address was newly [...] pharmacy today We will request records from [facility] with your MRI and EEG [...] assessment/plan in particular. Prakash Parada MD, PhD [facility] mrossen Not available 06/05/2021 14:36:58 Plan of Treatment Reminders Order Date Submit Date Provider Last Modified By Organization Details Last Modified Time Details Appointments None recorded. Lab BMP, serum or plasma - R94.4 Attn Phlebotomy 2021 022 sally 1 [facility], [address] [facility], [place], [address], 13:49:46 Referral None recorded. Procedures None recorded. Surgeries None recorded. Imaging None recorded. Medication Orders oxcarbazepi ne 600 mg tablet 2021 [facility], [address] [facility], [place], [address], 13:35:57 topiramate 100 mg tablet 2021 [facility], [address] [place], [address], 13:36:53 topiramate 50 mg tablet 2021 [facility], [address] [place], [address], 13:37:27 oxcarbazepi ne 600 mg tablet 2020 [facility], [address] [place], [address], 12:46:13 topiramate 100 mg tablet 2020 [facility], [address] [place], [address], 12:46:15 topiramate 50 mg tablet 2020 [facility], [address] [place], [address], 12:46:13 Patient TargetsNo targets recorded. Patient InstructionsNo [...] and Address Organization Details Recorded Time Seizure 45447019 Active Nella Veliz [facility] Neurology [facility] 01/10/2021 11:17:10 Problem Notes None recorded. Procedures Surgical History Date Name Laterality Status Provider Name and Address Organization Details Recorded Time craniotomy completed Nella Veliz [facility] 01/10/2021 11:18:51 Imaging Results Imaging Date [...] Not available Not available Not available 01/10/2021 38999 RxNorm Nella Veliz [facility] 11:25:59 607 Lamictal medicatio n Not available Not available Not available 01/10/2021 60233 2 RxNorm Nella Veliz [facility] 11:26:07 Medications Name Sig Start [...] Updated DateTime 01/10/2021 162.56 cm 36 kg/m2 61484.4 g Nella Veliz [facility] 01/10/2021 11:10:21 Social History Question Answer Notes LastModified by Organizat ion Details LastModified Time Tobacco Smoking Status Never Smoker Nella zepeda [facility] 01/10/2021 11:18:09 What Is Your Level [...] Code Diagnosis Note 2312 Prakash Parada MD [facility] [address] [place] [address] [place] [address] 01/10/2021 11:08:49 01/10/2021 13:08:35 Focal onset impaired awareness epileptic seizure 603783191 G40.209 Absence seizure 58969892 G40.A09 Decreased level of consciousness 923891911 R40.4 4261 Prakash Parada MD [facility] [address] [place] [address] [place] [address] 06/04/2021 10:09:35 06/06/2021 16:48:46 Focal onset impaired awareness epileptic seizure 857893928 G40.209 Absence seizure 80563010 G40.A09 Decreased level of consciousness 445737775 R40.4 Health Concerns Section Related Observation LastModified by Organization Detai ls LastModified Time None Recorded Concern Status LastModified by Organization Details LastModified Time None Recorded Advance Directives Directive None Recorded Payers Encounter Date Sequence Insurance Name Policy Number Policy Hamm Covered Member ID Hamm Member ID Guarantor Name 01/10/2021 1 [facility] - DOS PRIOR TO 2022 - DUAL ELIGIBLE (MEDICARE REPLACEMENT/AD VANTAGE - HMO) Wale Gaston [id number] Wale Stearns 06/04/2021 1 [facility] - DOS PRIOR TO 2022 - DUAL ELIGIBLE (MEDICARE REPLACEMENT/AD VANTAGE - HMO) Wale Gaston [id number] Wale Stearns Notes Date Note Type Note [...] at [facility] who is moving to [place], last visit in August 2020 and from [...] been actively adjusting medications. Prakash Parada MD [address] [place] [address] [place], [address], [facility] Neurology [facility] 01/10/2021 13:07:21 06/04/2021 text/html Follow up [...] not last. She has been to her drift miner who does not have any specific recommendation other than [id number] drops for dry eyes. Her mother has noticed that she seems to have hallucinations but only transiently and sometimes wonders if this is hallucinations blend into the seizure activity and given her history of left temporal lobe astrocytoma, wonders if this could be related. Her most recent MRI and EEG were done at [facility] 2 years ago. Which confirm that we have records from [facility] from 4 years ago. She continues on [...] at [facility] who is moving to [place], last visit in August 2020 and from [...] been actively adjusting medications. Prakash Parada MD [address] [place] [address] [place], [address], [facility] Neurology [facility] 06/05/2021 14:37:13 OBGyn Episode No OBEpisode recorded.
--- OUTSIDE RECORDS SUMMARY | 2024-07-21 11:04 | XMS_ITS | Encounter Summary ---
Demographics Address [address] [place] [address] Home Phone Preferred Language Mongolian Marital Status Unknown Mormon Affiliation Unknown Race White Ethnic Group Unknown Author Organization [facility] Address [address] [place] [address] Phone Support Name Relationship Address Phone Karon Stearns Mother [address] [place] [address] Prakash Ferrari Father [address] [place] [address] Care Team Providers Care Engraved Roller Inspector Name Role Phone Nuria Luna MD Primary Care Provider [phone] Encounter Details Date Type Department Care Team (Late st Contact Info) Description 11/06/2009 Documentation [facility] [place] [address] [place], [place] [phone] Family Medicine, Physician [address] [place], [place] [address] Social History Tobacco Use Types Packs/Day Years [...] on filedocumented in this encounter Care Teams Engraved Roller Inspector Relationship Specialty Start Date End Date Nuria Luna MD [address] [place] [address] JATINDER De Santiago [address] PCP - General 11/07/16 06/29/22 documented as of this encounter
--- OUTSIDE RECORDS SUMMARY | 2024-07-21 11:04 | XMS_ITS | Encounter Summary ---
Demographics Address [address] [place] [address] Home Phone Preferred Language Singaporean Marital Status Unknown Faith Affiliation Unknown Race White Ethnic Group Unknown Author Organization [facility] Address [address] [place] [address] Phone Support Name Relationship Address Phone Karon Stearns Mother [address] [place] [address] Prakash Ferrari Father [address] [place] [address] Care Team Providers Care Us Administrative Law Judge Name Role Phone Nuria Luna MD Primary Care Provider [phone] Encounter Details Date Type Department Care Team (Late st Contact Info) Description 01/15/2010 Documentation [facility] [place] Medicine [address] [place], [place] [phone] Family Medicine, Physician [address] [place], [place] [address] Social History Tobacco Use Types Packs/Day Years [...] on filedocumented in this encounter Care Teams Us Administrative Law Judge Relationship Specialty Start Date End Date Nuria Luna MD [address] [place] [address] JATINDER De Santiago [address] PCP - General 11/07/16 06/29/22 documented as of this encounter
--- OUTSIDE RECORDS SUMMARY | 2024-07-21 11:04 | XMS_ITS | Data Portability ---
Author Organization [place] [facility], [facility] Address [address] [place] [phone] Assessment Encounter Date Assessment Date Assessment LastModified by Organization Details LastModified Time 07/13/2024 07/13/2024 33-year-old female presents for evaluation of tinnitus. On exam, bilateral tympanic membranes are intact with well aerated middle ear spaces. Audiometric testing demonstrated normal hearing bilaterally. Masking to control awareness of tinnitus, avoidance of caffeine, and stress management were recommended. For symptoms significantly affecting the quality of life, cognitive behavioral therapy and tinnitus retraining therapy could be considered. I recommended use of hearing protection in loud noise environments. Tinnitus brochure was provided. She may follow up as needed for any future concerns. [email or web address] Not available 07/13/2024 15:33:10 Plan of Treatment Reminders Order Date Submit Date Provider Last Modified By Organization Details Last Modified Time Details Appointments None record ed. Lab None record ed. Referral None record ed. Procedures None record ed. Surgeries None record ed. Imaging None record ed. Medication Orders None record ed. Patient TargetsNo targets recorded. Patient InstructionsNo instructions recorded. Reason for Referral None Reported. Results Created Date Observation Date Name Description Value Unit Range Abnormal Flag Note LastModifiedBy Organization Detail LastModifiedTime 07/15/19 25 audio gram No observ ation record ed. BARCODE Not Available 2024 09:29:54 Result Notes None recorded. Problems Name Problem SNOMED Code Status Onset Date Resolution Date Notes Provider Name and Address Organization Details Recorded Time Abnormal auditory perception 12822107 Active 2024 Keke zepeda [place] - [facility] 14:19:41 Bilateral tinnitus 0404232496074 Active 2024 ANEL DEUTSCH PA-C [address] [place] [address], [phone], [facility] - [facility] 15:33:15 Problem Notes None recorded. Procedures Surgical History Date Name Laterality Status Provider Name and Address Organization Details Recorded Time 07/13/2024 Air & Speech Audio with Tymps (20849, 73039 & 05899) completed Keke Lee [place] - [facility] 07/13/2024 14:19:30 Imaging Results Imaging Date Name Status LastModified by Organiz ation Details LastModified Time 07/14/2024 audiogram completed BARCODE Information no t available 07/14/2024 09:29:54 Procedure Notes None recorded. Medical Equipment None Reported. Medications Name Sig Start Date Stop Date Status Note LastModified by Organization Details LastModified Time medroxyproges terone 10 mg tablet TAKE ONE TABLET BY MOUTH EVERY DAY active Not Available Not Available No t Available simvastatin 10 mg tablet TAKE ONE TABLET BY MOUTH EVERY DAY AT BEDTIME active Not Available Not Available N ot Available olanzapine 7.5 mg tablet TAKE ONE TABLET BY MOUTH DAILY AT BEDTIME active Not Available Not Available No t Available oxcarbazepine 600 mg tablet TAKE ONE TABLET BY MOUTH TWICE A DAY active Not Available Not Available No t Available lisinopril 5 mg tablet TAKE ONE TABLET BY MOUTH EVERY DAY active Not Available Not Available No t Available lorazepam 1 mg tablet TAKE ONE TABLET BY MOUTH TWICE A DAY NEEDED active Not Available Not Available No t Available topiramate 100 mg tablet TAKE 1 TABLET BY MOUTH TWICE A DAY. TAKE 1/2 TABLET BY MOUTH TWICE A DAY active Not Available Not Available No t Available chlorhexidine gluconate 4 % topical liquid USE EVERY OTHER DAY BODY WASH TO AFFECTED AREA S) ON BODY active Not Available Not Available No t Available diclofenac 1 % topical gel APPLY 4 GRAMS TOPICALLY TWO TIMES A DAY active Not Available Not Available No t Available cholecalcifer ol (vitamin D3) 50 mcg (2,000 unit) capsule TAKE ONE CAPSULE BY MOUTH EVERY DAY active Not Available Not Available No t Available Vitals None Recorded Social History None recorded. Functional Status None recorded. Mental Status None recorded. Family History Nothing Reported. Medical History No medical history recorded. Gynecological HistoryNo gynecological history recorded. Obstetrics History GPAL:G 0 P 0 0 0 0 Past Encounters Encounter ID Performer Location Encounter Start Date Encounter Closed Date Diagnosis/Indication Diagnosis SNOMED-CT Code Diagnosis ICD10 Code Diagnosis Note [id number] ANEL DEUTSCH PA-C [facility] [address] [place] [address] 07/13/2024 13:53:19 07/13/2024 15:08:14 Abnormal auditory perception 70385519 H93.299 Audiologic al evaluation results: Right ear: {{Normal* Normal through 2 kHz Mild M oderate Mo derately-s evere Janice re Profoun d}} {{hearing* hearing. sloping to a mild slopi ng to a moderate s loping to moderately severe slo ping to severe slo ping to profound f lat high frequency low frequency mid frequency cookie bite braun curve}} {{with* se nsorineura l hearing loss with condu ctive hearing loss with mixed hearing loss with}} {{excellen t* good fa ir poor no measurable }} word recognitio n. Left ear: {{Normal* Normal through 2 kHz Mild M oderate Mo derately-s evere Janice re Profoun d}} {{hearing* hearing. sloping to a mild slopi ng to a moderate s loping to moderately severe slo ping to severe slo ping to profound f lat high frequency low frequency mid frequency cookie bite braun curve}} {{with* se nsorineura l hearing loss with condu ctive hearing loss with mixed hearing loss with}} {{excellen t* good fa ir poor no measurable }} word recognitio n. Tympanomet ry: Right Ear:{{Type A* Type A with rounded peak Type A with double peak Type As Type As with rounded peak Type Ad Type C Type C, shallow & rounded peak Type B Type B with large volume Cou ld not maintain a hermetic seal}} Left Ear:{{Type A Type A with rounded peak Type A with double peak Type As Type As with rounded peak Type Ad* Type C Type C, shallow & rounded peak Type B Type B with large volume Cou ld not maintain a hermetic seal}} Bilateral tinnitus 8[address]97 29775 102 H93.13 Health Concerns Section Related Observation LastModified by Organization Detai ls LastModified Time None Recorded Concern Status LastModified by Organization Details LastModified Time None Recorded Advance Directives Directive None Recorded Payers Encounter Date Sequence Insurance Name Policy Number Policy Hamm Covered Member ID Hamm Member ID Guarantor Name 07/13/2024 1 [facility] - DOS ON OR AFTER 2022 - ONE CARE (MEDICARE REPLACEMENT/AD VANTAGE - HMO) Wale Stearns [id number] Wale Stearns Notes Date Note Type Note Provider Name and Address Organization Details Recorded Time 07/13/2024 text/html 33-year-old female presents for evaluation of tinnitus. It is bilateral and worse at night for the past few months. Denies otalgia, otorrhea, vertigo, and changes in hearing. Denies prior otologic surgeries or history of chronic ear infections. Denies history of noise exposure. ANEL DEUTSCH PA-C [address] [place] [address], [phone], [facility] - [facility] 07/13/2024 15:34:07 OBGyn Episode No OBEpisode recorded.
--- OUTSIDE RECORDS SUMMARY | 2024-07-21 11:04 | XMS_ITS | Encounter Summary ---
Demographics Address [address] [place] [address] Home Phone Preferred Language Spanish Marital Status Unknown Mu-Ism Affiliation Unknown Race White Ethnic Group Unknown Author Organization [facility] Address [address] [place] [address] Phone Support Name Relationship Address Phone Karon Stearns Mother [address] [place] [address] Prakash Ferrari Father [address] [place] [address] Care Team Providers Care Culturist Name Role Phone Nuria Luna MD Primary Care Provider [phone] Encounter Details Date Type Department Care Team (Late st Contact Info) Description 10/29/2010 Documentation [facility] [place] Family Medicine [address] [place], [place] [phone] Family Medicine, Physician [address] [place], [place] [address] Social History Tobacco Use Types Packs/Day Years [...] on filedocumented in this encounter Care Teams Culturist Relationship Specialty Start Date End Date Nuria Luna MD [address] [place] [address] JATINDER De Santiago [address] PCP - General 11/07/16 06/29/22 documented as of this encounter
--- OUTSIDE RECORDS SUMMARY | 2024-07-21 11:04 | XMS_ITS | Encounter Summary ---
Demographics Address [address] [place] [address] Home Phone Preferred Language Kazakh Marital Status Unknown Uatsdin Affiliation Unknown Race White Ethnic Group Unknown Author Organization [facility] Address [address] [place] [address] Phone Support Name Relationship Address Phone Karon Stearns Mother [address] [place] [address] Prakash Ferrari Father [address] [place] [address] Care Team Providers Care Solid Waste Truck Driver Name Role Phone Nuria Luna MD Primary Care Provider Encounter Details Date Type Department Care Team (Late st Contact Info) Description 09/11/2009 Documentation [facility] [place] [address] [place], [place] [phone] Family Medicine, Physician [address] [place], [place] [address] Social History Tobacco Use Types Packs/Day Years [...] on filedocumented in this encounter Care Teams Solid Waste Truck Driver Relationship Specialty Start Date End Date Nuria Luna MD [address] [place] [address] JATINDER De Santiago [address] PCP - General 11/07/16 06/29/22 documented as of this encounter
== END 2024-07-21 10:27 | disposition home or self-care (01) ==
LOC: HO.HMCFM 09:51
PROVIDERS: PCP Physician Assistant; Visit Provider Physician Assistant
DX: F25.1 Schizoaffective disorder, depressive type (principal); E11.9 Type 2 diabetes mellitus without complications; I10 Essential (primary) hypertension; E78.2 Mixed hyperlipidemia

== ENCOUNTER → 2024-07-21 09:50 | Outpatient (BNVA) | payer OTHER, SELFPAY | PROVIDERS: PCP Physician Assistant; Visit Provider Physician Assistant | DX: G40.209 Localization-related (focal) (partial) symptomatic epilepsy and epileptic syndromes with complex partial seizures, not intractable, without status epilepticus (principal); F25.1 Schizoaffective disorder, depressive type; E11.9 Type 2 diabetes mellitus without complications; I10 Essential (primary) hypertension; E78.2 Mixed hyperlipidemia; Z79.899 Other long term (current) drug therapy | CPT/HCPCS: 99212 ==

== ENCOUNTER 2024-07-21 15:00 | Outpatient (AMB) | payer OTHER, SELFPAY ==
--- NOTE | 2024-07-21 15:03 | MHC.OFFVIS ---
Vital Signs 07/21/24 15:04 Height 5 ft 3.9 in Weight 212 lb BMI 36.5 Pulse 85 Pulse Source Pulse Oximeter Pulse Oximetry (%) 100 Oxygen Delivery Method Room Air Intake Visit Reasons: Follow Up-LVM Intake Note: Patient following up for MRI done 01/20/24 Allergies lamotrigine [From LAMICTAL] Allergy (Unknown, Verified 07/21/24 15:06) RASH tirzepatide [From Mounjaro] Allergy (Unknown, Verified 07/21/24 15:06) gi upset gadobutrol [From Gadavist] Allergy (Verified 07/21/24 15:06) hives ozempic Allergy (Unknown, Uncoded 07/21/24 15:06) gi issues HPI Comments Details: 33y/o female comes for follow up of seizure disorder. she is not she had any episodes but she reports 1 episode of auditory hallucination - heard screaming lasting for about 1 min . it was at 3pm . she is compliant with medications. Her topiramate she was supposed to be on 150 mg qam 150mg qhs . Her trileptal dose 600mg bid . Her home sleep test was inconclusive. Her sleep study was normal. Previous history- She started having episodes at 9 mths of age - the episode was right hand raising followed by head turning to right and staring, unresponsive lasting 30-60 seconds . 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 No chemo or radiation and was followed up at [facility] . she continued to have seizures though the semiology changed over time. No episodes of generalized tonic clonic seizures. she was tried on multiple medicationsThis includes lamictal, tegretol, depakote, keppra. .Currently she is on topiramate 150mg bid and trileptal 600mg bid Now the seizures are more like staring episodes and can stand during some of the episodes. The episodes are milder and less frequent with less post ictal fatigue.she has 1 episode a month. She started having auditory hallucinations few years ago - she was trying to run into her neighbors yard thinking was getting her. Crisis was called and was hospitalized.she is diagnosed with schizoaffective disorder and is on lithium , risperdal ,geodan ,lorazepam as needed.She sees Jn Monsalve at [facility] she was seeing a neurologist at [facility] and then transferred to Dr. Parada she reports sleep issues in the past 2 years . she gained about 70 lbs in past 2 years related to medications ( haloperidol) SHe lives at home with parents and likes crafts . she graduated high school [employer] Medical History Primary brain astrocytoma Uncontrolled type 2 diabetes mellitus with hyperglycemia Severe obesity (BMI 35.0-39.9) with comorbidity Seizure disorder Schizo-affective schizophrenia Major depression, recurrent, chronic Hyperlipidemia HTN (hypertension) History of astrocytoma of brain Generalized anxiety disorder Fatty liver Controlled type 2 diabetes mellitus Hidradenitis suppurativa Astrocytoma brain tumor Complex partial seizures Schizoaffective disorder Surgical History S/P brain surgery H/O craniotomy Family History Father HTN (hypertension) Gout Diabetes mellitus Depression Mother HTN (hypertension) Diabetes mellitus Psoriasis Depression Other FH: mental illness Social History Housing: Condominium Alcohol intake: current Patient Tobacco Use Status: Never used Tobacco e-Cigarette/Vaping Use: Never Used Second Hand Smoke Exposure: No service: No Current occupational status: disabled Cognitive needs: No Hearing needs: No Vision needs: Yes (glasses) Physical Exam Vital Signs: Last Vital Signs Pulse 85 07/21/24 15:04 Pulse Ox 100 07/21/24 15:04 Oxygen Delivery Method Room Air 07/21/24 15:04 BMI result Body Mass Index 36.5 Const General: cooperative, healthy appearing, comfortable and no acute distress Nutritional Appearance: obese Orientation/consciousness: patient oriented x3 HEENT Other: mallampatti grade 4 Eyes Pupils: Equal, round and reactive pupils present Neuro Other: no involuntary movements General: patient oriented x3 Cranial nerves: Yes CN's II-XII intact bilaterally, Yes Facial sensation intact/muscles of mastication intact, Yes Equal, round and reactive pupils present, Yes Normal accommodation reflex present, Yes Bilaterally intact EOM present, Yes Nystagmus not present, Yes Normal facial strength present, Yes Midline tongue present and Yes Symmetric palate elevation present Cognition (Neuro): normal cognition Gait exam (Neuro): Normal gait present Motor exam (neuro): 5/5 motor strength present throughout, Normal motor muscle tone present throughout and Pronator motor function present Coordination: [id number] test normal Psych Appearance: grossly normal Speech and movement: Normal speech and movement present Results Reviewed Results Reviewed: MRI Brain 12/2023- No acute brain abnormality. Post surgical/treatment changes. This could be a source of seizures. Assessment & Plan Assessment & Plan (1) Complex partial seizures: Code(s): G40.209 - Localization-related (focal) (partial) symptomatic epilepsy and epileptic syndromes with complex partial seizures, not intractable, without status epilepticus Category: Medical Plan Trileptal to 600mg bid Topiramate 150mg qam and 150mg qhs f/u with Psychiatry Repeat MRI- with [facility] to monitor residual astrocytoma Orders: Referrals Neuropsychiatry Referral F25.1 - Schizoaffective disorder, depressive type, Z85.841 - Personal history of malignant neoplasm of brain Coding Level of Care Code Est Pt Level 4 (61909) Complex EM visit Add On G2211 Diagnoses Complex partial seizures G40.209
[2024-07-21 15:04] VITALS: PULSE 85; O2SAT 100; BMI 36.5
--- OUTSIDE RECORDS SUMMARY | 2024-07-21 17:46 | XMS_ITS | Encounter Summary ---
Author Organization [facility] [facility] Address [address] [place] [address] Care Team Providers Care Wireworker Name Role Phone Prakash Perez MD Primary Care Provider Adarsh Blanchard MD Primary Care Provider Brian Larios MD Primary Care Provider Adarsh Smith MD Primary Care Provider Brian Larios MD Primary Care Provider Ruben Barry MD Unavailable [phone] Robinson Zelaya MD Unavailable Unavailable Aracelis Arteaga MD Primary Care Prov ider Aracelis Arteaga MD Primary Care Prov ider Patricia Goldberg MD Unavailable Unavailable Encounter Details Date Type Department Care Team Description 05/11/2012 Release of Information Medical Records [address] [place] [id number] Abstract, Provider Social History Tobacco Use Types [...] on filedocumented in this encounter Care Teams Wireworker Relationship Specialty Start Date End Date Prakash Perez MD PCP - General Internal Medicine 01/20/12 04/04/13 Adarsh Valverde MD PCP - General Internal Medicine 04/05/13 Brian Gonzalez MD PCP - General Internal Medicine 01/12/14 12/07/14 Adarsh Valverde MD PCP - General Internal Medicine 12/08/14 Brian Gonzalez MD PCP - General Internal Medicine 12/11/14 10/16/21 Aracelis Arteaga MD [address] [place] [address] PCP - General Internal Medicine 10/28/21 Aracelis Arteaga MD [address] [place] [address] PCP - General Internal Medicine 10/17/21 10/27/21 Ruben Franco MD [address] [place] [address] [place] [address] Specialist Cardiovascular Disease 08/12/21 2 Robinson Zelaya MD [address] [place] [address] [place] [address] Specialist Cardiovascular Disease 08/12/21 Patricia Goldberg MD [address] [place] [address] Specialist Neurology 06/17/23 documented as of this encounter
--- OUTSIDE RECORDS SUMMARY | 2024-07-21 17:46 | XMS_ITS | Encounter Summary ---
Demographics Address [address] [place] [address] Home Phone Preferred Language Hungarian Marital Status Unknown Alevism Affiliation Unknown Race White Ethnic Group Unknown Author Organization [facility] Address [address] [place] [address] Phone Support Name Relationship Address Phone Karon Stearns Mother [address] [place] [address] Prakash Ferrari Father [address] [place] [address] Care Team Providers Care Pharmacoepidemiologist Name Role Phone Nuria Luna MD Primary Care Provider [phone] Encounter Details Date Type Department Care Team (Late st Contact Info) Description 01/15/2010 Documentation [facility] [place] [address] [place], [place] [phone] Family Medicine, Physician [address] [place], [place] [id number] Social History Tobacco Use Types Packs/Day Years [...] on filedocumented in this encounter Care Teams Pharmacoepidemiologist Relationship Specialty Start Date End Date Nuria Luna MD [address] [place] [address] JATINDER De Santiago [address] PCP - General 11/07/16 06/29/22 documented as of this encounter
--- OUTSIDE RECORDS SUMMARY | 2024-07-21 17:46 | XMS_ITS | Encounter Summary ---
Author Organization [facility] Address [address] [place] [address] Care Team Providers Care Tankroom Worker Name Role Phone Robinson Zelaya MD Unavailable Unavailable Aracelis Arteaga MD Primary Care Prov ider Patricia Goldberg MD Unavailable Unavailable Reason for Visit * Reason Onset Date Comments Provider Call Back 11/29/2021 Encounter Details Date Type Department Care Team Description 11/29/2021 Telephone Adult Medicine [address] [phone] Aracelis Arteaga MD [address] [place] [address] [phone] Provider Call Back Social History Tobacco Use [...] on filedocumented in this encounter Care Teams Tankroom Worker Relationship Specialty Start Date End Date Aracelis Arteaga MD [address] [place] [address] PCP - General Internal Medicine 10/28/21 Robinson Zelaya MD Specialist Cardiovascular Disease 08/12/21 Patricia Goldberg MD [address] [place] [address] Specialist Neurology 06/17/23 documented as of this encounter
--- OUTSIDE RECORDS SUMMARY | 2024-07-21 17:46 | XMS_ITS | Encounter Summary ---
Author Organization [facility] Address [address] [place] [address] Care Team Providers Care Resource Teacher Name Role Phone Brian Gonzalez MD Primary Care Provider Ruben Barry MD Unavailable [phone] Robinson Zelaya MD Unavailable Unavailable Aracelis Arteaga MD Primary Care Prov ider Aracelis Arteaga MD Primary Care Prov ider Patricia Goldberg MD Unavailable Unavailable Encounter Details Date Type Department Care Team Description 09/19/2015 Wellness Visit Medical Records [address] [place] [address] Brian Gonzalez MD Social History Tobacco Use [...] on filedocumented in this encounter Care Teams Resource Teacher Relationship Specialty Start Date End Date Brian Gonzalez MD PCP - General Internal Medicine 12/11/14 10/16/21 Aracelis Arteaga MD [address] [place] [address] PCP - General Internal Medicine 10/28/21 Aracelis Arteaga MD [address] [place] [address] PCP - General Internal Medicine 10/17/21 10/27/21 Ruben Franco MD [address] [place] [address] Dr Uribe [address] [place] [address] Specialist Cardiovascular Disease 08/12/21 2 Robinson Zelaya MD [address] [place] [address] [place] [address] Specialist Cardiovascular Disease 08/12/21 Patricia Goldberg MD [address] [place] [address] Specialist Neurology 06/17/23 documented as of this encounter
--- OUTSIDE RECORDS SUMMARY | 2024-07-21 17:46 | XMS_ITS | Encounter Summary ---
Author Organization [employer] [facility] Address [address] [place] [address] Care Team Providers Care Sports Development Officer Name Role Phone Brian Gonzalez MD Primary Care Provider Ruben Barry MD Unavailable [phone] Robinson Zelaya MD Unavailable Unavailable Aracelis Arteaga MD Primary Care Prov ider Aracelis Arteaga MD Primary Care Prov ider Patricia Goldberg MD Unavailable Unavailable Encounter Details Date Type Department Care Team Description 06/04/2021 Service Assistant Report Medical Records [address] [place] [address] Melanie Santacruz PA-C Social History Tobacco Use [...] on filedocumented in this encounter Care Teams Sports Development Officer Relationship Specialty Start Date End Date Brian Gonzalez MD PCP - General Internal Medicine 12/11/14 10/16/21 Aracelis Arteaga MD [address] [place] [address] [phone] PCP - General Internal Medicine 10/28/21 Aracelis Arteaga MD [address] [place] [address] PCP - General Internal Medicine 10/17/21 10/27/21 Ruben Franco MD [address] [place] [address] Dr Uribe [address] [place] [address] Specialist Cardiovascular Disease 08/12/21 2 Robinson Zelaya MD [address] [place] [address] [place] [address] Specialist Cardiovascular Disease 08/12/21 Patricia Goldberg MD [address] [place] [address] Specialist Neurology 06/17/23 documented as of this encounter
--- OUTSIDE RECORDS SUMMARY | 2024-07-21 17:46 | XMS_ITS | Encounter Summary ---
Author Organization [facility] Address [address] [place] [address] Care Team Providers Care Horologist Name Role Phone Robinson Zelaya MD Unavailable Unavailable Aracelis Arteaga MD Primary Care Prov ider Aracelis Arteaga MD Primary Care Prov ider Patricia Goldberg MD Unavailable Unavailable Reason for Visit * Reason Onset Date Comments Advice 10/18/2021 Encounter Details Date Type Department Care Team Description 10/18/2021 Pt. Non Urgent Medic al Question Adult Medicine [address] [address] Sandy Naylor PA Social History Tobacco Use [...] filedocumented in this encounter Care Teams Horologist Relationship Specialty Start Date End Date Aracelis Arteaga MD [address] [place] [address] PCP - General Internal Medicine 10/28/21 Aracelis Arteaga MD [address] [place] [address] PCP - General Internal Medicine 10/17/21 10/27/21 Robinson Zelaya MD Specialist Cardiovascular Disease 08/12/21 Patricia Goldberg MD [address] [place] [address] Specialist Neurology 06/17/23 documented as of this encounter
--- OUTSIDE RECORDS SUMMARY | 2024-07-21 17:46 | XMS_ITS | Encounter Summary ---
Demographics Address [address] [place] [address] Home Phone Preferred Language Mauritanian Marital Status Unknown Yarsanism Affiliation Unknown Race White Ethnic Group Unknown Author Organization [facility] Address [address] [place] [address] Phone Support Name Relationship Address Phone Karon Stearns Mother [address] [place] [address] Prakash Ferrari Father [address] [place] [address] Care Team Providers Care Bookkeeping Clerks Supervisor Name Role Phone Nuria Luna MD Primary Care Provider Encounter Details Date Type Department Care Team (Late st Contact Info) Description 11/13/2016 Conversion Encounter [facility] [place] [address] [place] [address] Social History Tobacco Use Types Packs/Day Years [...] on filedocumented in this encounter Care Teams Bookkeeping Clerks Supervisor Relationship Specialty Start Date End Date Nuria Luna MD [address] [place] [address] PCP - General 11/07/16 06/29/22 documented as of this encounter
--- OUTSIDE RECORDS SUMMARY | 2024-07-21 17:46 | XMS_ITS | Encounter Summary ---
Author Organization [facility] Address [address] [place] [address] Care Team Providers Care Concept Artist Name Role Phone Prakash Perez MD Primary Care Provider Adarsh Blanchard MD Primary Care Provider Brian Larios MD Primary Care Provider Adarsh Smith MD Primary Care Provider Brian Larios MD Primary Care Provider Ruben Barry MD Unavailable [phone] Robinson Zelaya MD Unavailable Unavailable Aracelis Arteaga MD Primary Care Prov ider Aracelis Arteaga MD Primary Care Prov ider Patricia Goldberg MD Unavailable Unavailable Encounter Details Date Type Department Care Team Description 03/22/2012 Champion Of Sustainable Design Report Medical Records [address] [place] [address] Rene Gupta MD Social History Tobacco Use [...] on filedocumented in this encounter Care Teams Concept Artist Relationship Specialty Start Date End Date Prakash Perez MD PCP - General Internal Medicine 01/20/12 04/04/13 Adarsh Valverde MD PCP - General Internal Medicine 04/05/13 Brian Gonzalez MD PCP - General Internal Medicine 01/12/14 12/07/14 Adarsh Valverde MD PCP - General Internal Medicine 12/08/14 Brian Gonzalez MD PCP - General Internal Medicine 12/11/14 10/16/21 Aracelis Arteaga MD [address] [place] [address] PCP - General Internal Medicine 10/28/21 Aracelis Arteaga MD [address] [place] [address] PCP - General Internal Medicine 10/17/21 10/27/21 Ruben Franco MD [address] [place] [address] [place] [address] Specialist Cardiovascular Disease 08/12/21 2 Robinson Zelaya MD [address] [place] [address] [place] [address] Specialist Cardiovascular Disease 08/12/21 Patricia Goldberg MD [address] [place] [address] Specialist Neurology 06/17/23 documented as of this encounter
--- OUTSIDE RECORDS SUMMARY | 2024-07-21 17:46 | XMS_ITS | Encounter Summary ---
Author Organization [employer] [facility] Address [address] [place] [address] Care Team Providers Care Steam Gigger Name Role Phone Brian Gonzalez MD Primary Care Provider Ruben Barry MD Unavailable [phone] Robinson Zelaya MD Unavailable Unavailable Aracelis Arteaga MD Primary Care Prov ider Aracelis Arteaga MD Primary Care Prov ider Patricia Goldberg MD Unavailable Unavailable Encounter Details Date Type Department Care Team Description 09/23/2019 Breakfast Bar Attendant Report Medical Records [address] [place] [address] [facility] Social History Tobacco Use Types Packs/Day Years [...] filedocumented in this encounter Care Teams Steam Gigger Relationship Specialty Start Date End Date Brian Gonzalez MD PCP - General Internal Medicine 12/11/14 10/16/21 Aracelis Arteaga MD [address] [place] [address] PCP - General Internal Medicine 10/28/21 Aracelis Arteaga MD [address] [place] [address] PCP - General Internal Medicine 10/17/21 10/27/21 Ruben Franco MD [address] [place] [address] Dr Uribe [address] [place] [address] Specialist Cardiovascular Disease 08/12/21 2 Robinson Zelaya MD [address] [place] [address] [place] [address] Specialist Cardiovascular Disease 08/12/21 Patricia Goldberg MD [address] [place] [address] Specialist Neurology 06/17/23 documented as of this encounter
--- OUTSIDE RECORDS SUMMARY | 2024-07-21 17:46 | XMS_ITS | Encounter Summary ---
Author Organization [facility] Address [address] [place] [address] Care Team Providers Care Coding Assistant Name Role Phone Brian Gonzalez MD Primary Care Provider Ruben Barry MD Unavailable [phone] Robinson Zelaya MD Unavailable Unavailable Aracelis Arteaga MD Primary Care Prov ider Aracelis Arteaga MD Primary Care Prov ider Patricia Goldberg MD Unavailable Unavailable Reason for Visit * Reason Onset Date Comments APPOINTMENT 07/18/2021 Encounter Details Date Type Department Care Team Description 07/18/2021 Pt. Non Urgent Medic al Question Adult Medicine [address] [address] Brian Gonzalez MD Social History Tobacco Use [...] on filedocumented in this encounter Care Teams Coding Assistant Relationship Specialty Start Date End Date Brian Gonzalez MD PCP - General Internal Medicine 12/11/14 10/16/21 Aracelis Arteaga MD [address] [place] [address] PCP - General Internal Medicine 10/28/21 Aracelis Arteaga MD [address] [place] [address] PCP - General Internal Medicine 10/17/21 10/27/21 Ruben Franco MD [address] [place] [address] [place] [address] Specialist Cardiovascular Disease 08/12/21 2 Robinson Zelaya MD [address] [place] [address] [place] [address] Specialist Cardiovascular Disease 08/12/21 Patricia Goldberg MD [address] [place] [address] Specialist Neurology 06/17/23 documented as of this encounter
--- OUTSIDE RECORDS SUMMARY | 2024-07-21 17:46 | XMS_ITS | Encounter Summary ---
Author Organization [facility] [facility] Address [address] [place] [address] Care Team Providers Care Web Services Architect Name Role Phone Brian Gonzalez MD Primary Care Provider Ruben Barry MD Unavailable [phone] Robinson Zelaya MD Unavailable Unavailable Aracelis Arteaga MD Primary Care Prov ider Aracelis Arteaga MD Primary Care Prov ider Patricia Goldberg MD Unavailable Unavailable Encounter Details Date Type Department Care Team Description 05/12/2019 Hospital Medical Records [address] [place] [address] Jonas Horton Social History Tobacco Use Types [...] on filedocumented in this encounter Care Teams Web Services Architect Relationship Specialty Start Date End Date Brian Gonzalez MD PCP - General Internal Medicine 12/11/14 10/16/21 Aracelis Arteaga MD [address] [place] [address] [phone] PCP - General Internal Medicine 10/28/21 Aracelis Arteaga MD [address] [place] [address] PCP - General Internal Medicine 10/17/21 10/27/21 Ruben Franco MD [address] [place] [address] Dr Uribe [address] [place] [address] Specialist Cardiovascular Disease 08/12/21 2 Robinson Zelaya MD [address] [place] [address] [place] [address] Specialist Cardiovascular Disease 08/12/21 Patricia Goldberg MD [address] [place] [address] Specialist Neurology 06/17/23 documented as of this encounter
--- OUTSIDE RECORDS SUMMARY | 2024-07-21 17:46 | XMS_ITS | Encounter Summary ---
Author Organization [facility] Address [address] [place] [address] Care Team Providers Care Thread Singer Name Role Phone Robinson Zelaya MD Unavailable Unavailable Aracelis Arteaga MD Primary Care Prov ider Aracelis Arteaga MD Primary Care Prov ider Patricia Goldberg MD Unavailable Unavailable Encounter Details Date Type Department Care Team Description 10/21/2021 Pt. Non Urgent Medical Question Adult Medicine [address] [address] Aracelis Arteaga MD [address] [place] [address] [phone] Social History Tobacco Use Types Packs/Day Years [...] on filedocumented in this encounter Care Teams Thread Singer Relationship Specialty Start Date End Date Aracelis Arteaga MD [address] [place] [address] PCP - General Internal Medicine 10/28/21 Aracelis Arteaga MD [address] [place] [address] PCP - General Internal Medicine 10/17/21 10/27/21 Robinson Zelaya MD Specialist Cardiovascular Disease 08/12/21 Patricia Goldberg MD [address] [place] [address] Specialist Neurology 06/17/23 documented as of this encounter
--- OUTSIDE RECORDS SUMMARY | 2024-07-21 17:46 | XMS_ITS | Encounter Summary ---
Demographics Address [address] [place] [address] Home Phone Preferred Language Afghan Marital Status Unknown Evangelical Affiliation Unknown Race White Ethnic Group Unknown Author Organization [facility] Address [address] [place] [address] Phone Support Name Relationship Address Phone Karon Stearns Mother [address] [place] [address] Prakash Ferrari Father [address] [place] [address] Care Team Providers Care Dental Office Manager Name Role Phone Nuria Luna MD Primary Care Provider Encounter Details Date Type Department Care Team (Late st Contact Info) Description 10/03/2009 Documentation [facility] [place] Family Medicine [address] [place], [place] [phone] Family Medicine, Physician [address] [place], [place] [address] Social History Tobacco Use Types Packs/Day Years [...] filedocumented in this encounter Care Teams Dental Office Manager Relationship Specialty Start Date End Date Nuria Luna MD [address] [place] [address] JATINDER De Santiago [address] PCP - General 11/07/16 06/29/22 documented as of this encounter
--- OUTSIDE RECORDS SUMMARY | 2024-07-21 17:46 | XMS_ITS | Encounter Summary ---
Author Organization [facility] Address [address] [place] [address] Care Team Providers Care Thread Pulling Machine Attendant Name Role Phone Prakash Perez MD Primary Care Provider Adarsh Blanchard MD Primary Care Provider Brian Larios MD Primary Care Provider Adarsh Smith MD Primary Care Provider Brian Larios MD Primary Care Provider Ruben Barry MD Unavailable Robinsno Zelaya MD Unavailable Unavailable Aracelis Arteaga MD Primary Care Prov ider Aracelis Arteaga MD Primary Care Prov ider Patricia Goldberg MD Unavailable Unavailable Encounter Details Date Type Department Care Team Description 09/28/2012 Crisis Intervention Counselor Report Medical Records [address] [place] [address] Lesly Larios, PH.D Social History Tobacco Use [...] filedocumented in this encounter Care Teams Thread Pulling Machine Attendant Relationship Specialty Start Date End Date Prakash Perez MD PCP - General Internal Medicine 01/20/12 04/04/13 Adarsh Valverde MD PCP - General Internal Medicine 04/05/13 Brian Gonzalez MD PCP - General Internal Medicine 01/12/14 12/07/14 Adarsh Valverde MD PCP - General Internal Medicine 12/08/14 Brian Gonzalez MD PCP - General Internal Medicine 12/11/14 10/16/21 Aracelis Arteaga MD [address] [place] [address] PCP - General Internal Medicine 10/28/21 Aracelis Arteaga MD [address] [place] [address] PCP - General Internal Medicine 10/17/21 10/27/21 Ruben Franco MD [address] [place] [address] [place] [address] Specialist Cardiovascular Disease 08/12/21 2 Robinson Zelaya MD [address] [place] [address] [place] [address] Specialist Cardiovascular Disease 08/12/21 Patricia Goldberg MD [address] [place] [address] Specialist Neurology 06/17/23 documented as of this encounter
--- OUTSIDE RECORDS SUMMARY | 2024-07-21 17:46 | XMS_ITS | Encounter Summary ---
Author Organization [facility] Address [address] [place] [address] Care Team Providers Care Supervisor Painting Department Name Role Phone Brian Gonzalez MD Primary Care Provider Ruben Barry MD Unavailable [phone] Robinson Zelaya MD Unavailable Unavailable Aracelis Arteaga MD Primary Care Prov ider Aracelis Arteaga MD Primary Care Prov ider Patricia Goldberg MD Unavailable Unavailable Encounter Details Date Type Department Care Team Description 05/15/2017 Mechanical Engineering Draftsperson Report Medical Records [address] [place] [address] [facility] Social History Tobacco Use Types Packs/Day Years [...] filedocumented in this encounter Care Teams Supervisor Painting Department Relationship Specialty Start Date End Date Brian Gonzalez MD PCP - General Internal Medicine 12/11/14 10/16/21 Aracelis Arteaga MD [address] [place] [address] PCP - General Internal Medicine 10/28/21 Aracelis Arteaga MD [address] [place] [address] PCP - General Internal Medicine 10/17/21 10/27/21 Ruben Franco MD [address] [place] [address] Dr Uribe [address] [place] [address] Specialist Cardiovascular Disease 08/12/21 2 Robinson Zelaya MD [address] [place] [address] [place] [address] Specialist Cardiovascular Disease 08/12/21 Patricia Goldberg MD [address] [place] [address] Specialist Neurology 06/17/23 documented as of this encounter
--- OUTSIDE RECORDS SUMMARY | 2024-07-21 17:46 | XMS_ITS | Encounter Summary ---
Author Organization [facility] Address [address] [place] [address] Care Team Providers Care Dietary Assistant Name Role Phone Brian Gonzalez MD Primary Care Provider Ruben Barry MD Unavailable [phone] Robinson Zelaya MD Unavailable Unavailable Aracelis Arteaga MD Primary Care Prov ider Aracelis Arteaga MD Primary Care Prov ider Patricia Goldberg MD Unavailable Unavailable Reason for Visit * Reason Onset Date Comments refill request 08/02/2020 Encounter Details Date Type Department Care Team Description 08/02/2020 Refill Allergy [place] [address] [place] [phone] Lor Contreras MD refill request Social History [...] on filedocumented in this encounter Care Teams Dietary Assistant Relationship Specialty Start Date End Date Brian Gonzalez MD PCP - General Internal Medicine 12/11/14 10/16/21 Aracelis Arteaga MD [address] [place] [address] PCP - General Internal Medicine 10/28/21 Aracelis Arteaga MD [address] [place] [address] PCP - General Internal Medicine 10/17/21 10/27/21 Ruben Franco MD [address] [place] [address] [place] [address] Specialist Cardiovascular Disease 08/12/21 2 Robinson Zelaya MD [address] [place] [address] [place] [address] Specialist Cardiovascular Disease 08/12/21 Patricia Goldberg MD [address] [place] [address] Specialist Neurology 06/17/23 documented as of this encounter
--- OUTSIDE RECORDS SUMMARY | 2024-07-21 17:46 | XMS_ITS | Encounter Summary ---
Author Organization [facility] Address [address] [place] [address] Care Team Providers Care Electronic Parts Salesperson Name Role Phone Robinson Zelaya MD Unavailable Unavailable Aracelis Arteaga MD Primary Care Prov ider Patricia Goldberg MD Unavailable Unavailable Encounter Details Date Type Department Care Team Description 12/03/2023 Pt. Non Urgent Medical Question [facility] [address] [phone] Tarik Harris DPM [address] [address] Social History Tobacco Use Types Packs/Day Years [...] on filedocumented in this encounter Care Teams Electronic Parts Salesperson Relationship Specialty Start Date End Date Aracelis Arteaga MD [address] [place] [address] PCP - General Internal Medicine 10/28/21 Robinson Zelaya MD Specialist Cardiovascular Disease 08/12/21 Patricia Goldberg MD [address] [place] [address] Specialist Neurology 06/17/23 documented as of this encounter
--- OUTSIDE RECORDS SUMMARY | 2024-07-21 17:46 | XMS_ITS | Encounter Summary ---
Author Organization [facility] Address [address] [place] [address] Care Team Providers Care Licsw Name Role Phone Brian Gonzalez MD Primary Care Provider Ruben Barry MD Unavailable [phone] Robinson Zelaya MD Unavailable Unavailable Aracelis Arteaga MD Primary Care Prov ider Aracelis Arteaga MD Primary Care Prov ider Patricia Goldberg MD Unavailable Unavailable Reason for Visit * Reason Onset Date Comments REFERRAL 07/13/2020 Encounter Details Date Type Department Care Team Description 07/13/2020 Telephone Adult [address] [phone] Brian Gonzalez MD REFERRAL Social History Tobacco [...] insurance does the patient have today? Payor: [employer] [facility] M[facility] / Plan: [facility] / Product Type: HMO [id number] Effective 12/28/08: BCBS will not retro referral [...] insurance must be obtained and registered in [facility] or their referral can not be processed. Is this a retro request? NO. If yes for what date of service do you need the retro referral? N/A Who is calling to request this referral? [facility] If the caller is not the [...] Address of Specialist: Phone # of Specialist: [phone] Fax #: (if applicable):[phone] Does patient have an appointment scheduled?: YES Date of appointment- (including a retro-request): 09/24/20 Is this appointment related to: documented in this encounter Plan of Treatment Not on file documented as of this encounter Visit Diagnoses Not on filedocumented in this encounter Care Teams Licsw Relationship Specialty Start Date End Date Brian Gonzalez MD PCP - General Internal Medicine 12/11/14 10/16/21 Aracelis Arteaga MD [address] [place] [address] PCP - General Internal Medicine 10/28/21 Aracelis Arteaga MD [address] [place] [address] PCP - General Internal Medicine 10/17/21 10/27/21 Ruben Franco MD [address] [place] [address] [place] [address] Specialist Cardiovascular Disease 08/12/21 2 Robinson Zelaya MD [address] [place] [address] [place] [address] Specialist Cardiovascular Disease 08/12/21 Patricia Goldberg MD [address] [place] [address] Specialist Neurology 06/17/23 documented as of this encounter
--- OUTSIDE RECORDS SUMMARY | 2024-07-21 17:46 | XMS_ITS | Encounter Summary ---
Author Organization [facility] Address [address] [place] [address] Care Team Providers Care Nut Processing Supervisor Name Role Phone Robinson Zelaya MD Unavailable Unavailable Aracelis Arteaga MD Primary Care Prov ider Patricia Goldberg MD Unavailable Unavailable Encounter Details Date Type Department Care Team Description 12/03/2021 Pt. Non Urgent Medic al Question Adult Medicine [address] [address] Sandy Naylor PA Social History Tobacco Use [...] on filedocumented in this encounter Care Teams Nut Processing Supervisor Relationship Specialty Start Date End Date Aracelis Arteaga MD [address] [place] [address] PCP - General Internal Medicine 10/28/21 Robinson Zelaya MD Specialist Cardiovascular Disease 08/12/21 Patricia Goldberg MD [address] [place] [address] Specialist Neurology 06/17/23 documented as of this encounter
--- OUTSIDE RECORDS SUMMARY | 2024-07-21 17:46 | XMS_ITS | Encounter Summary ---
Demographics Address [address] [place] [address] Home Phone Preferred Language Iraqi Marital Status Unknown Presybeterian Affiliation Unknown Race White Ethnic Group Unknown Author Organization [facility] Address [address] [place] [address] Phone Support Name Relationship Address Phone Karon Stearns Mother [address] [place] [address] Prakash Ferrari Father [address] [place] [address] Care Team Providers Care Cryptographic Machine Operator Name Role Phone Nuria Luna MD Primary Care Provider [phone] Encounter Details Date Type Department Care Team (Late st Contact Info) Description 11/06/2009 Documentation [facility] Family Medicine [address] [place], [place] [phone] Family Medicine, Physician [address] [place], [place] [address] Social History Tobacco Use Types Packs/Day Years [...] on filedocumented in this encounter Care Teams Cryptographic Machine Operator Relationship Specialty Start Date End Date Nuria Luna MD [address] [place] [address] JATINDER De Santiago [address] PCP - General 11/07/16 06/29/22 documented as of this encounter
--- OUTSIDE RECORDS SUMMARY | 2024-07-21 17:46 | XMS_ITS | Clinical Summary ---
Demographics Address [address] [place] [address] Home Phone Preferred Language Indonesian Marital Status Unknown Spiritism Affiliation Unknown Race White Ethnic Group Unknown Author Organization [facility] Address [address] [place] [address] Phone Support Name Relationship Address Phone Karon Stearns Mother [address] [place] [address] Prakash Ferrari Father [address] [place] [address] Care Team Providers Care Shorthand Reporter Name Role Phone Unavailable Primary Care Provider [...]
--- OUTSIDE RECORDS SUMMARY | 2024-07-21 17:46 | XMS_ITS | Encounter Summary ---
Author Organization [facility] Address [address] [place] [address] Care Team Providers Care Trim Mounter Name Role Phone Brian Gonzalez MD Primary Care Provider Robinson Brody MD Unavailable Unavailable Aracelis Arteaga MD Primary Care Prov ider Aracelis Arteaga MD Primary Care Prov ider Patricia Goldberg MD Unavailable Unavailable Encounter Details Date Type Department Care Team Description 08/15/2021 [facility] Medical Records [address] [place] [phone] [place] [address] Social History Tobacco Use Types Packs/Day Years [...] on filedocumented in this encounter Care Teams Trim Mounter Relationship Specialty Start Date End Date Brian Gonzalez MD PCP - General Internal Medicine 12/11/14 10/16/21 Aracelis Arteaga MD [address] [place] [address] PCP - General Internal Medicine 10/28/21 Aracelis Arteaga MD [address] [place] [address] PCP - General Internal Medicine 10/17/21 10/27/21 Robinson Zelaya MD Specialist Cardiovascular Disease 08/12/21 Patricia Goldberg MD [address] [place] [address] Specialist Neurology 06/17/23 documented as of this encounter
--- OUTSIDE RECORDS SUMMARY | 2024-07-21 17:46 | XMS_ITS | Encounter Summary ---
Author Organization [facility] Address [address] [place] [address] Care Team Providers Care Surtass Analyst Name Role Phone Brian Gonzalez MD Primary Care Provider Ruben Barry MD Unavailable [phone] Robinson Zelaya MD Unavailable Unavailable Aracelis Arteaga MD Primary Care Prov ider Aracelis Arteaga MD Primary Care Prov ider Patricia Goldberg MD Unavailable Unavailable Encounter Details Date Type Department Care Team Description 07/29/2021 Telephone Gastroenterology - [address] [place] [address] Leena Saenz DScPAS Social History [...] on filedocumented in this encounter Care Teams Surtass Analyst Relationship Specialty Start Date End Date Brian Gonzalez MD PCP - General Internal Medicine 12/11/14 10/16/21 Aracelis Arteaga MD [address] [place] [address] PCP - General Internal Medicine 10/28/21 Aracelis Arteaga MD [address] [place] [address] PCP - General Internal Medicine 10/17/21 10/27/21 Ruben Franco MD [address] [place] [address] Dr Uribe [address] [place] [address] Specialist Cardiovascular Disease 08/12/21 2 Robinson Zelaya MD [address] [place] [address] Dr Uribe [address] [place] [address] Specialist Cardiovascular Disease 08/12/21 Patricia Goldberg MD [address] [place] [address] Specialist Neurology 06/17/23 documented as of this encounter
--- OUTSIDE RECORDS SUMMARY | 2024-07-21 17:46 | XMS_ITS | Encounter Summary ---
Author Organization [facility] Address [address] [place] [address] Care Team Providers Care Oceanography Professor Name Role Phone Robinson Zelaya MD Unavailable Unavailable Aracelis Arteaga MD Primary Care Prov ider Patricia Goldberg MD Unavailable Unavailable Reason for Visit * Reason Comments E-prescribe Rx Request Encounter Details Date Type Department Care Team Description 10/22/2023 Refill Dermatology - [address] [phone] Lidia Mcclain PA-C E-prescribe Rx Request Social [...] on filedocumented in this encounter Care Teams Oceanography Professor Relationship Specialty Start Date End Date Aracelis Arteaga MD [address] [place] [address] PCP - General Internal Medicine 10/28/21 Robinson Zelaya MD Specialist Cardiovascular Disease 08/12/21 Patricia Goldberg MD [address] [place] [address], [place] [address] Specialist Neurology 06/17/23 documented as of this encounter
--- OUTSIDE RECORDS SUMMARY | 2024-07-21 17:46 | XMS_ITS | Clinical Summary ---
Author Organization [facility] Address [address] [place] [address] Care Team Providers Care Heating Worker Name Role Phone Robinson Zelaya MD Unavailable Unavailable Aracelis Arteaga MD Primary Care Prov ider Patricia Goldberg MD Unavailable Unavailable Allergies Active Allergy Reactions Severity Noted Date Comments Gadobutrol Hives/Urticaria 04/06/2018 Was used for MRI scan Lamictal Xr Hives/Urticaria,Rash /[place] titis 02/13/2012 Medications Medication Sig Dispensed Refills Start Date End Date Status oxcarbazepine (TRILEPTAL) 600 MG tablet Take 600 mg by mouth 2 Times Daily. 0 Active lithium 300 MG tablet Take 300 mg by mouth 2 times daily. 0 Active VITAMIN D OR Take 2,000 Int'l Units by mouth daily. 0 Active medroxyPROGESTERone (PROVERA) 10 MG tablet Take 1 Tablet by mouth. For 10 days 0 Active lorazepam (ATIVAN) 1 MG tablet 1mg tab at bedtime & 0.5 mg prn during the day 0 Active acetaminophen (TYLENOL) 500 MG tablet Take 2 Tablets by mouth 2 Times Daily. 0 Active Adalimumab 40 MG/0.8ML Pen-injector Kit Inject into the skin once a week. 0 Active betamethasone dipropionate (DIPROLENE) 0.05 % ointment APPLY TO INFLAMED LESIONS ON THE BUTTOCKS TWICE DAILY FOR UP TO 2 WEEKS, BREAK FOR 1 WEEK. REPEAT NEEDED 0 01/07/2022 Active Betasept Surgical Scrub 4 % external liquid USE EVERY OTHER DAY BODY WASH TO AFFECTED AREAS ON THE BODY 0 01/30/2022 Active fluocinonide (LIDEX) 0.05 % external solution 0 03/19/2022 Active Cholecalciferol (Vitamin D3) 50 MCG (2000 UT) Tab Take 1 Tablet by mouth daily. 30 Tablet 5 04/30/2022 Active olanzapine (ZYPREXA) 10 MG tablet 0 07/22/2022 Active topiramate (TOPAMAX) 100 MG tablet 0 06/30/2022 Active metformin (GLUCOPHAGE-XR) 500 MG 24 hr tablet 0 11/20/2022 Active olanzapine (ZYPREXA) 7.5 MG tablet Take 1 Tablet by mouth at bedtime. 0 Active ammonium lactate (LAC-HYDRIN) 12 % lotion Apply to soles of feet daily. At night wear socks to bed 400 g 2 03/04/2023 Active lisinopril (PRINIVIL,ZESTRIL) 5 MG tablet 0 07/23/2023 Active Diclofenac Sodium 1 % Gel Apply 4 g topically 2 times daily. 100 g 2 07/30/2023 Active meloxicam (MOBIC) 15 MG tablet Take 1 Tablet by mouth daily for 60 days. 30 Tablet 1 11/18/2023 Active Active Problems Problem Noted Date Hidradenitis suppurativa 08/19/2022 Plantar fasciitis, bilateral 10/16/2021 Electrocardiogram showing T wave abnorma lities 09/23/2021 Last Assessment & Plan: We did discuss her abnormal EKG. She has some nonspecific changes on her EKG. This was confirmed with an EKG today. I did look back and noted the same changes on EKG from 2019. She is asymptomatic at this time. She has no chest pain, shortness of breath, palpitations or dizziness. At this point we will monitor. If she develops any symptoms she will let us know. We did discuss that with her psychiatric medications would be concerned with a prolonged QT. Her QT interval is normal. I do not think she needs any further cardiac testing at this time. 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- sees Latisha Thrasher- removal at age 13 month Seizure disorder 02/13/2012 Overview: Last seizure 1 year ago, had hx of astrocytoma resected at 1 yo, has serial cat scans/mris/ eegs Shingles Immunizations Name Administration Dates Next Due COVID-19 (Moderna) 05/04/2021 COVID-19 (Pfizer) 07/02/2020 COVID-19 (Pfizer) Pt Reported 07/23/2020, 021 DTP 09/23/1995, 1,1990,11/14,1990 HIB 11/15/1991, 1,1990,10/13 HPV (Gardasil) 06/02/2008,02/03/2008,11/09/2007 Hepatitis B > 19yrs 10/04/1999 Hepatitis B Immune Globulin 08/22/1999, 6 Hepatitis B-2 dose(11-15yrs) 10/04/1999 Hepatitis B-3 Dose (<19yrs) 11/09/1999 Influenza (> 6 Months) 01/22/2020,2015,02/16/2015,12/28,02/03/2008,03/19/2006 MMR (Patvqzc-Gicof-Zufocqh) 09/23/1995, 2 Meningococcal (Menactra) 07/31/2006 Polio (OPV) 09/23/1995, 2,1990,10/13 TD (STATE SUPPLIED FOR ADULT S AND CHILDREN) 09/16/2001 Tdap 10/27/2021,11/09/2007 Family History Medical History Relation Name Comments Hypertension Father Leukemia Grandparent 2 shingles Diabetes Mother htn CA Breast Mother's side 2 great aunt CA Colon Paternal Grandfather dx at 5 0 [place] Ovarian Negative Hx Relation Name Status Comments Father Grandparent 1 Grandparent 2 Mother Mother's side 1 Mother's side 2 Paternal Grandfather Social History Tobacco Use Types Packs/Day Years Used Date Smoking Tobacco: Never Smokeless Tobacco: Never Tobacco Cessation:Counseling Given: Not Answered Alcohol Use Standard Drinks/Week Comments Yes 0 (1 standard drink = 0.6 oz pur e alcohol) wine - maybe twice per year Sex Assigned at Date Recorded Not on file Job Start Date Occupation Industry Not on file Not on file Not on file Last Filed Vital Signs Vital Sign Reading Time Taken Comments Blood Pressure 117/74 08/19/2022 11:08 AM EDT Pulse 68 08/19/2022 11:08 AM EDT Temperature 37.1 ??C (98.8 ??F) 08/19/2022 11:08 AM E DT Respiratory Rate 16 07/23/2022 11:17 AM EDT Oxygen Saturation 99% 05/01/2021 9:32 AM EST Inhaled Oxygen Concentration - - Weight 95.3 kg (210 lb) 11/18/2023 3:02 PM EDT Height 162.6 cm (5' 4 ) 11/18/2023 3:02 PM EDT Body Mass Index 36.05 11/18/2023 3:02 PM EDT Plan of Treatment Health Maintenance Due Date Last Done Comments CERVICAL CANCER SCREENING 12/24/2018 12/25/2015, 06/2012 BASELINE HEALTH EXAM 18-39 10/22/202110/22, 09/19/2015, 05/10/2012, Additional history exists DEPRESSION SCREEN 10/16/2022 10/16/2021, , 09/19/2015 Covid-19 Vaccine (2022-04 4 season) 2023 05/04/2021, 07/23/2020, 07/02/2020, Additional history exists BMI CHECK/ADVISE 03/30/2024 07/23/2022, , 04/14/2022 (Completed), Additional history exists INFLUENZA (Season Ended) 2024 022, 12/26/2020, 01/22/2020, Additional history exists CHOLESTEROL SCREENING 07/31/2027 07/30/2022 , 10/16/2021, 05/10/2012, Additional history exists DTAP/TDAP/TD (7 - Td or Tdap) 10/28/2031, 11/09/2007, 09/16/2001, Additional history exists PNEUMOCOCCAL VACCINE FOR HIG H RISK PATIENTS (#1) 08/11/2055 Care Teams Heating Worker Relationship Specialty Start Date End Date Aracelis Arteaga MD [address] [place] [address] PCP - General Internal Medicine 10/28/21 Robinson Zelaya MD Specialist Cardiovascular Disease 08/12/21 Patricia Goldberg MD [address] [place] [address] Specialist Neurology 06/17/23
--- OUTSIDE RECORDS SUMMARY | 2024-07-21 17:46 | XMS_ITS | Encounter Summary ---
Author Organization [facility] Address [address] [place] [address] Care Team Providers Care Cyber Security Analyst Name Role Phone Brian Gonzalez MD Primary Care Provider Ruben Barry MD Unavailable [phone] Robinson Zelaya MD Unavailable Unavailable Aracelis Arteaga MD Primary Care Prov ider Aracelis Arteaga MD Primary Care Prov ider Patricia Goldberg MD Unavailable Unavailable Encounter Details Date Type Department Care Team Description 03/08/2018 Hand Fur Cleaner Report Medical Records [address] [place] [address] [facility] Social History Tobacco Use Types Packs/Day Years [...] on filedocumented in this encounter Care Teams Cyber Security Analyst Relationship Specialty Start Date End Date Brian Gonzalez MD PCP - General Internal Medicine 12/11/14 10/16/21 Aracelis Arteaga MD [address] [place] [address] PCP - General Internal Medicine 10/28/21 Aracelis Arteaga MD [address] [place] [address] PCP - General Internal Medicine 10/17/21 10/27/21 Ruben Franco MD [address] [place] [address] Dr Uribe [address] [place] [address] Specialist Cardiovascular Disease 08/12/21 2 Robinson Zelaya MD [address] [place] [address] [place] [address] Specialist Cardiovascular Disease 08/12/21 Patricia Goldberg MD [address] [place] [address] Specialist Neurology 06/17/23 documented as of this encounter
--- OUTSIDE RECORDS SUMMARY | 2024-07-21 17:46 | XMS_ITS | Encounter Summary ---
Author Organization [facility] Address [address] [place] [address] Care Team Providers Care Automatic Serging Machine Operator Name Role Phone Robinson Zelaya MD Unavailable Unavailable Aracelis Arteaga MD Primary Care Prov ider Patricia Goldberg MD Unavailable Unavailable Reason for Visit * Reason Comments E-prescribe Rx Request Encounter Details Date Type Department Care Team Description 10/29/2023 Refill Dermatology - [address] [phone] Lidia Mcclain PA-C E-prescribe Rx Request Social [...] on filedocumented in this encounter Care Teams Automatic Serging Machine Operator Relationship Specialty Start Date End Date Aracelis Arteaga MD [address] [place] [address] PCP - General Internal Medicine 10/28/21 Robinson Zelaya MD Specialist Cardiovascular Disease 08/12/21 Patricia Goldberg MD [address] [place] [address], [place] [address] Specialist Neurology 06/17/23 documented as of this encounter
--- OUTSIDE RECORDS SUMMARY | 2024-07-21 17:46 | XMS_ITS | Encounter Summary ---
Author Organization [facility] Address [address] [place] [address] Care Team Providers Care Insurance Agency Sales Manager Name Role Phone Prakash Perez MD Primary Care Provider Adarsh Blanchard MD Primary Care Provider Brian Larios MD Primary Care Provider Adarsh Smith MD Primary Care Provider Brian Larios MD Primary Care Provider Ruben Barry MD Unavailable [phone] Robinson Zelaya MD Unavailable Unavailable Aracelis Arteaga MD Primary Care Prov ider Aracelis Arteaga MD Primary Care Prov ider Patricia Goldberg MD Unavailable Unavailable Encounter Details Date Type Department Care Team Description 06/17/2007 SCAN Medical Records [address] [place] [address] Don Berman Social History Tobacco Use Types [...] on filedocumented in this encounter Care Teams Insurance Agency Sales Manager Relationship Specialty Start Date End Date Prakash Perez MD PCP - General Internal Medicine 01/20/12 04/04/13 Adarsh Valverde MD PCP - General Internal Medicine 04/05/13 Brian Gonzalez MD PCP - General Internal Medicine 01/12/14 12/07/14 Adarsh Valverde MD PCP - General Internal Medicine 12/08/14 Brian Gonzalez MD PCP - General Internal Medicine 12/11/14 10/16/21 Aracelis Arteaga MD [address] [place] [address] PCP - General Internal Medicine 10/28/21 Aracelis Arteaga MD [address] [place] [address] PCP - General Internal Medicine 10/17/21 10/27/21 Ruben Franco MD [address] [place] [address] [place] [address] Specialist Cardiovascular Disease 08/12/21 2 Robinson Zelaya MD [address] [place] [address] [place] [address] Specialist Cardiovascular Disease 08/12/21 Patricia Goldberg MD [address] [place] [address] Specialist Neurology 06/17/23 documented as of this encounter
--- OUTSIDE RECORDS SUMMARY | 2024-07-21 17:46 | XMS_ITS | Encounter Summary ---
Demographics Address [address] [place] [address] Home Phone Preferred Language Nauruan Marital Status Unknown Catholic Affiliation Unknown Race White Ethnic Group Unknown Author Organization [facility] Address [address] [place] [address] Phone Support Name Relationship Address Phone Karon Stearns Mother [address] [place] [address] Prakash Ferrari Father [address] [place] [address] Care Team Providers Care Cream Maker Name Role Phone Nuria Luna MD Primary Care Provider Encounter Details Date Type Department Care Team (Late st Contact Info) Description 10/29/2010 Documentation [facility] [place] Family Medicine [address] [place], [place] [phone] Family Medicine, Physician [address] [place], [place] [address] Social History Tobacco Use Types Packs/Day Years [...] on filedocumented in this encounter Care Teams Cream Maker Relationship Specialty Start Date End Date Nuria Luna MD [address] [place] [address] JATINDER De Santiago [address] PCP - General 11/07/16 06/29/22 documented as of this encounter
--- OUTSIDE RECORDS SUMMARY | 2024-07-21 17:46 | XMS_ITS | Encounter Summary ---
Author Organization [facility] Address [address] [place] [address] Care Team Providers Care Care Transitions Manager Name Role Phone Brian Gonzalez MD Primary Care Provider Ruben Barry MD Unavailable Robinson Zelaya MD Unavailable Unavailable Aracelis Arteaga MD Primary Care Prov ider Aracelis Arteaga MD Primary Care Prov ider Patrciia Goldberg MD Unavailable Unavailable Encounter Details Date Type Department Care Team Description 01/10/2021 Benefits Counselor Report Medical Records [address] [place] [address] Prakash Parada MD Social History Tobacco Use [...] on filedocumented in this encounter Care Teams Care Transitions Manager Relationship Specialty Start Date End Date Brian Gonzalez MD PCP - General Internal Medicine 12/11/14 10/16/21 Aracelis Arteaga MD [address] [place] [address] PCP - General Internal Medicine 10/28/21 Aracelis Arteaga MD [address] [place] [address] PCP - General Internal Medicine 10/17/21 10/27/21 Ruben Franco MD [address] [place] [address] [place] [address] Specialist Cardiovascular Disease 08/12/21 2 Robinson Zelaya MD [address] [place] [address] [place] [address] Specialist Cardiovascular Disease 08/12/21 Patricia Goldberg MD [address] [place] [address] Specialist Neurology 06/17/23 documented as of this encounter
--- OUTSIDE RECORDS SUMMARY | 2024-07-21 17:46 | XMS_ITS | Encounter Summary ---
Author Organization [employer] [facility] Address [address] [place] [address] Care Team Providers Care Marine Structural Designer Name Role Phone Brian Gonzalez MD Primary Care Provider Ruben Barry MD Unavailable [phone] Robinson Zelaya MD Unavailable Unavailable Aracelis Arteaga MD Primary Care Prov ider Aracelis Arteaga MD Primary Care Prov ider Patricia Goldberg MD Unavailable Unavailable Encounter Details Date Type Department Care Team Description 01/14/2017 Release of Information Medical Records [address] [place] [address] Abstract, Provider Social History Tobacco Use Types [...] on filedocumented in this encounter Care Teams Marine Structural Designer Relationship Specialty Start Date End Date Brian Gonzalez MD PCP - General Internal Medicine 12/11/14 10/16/21 Aracelis Arteaga MD [address] [place] [address] PCP - General Internal Medicine 10/28/21 Aracelis Arteaga MD [address] [place] [address] PCP - General Internal Medicine 10/17/21 10/27/21 Ruebn Franco MD [address] [place] [address] Dr Uribe [address] [place] [address] Specialist Cardiovascular Disease 08/12/21 2 Robinson Zelaya MD [address] [place] [address] [place] [address] Specialist Cardiovascular Disease 08/12/21 Patricia Goldberg MD [address] [place] [address] Specialist Neurology 06/17/23 documented as of this encounter
--- OUTSIDE RECORDS SUMMARY | 2024-07-21 17:46 | XMS_ITS | Encounter Summary ---
Author Organization [facility] Address [address] [place] [address] Care Team Providers Care Soap Worker Name Role Phone Robinson Zelaya MD Unavailable Unavailable Aracelis Arteaga MD Primary Care Prov ider Patricia Goldberg MD Unavailable Unavailable Encounter Details Date Type Department Care Team Description 03/12/2023 Inspector Bullet Slugs Report Medical Records [address] [place] [address] Patricia Goldberg MD Social History Tobacco Use [...] on filedocumented in this encounter Care Teams Soap Worker Relationship Specialty Start Date End Date Aracelis Arteaga MD [address] [place] [address] [phone] PCP - General Internal Medicine 10/28/21 Robinson Zelaya MD Specialist Cardiovascular Disease 08/12/21 Patricia Goldberg MD [address] [place] [address] Specialist Neurology 06/17/23 documented as of this encounter
--- OUTSIDE RECORDS SUMMARY | 2024-07-21 17:46 | XMS_ITS | Encounter Summary ---
Author Organization [facility] Address [address] [place] [address] Care Team Providers Care Toxicology Teacher Name Role Phone Prakash Perez MD Primary Care Provider Adarsh Blanchard MD Primary Care Provider Brian Larios MD Primary Care Provider Adarsh Smith MD Primary Care Provider Brian Larios MD Primary Care Provider Ruben Barry MD Unavailable [phone] Robinson Zelaya MD Unavailable Unavailable Aracelis Arteaga MD Primary Care Prov ider Aracelis Arteaga MD Primary Care Prov ider Patricia Goldberg MD Unavailable Unavailable Encounter Details Date Type Department Care Team Description 12/02/2012 Motion And Time Study Teacher Report Medical Records [address] [place] [address] Rene Gupta MD Social History Tobacco Use [...] on filedocumented in this encounter Care Teams Toxicology Teacher Relationship Specialty Start Date End Date Prakash Perez MD PCP - General Internal Medicine 01/20/12 04/04/13 Adarsh Valverde MD PCP - General Internal Medicine 04/05/13 Brian Gonzalez MD PCP - General Internal Medicine 01/12/14 12/07/14 Adarsh Valverde MD PCP - General Internal Medicine 12/08/14 Brian Gonzalez MD PCP - General Internal Medicine 12/11/14 10/16/21 Aracelis Arteaga MD [address] [place] [address] PCP - General Internal Medicine 10/28/21 Aracelis Arteaga MD [address] [place] [address] PCP - General Internal Medicine 10/17/21 10/27/21 Ruben Franco MD [address] [place] [address] [place] [address] Specialist Cardiovascular Disease 08/12/21 2 Robinson Zelaya MD [address] [place] [address] [place] [address] Specialist Cardiovascular Disease 08/12/21 Patricia Goldberg MD [address] [place] [address] Specialist Neurology 06/17/23 documented as of this encounter
--- OUTSIDE RECORDS SUMMARY | 2024-07-21 17:46 | XMS_ITS | Encounter Summary ---
Author Organization [facility] Address [address] [place] [address] Care Team Providers Care Mva Reactor Operator Head Name Role Phone Prakash Perez MD Primary Care Provider Adarsh Blanchard MD Primary Care Provider Brian Larios MD Primary Care Provider Adarsh Smith MD Primary Care Provider Brian Larios MD Primary Care Provider Ruben Barry MD Unavailable [phone] Robinson Zelaya MD Unavailable Unavailable Aracelis Arteaga MD Primary Care Prov ider Aracelis Arteaga MD Primary Care Prov ider Patricia Goldberg MD Unavailable Unavailable Encounter Details Date Type Department Care Team Description 05/17/2012 Print Buyer Report Medical Records [address] [place] [address] Rene Gupta MD Social History Tobacco Use [...] on filedocumented in this encounter Care Teams Mva Reactor Operator Head Relationship Specialty Start Date End Date Prakash Perez MD PCP - General Internal Medicine 01/20/12 04/04/13 Adarsh Valverde MD PCP - General Internal Medicine 04/05/13 Brian Gonzalez MD PCP - General Internal Medicine 01/12/14 12/07/14 Adarsh Valverde MD PCP - General Internal Medicine 12/08/14 Brian Gonzlaez MD PCP - General Internal Medicine 12/11/14 10/16/21 Aracelis Arteaga MD [address] [place] [address] PCP - General Internal Medicine 10/28/21 Aracelis Arteaga MD [address] [place] [address] PCP - General Internal Medicine 10/17/21 10/27/21 Ruben Franco MD [address] [place] [address] [place] [address] Specialist Cardiovascular Disease 08/12/21 2 Robinson Zelaya MD [address] [place] [address] [place] [address] Specialist Cardiovascular Disease 08/12/21 Patricia Goldberg MD [address] [place] [address] Specialist Neurology 06/17/23 documented as of this encounter
--- OUTSIDE RECORDS SUMMARY | 2024-07-21 17:46 | XMS_ITS | Encounter Summary ---
Demographics Address [address] [place] [address] Home Phone Preferred Language Hungarian Marital Status Unknown Denominational Affiliation Unknown Race White Ethnic Group Unknown Author Organization [facility] Address [address] [place] [address] Phone Support Name Relationship Address Phone Karon Stearns Mother [address] [place] [address] Prakash Ferrari Father [address] [place] [address] Care Team Providers Care Skiagrapher Name Role Phone Nuria Luna MD Primary Care Provider [phone] Encounter Details Date Type Department Care Team (Late st Contact Info) Description 09/11/2009 Documentation [facility] Family Medicine [address] [place], [place] [id number] Family Medicine, Physician [address] [place], [place] [address] Social History Tobacco Use Types Packs/Day Years [...] on filedocumented in this encounter Care Teams Skiagrapher Relationship Specialty Start Date End Date Nuria Luna MD [address] [place] [address] JATINDER De Santiago [address] PCP - General 11/07/16 06/29/22 documented as of this encounter
--- OUTSIDE RECORDS SUMMARY | 2024-07-21 17:46 | XMS_ITS | Encounter Summary ---
Author Organization [facility] Address [address] [place] [address] Care Team Providers Care Soil Analyst Name Role Phone Prakash Perez MD Primary [...] Team Description 04/27/2001 SCAN Medical Records [address] [place] [address] Abstract, Provider Social History Tobacco Use Types [...] on filedocumented in this encounter Care Teams Soil Analyst Relationship Specialty Start Date End Date Prakash Perez MD PCP - General Internal Medicine 01/20/12 04/04/13 Adarsh Valverde MD PCP - General Internal Medicine 04/05/13 Brian Gonzalez MD PCP - General Internal Medicine 01/12/14 12/07/14 Adarsh Valverde MD PCP - General Internal Medicine 12/08/14 Brian Gonzalez MD PCP - General Internal Medicine 12/11/14 10/16/21 Aracelis Arteaga MD [address] [place] [address] PCP - General Internal Medicine 10/28/21 Aracelis Arteaga MD [address] [place] [address] PCP - General Internal Medicine 10/17/21 10/27/21 Ruben Franco MD [address] [place] [address] [place] [address] Specialist Cardiovascular Disease 08/12/21 2 Robinson Zelaya MD [address] [place] [address] [place] [address] Specialist Cardiovascular Disease 08/12/21 Patricia Goldberg MD [address] [place] [address] Specialist Neurology 06/17/23 documented as of this encounter
--- OUTSIDE RECORDS SUMMARY | 2024-07-21 17:46 | XMS_ITS | Encounter Summary ---
Author Organization [employer] [facility] Address [address] [place] [address] Care Team Providers Care Manager Beauty Name Role Phone Brian Gonzalez MD Primary Care Provider Ruben Barry MD Unavailable [phone] Robinson Zelaya MD Unavailable Unavailable Aracelis Arteaga MD Primary Care Prov ider Aracelis Arteaga MD Primary Care Prov ider Patricia Goldberg MD Unavailable Unavailable Encounter Details Date Type Department Care Team Description 01/04/2019 Old Medical Records Medical Records [address] [place] [address] Abstract, Provider Social History Tobacco Use Types [...] filedocumented in this encounter Care Teams Manager Beauty Relationship Specialty Start Date End Date Brian Gonzalez MD PCP - General Internal Medicine 12/11/14 10/16/21 Aracelis Arteaga MD [address] [place] [address] PCP - General Internal Medicine 10/28/21 Aracelis Arteaga MD [address] [place] [address] PCP - General Internal Medicine 10/17/21 10/27/21 Ruben Franco MD [address] [place] [address] Dr Uribe [address] [place] [address] Specialist Cardiovascular Disease 08/12/21 2 Robinson Zelaya MD [address] [place] [address] [place] [address] Specialist Cardiovascular Disease 08/12/21 Patricia Goldberg MD [address] [place] [address] Specialist Neurology 06/17/23 documented as of this encounter
== END 2024-07-21 15:21 | disposition home or self-care (01) ==
LOC: HO.HSMS 15:01
PROVIDERS: PCP Internal Medicine; Visit Provider Psychiatry & Neurology Neurology
DX: G40.209 Localization-related (focal) (partial) symptomatic epilepsy and epileptic syndromes with complex partial seizures, not intractable, without status epilepticus (principal)
CPT/HCPCS: 99214; G2211

== ENCOUNTER 2024-08-09 10:52 | Outpatient (AMB) | payer OTHER, SELFPAY ==
[2024-08-09 11:03] VITALS: BMI 35.4
--- NOTE | 2024-08-09 11:03 | A.OFFVIS_ITS ---
VS Expanded 08/09/24 11:03 08/25/24 08:32 Height 5 ft 3.9 in 5 ft 3.9 in Weight 205 lb 11.06 oz 206 lb BMI 35.4 35.5 Intake Visit Reasons: Type 2 diabetes mellitus without complications Allergies lamotrigine [From LAMICTAL] Allergy (Unknown, Verified 07/21/24 15:06) RASH tirzepatide [From Mounjaro] Allergy (Unknown, Verified 07/21/24 15:06) gi upset gadobutrol [From Gadavist] Allergy (Verified 07/21/24 15:06) hives ozempic Allergy (Unknown, Uncoded 07/21/24 15:06) gi issues Nutrition Presentation Details: Pt presents for MNT for T2DM Pt presents with mother during this appointment Pt reports doing well, eating a variety of foods denies constipation diarrhea working on increasing physical activity by walking on treadmill 30 minutes /twice a week hunger vs appetite- cannot distinguish food frequency fruits: 0-1/d ve serving/d dairy: 4+/d starches 20+d fish: 0-1/wk BS Monitoring Most Recent Diabetes Results: Cholesterol 168 mg/dL (<200) 08/15/24 HDL Cholesterol 32 mg/dL (>40) L 08/15/24 Triglycerides 322 mg/dL (<150) H 08/15/24 Creatinine 0.85 mg/dL (0.5-1.4) 08/15/24 Blood Urea Nitrogen 15 mg/dL (9-16) 08/15/24 Sodium 141 mmol/L (135-145) 08/15/24 Potassium 3.9 mmol/L (3.3-5.1) 08/15/24 Chloride 114 mmol/L (96-108) H 08/15/24 Carbon Dioxide 21 mmol/L (22-29) L 08/15/24 Calcium 9.0 mg/dL (8.4-10.2) 08/15/24 AST 22 U/L (5-31) 08/15/24 ALT 37 U/L (0-31) H 08/15/24 Total Protein 6.9 g/dL (6.5-8.0) 08/15/24 Albumin 4.1 g/dL (3.5-5.0) 08/15/24 IPO-Izbgiai-Bm.Jeor Equation Height: 5 ft 3.9 in Weight: 206 lb Resting Metabolic Rate: 1619.62 Calculated Activity Level: Sedentary Calories Needed to Maintain Weight: 1943.54 Diagnosis Nutrition problem #1: altered nutrition labs As related to (etiology) #1: diagnosis As evidenced by (sign/symptom) #1: abnormal lab values (inc Tg>150 mg/dl, T2DM, BMI 35.5) PFS Medical History Primary brain astrocytoma Uncontrolled type 2 diabetes mellitus with hyperglycemia Severe obesity (BMI 35.0-39.9) with comorbidity Seizure disorder Schizo-affective schizophrenia Major depression, recurrent, chronic Hyperlipidemia HTN (hypertension) History of astrocytoma of brain Generalized anxiety disorder Fatty liver Controlled type 2 diabetes mellitus Hidradenitis suppurativa Astrocytoma brain tumor Complex partial seizures Schizoaffective disorder Surgical History S/P brain surgery H/O craniotomy Family History Father HTN (hypertension) Gout Diabetes mellitus Depression Mother HTN (hypertension) Diabetes mellitus Psoriasis Depression Other FH: mental illness Social History Housing: Condominium Alcohol intake: current Patient Tobacco Use Status: Never used Tobacco e-Cigarette/Vaping Use: Never Used Second Hand Smoke Exposure: No service: No Current occupational status: disabled Cognitive needs: No Hearing needs: No Vision needs: Yes (glasses) Assessment & Plan Assessment & Plan (1) Controlled type 2 diabetes mellitus: Code(s): E11.9 - Type 2 diabetes mellitus without complications Category: Medical Qualifiers: Diabetes mellitus custodial insulin use: without rat exterminator use Diabetes mellitus complication status: without complication Qualified Code(s): E11.9 - Type 2 diabetes mellitus without complications Plan: Wt: 94 Kg ( 08/21 ) Est kcal needs as per MSJ: 1900 (40% carb, 30% protein/fat) Est fluid needs as per 25-30 ml/d: 2800 Est prot per day as per 1 g/kg bw: 94 Recommend fiber intake : 8-10 g per day and gradually increase to 25-28 g per day for women and 35-38 g for men or as tolerated Recommend sodium intake per day : less than 2000 mg Educated patient on: ( R = reviewed V = verbalizes understanding N/R = needs review N/A = not applicable * Food sources of carbohydrate, adequate serving sizes and its role in various health conditions: R V N/R * Differences between complex carbohydrates a simple carbohydrates, role of fiber in diet: R * Lean protein sources of foods: R * Differences between types of fats and role in diet (mono on saturated fat fatty acids, saturated fatty acids, trans fats): R V N/R * Food sources of sodium in salt and healthy modifications for heart health in kidney health: R V R/V * Vitamins and minerals: R V N/R * Healthy plate method concept: R V N/R * Physical activity: Benefits a precaution: R V N/R * Hypoglycemia protocol (rule of 15): R V N/R * Dietary prevention of Hyperglycemia: R * track calories/macronutrients: R Patient Instructions: Work on reducing sugar intake by having fruits in place of pastries/cookies Include fiber rich foods in your diet (legumes/vegetables/whole grains/fruits recommended 60 g total carb per meal or less - 3 meal/day following healthy plate method Coding Level of Care Code Nutr Indiv Subseq (05087) Diagnoses Controlled type 2 diabetes mellitus without complication, without long-term current use of insulin E11.9 Diabetes mellitus custodial insulin use: without rat exterminator use Diabetes mellitus complication status: without complication Time Spent (min) 30
--- OUTSIDE RECORDS SUMMARY | 2024-08-09 12:18 | XMS_ITS | Encounter Summary ---
Demographics Address [address] [place] [address] Home Phone Preferred Language Paraguayan Marital Status Unknown Lutheran Affiliation Unknown Race White Ethnic Group Unknown Author Organization [facility] Address [address] [place] [address] Phone Support Name Relationship Address Phone Karon Stearns Mother [address] [place] [address] Prakash Ferrari Father [address] [place] [address] Care Team Providers Care Loan Analyst Name Role Phone Nuria Luna MD Primary Care Provider Encounter Details Date Type Department Care Team (Late st Contact Info) Description 11/13/2016 Conversion Encounter [facility] [address] [place] [address] Social History Tobacco Use Types Packs/Day Years [...] on filedocumented in this encounter Care Teams Loan Analyst Relationship Specialty Start Date End Date Nuria Luna MD [address] [place] [address] PCP - General 11/07/16 06/29/22 documented as of this encounter
--- OUTSIDE RECORDS SUMMARY | 2024-08-09 12:18 | XMS_ITS | Encounter Summary ---
Demographics Address [address] [place] [address] Home Phone Preferred Language Gibraltarian Marital Status Unknown Hindu Affiliation Unknown Race White Ethnic Group Unknown Author Organization [facility] Address [address] [place] [address] Phone Support Name Relationship Address Phone Karon Stearns Mother [address] [place] [address] Prakash Ferrari Father [address] [place] [address] Care Team Providers Care Electric Power Line Repairer Name Role Phone Nuria Luna MD Primary Care Provider [phone] Encounter Details Date Type Department Care Team (Late st Contact Info) Description 11/06/2009 Documentation [facility] [place] Family Medicine [address] [place], [place] [phone] Family Medicine, Physician [address] [place], [place] [address] Social History Tobacco Use Types Packs/Day Years [...] filedocumented in this encounter Care Teams Electric Power Line Repairer Relationship Specialty Start Date End Date Nuria Luna MD [address] [place] [address] JATINDER De Santiago [address] PCP - General 11/07/16 06/29/22 documented as of this encounter
--- OUTSIDE RECORDS SUMMARY | 2024-08-09 12:18 | XMS_ITS | Encounter Summary ---
Demographics Address [address] [place] [address] Home Phone Preferred Language Eritrean Marital Status Unknown Anabaptist Affiliation Unknown Race White Ethnic Group Unknown Author Organization [facility] Address [address] [place] [address] Phone Support Name Relationship Address Phone Karon Stearns Mother [address] [place] [address] Prakash Ferrari Father [address] [place] [address] Care Team Providers Care Watershed Program Manager Name Role Phone Nuria Luna MD Primary Care Provider Encounter Details Date Type Department Care Team (Late st Contact Info) Description 10/03/2009 Documentation [facility] [place] Family Medicine [address] [place], [place] [id number] Family Medicine, Physician [address] [place], [place] [address] Social History Tobacco Use Types Packs/Day Years [...] on filedocumented in this encounter Care Teams Watershed Program Manager Relationship Specialty Start Date End Date Nuria Luna MD [address] [place] [address] JATINDER De Santiago [address] PCP - General 11/07/16 06/29/22 documented as of this encounter
--- OUTSIDE RECORDS SUMMARY | 2024-08-09 12:18 | XMS_ITS | Clinical Summary ---
Author Organization 175 [facility] Address [address] [place] [address] Phone Care Team Providers Care [employer] [address] Magistrate Name Role Phone Aracelis Sutton MD Primary Care Prov ider Allergies Active Allergy Reactions Criticality Noted Date Comments Gadobutrol Hives 04/06/2018 Was used for MRI scan Lamotrigine Hives 02/13/2012 Other Reaction(s): Rash/Dermatitis Medications DIETARY SUPPLEMENT ORAL VITAMIN D OR Take 2,000 Int'l Units by mouth daily. Active acetaminophen (TYLENOL) 500 mg tablet Take 2 Tablets by mouth 2 Times Daily. Active adalimumab (Humira Pen) 40 mg/0.8 mL pen Inject into the skin once a week. Active ammonium lactate (LAC-HYDRIN) 12 % lotion Apply to soles of feet daily. At night wear socks to bed 3 Active betamethasone dipropionate (DIPROSONE) 0.05 % ointment APPLY TO INFLAMED LESIONS ON THE BUTTOCKS TWICE DAILY FOR UP TO 2 WEEKS, BREAK FOR 1 WEEK. REPEAT NEEDED 2 Active chlorhexidine (Betasept Surgical Scrub) 4 % external liquid USE EVERY OTHER DAY BODY WASH TO AFFECTED AREAS ON THE BODY 2 Active cholecalciferol (VITAMIN D-3) 50 mcg (2,000 unit) tablet Take 1 Tablet by mouth daily. 3 Active diclofenac (VOLTAREN) 1 % topical gel Apply 4 g topically 2 times daily. 4 Active fluocinonide (LIDEX) 0.05 % topical solution 2 Active lisinopriL (PRINIVIL,ZESTRIL ) 5 mg tablet 4 Active lithium 300 mg tablet Take 300 mg by mouth 2 times daily. Active LORazepam (ATIVAN) 1 mg tablet 1mg tab at bedtime & 0.5 mg prn during the day Active medroxyPROGESTERo ne (PROVERA) 10 mg tablet Take 1 Tablet by mouth. For 10 days Active metFORMIN XR (GLUCOPHAGE-XR) 500 mg 24 hr tablet 3 Active OLANZapine (ZyPREXA) 10 mg tablet 3 Active OLANZapine (ZyPREXA) 7.5 mg tablet Take 1 Tablet by mouth at bedtime. Active OXcarbazepine (TRILEPTAL) 600 mg tablet Take 600 mg by mouth 2 Times Daily. Active topiramate (TOPAMAX) 100 mg tablet 3 Active Active Problems Problem Noted Date Diagnosed Date Shingles 03/18/2024 Hidradenitis suppurativa 08/19/2022 Plantar fasciitis, bilateral 10/16/2021 Electrocardiogram showing T wave abnormalities 0 09/23/2021 Overview (03/18/2024): Last Assessment & Plan: We did discuss [...] any further cardiac testing at this time. Elevated glucose 02/22/2020 Elevated liver enzymes 02/22/2020 Hypertriglyceridemia 02/22/2020 Dysmenorrhea 12/02/2013 Astrocytoma ([facility] V24, [facility] V28) 3 Overview (03/18/2024): Left temporal lobe- sees Latisha Price- removal at age 13 month Seizure disorder ([facility] V24, [facility] V28) 01/28 Overview (03/18/2024): Last seizure 1 year ago, had hx of astrocytoma resected at 1 yo, has serial cat scans/mris/ eegs Encounters Date Type Department Care Team Description 08/08/2024 10:00 AM EDT Office Visit Orthopedic Surgery [place] [address] [place] [phone] Tarik Harris, DPM Hypertrophy of nail (Primary Dx); Follow-up exam from Last 3 Months Immunizations Name Administration Dates Next Due DTP 09/23/1995, 1,1990,11/14,1990 MIpH-DWC-TCS (Pentacel) 2mo to less than 5yo 11/15/1991,02/16/1991,1990,10/13 HPV, Quadrivalent 06/02/2008,02/03/2008,11/09/19 08 Hepatitis B (Jbwivoy-Q-Dvlys , Recombivax HB-Adult) 19yo and older 10/04/1999 Hepatitis B Pediatric (Enger ix B; Recombivax HB) to less than 20 yo 11/09/1999 Influenza trivalent, 0.5mL, preservative free (Fluarix; FluLaval; Fluzone) ages 6mo and older (Afluria) 3 years and older 01/22/2020,12/11/2015,02/16/2015,12/28,02/03/2008,03/19/2006 MMR, measles mumps and rubel la Live (Priorix; M-M-R II) 12mo and older 09/23/1995,11/15/1991 Meningococcal MCV4P 07/31/2006 OPV 09/23/1995, 2,1990,10/13 [employer] SARS-CoV-2 COVID-19, mRNA, LNP-S, preservative free 07/23/2020 Td Tetanus diptheria (Tdvax) 7yo and older 09/16/2001 Tdap Tetanus diptheria acell ular pertussis (Boostrix; Adacel) 7yo and older 10/27/2021,11/09/2007 Surgical History Surgery Date Site/Laterality Comments OTHER SURGICAL HISTORY PROCEDURE: ---- OTHER ----; COMMENT: craniotomy left temporal astrocytoma Medical History Medical History Date Comments Seizure disorder ([facility] V2 4, [facility] V28) 02/13/2012 DX:Seizure disorder (HCC) Shingles DX:Shingles PCOS (polycystic ovarian syndrome) DX:PCOS (polycystic ovarian syndrome) Astrocytoma (CMS/HCC V24, CM S/HCC V28) 07/13/2012 DX:Astrocytoma (HCC) Complex partial epileptic se izure (CMS/HCC V24, CMS/[facility] V28) DX:Complex partial epilepti c seizure (HCC) Absence seizure (CMS/HCC V24 , CMS/[facility] V28) DX:Absence seizure (HCC) Decreased level of consciousness DX:Decreased level of consciousness Family History Medical History Relation Name Comments Hypertension Father Leukemia Grandparent 1 shingles Diabetes Mother htn Breast cancer Mother's side 1 great aunt Colon cancer Paternal Grandfather dx at 5 0 Ovarian cancer Neg Hx Relation Name Status Comments Father Grandparent 1 Grandparent 2 Mother Mother's side 1 Mother's side 2 Paternal Grandfather Social History Tobacco Use Types Packs/Day Years Used Date Smoking Tobacco: Never Smokeless Tobacco: Never Alcohol Use Standard Drinks/Week Comments Yes 0 (1 standard drink = 0.6 oz pur e alcohol) Comments Unknown Sex and Gender Information Value Date Recorded Sex Assigned at Not on file Legal Sex Female 5:03 PM EST Gender Identity Not on file Sexual Orientation Not on file Obstetrics History Last Filed Vital Signs Vital Sign Reading Time Taken Comments Blood Pressure 117/74 08/19/2022 11:08 AM EDT Pulse 68 08/19/2022 11:08 AM EDT Temperature - - Respiratory Rate - - Oxygen Saturation - - Inhaled Oxygen Concentration - - Weight 95.3 kg (210 lb) 11/18/2023 3:02 PM EDT Height 162.6 cm (5' 4 ) 11/18/2023 3:02 PM EDT Body Mass Index 36.05 11/18/2023 3:02 PM EDT Plan of Treatment Upcoming Encounters Date Type Department Care Team (Late st Contact Info) Description 11/08/2024 10:15 AM EDT Office Visit Orthopedic Surgery - [place] [address] [place] [phone] Tarik Harris, DPJames 175 [facility] [address] [place] [address] Health Maintenance Due Date Last Done Comments Diabetes: Annual Foot Exam 2000 Diabetes: Annual Retina Eye Exam 2000 Hepatitis A Vaccines (1 of 2 - Risk 2-dose series) 2009 Cervical Cancer Screening: Pap Smear 12/24/2018 12/25/2015, 12/25/2015 Depression Screening 03/08/2022 HIV Screening 03/08/2022 Social Influencers of Health Screening 03/08/2022 Diabetes: Annual GFR (Glomerular Filtration Rate) 07/31/2023 07/30/2022 COVID-19 Vaccine ( season) 2023 02/24/2023, 05/04/2021, 07/23/2020, Additional history exists Diabetes: Annual Urine Albumin-Creatinine Ratio (uACR) 08/08/2024 Diabetes: Blood Sugar Control Test (HGBA1C) 08/08/2024 08/06/2022 Hypertension/CHF/CAD Annual BMP Blood Test 08/08/2024 07/30/2022 Cholesterol Screening (Lipid Panel) 07/31/2027 07/30/2022 DTaP,Tdap,and Td Vaccines (9 - Td or Tdap) 10/28/2031 10/27/2021, 11/09/2007, 09/16/2001, Additional history exists HIB Vaccines Completed 11/15/1991, 10/28, 02/16/1991, Additional history exists IPV Vaccines Completed 09/23/1995, 10/28, 11/15/1991, Additional history exists MMR Vaccines Completed 09/23/1995, 11/15/1991 Hepatitis B Vaccines Completed 02/25/2000, 11/09/1999, 10/04/1999, Additional history exists Meningococcal ACWY Vaccine Aged Out 07/31/2006 N o longer eligible based on patient's age to complete this topic HPV Vaccines Completed 06/02/2008, 1108/2007, 11/09/2007 Hepatitis C Screening Completed 03/02/2020 Influenza Vaccine Completed 05/24/2024, , 02/04/2022, Additional history exists Meningococcal B Vaccine Aged Out No l onger eligible based on patient's age to complete this topic Pneumococcal Vaccine: Pediatrics (0 to 5 Years) and At-Risk Patients (6 to 64 Years) Aged Out No longer eligible based on patient's age to complete this topic RSV Immunization Patients Under 20 months Aged Out No longer eligible based on patient's age to complete this topic Varicella Vaccines Aged Out No longer eligible based on patient's age to complete this topic Procedures Procedure Name Priority Date/Time Associated Diagnosis Comments XR FOOT 3+ VIEWS LEFT Routine 08/08/2024 10:04 AM EDT Follow-up exam HEMOGLOBIN A1C Routine 08/06/2022 ANNUAL BMP BLOOD TEST Routine 07/30/2022 LIPID PANEL Routine 07/30/2022 HEPATITIS C SCREENING Routine 03/02/2020 HPV Routine 12/25/2015 from Last 3 Months or Most Recently Relevant to Health Maintenance Results * XR Foot 3+ Views Left (08/08/2024 10:04 AM EDT) Anatomical Region Laterality Modality Lower Extremities, Foot Left Computed Radiography Narrative 08/08/2024 12:16 PM EDT Left foot 3 views No fracture. No radiopaque foreign joint spaces normal ?? Foot position Pes planus with Talus navicular uncovering decreased calcaneal inclination anterior displaced symes line talus navicular joint to calcaneal cuboid joint ?? Tarik Harris DPM IMG XR PROCEDURES Final R esult * Hemoglobin A1c (08/06/2022) Hemoglobin A1C 6.0 <=6.5 % Blood Venous blood specimen / Unknown Historical Provider LAB BLOOD ORDERABLES Johanna l Result * Annual BMP Blood Test (07/30/2022) [facility] Annual BMP Blood Test Abstracted [facility] Provider HEALTH MAINTENANCE Final Result * (ABNORMAL) Lipid panel (07/30/2022) [facility] LDL/HDL Ratio 6(A) 0 - 4 Triglycerides 267(A) 0 - 150 mg/dL Cholesterol 234(A) 0 - 200 mg/dL HDL 37(A) >=40 mg/dL LDL Cholesterol 144(A) 0 - 100 mg/dL Blood Venous blood specimen / Unknown Result [facility] Provider LAB BLOOD ORDERABLES Johanna l Result * Hepatitis C Screening (03/02/2020) [facility] Hepatitis C Screening Abstracted [facility] Provider HEALTH MAINTENANCE Final Result * Cervical Cancer Screening: HPV (12/25/2015) [facility] Cervical Cancer Screening: HPV No Interpretation , Abstracted [facility] Provider HEALTH MAINTENANCE Final Result from Last 3 Months or Most Recently Relevant to Health Maintenance Insurance [facility] Member Subscriber Plan / Payer (Ef fective 2018-Present) Name:Wale Stearns Relation to Subscriber:Self Name:Wale Stearns Payer ID:[id number] Group ID:[id number] Type:Not on file Address: [place] [address] [place] [id number] MEDICAID - [place] Care Teams [address] Magistrate Relationship Specialty Start Date End Date Aracelis Sutton MD [address] [place] [id number] PCP - General Internal Medicine 10/28/21
--- OUTSIDE RECORDS SUMMARY | 2024-08-09 12:18 | XMS_ITS | Clinical Summary ---
Demographics Address [address] [place] [address] Home Phone Preferred Language Wolof Marital Status Unknown Rastafari Affiliation Unknown Race White Ethnic Group Unknown Author Organization [facility] Address [address] [place] [address] Phone Support Name Relationship Address Phone Karon Stearns Mother [address] [place] [address] Prakash Ferrari Father [address] [place] [address] Care Team Providers Care Communications Officer Name Role Phone Unavailable Primary Care Provider [...]
--- OUTSIDE RECORDS SUMMARY | 2024-08-09 12:18 | XMS_ITS | Encounter Summary ---
Demographics Address [address] [place] [address] Home Phone Preferred Language Armenian Marital Status Unknown Rastafarian Affiliation Unknown Race White Ethnic Group Unknown Author Organization [facility] Address [address] [place] [address] Phone Support Name Relationship Address Phone Karon Stearns Mother [address] [place] [address] Prakash Ferrari Father [address] [place] [address] Care Team Providers Care Coal Handler Name Role Phone Nuria Luna MD Primary Care Provider Encounter Details Date Type Department Care Team (Late st Contact Info) Description 10/29/2010 Documentation [facility] Family Medicine [address] [place], [place] [phone] Family Medicine, Physician [address] [place], [place] [address] Social History Tobacco Use Types Packs/Day Years [...] on filedocumented in this encounter Care Teams Coal Handler Relationship Specialty Start Date End Date Nuria Luna MD [address] [place] [address] JATINDER De Santiago [address] PCP - General 11/07/16 06/29/22 documented as of this encounter
--- OUTSIDE RECORDS SUMMARY | 2024-08-09 12:18 | XMS_ITS | Encounter Summary ---
Author Organization [facility] Address [address] [place] [phone] Care Team Providers Care Pencil Inspector Name Role Phone Aracelis Sutton MD Primary Care Prov ider Reason for Visit * Reason Comments Follow-up Foot Pain B/L Encounter Details Date Type Department Care Team ([facility] st Contact Info) Description 08/08/2024 10:00 AM EDT Office Visit Orthopedic Surgery - [place] [address] [phone] Tarik Harris DPM [address] [address] Hypertrophy of nail (Primary Dx); Follow-up exam Social History Tobacco Use Types Packs/Day Years [...] on file documented as of this encounter Progress Notes * Tarik Harris DPM - 08/08/2024 10:00 AM EDT Umu Stearns is a 33 y.o. year old female presents complaining of new complaint of thickening of hernail she states the nail splitting the midportion of her left and right foot she states she just noticed it recently but has been bothering her somewhat she states she is worried about a call to makethis appointment pain is a 2 out of 10 on a visual scale to get x-rays appointment appointment notes that her heel pain is completely resolved ROS: GENERAL: Pt denies nausea, fever, vomiting, chills, or shortness of breath. Pt in NAD. CARDIOLOGY: pt denies chest pain, palpitations LUNGS: pt denies shortness of breath MUSCULOSKELETAL: See HPI, otherwise no joint pain or swelling, back pain, or muscle pain. 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, [facility] V28) Dysmenorrhea Electrocardiogram showing T wave abnormalities Elevated glucose Elevated liver enzymes Hidradenitis suppurativa Hypertriglyceridemia Plantar fasciitis, bilateral Seizure disorder ([facility] V24, [facility] V28) Shingles SOCIAL HISTORY: Social History Tobacco Use Smoking status: Never Smokeless tobacco: Never Substance Use Topics Alcohol use: Yes ACTIVE MEDICATIONS: No outpatient medications have been marked as taking for the 08/08/24 encounter (Office Visit) with Tarik Harris DPM. ALLERGIES: Allergies Allergen Reactions Gadobutrol Hives Was used for MRI scan Lamotrigine Hives Other Reaction(s): Rash/Dermatitis PHYSICAL EXAM: Visit Vitals Smoking Status Never PODIATRIC EXAMINATION: GENERAL: Patient appears well nourished, with NAD. VASCULAR: Dorsalis pedis pulses are 2/4 bilaterally and Posterior tibial pulses are 2/4 bilaterally. Capillary filling time within normal limits the digits. No pallor on elevation or rubor on dependency. No varicosities. Denies rest pain or claudication pain. NEUROLOGICAL: Sharp/dull sensation intact, protective sensation intact 10/10 with Ipswitch touch test bilaterally, vibratory sensation intact to the tibial tuberosity. ORTHOPEDIC: Good muscle strength 5/5 of all flexors and extensors. Dorsi flexion of ankle ,10 degrees, plantar flexion WNL. No muscle atrophy. DERMATOLOGICAL:.Split of nail plate both great toes BIOMECHANICS: Ankle ROM WNL, STJ ROM wnl, MTJ ROM wnl, 1st MPJ ROM wnl. IMAGING: IMPRESSION: 1. Hypertrophy of nail 2. Follow-up exam PLAN: Pt was seen and examined, history reviewed. Treatment options for hypertrophy nail plate were discussed and reviewed Would recommend Vaseline topically Discussed exfoliation's Nail procedure including nail removal was discussed with risks of traumatizing the nail plate causing worsening nail formation Follow-up in 2 months Tarik Harris DPM documented in this encounter Plan of Treatment Upcoming Encounters Date Type Department Care Team (Late st Contact Info) Description 11/08/2024 10:15 AM EDT Office Visit Orthopedic Surgery - [place] [address] [phone] Tarik Harris DPM [address] [address] documented as of this encounter Results * XR Foot 3+ Views Left (08/08/2024 10:04 AM EDT) Anatomical Region Laterality Modality Lower Extremities, Foot Left Computed Radiography Narrative 08/08/2024 12:16 PM EDT Left foot 3 views No fracture. No radiopaque foreign joint spaces normal ?? Foot position Pes planus with Talus navicular uncovering decreased calcaneal inclination anterior displaced symes line talus navicular joint to calcaneal cuboid joint ?? us Tarik Harris DPM IMG XR PROCEDURES Final R esult documented in this encounter Visit Diagnoses Diagnosis Hypertrophy of nail- Primary Other specified disease of nail Follow-up exam Unspecified follow-up examination documented in this encounter Care Teams Pencil Inspector Relationship Specialty Start Date End Date Aracelis Sutton MD [address] [place] [id number] PCP - General Internal Medicine 10/28/21 documented as of this encounter
--- OUTSIDE RECORDS SUMMARY | 2024-08-09 12:18 | XMS_ITS | Encounter Summary ---
Demographics Address [address] [place] [address] Home Phone Preferred Language Afghan Marital Status Unknown Yazidi Affiliation Unknown Race White Ethnic Group Unknown Author Organization [facility] Address [address] [place] [address] Phone Support Name Relationship Address Phone Karon Stearns Mother [address] [place] [address] Prakash Ferrari Father [address] [place] [address] Care Team Providers Care Supervisor [employer] Name Role Phone Nuria Luna MD Primary Care Provider Encounter Details Date Type Department Care Team (Late st Contact Info) Description 09/11/2009 Documentation [facility] Family Medicine [address] [place], [place] [phone] Family Medicine, Physician [address] [place], [place] [phone] Social History Tobacco Use Types Packs/Day Years [...] filedocumented in this encounter Care Teams Supervisor [employer] Relationship Specialty Start Date End Date Nuria Luna MD [address] [place] [address] JATINDER De Santiago [address] PCP - General 11/07/16 06/29/22 documented as of this encounter
--- OUTSIDE RECORDS SUMMARY | 2024-08-09 12:18 | XMS_ITS | Data Portability ---
Author Organization [place] - [facility], Allergy Address [address] [place] [phone] Assessment Encounter Date Assessment Date Assessment LastModified [...] up as needed for any future concerns. [email or web address] Not available 07/13/2024 15:33:10 Plan of Treatment [...] Organization Details Recorded Time Abnormal auditory perception [id number] Active 2024 Keke zepeda [place] - [facility] 14:19:41 Bilateral tinnitus [id number] Active 2024 ANEL DEUTSCH PA-C [address] [place] [address], [phone], [place] - [facility] 15:33:15 Problem Notes None recorded. Procedures Surgical History Date Name Laterality Status Provider Name and Address Organization Details Recorded Time 07/13/2024 Air & Speech Audio with Tymps - 75806, 52587 & 19330 completed Keke Lee [place] - [facility] 07/13/2024 14:19:30 Imaging Results Imaging Date [...] SNOMED-CT Code Diagnosis ICD10 Code Diagnosis Note [id number] ANEL DEUTSCH PA-C [facility] [address] [place] [address] 07/13/2024 13:53:19 07/13/2024 15:08:14 Abnormal auditory perception 65157645 H93.299 Audiologic al evaluation results: Right ear: [...] not maintain a hermetic seal}} Bilateral tinnitus 21587 20893 102 H93.13 Health Concerns Section Related Observation LastModified by Organization Detai ls LastModified Time None Recorded Concern Status LastModified by Organization Details LastModified Time None Recorded Advance Directives Directive None Recorded Payers Insurance Date Sequence Insurance Name Policy Number Policy Hamm Covered Member ID Hamm Member ID Guarantor Name 07/13/2024 1 [employer] [facility] [place] ([place]IC[place]PLAC[place]/AD VANTAGE - HMO) Wale Stearns [id number] Wale Stearns 07/13/2024 1 [facility] - DOS ON OR AFTER 2022 - [employer] (MEDICARE REPLACEMENT/AD VANTAGE - HMO) Wale Stearns [id number] Wale Stearns Notes Date Note Type Note Provider Name and Address Organization Details Recorded Time 07/13/2024 text/html 33-year-old female presents for evaluation of tinnitus. It is bilateral and worse at night for the past few months. Denies otalgia, otorrhea, vertigo, and changes in hearing. Denies prior otologic surgeries or history of chronic ear infections. Denies history of noise exposure. ANEL DEUTSCH PA-C [address] [place] [address], [phone] - [facility] 07/13/2024 15:34:07 OBGyn Episode No OBEpisode recorded.
--- OUTSIDE RECORDS SUMMARY | 2024-08-09 12:18 | XMS_ITS | Encounter Summary ---
Demographics Address [address] [place] [address] Home Phone Preferred Language Maldivian Marital Status Unknown Shinto Affiliation Unknown Race White Ethnic Group Unknown Author Organization [facility] Address [address] [place] [address] Phone Support Name Relationship Address Phone Karon Stearns Mother [address] [place] [address] Prakash Ferrari Father [address] [place] [address] Care Team Providers Care Radio Tower Technician Name Role Phone Nuria Luna MD Primary Care Provider [phone] Encounter Details Date Type Department Care Team (Late st Contact Info) Description 01/15/2010 Documentation [facility] Family Medicine [address] [place], [place] [phone] Family Medicine, Physician [address] [place], [place] [phone] Social History Tobacco Use Types Packs/Day Years [...] filedocumented in this encounter Care Teams Radio Tower Technician Relationship Specialty Start Date End Date Nuria Luna MD [address] [place] [address] JATINDER De Santiago [address] PCP - General 11/07/16 06/29/22 documented as of this encounter
--- OUTSIDE RECORDS SUMMARY | 2024-08-09 12:18 | XMS_ITS | Data Portability ---
Author Organization [facility] Address [address] [place] [address] [place] [address] Care Team Providers Care Ship Propeller Finisher Name Role Phone MARK SINGH Referring Provider [...] same address as is shown in the [facility] for us to fax a note. [...] glaucoma and she has also seen her hairspring staker and has reported that there is nothing to treat other than dry eyes. Discussed her mother's question of whether and underlying seizure would present itself as a hallucination to Tal: this would be exceedingly rare. Confirmed today that we do have her records [facility] from Dr. Ruth from 09/24/2020 (brain MRI from April 30, 2017 is summarized in data review.) Has had more recent EEG and brain MRI at [facility] about 2 years ago. We will [...] same address as is shown in the [facility] for us to fax a note. We will try to obtain his updated address and include him with it for copies of all of our notes. LETICIA Stearns June 04, 2021 We will obtain electrolyte levels with particular attention to sodium to establish a baseline while you are on ox carbamazepine. We have faxed this to the [facility] laboratory at [address] in [place] at your request. This address was newly [...] pharmacy today We will request records from [facility] with your MRI and EEG from [...] assessment/plan in particular. Prakash Parada MD, PhD [facility] mrossen Not available 06/05/2021 14:36:58 Plan of Treatment Reminders Order Date Submit Date Provider Last Modified By Organization Details Last Modified Time Details Appointments None recorded. Lab BMP, serum or plasma - R94.4 Attn Phlebotomy [address] [facility], [address] [facility], [place], [address], 13:49:46 Referral None recorded. Procedures None recorded. Surgeries None recorded. Imaging None recorded. Medication Orders oxcarbazepi ne 600 mg tablet 2021 [facility], [address] [facility], [place], [address], 13:35:57 topiramate 100 mg tablet 2021 [facility], [address] [place], [address], 13:36:53 topiramate 50 mg tablet 2021 [facility], [address] [place], [address], 13:37:27 oxcarbazepi ne 600 mg tablet 2020 [facility], [address] [place], [address], 12:46:13 topiramate 100 mg tablet 2020 [facility], [address] [place], [address], 12:46:15 topiramate 50 mg tablet 2020 [facility] [facility], [address] [place], [address], 12:46:13 Patient TargetsNo targets recorded. Patient InstructionsNo [...] and Address Organization Details Recorded Time Seizure 06066261 Active Nella Veliz [facility] Neurology [facility] 01/10/2021 11:17:10 Problem Notes None recorded. Procedures Surgical History Date Name Laterality Status Provider Name and Address Organization Details Recorded Time craniotomy completed Nella Veliz [facility] 01/10/2021 11:18:51 Imaging Results Imaging [...] Not available Not available Not available 01/10/2021 15277 RxNorm Nella Veliz [facility] 11:25:59 607 Lamictal medicatio n Not available Not available Not available 01/10/2021 45306 2 RxNorm Nella Veliz [facility] 11:26:07 Medications Name Sig Start [...] Updated DateTime 01/10/2021 162.56 cm 36 kg/m2 59649.4 g Nella Veliz [facility] 01/10/2021 11:10:21 Social History Question Answer Notes LastModified by Organizat ion Details LastModified Time Tobacco Smoking Status Never Smoker Nella zepeda [facility] 01/10/2021 11:18:09 What Is Your Level Of Caffeine Consumption? Occasional Information not available 01/10/2021 What Is Your Relationship Status? Single Information not available 01/10/2021 Sex: Unknown Functional Status Question Answer Note LastModified by Organizat ion Details LastModified Time What is your level of alcohol consumption? Occasional Information not available 01/10/2021 Mental Status None recorded. Family History Relationship [...] Not available 01/10 11:21:05 Maternal Aunt Malignant neoplasm of ovary Not available 01/10 11:25:28 Medical History No medical history recorded. Gynecological HistoryNo gynecological history recorded. Obstetrics History GPAL:G 0 P 0 0 0 0 Past Encounters Encounter ID Performer Location Encounter Start Date Encounter Closed Date Diagnosis/Indication Diagnosis SNOMED-CT Code Diagnosis ICD10 Code Diagnosis Note [id number] Prakash Parada MD [facility] [address] [place] [address] [place] [address] 01/10/2021 11:08:49 01/10/2021 13:08:35 Focal onset impaired awareness epileptic seizure 893561121 G40.209 Absence seizure 58435067 G40.A09 Decreased level of consciousness 473109429 R40.4 [id number] MELANIE SANTACRUZ PA-C [facility] [address] [place] [address] [place] [address] 06/04/2021 10:09:35 06/06/2021 16:48:46 Focal onset impaired awareness epileptic seizure 361081526 G40.209 Absence seizure 38280249 G40.A09 Decreased level of consciousness 839486979 R40.4 Health Concerns Section Related Observation LastModified by Organization Detai ls LastModified Time None Recorded Concern Status LastModified by Organization Details LastModified Time None Recorded Advance Directives Directive None Recorded Payers Encounter Date Sequence Insurance Name Policy Number Policy Hamm Covered Member ID Hamm Member ID Guarantor Name 01/10/2021 1 [facility] - DOS PRIOR TO 2022 - DUAL ELIGIBLE (MEDICARE REPLACEMENT/AD VANTAGE - HMO) Wale Alek [id number] Wale Stearns 06/04/2021 1 [facility] - DOS PRIOR TO 2022 - DUAL ELIGIBLE (MEDICARE REPLACEMENT/AD VANTAGE - HMO) Wale Gaston [id number] Wale Stearns Notes Date Note Type Note [...] all been done by previous neurologist at [facility] who is moving to [place], last visit in August 2020 and from [...] actively adjusting medications. Prakash Parada MD [address] [place] [address] [place], [address], [facility] Neurology [facility] 01/10/2021 13:07:21 06/04/2021 text/html Follow up for [...] not last. She has been to her hairspring staker who does not have any specific recommendation other than cjvo-hjs-[id number] drops for dry eyes. Her mother has noticed that she seems to have hallucinations but only transiently and sometimes wonders if this is hallucinations blend into the seizure activity and given her history of left temporal lobe astrocytoma, wonders if this could be related. Her most recent MRI and EEG were done at [facility] 2 years ago. Which confirm that we have records from [facility] from 4 years ago. She continues on [...] all been done by previous neurologist at [facility] who is moving to [place], last visit in August 2020 and from [...] were started. During late summer and early naresh 2020, psychiatry has been actively adjusting medications. Prakash Parada MD [address] [place] [address] [place], [address], [facility] Neurology [facility] 06/05/2021 14:37:13 OBGyn Episode No OBEpisode recorded.
[2024-08-25 08:32] VITALS: BMI 35.5
== END 2024-08-09 11:43 | disposition home or self-care (01) ==
LOC: HO.ENCR 10:52
PROVIDERS: PCP Physician Assistant; Visit Provider Dietitian, Registered
DX: E11.9 Type 2 diabetes mellitus without complications (principal)

== ENCOUNTER → 2024-08-09 10:52 | Outpatient (BNVA) | payer OTHER, SELFPAY | PROVIDERS: PCP Physician Assistant; Visit Provider Dietitian, Registered | DX: E11.9 Type 2 diabetes mellitus without complications (principal) | CPT/HCPCS: 97803 ==

== ENCOUNTER 2024-08-15 09:21 | Outpatient (REF) | payer OTHER, SELFPAY ==
--- OUTSIDE RECORDS SUMMARY | 2024-08-15 09:38 | XMS_ITS | Encounter Summary ---
Demographics Address [address] [place] [address] Home Phone Preferred Language Mauritanian Marital Status Unknown Adventism Affiliation Unknown Race White Ethnic Group Unknown Author Organization [facility] Address [address] [place] [address] Phone Support Name Relationship Address Phone Karon Stearns Mother [address] [place] [address] Prakash Ferrari Father [address] [place] [address] Care Team Providers Care Waterworks Supervisor Name Role Phone Nuria Luna MD Primary Care Provider [phone] Encounter Details Date Type Department Care Team (Late st Contact Info) Description 09/11/2009 Documentation [facility] [place] [address] [place], [place] [phone] Family Medicine, Physician [address] [place], [place] [address] Social History Tobacco Use Types Packs/Day Years [...] on filedocumented in this encounter Care Teams Waterworks Supervisor Relationship Specialty Start Date End Date Nuria Luna MD [address] [place] [address] JATINDER De Santiago [address] PCP - General 11/07/16 06/29/22 documented as of this encounter
--- OUTSIDE RECORDS SUMMARY | 2024-08-15 09:38 | XMS_ITS | Encounter Summary ---
Demographics Address [address] [place] [address] Home Phone Preferred Language Honduran Marital Status Unknown Congregational Affiliation Unknown Race White Ethnic Group Unknown Author Organization [facility] Address [address] [place] [address] Phone Support Name Relationship Address Phone Karon Stearns Mother [address] [place] [address] Prakash Ferrari Father [address] [place] [address] Care Team Providers Care Metal Crafts Teacher Name Role Phone Nuria Luna MD Primary Care Provider [phone] Encounter Details Date Type Department Care Team (Late st Contact Info) Description 11/13/2016 Conversion Encounter [facility] [place] [address] [place] [address] Social History Tobacco Use Types Packs/Day Years [...] on filedocumented in this encounter Care Teams Metal Crafts Teacher Relationship Specialty Start Date End Date Nuria Luna MD [address] [place] [address] PCP - General 11/07/16 06/29/22 documented as of this encounter
--- OUTSIDE RECORDS SUMMARY | 2024-08-15 09:38 | XMS_ITS | Encounter Summary ---
Demographics Address [address] [place] [address] Home Phone Preferred Language Malawian Marital Status Unknown Voodoo Affiliation Unknown Race White Ethnic Group Unknown Author Organization [facility] Address [address] [place] [address] Phone Support Name Relationship Address Phone Karon Stearns Mother [address] [place] [address] Prakash Ferrari Father [address] [place] [address] Care Team Providers Care Packaging Designer Name Role Phone Nuria Luna MD Primary Care Provider [phone] Encounter Details Date Type Department Care Team (Late st Contact Info) Description 01/15/2010 Documentation [facility] [place] Medicine [address] [place], [place] [phone] Family Medicine, Physician [address] [place], [place] [address] Social History Tobacco Use Types Packs/Day Years [...] on filedocumented in this encounter Care Teams Packaging Designer Relationship Specialty Start Date End Date Nuria Luna MD [address] [place] [address] JATINDER De Santiago [address] PCP - General 11/07/16 06/29/22 documented as of this encounter
--- OUTSIDE RECORDS SUMMARY | 2024-08-15 09:38 | XMS_ITS | Encounter Summary ---
Demographics Address [address] [place] [address] Home Phone Preferred Language Jamaican Marital Status Unknown Zoroastrian Affiliation Unknown Race White Ethnic Group Unknown Author Organization [facility] Address [address] [place] [address] Phone Support Name Relationship Address Phone Karon Stearns Mother [address] [place] [address] Prakash Ferrari Father [address] [place] [address] Care Team Providers Care Teacher Music Name Role Phone Nuria Luna MD Primary Care Provider Encounter Details Date Type Department Care Team (Late st Contact Info) Description 10/29/2010 Documentation [facility] [place] [address] [place], [place] [phone] Family Medicine, Physician [address] [place], [place] [address] Social History Tobacco Use Types Packs/Day Years [...] on filedocumented in this encounter Care Teams Teacher Music Relationship Specialty Start Date End Date Nuria Luna MD [address] [place] [address] JATINDER [place] [address] PCP - General 11/07/16 06/29/22 documented as of this encounter
--- OUTSIDE RECORDS SUMMARY | 2024-08-15 09:38 | XMS_ITS | Clinical Summary ---
Demographics Address [address] [place] [address] Home Phone Preferred Language Upper Sorbian Marital Status Unknown Yarsanism Affiliation Unknown Race White Ethnic Group Unknown Author Organization [facility] Address [address] [place] [address] Phone Support Name Relationship Address Phone Karon Stearns Mother [address] [place] [address] Prakash Ferrari Father [address] [place] [address] Care Team Providers Care Wire Rope Sales Representative Name Role Phone Unavailable Primary Care Provider [...]
--- OUTSIDE RECORDS SUMMARY | 2024-08-15 09:38 | XMS_ITS | Encounter Summary ---
Demographics Address [address] [place] [place] [address] Home Phone Preferred Language Montserratian Marital Status Unknown Yazdanism Affiliation Unknown Race White Ethnic Group Unknown Author Organization [facility] Address [address] [place] [address] Phone Support Name Relationship Address Phone Karon Stearns Mother [address] [place] [address] Prakash Ferrari Father [address] [place] [address] Care Team Providers Care Weigher Production Name Role Phone Nuria Luna MD Primary Care Provider Encounter Details Date Type Department Care Team (Late st Contact Info) Description 11/06/2009 Documentation [facility] [place] [address] [place], [place] [phone] Family Medicine, Physician [address] [place], [place] [address] Social History Tobacco Use Types Packs/Day Years [...] on filedocumented in this encounter Care Teams Weigher Production Relationship Specialty Start Date End Date Nuria Luna MD [address] [place] [address] JATINDER De Santiago [address] PCP - General 11/07/16 06/29/22 documented as of this encounter
--- OUTSIDE RECORDS SUMMARY | 2024-08-15 09:38 | XMS_ITS | Clinical Summary ---
Author Organization [facility] Address [address] [place] [address] Phone Care Team Providers Care Bench Manager Name Role Phone Aracelis Sutton MD Primary [...] enzymes 02/22/2020 Hypertriglyceridemia 02/22/2020 Dysmenorrhea 12/02/2013 Astrocytoma ([facility] V24, [facility] V28) 3 Overview (03/18/2024): Left temporal lobe- sees Latisha Price- removal at age 13 month Seizure disorder ([facility] V24, [facility] V28) 01/28 Overview (03/18/2024): Last seizure 1 year ago, had hx of astrocytoma resected at 1 yo, has serial cat scans/mris/ eegs Encounters Date Type Department Care Team Description 08/08/2024 10:00 AM EDT Office Visit [facility] - [place] [address] [place] [phone] Tarik Harris, DPM Hypertrophy of nail (Primary Dx); Follow-up exam from Last 3 Months Immunizations Name Administration Dates Next Due DTP 09/23/1995, 1,1990,11/14,1990 KCdR-YCW-QCQ (Pentacel) 2mo to less than 5yo 11/15/1991,02/16/1991,1990,10/13 HPV, Quadrivalent 06/02/2008,02/03/2008,11/09/19 08 Hepatitis B (Qmcefwz-X-Xjnnw , Recombivax HB-Adult) 19yo and older 10/04/1999 Hepatitis B Pediatric (Enger ix B; Recombivax HB) to less than 20 yo 11/09/1999 Influenza trivalent, 0.5mL, preservative free (Fluarix; FluLaval; Fluzone) ages 6mo and older (Afluria) 3 years and older 01/22/2020,12/11/2015,02/16/2015,12/28,02/03/2008,03/19/2006 MMR, measles mumps and rubel la Live (Priorix; M-M-R II) 12mo and older 09/23/1995,11/15/1991 Meningococcal MCV4P 07/31/2006 OPV 09/23/1995, 2,1990,10/13 [place] SARS-CoV-2 COVID-19, mRNA, LNP-S, preservative free 07/23/2020 Td Tetanus diptheria (Tdvax) 7yo and older 09/16/2001 Tdap Tetanus diptheria acell ular pertussis (Boostrix; Adacel) 7yo and older 10/27/2021,11/09/2007 Surgical History Surgery Date Site/Laterality Comments OTHER SURGICAL HISTORY PROCEDURE: ---- OTHER ----; COMMENT: craniotomy left temporal astrocytoma Medical History Medical History Date Comments Seizure disorder ([facility] V2 4, [facility] V28) 02/13/2012 DX:Seizure disorder (HCC) Shingles DX:Shingles PCOS (polycystic ovarian syndrome) DX:PCOS (polycystic ovarian syndrome) Astrocytoma (CMS/HCC V24, CM S/HCC V28) 07/13/2012 DX:Astrocytoma (HCC) Complex partial epileptic se izure (CMS/HCC V24, CMS/[facility] V28) DX:Complex partial epilepti c seizure (HCC) Absence seizure (CMS/HCC V24 , CMS/[facility] V28) DX:Absence seizure (HCC) Decreased level [...] Care Team (Late st Contact Info) Description 11/07/2024 1:45 PM EDT Office Visit [facility]opedic Surgery [place] [address] [place] [phone] Tarik Harris, DPJames [address] [facility] [address] [place] [address] Health Maintenance Due Date Last Done Comments [...] Result * Annual BMP Blood Test (07/30/2022) [facility] Annual BMP Blood Test Abstracted [facility] Provider HEALTH MAINTENANCE Final Result * (ABNORMAL) Lipid panel (07/30/2022) [facility] LDL/HDL Ratio 6(A) 0 - 4 Triglycerides 267(A) 0 - 150 mg/dL Cholesterol 234(A) 0 - 200 mg/dL HDL 37(A) >=40 mg/dL LDL Cholesterol 144(A) 0 - 100 mg/dL Blood Venous blood specimen / Unknown Result [facility] Provider LAB BLOOD ORDERABLES Johanna l Result * Hepatitis C Screening (03/02/2020) [facility] Hepatitis C Screening Abstracted [facility] Provider HEALTH MAINTENANCE Final Result * Cervical Cancer Screening: HPV (12/25/2015) [facility] Cervical Cancer Screening: HPV No Interpretation , Abstracted [facility] Provider HEALTH MAINTENANCE Final Result from Last 3 Months or Most Recently Relevant to Health Maintenance Insurance [facility] Member Subscriber Plan / Payer (Ef fective 2018-Present) Name:Wale Stearns Relation to Subscriber:Self Name:Wale Stearns Payer ID:[id number] Group ID:[id number] Type:Not on file Address: [place] [address] [address] [phone] [place] - [place] Care Teams Bench Manager Relationship Specialty Start Date End Date Aracelis Sutton MD [address] [place] [address] PCP - General Internal Medicine 10/28/21
--- OUTSIDE RECORDS SUMMARY | 2024-08-15 09:38 | XMS_ITS | Encounter Summary ---
Demographics Address [address] [place] [address] Home Phone Preferred Language Bulgarian Marital Status Unknown Anabaptism Affiliation Unknown Race White Ethnic Group Unknown Author Organization [facility] Address [address] [place] [address] Phone Support Name Relationship Address Phone Karon Stearns Mother [address] [place] [address] Prakash eFrrari Father [address] [place] [address] Care Team Providers Care Systems Lead Name Role Phone Nuria Luna MD Primary Care Provider [phone] Encounter Details Date Type Department Care Team (Late st Contact Info) Description 10/03/2009 Documentation [facility] [place] [address] [place], [place] [phone] Family Medicine, Physician [address] [place], [place] [address] Social History Tobacco Use Types Packs/Day Years [...] on filedocumented in this encounter Care Teams Systems Lead Relationship Specialty Start Date End Date Nuria Luna MD [address] [place] [address] JATINDER De [place] [address] PCP - General 11/07/16 06/29/22 documented as of this encounter
--- OUTSIDE RECORDS SUMMARY | 2024-08-15 09:38 | XMS_ITS | Data Portability ---
Author Organization [place] - [facility], Allergy Address [address] [place] [phone] Assessment Encounter Date Assessment Date Assessment LastModified [...] up as needed for any future concerns. [email or web address] Not available 07/13/2024 15:33:10 Plan of Treatment [...] Organization Details Recorded Time Abnormal auditory perception 63191051 Active 2024 Keke zepeda [place] - [facility] 14:19:41 Bilateral tinnitus 0392475910296 Active 2024 ANEL DEUTSCH PA-C [address] [place] [address], [phone], [place] - [facility] 15:33:15 Problem Notes None recorded. Procedures Surgical History Date Name Laterality Status Provider Name and Address Organization Details Recorded Time 07/13/2024 [facility] Speech Audio with Tymps - 13305, 85247 & 69962 completed Keke Lee [place] - [facility] 07/13/2024 14:19:30 Imaging Results Imaging Date [...] SNOMED-CT Code Diagnosis ICD10 Code Diagnosis Note [id number] ANEL DEUTSCH PA-C [facility] [address] [place] [address] 07/13/2024 13:53:19 07/13/2024 15:08:14 Abnormal auditory perception 29265932 H93.299 Audiologic al evaluation results: Right ear: [...] not maintain a hermetic seal}} Bilateral tinnitus 68889 88385 102 H93.13 Health Concerns Section Related Observation LastModified by Organization Detai ls LastModified Time None Recorded Concern Status LastModified by Organization Details LastModified Time None Recorded Advance Directives Directive None Recorded Payers Insurance Date Sequence Insurance Name Policy Number Policy Hamm Covered Member ID Hamm Member ID Guarantor Name 07/13/2024 1 [employer] [facility] [place] ([place] VANTAGE - HMO) Wale Stearns [id number] Wale Stearns 07/13/2024 1 [facility] - DOS ON OR AFTER 2022 - ONE CARE (MEDICARE REPLACEMENT/AD VANTAGE - HMO) Wale Stearns [id number] Wale Stearns Notes Date Note Type Note Provider Name and Address Organization Details Recorded Time 07/13/2024 text/html 33-year-old female presents for evaluation of tinnitus. It is bilateral and worse at night for the past few months. Denies otalgia, otorrhea, vertigo, and changes in hearing. Denies prior otologic surgeries or history of chronic ear infections. Denies history of noise exposure. ANEL DEUTSCH PA-C [address] [place] [address], [phone] - [facility] 07/13/2024 15:34:07 OBGyn Episode No OBEpisode recorded.
--- OUTSIDE RECORDS SUMMARY | 2024-08-15 09:38 | XMS_ITS | Data Portability ---
Author Organization Formerly [facility] [employer] Address [address] [place] [address] [place] [address] Care Team Providers Care Medical Service Representative Name Role Phone MARK SINGH Referring Provider [...] same address as is shown in the [facility] EMR for us to fax a note. [...] glaucoma and she has also seen her corporate strategy intern and has reported that there is nothing to treat other than dry eyes. Discussed her mother's question of whether and underlying seizure would present itself as a hallucination to Tal: this would be exceedingly rare. Confirmed today that we do have her records from [facility] from Dr. Ruth from 09/24/2020 (brain MRI from April 30, 2017 is summarized in data review.) Has had more recent EEG and brain MRI at [facility] about 2 years ago. We [...] same address as is shown in the [facility] EMR for us to fax a note. We will try to obtain his updated address and include him with it for copies of all of our notes. LETICIA Stearns June 04, 2021 We will obtain electrolyte levels with particular attention to sodium to establish a baseline while you are on ox carbamazepine. We have faxed this to the [facility] laboratory at [address] in [place] at your request. This address was newly [...] pharmacy today We will request records from [facility] with your MRI and EEG from [...] assessment/plan in particular. Prakash Parada MD, PhD [facility] Not available 06/05/2021 14:36:58 Plan of Treatment Reminders Order Date Submit Date Provider Last Modified By Organization Details Last Modified Time Details Appointments None recorded. Lab BMP, serum or plasma - R94.4 Attn Phlebotomy 2021 022 sally 1 [facility], [address] [facility], [place], [address], 13:49:46 Referral None recorded. Procedures None recorded. Surgeries None recorded. Imaging None recorded. Medication Orders oxcarbazepi ne 600 mg tablet 2021 [place] [facility], [address], [place], [address], 13:35:57 topiramate 100 mg tablet 2021 [place] [facility], [address] [place], [address], 13:36:53 topiramate 50 mg tablet 2021 [place] [facility], [address] [place], [address], 13:37:27 oxcarbazepi ne 600 mg tablet 2020 [place] [facility], [address] [place], [address], 12:46:13 topiramate 100 mg tablet 2020 [place] [facility], [address] [place], [address], 12:46:15 topiramate 50 mg tablet 2020 [place] [facility], [address] [place], [address], 12:46:13 Patient TargetsNo targets recorded. Patient InstructionsNo [...] and Address Organization Details Recorded Time Seizure [id number] Active Nella Veliz [facility] 01/10/2021 11:17:10 Problem Notes None recorded. Procedures [...] Not available Not available Not available 01/10/2021 12278 RxNorm Nella Veliz [facility] 11:25:59 607 Lamictal medicatio n Not available Not available Not available 01/10/2021 80227 2 RxNorm Nella Veliz [facility] 11:26:07 Medications Name Sig Start [...] Updated DateTime 01/10/2021 162.56 cm 36 kg/m2 81396.4 g Nella Veliz [facility] 01/10/2021 [...] Code Diagnosis Note 2312 Prakash Parada MD [facility] [address] [place] [address] [place] [address] 01/10/2021 11:08:49 01/10/2021 13:08:35 Focal onset impaired awareness epileptic seizure 687085074 G40.209 Absence seizure 97978857 G40.A09 Decreased level of consciousness 994929282 R40.4 4261 MELANIE SANTACRUZ PA-C [facility] [address] [place] [address] [place] [address] 06/04/2021 10:09:35 06/06/2021 16:48:46 Focal onset impaired awareness epileptic seizure 703246819 G40.209 Absence seizure 83133192 G40.A09 Decreased level of consciousness 506260303 R40.4 Health Concerns Section Related Observation LastModified by Organization Detai ls LastModified Time None Recorded Concern Status LastModified by Organization Details LastModified Time None Recorded Advance Directives Directive None Recorded Payers Encounter Date Sequence Insurance Name Policy Number Policy Hamm Covered Member ID Hamm Member ID Guarantor Name 01/10/2021 1 [facility] - DOS PRIOR TO 2022 - DUAL ELIGIBLE (MEDICARE REPLACEMENT/AD VANTAGE - HMO) Wale Alek [id number] Wale Stearns 06/04/2021 1 [facility] - DOS PRIOR TO 2022 - DUAL ELIGIBLE (MEDICARE REPLACEMENT/AD VANTAGE - HMO) Wale Gaston [id number] Wale Stearns Notes Date Note Type Note [...] all been done by previous neurologist at [facility] who is moving to [place], last visit in August 2020 and from [...] been actively adjusting medications. Prakash Parada MD [address] [place] [address] [place], [address], [facility] 01/10/2021 13:07:21 06/04/2021 text/html Follow up for [...] not last. She has been to her corporate strategy intern who does not have any specific recommendation other than jcbj-flx-safbbyc drops for dry eyes. Her mother has noticed that she seems to have hallucinations but only transiently and sometimes wonders if this is hallucinations blend into the seizure activity and given her history of left temporal lobe astrocytoma, wonders if this could be related. Her most recent MRI and EEG were done at [facility] 2 years ago. Which confirm that we have records from [facility] from 4 years ago. She continues on [...] all been done by previous neurologist at [facility] who is moving to [place], last visit in August 2020 and from [...] been actively adjusting medications. Prakash Parada MD [address] [place] [address] [place], [address], [facility] 06/05/2021 14:37:13 OBGyn Episode No OBEpisode recorded.
[2024-08-15 11:02] LABS: MANUAL DIFF FLAG NO
[2024-08-15 11:18] LABS: Estimated Average Glucose 100 mg/dL; Hemoglobin A1C 116.2542 umol/L; Hemoglobin A1c % 5.1 % (<6.0)
[2024-08-15 11:20] LABS: Basophils Percent Auto 0.5 % (0-2); Eosinophils Absolute Auto 0.3 X10*3/uL (0.0-0.4); Eosinophils Percent Auto 4.2 % (0-4); Hematocrit 40.5 % (37.0-47.0); Hemoglobin 13.9 g/dl (12.0-16.0); Imm Gran Abs Auto 0.02 X10*3/uL (0.00-0.03); Imm Gran Pct Auto 0.3 % (0.0-0.4); Lymphocytes Absolute Auto 2.5 X10*3/uL (1.2-4.9); Lymphocytes Percent Auto 41.8 % (20-40); Mean Corpuscular HGB Conc 34.3 g/dl (31.0-35.0); Mean Corpuscular Hemoglobin 30.2 pg (27.0-33.0); Mean Platelet Volume 10.8 fL (9.4-12.3); Monocytes Absolute Auto 0.4 X10*3/uL (0.1-1.2); Monocytes Percent Auto 6.7 % (2-11); Neutrophils Absolute Auto 2.8 x10*3/uL (2.0-8.3); Neutrophils Percent Auto 46.5 % (45-73); Platelet Count 182 X10*3/uL (160-400); White Blood Count 5.9 X10*3/uL (4.8-10.8)
[2024-08-15 11:50] LABS: Alanine Aminotransferase 37 U/L (0-31); Albumin Level 4.1 g/dL (3.5-5.0); Alkaline Phosphatase 86 U/L (39-117); Anion Gap 10 (12-20); Aspartate Amino Transferase 22 U/L (5-31); Bilirubin Total 0.3 mg/dL (0.0-1.0); Blood Urea Nitrogen 15 mg/dL (9-16); Carbon Dioxide 21 mmol/L (22-29); Chloride 114 mmol/L (96-108); Cholesterol 168 mg/dL (<200); Estimated Glomerular Filt Rate > 60; Glucose Fasting 93 mg/dL (60-99); HDL Cholesterol 32 mg/dL (>40); LDL Cholesterol Calculated 72 mg/dL (<100); Potassium 3.9 mmol/L (3.3-5.1); Sodium 141 mmol/L (135-145); Total Protein 6.9 g/dL (6.5-8.0); Triglycerides 322 mg/dL (<150)
[2024-08-15 12:12] LABS: TSH reflex Free T4 0.92 uIU/mL (0.32-4.0)
== END 2024-08-15 09:22 | disposition home or self-care (01) ==
LOC: HO.WFDLDS 09:21
PROVIDERS: Visit Provider Physician Assistant
DX: I10 Essential (primary) hypertension (principal); E11.65 Type 2 diabetes mellitus with hyperglycemia; E78.2 Mixed hyperlipidemia; F25.1 Schizoaffective disorder, depressive type
CPT/HCPCS: 36415; 80053; 80061; 83036; 84443; 85025

== ENCOUNTER 2024-11-10 09:15 | Outpatient (AMB) | payer OTHER, SELFPAY ==
[2024-11-10 09:36] VITALS: BP 118/72; PULSE 72; O2SAT 98; BMI 36.2
--- NOTE | 2024-11-10 09:36 | A.OFFVIS_ITS ---
Vital Signs 11/10/24 09:36 Height 5 ft 3.9 in Weight 210 lb 4 oz BMI 36.2 BP 118/72 Blood Pressure Location Rt brachial Position Sitting Pulse 72 Pulse Source Pulse Oximeter Pulse Oximetry (%) 98 Oxygen Delivery Method Room Air Intake Visit Reasons: 3 seizures in 2mnths Intake Note: Patient presents having 3 seizures past 2 months. Not sure if her Prozac was the cause of the seizures. patient states about min seizures. mother states one the she witnessed was for about few minutes. Patients states cold/hot after seizure and takes few minutes. She also states notices when she is about to have seizure. Accompanied by: Mother Allergies lamotrigine (From LAMICTAL) Allergy (Unknown, Verified 11/10/24 09:38) RASH tirzepatide (From Mounjaro) Allergy (Unknown, Verified 11/10/24 09:38) gi upset gadobutrol (From Gadavist) Allergy (Verified 11/10/24 09:38) hives ozempic Allergy (Unknown, Uncoded 07/21/24 15:06) gi issues HPI Comments Details: 34y/o female with seizure disorder and 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 [place] her mother is here and helps with history. Astrocytoma 4cm resected in [address] [place] [address] in [place]. September 01 2024, October 20, 2024 and Nov 04, 2024, she says she has had 4 seizures in the last 2-3 months, and each lasting about 1-2min at maximum intervals. She moves her l. arm and taps her feet during the episodes, she has a blank facial expression with an uncomfortable but intentional and deep swallowing reflex as if she is trying to push her saliva down the throat. She has temperature sensation fluctuations in her r. arm and hands feel hot and in seconds turn extremely cold. She has a post-ictal like phase where she has to sit down and relaxes due to fatigue, and after 5-10min She denies convulsions, shaking, drooling, biting of tongue, gritting of teeth, grunting, and or urinary incontinence or fecal incontinence due to loss of bladder or bowel function. She usually goes to bed at 11pm and wakes up at 9am denies difficulties with sleep, and AH have decreased. She is well managed on Olanzapine and follows up with her therapist regularly. She denies parasomnias, snoring, gasping for air or choking. She feels chronically fatigued, grinds her teeth and clenches at night, denies jaw pain. She is usually seizure free for 6monhts, then will have one single episode each month. 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 She has tried monjarou, ozempic, zepbound, and could not tolerate these meds due to s/e of sulfuric burp. Seizure protocol Topiramate 150mg po BID. Oxcarbazapine- Trileptal- 600mg po BID Olanzapine for schizo-affective disorder due to paranoia, and AH, with s/e of increased appetite and weight gain. Lorazepam for anxiety and Dr. lazar Humira injections once / week subcutaneously per Surveillance Camera Technician. She plans to speak with Dr. Richard Rosario, her psychiatrist so she can change her medication from Prozac 10mg to Lexapro and or Escitalopram, which she has trialed in the past with good effects. Previous medical history: She started having episodes at 9 mths of age - the episode was right hand raising followed by head turning to right and staring, unresponsively which lasted 30-60 seconds.She would vomit and experience fatigue usually immediately after the episode. 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 No chemo or radiation therapy, she was followed up at [facility] by Dr. Ruth neurologist and Dr. Shook. She continued to have seizures though the seismology changed over time. No episodes of generalized tonic clonic seizures. She was tried on multiple medications this includes lamictal, tegretol, depakote, keppra. Currently she is on topiramate 150mg bid and trileptal 600mg bid. Psychotic break down, with paranoia and hallucinations, hospitalized and started seeing [facility] Dr. Dasilva and now well managed by Dr. Rosario. [facility] Medical History Primary brain astrocytoma Uncontrolled type 2 diabetes mellitus with hyperglycemia Severe obesity (BMI 35.0-39.9) with comorbidity Seizure disorder Schizo-affective schizophrenia Major depression, recurrent, chronic Hyperlipidemia HTN (hypertension) History of astrocytoma of brain Generalized anxiety disorder Fatty liver Controlled type 2 diabetes mellitus Hidradenitis suppurativa Astrocytoma brain tumor Complex partial seizures Schizoaffective disorder Surgical History S/P brain surgery H/O craniotomy Family History Father HTN (hypertension) Gout Diabetes mellitus Depression Mother HTN (hypertension) Diabetes mellitus Psoriasis Depression Other FH: mental illness [facility] Alcohol intake: current Patient Tobacco Use Status: Never used Tobacco e-Cigarette/Vaping Use: Never Used Second Hand Smoke Exposure: No service: No Current occupational status: disabled Cognitive needs: No Hearing needs: No Vision needs: Yes (glasses) Physical Exam Vital Signs: Last Vital Signs Pulse 72 11/10/24 09:36 BP 118/72 11/10/24 09:36 Pulse Ox 98 11/10/24 09:36 Oxygen Delivery Method Room Air 11/10/24 09:36 BMI result Body Mass Index 36.2 Const General: cooperative, comfortable and no acute distress Nutritional Appearance: overweight Orientation/consciousness: patient oriented x3 HEENT Face and sinus: Yes face symmetric Teeth and gingiva: other (mallampti score is 3) Eyes Pupils: Equal, round and reactive pupils present Neck Neck: Yes full ROM Resp Effort & Inspection: normal respiratory effort and able to speak in complete sentences Neuro General: patient oriented x3 and moves all extremities Cranial nerves: Yes Equal, round and reactive pupils present, Yes Normal accommodation reflex present, Yes Normal facial strength present, Yes Midline tongue present, Yes Ability to bilaterally rotate head present and Yes Ability to bilaterally elevate shoulders present Cognition (Neuro): normal cognition Gait exam (Neuro): Normal gait present Motor exam (neuro): 5/5 motor strength present throughout and Normal motor muscle tone present throughout Psych Appearance: well kempt Mental Status: mental status grossly normal Speech and movement: Normal speech and movement present Thought process: Normal thought process present Thought content: Normal thought content present Results Reviewed Results Reviewed: Labs 07/2024 HDL is low, Triglycerides elevated. October 26, [address] Richard Rosario Psychiatry Assessment & Plan Assessment & Plan (1) Complex partial seizures: Comment: EEG Code(s): G40.209 - Localization-related (focal) (partial) symptomatic epilepsy and epileptic syndromes with complex partial seizures, not intractable, without status epilepticus Category: Medical (2) History of astrocytoma of brain: Comment: MRI Code(s): Z85.841 - Personal history of malignant neoplasm of brain Category: Medical (3) Excessive daytime sleepiness: Comment: MIKE Code(s): G47.19 - Other hypersomnia Category: Medical Plan Chronic Fatigue will f/u with Sleep study to r/o sleep apnea with labs to r/o deficiencies MRI to monitor changes EEG if seizure activity changes in the near future. Seizure Protocol: No driving and continue meds as directed. Continue Trileptal to 600mg bid Continue Topiramate 150mg qam and 150mg qhs f/u with Psychiatry for medication adjustments from 10mg PO Fluoxetine to a different SSRI per Dr. Richard Rosario's suggestions. Repeat MRI- with [place] to monitor residual astrocytoma Orders: Orders RT PSG in-lab sleep study Today G40.209 - Localization-related (focal) (partial) symptomatic epilepsy and epileptic syndromes with complex partial seizures, not intractable, without status epilepticus, G47.19 - Other hypersomnia Ferritin Today G47.19 - Other hypersomnia Magnesium Today G47.19 - Other hypersomnia Homocysteine Today G47.19 - Other hypersomnia, G47.9 - Sleep disorder, unspecified, R53.83 - Other fatigue MR head/brain w con 11/10/24 Z85.841 - Personal history of malignant neoplasm of brain EEG electroencephalogram Today G40.209 - Localization-related (focal) (partial) symptomatic epilepsy and epileptic syndromes with complex partial seizures, not intractable, without status epilepticus Methylmalonic Acid Today G47.19 - Other hypersomnia, G47.9 - Sleep disorder, unspecified, R53.83 - Other fatigue Vitamin B12 and Folate Today G47.19 - Other hypersomnia Vitamin D 25-OH Total Today G47.19 - Other hypersomnia TSH reflex Free T4 Today G47.19 - Other hypersomnia Patient Instructions: Sleep Hygiene provided: set a scheduled bedtime and wake time to help regulate the circadian rhythm and balance the release of pituitary hormones. Sleep in a dark room, temperatures below 68 degrees, and no devices n bed. Limit caffeinated products 6 hours prior to bed, and limit fluids 2-4 hours prior to bed. Gentle night yoga, diffusing essential oils, and playing soft music can be relaxing. Coding Level of Care Code New Pt Level 4 (67569) Complex EM visit Add On G2211 Diagnoses Complex partial seizures G40.209 History of astrocytoma of brain Z85.841 Excessive daytime sleepiness G47.19
--- OUTSIDE RECORDS SUMMARY | 2024-11-10 09:41 | XMS_ITS | Clinical Summary ---
Author Organization [facility] Address [address] [place] [address] Phone Care Team Providers Care Rough Rib Grader Name Role Phone Physician, No Pcp Primary Care Provider Unavaila ble Allergies Active Allergy Reactions Criticality Noted Date [...] enzymes 02/22/2020 Hypertriglyceridemia 02/22/2020 Dysmenorrhea 12/02/2013 Astrocytoma (CMS/HCC V24, CMS/HCC V28) 3 Overview (03/18/2024): [facility] age 13 [facility] Seizure disorder (CMS/HCC V24, CMS/HCC V28) 01/28 Overview (03/18/2024): Last seizure 1 year ago, had hx of astrocytoma resected at 1 yo, has serial cat scans/mris/ eegs Encounters Date Type Department Care Team Description 11/07/2024 1:45 PM EDT Office Visit Orthopedic [facility] - [place] [address] [place] [phone] Tarik Harris, DPM Hypertrophy of nail (Primary Dx) from Last 3 Months Immunizations Name Administration Dates Next Due DTP 09/23/1995, 1,1990,11/14,1990 HIpC-BXZ-LGP (Pentacel) 2mo to less than 5yo 11/15/1991,02/16/1991,1990,10/13 HPV, Quadrivalent 06/02/2008,02/03/2008,11/09/19 08 Hepatitis B (Xoaipyw-J-Scijk , Recombivax HB-Adult) 19yo and older 10/04/1999 Hepatitis B Pediatric (Enger ix B; Recombivax HB) to less than 20 yo 11/09/1999 Influenza trivalent, 0.5mL, preservative free (Fluarix; FluLaval; Fluzone) ages 6mo and older (Afluria) 3 years and older 01/22/2020,12/11/2015,02/16/2015,12/28,02/03/2008,03/19/2006 MMR, measles mumps and rubel la Live (Priorix; M-M-R II) 12mo and older 09/23/1995,11/15/1991 Meningococcal MCV4P 07/31/2006 OPV 09/23/1995, 2,1990,10/13 Avenso SARS-CoV-2 COVID-19, mRNA, LNP-S, preservative free 07/23/2020 Td Tetanus diptheria (Tdvax) 7yo and older 09/16/2001 Tdap Tetanus diptheria acell ular pertussis (Boostrix; Adacel) 7yo and older 10/27/2021,11/09/2007 Surgical History Surgery Date Site/Laterality Comments OTHER SURGICAL HISTORY PROCEDURE: ---- OTHER ----; COMMENT: craniotomy left temporal astrocytoma Medical History Medical History Date Comments Seizure disorder ([facility] V2 4, CMS/[facility] V28) 02/13/2012 DX:Seizure disorder (HCC) Shingles DX:Shingles PCOS (polycystic ovarian syndrome) DX:PCOS (polycystic ovarian syndrome) Astrocytoma (CMS/HCC V24, CM S/HCC V28) 07/13/2012 DX:Astrocytoma (HCC) Complex partial epileptic se izure (CMS/HCC V24, CMS/[facility] V28) DX:Complex partial epilepti c seizure (HCC) Absence seizure (CMS/HCC V24 , CMS/[facility] V28) DX:Absence seizure (HCC) Decreased [...] Care Team (Late st Contact Info) Description 02/08/2025 1:45 PM EST Office Visit Orthopedic Surgery - [place] [address] [phone] Tarik Harris, DPM [address] [address] Health Maintenance Due Date Last Done Comments Diabetes: Annual Foot Exam 2000 Diabetes: Annual Retina Eye Exam 2000 Hepatitis A Vaccines (1 of 2 - Risk 2-dose series) 2009 Pneumococcal Vaccine: Pediatrics (0 to 5 Years) and At-Risk Patients (6 to 49 Years) (1 of 2 - PCV) 2009 Cervical Cancer Screening: Pap Smear 12/24/2018 12/25/2015, 12/25/2015 HIV Screening 03/08/2022 Social Influencers of Health Screening 03/08/2022 Diabetes: Annual GFR (Glomerular Filtration Rate) 07/31/2023 07/30/2022 COVID-19 Vaccine ( season) 2023 02/24/2023, 05/04/2021, 07/23/2020, Additional history exists Depression Screening 03/30/2024 Diabetes: Annual Urine Albumin-Creatinine Ratio (uACR) 08/08/2024 Diabetes: Blood Sugar Control Test (HGBA1C) 08/08/2024 08/06/2022 Hypertension/CHF/CAD Annual BMP Blood Test 08/08/2024 07/30/2022 Influenza Vaccine (#1) 2024 , 12/24/2022, 02/04/2022, Additional history exists Cholesterol Screening (Lipid Panel) 07/31/2027 07/30/2022 DTaP,Tdap,and [...] complete this topic HPV Vaccines Completed 06/02/2008, 110 08/2007, 11/09/2007 Hepatitis C Screening Completed 03/02/2020 Meningococcal B Vaccine Aged Out No l onger eligible based on patient's age to complete this topic RSV Immunization Patients Under 20 months Aged Out No longer eligible based on patient's age to complete this topic Varicella Vaccines Aged Out No longer eligible based on patient's age to complete this topic Procedures Procedure Name Priority Date/Time Associated Diagnosis Comments HEMOGLOBIN A1C Routine 08/06/2022 ANNUAL BMP BLOOD TEST Routine 07/30/2022 LIPID PANEL Routine 07/30/2022 HEPATITIS C SCREENING Routine 03/02/2020 HPV Routine 12/25/2015 from Last 3 Months or Most Recently Relevant to Health Maintenance Results * Hemoglobin A1c (08/06/2022) [facility] Hemoglobin A1C 6.0 <=6.5 % Blood Venous blood specimen / Unknown Result [facility] Provider LAB BLOOD ORDERABLES Johanna l Result * Annual BMP Blood Test (07/30/2022) [facility] Annual BMP Blood Test Abstracted Result [facility] Provider HEALTH MAINTENANCE Final Result * (ABNORMAL) Lipid panel (07/30/2022) [facility] LDL/HDL Ratio 6(A) 0 - 4 Triglycerides 267(A) 0 - 150 mg/dL Cholesterol 234(A) 0 - 200 mg/dL HDL 37(A) >=40 mg/dL LDL Cholesterol 144(A) 0 - 100 mg/dL Blood Venous blood specimen / Unknown [facility] Provider LAB BLOOD ORDERABLES Johanna l Result * Hepatitis C Screening (03/02/2020) [facility] Hepatitis C Screening Abstracted Historical Provider HEALTH MAINTENANCE Final Result * Cervical Cancer Screening: HPV (12/25/2015) Cervical Cancer Screening: HPV No Interpretation , Abstracted Historical Provider HEALTH MAINTENANCE Final Result from Last 3 Months or Most Recently Relevant to Health Maintenance Insurance [facility] Member Subscriber Plan / Payer (Ef fective 2018-Present) Name:STANFORD DEAL Relation to Subscriber:Self Name:Stanford Deal Payer ID:[id number] Group ID:[id number] Type:Not on file Address: [place] [id number] [place] [id number] MEDICA[place] - [place] Care Teams Rough Rib Grader Relationship Specialty Start Date End Date Physician, No Pcp PCP - General 03/30/23
--- OUTSIDE RECORDS SUMMARY | 2024-11-10 09:41 | XMS_ITS | Encounter Summary ---
Demographics Address [address] [place] [address] Home Phone Preferred Language Emirati Marital Status Unknown Judaism Affiliation Unknown Race White Ethnic Group Unknown Author Organization [facility] Address [address] [place] [address] Phone Support Name Relationship Address Phone Karon Stearns Mother [address] [place] [address] Prakash Ferrari Father [address] [place] [address] Care Team Providers Care Cargo And Container Inspector Name Role Phone Nuria Luna MD Primary Care Provider Encounter Details Date Type Department Care Team (Late st Contact Info) Description 11/13/2016 Conversion Encounter [facility] [place] [address] [place] [address] Social History Tobacco Use Types Packs/Day Years [...] on filedocumented in this encounter Care Teams Cargo And Container Inspector Relationship Specialty Start Date End Date Nuria Luna MD [address] [place] [address] PCP - General 11/07/16 06/29/22 documented as of this encounter
--- OUTSIDE RECORDS SUMMARY | 2024-11-10 09:41 | XMS_ITS | Clinical Summary ---
Author Organization [facility] Address [address] [place] [address] Phone Care Team Providers Care Human Resources Benefits Administrator Name Role Phone Brian Gonzalez Primary Care Provider [phone] Brian Gonzalez Unavailable Brian Gonzalez Unavailable Medications folic acid (Folvite) 1 mg tablet Dose: 1 mg, Dose Amount: 1 tab, PO, daily, Dispense Quantity: 30 tab, Refills: 5, Entered: 07/24/17 13:44:00 EDT, [facility] 8 Active folic acid (Folvite) 1 mg tablet Dose: 1 mg, Dose Amount: 1 tab, PO, daily, Special Instructions: Prophylaxis, Dispense Quantity: 30 tab, Refills: 11, Entered: 02/16/14 15:07:18 EST, Therapy Maintenance 4 Active OXcarbazepine (Trileptal) 600 mg tablet Dose: 600 mg, Dose Amount: 1 tab, PO, BID, Dispense Quantity: 60 tab, Refills: 6, Entered: 09/24/20 16:15:00 EDT, [facility] 1 Active Topamax (topiramate brand medically necessary) 100 mg tablet Dose: 100 mg, Dose Amount: 1 tab, PO, BID, Dispense Quantity: 60 tab, Refills: 6, Entered: 12/20/20 13:23:00 EDT, [facility] 1 Active topiramate (topamax) 200 mg tablet Dose: 200 mg, Dose Amount: 1 tab, PO, BID, Dispense Quantity: 60 tab, Refills: 11, Entered: 06/20/20 12:37:00 EDT, [facility] 1 Active topiramate (topamax) 50 mg tablet Dose: 50 mg, Dose Amount: 1 tab, PO, BID, Dispense Quantity: 60 tab, Refills: 6, Entered: 12/20/20 13:23:00 EDT, [facility] 1 Active Immunizations Immunization Administration Dates Next Due Pfizer Purple Cap SARS-CoV-2 07/23/2020,07/03/19 21 Social History Tobacco Use Types Packs/Day Years Used Date Smoking Tobacco: Never Assessed Comments Unknown Sex and Gender Information Value Date Recorded Sex Assigned at Not on file Legal Sex Female 10:51 PM EDT Gender Identity Not on file Sexual Orientation Not on file Last Filed Vital Signs Vital Sign Reading Time Taken Comments Blood Pressure - - Pulse - - Temperature - - Respiratory Rate - - Oxygen Saturation - - Inhaled Oxygen Concentration - - Weight 73.8 kg (162 lb 11.2 oz) 12/16/2018 2:45 PM EDT Height 161.4 cm (5' 3.54 ) 12/16/2018 2:45 PM ED T Body Mass Index 28.33 12/16/2018 2:45 PM EDT Plan of Treatment Health Maintenance Due Date Last Done Comments MMR Vaccines (1 of 1 - Standard series) 08/11/1991 DTaP/Tdap/Td Vaccines (1 - Tdap) 1997 Hepatitis B Vaccines (1 of 3 - 19+ 3-dose series) 2009 HPV Vaccines (1 - 3-dose SCD M series) 2017 COVID-19 Vaccine ( - 2023-2 5 season) 2023 07/23/2020, 07/02/2020 Influenza Vaccine (#1) 2024 HIB Vaccines Aged Out No longer eligi ble based on patient's age to complete this topic Hepatitis A Vaccines Aged Out No long er eligible based on patient's age to complete this topic IPV Vaccines Aged Out No longer eligi ble based on patient's age to complete this topic Meningococcal B Vaccine Aged Out No l onger eligible based on patient's age to complete this topic Meningococcal Vaccine Aged Out No kristin silvia eligible based on patient's age to complete this topic Pneumococcal Vaccine: Pediatrics (0 to 5 Years) and At-Risk Patients (6 to 49 Years) Aged Out No longer eligible b ased on patient's age to complete this topic Rotavirus Vaccines Aged Out No longer eligible based on patient's age to complete this topic Care Teams Human Resources Benefits Administrator Relationship Specialty Start Date End Date Brian Goznalez [address] [place] [address] PCP - General 10/14/16 Brian Gonzalez [address] [place] [address] PCP - Clinical PCP 10/14/16 Brian Gonzalez [address] [place] [address] PCP - Insurance PCP 10/14/16
--- OUTSIDE RECORDS SUMMARY | 2024-11-10 09:42 | XMS_ITS | Clinical Summary ---
Author Organization [facility] Address [address] [facility] [address] [place] [address] Phone Care Team Providers Care Clinical Associate Name Role Phone Brian Gonzalez MD Primary Care Provider [phone] Social History Tobacco Use Types Packs/Day Years Used Date Smoking Tobacco: Never Assessed Education Answer Date Recorded Are you interested in more education? Not on zoë e 07/25/2022 Are you concerned about learning? Not on file 07/25/2022 No 07/25/2022 No 07/25/2022 Digital Access Answer Date Recorded No 08/25/2022 No 08/25/2022 No 08/25/2022 Reliable internet access at home? Not on file 08/25/2022 Device with a working camera? Not on file Comments Unknown Sex and Gender Information Value Date Recorded Sex Assigned at Not on file Legal Sex Female 12:39 PM EDT Gender Identity Not on file Sexual Orientation Not on file Plan of Treatment Health Maintenance Due Date Last Done Comments DEPRESSION SCREENING 2002 SMOKING Hx and SMOKELESS TOBACCO SCREENING 08/11/2003 HEPATITIS C SCREENING 2008 HIV ONE-TIME SCREENING (18-65 YEARS) 2008 PAP SMEAR 08/11/2011 COVID-19 VACCINE ( season) 2023 07/23/2020, 07/02/2020 Adult Td,Tdap Booster 10/28/2031 10/27/2021 , 11/09/2007, 09/16/2001 HIB VACCINES Completed 11/15/1991, 01/29, 1990, Additional history exists MENINGOCOCCAL VACCINES (ACWY) Aged Out 07/31/2006 No longer eligible based on patient's age to complete this topic HEPATITIS A VACCINES Aged Out No long er eligible based on patient's age to complete this topic MENINGOCOCCAL VACCINES (B) Aged Out N o longer eligible based on patient's age to complete this topic PNEUMOCOCCAL VACCINES (0-49 years) Aged Out No longer eligible based on patient's age to complete this topic Medical Devices Not on file Insurance MEDICARE PART A & B [facility] MEDICARE PART A & B [address] [place], [place] [address]HEALTH MEDICARE PART A & B [facility] [place] MEDICARE PART [place] & [place] [facility] MEDICARE PART A & B [facility] Care Teams Clinical Associate Relationship Specialty Start Date End Date Brian Gonzalez MD [address] [place] [address] PCP - General Internal Medicine 10/14/16 Additional Source Comments The information contained in this document represents components of the legal health record. It is not the complete legal health record.[facility]
== END 2024-11-10 10:46 | disposition home or self-care (01) ==
LOC: HO.HSMS 09:16
PROVIDERS: PCP Physician Assistant; Visit Provider Physician Assistant Medical
DX: G40.209 Localization-related (focal) (partial) symptomatic epilepsy and epileptic syndromes with complex partial seizures, not intractable, without status epilepticus (principal); Z85.841 Personal history of malignant neoplasm of brain; G47.19 Other hypersomnia
CPT/HCPCS: 99204; G2211

== ENCOUNTER → 2024-11-10 09:15 | Outpatient (BNVA) | payer OTHER, SELFPAY | PROVIDERS: PCP Physician Assistant; Visit Provider Physician Assistant Medical | DX: G40.209 Localization-related (focal) (partial) symptomatic epilepsy and epileptic syndromes with complex partial seizures, not intractable, without status epilepticus (principal); G47.19 Other hypersomnia; Z85.841 Personal history of malignant neoplasm of brain; G47.9 Sleep disorder, unspecified; R53.83 Other fatigue | CPT/HCPCS: 99202 ==

== ENCOUNTER 2024-11-16 09:54 | Outpatient (REF) | payer OTHER, SELFPAY ==
--- OUTSIDE RECORDS SUMMARY | 2024-11-16 10:48 | XMS_ITS | Encounter Summary ---
Demographics Address [address] [place] [address] Home Phone Preferred Language Turkish Marital Status Unknown Rastafari Affiliation Unknown Race White Ethnic Group Unknown Author Organization [facility] Address [address] [place] [address] Phone Support Name Relationship Address Phone Karon Stearns Mother [address] [place] [address] Prakash Ferrari Father [address] [place] [address] Care Team Providers Care Industrial Aerial Installer Name Role Phone Nuria Luna MD Primary Care Provider Encounter Details Date Type Department Care Team (Late st Contact Info) Description 11/13/2016 Conversion Encounter [facility] [place] [address] [place] [address] Social History Tobacco Use Types Packs/Day Years [...] on filedocumented in this encounter Care Teams Industrial Aerial Installer Relationship Specialty Start Date End Date Nuria Luna MD [address] [place] [address] PCP - General 11/07/16 06/29/22 documented as of this encounter
--- OUTSIDE RECORDS SUMMARY | 2024-11-16 10:48 | XMS_ITS | Clinical Summary ---
Author Organization [facility] Address [address] [facility] [address] [place] [address] Phone Care Team Providers Care Hog Sticker Name Role Phone Brian Gonzalez MD Primary Care Provider Social History Tobacco Use Types Packs/Day [...] file Insurance MEDICARE PART A & B [facility] MEDICARE PART A & B [address] [place], [place] [address]HEALTH MEDICARE PART A & [facility] [place] [facility] [place] PART A & B HEALTH MEDICARE PART A & [place] & B [facility] MEDICARE PART A & B [facility] Care Teams Hog Sticker Relationship Specialty Start Date End Date Brian Gonzalez MD [address] [place] [address] PCP - General Internal Medicine 10/14/16 Additional Source Comments The information contained in this document represents components of the legal health record. It is not the complete legal health record.[facility]
--- OUTSIDE RECORDS SUMMARY | 2024-11-16 10:48 | XMS_ITS | Clinical Summary ---
Author Organization [facility] Address [address] [place] [address] Phone Care Team Providers Care Celebrity Chef Entrepreneur Media Personality Name Role Phone Physician, No Pcp Primary [...] 3 Overview (03/18/2024): [facility] 13 [facility] Seizure disorder (CMS/HCC V24, CMS/HCC V28) 01/28 Overview (03/18/2024): Last seizure 1 year ago, had hx of astrocytoma resected at 1 yo, has serial cat scans/mris/ eegs Encounters Date Type Department Care Team Description 11/07/2024 1:45 PM EDT Office Visit [facility] - [place] [address] [place] [phone] Tarik Harris, DPM Hypertrophy of nail (Primary Dx) from Last 3 Months Immunizations Name Administration Dates Next Due DTP 09/23/1995, 1,1990,11/14,1990 [id number] (Pentacel) 2mo to less than 5yo 11/15/1991,02/16/1991,1990,10/13 HPV, Quadrivalent 06/02/2008,02/03/2008,11/09/19 08 Hepatitis B (Clwrqmc-P-Tufun , Recombivax HB-Adult) 19yo and older 10/04/1999 Hepatitis B Pediatric (Enger ix B; Recombivax HB) to less than 20 yo 11/09/1999 Influenza trivalent, 0.5mL, preservative free (Fluarix; FluLaval; Fluzone) ages 6mo and older (Afluria) 3 years and older 01/22/2020,12/11/2015,02/16/2015,12/28,02/03/2008,03/19/2006 MMR, measles mumps and rubel la Live (Priorix; M-M-R II) 12mo and older 09/23/1995,11/15/1991 Meningococcal MCV4P 07/31/2006 OPV 09/23/1995, 2,1990,10/13 [employer] SARS-CoV-2 COVID-19, mRNA, LNP-S, preservative free 07/23/2020 Td Tetanus diptheria (Tdvax) 7yo and older 09/16/2001 Tdap Tetanus diptheria acell ular pertussis (Boostrix; Adacel) 7yo and older 10/27/2021,11/09/2007 Surgical History Surgery Date Site/Laterality Comments OTHER SURGICAL HISTORY PROCEDURE: ---- OTHER ----; COMMENT: craniotomy left temporal astrocytoma Medical History Medical History Date Comments Seizure disorder ([facility] V2 4, [facility] V28) 02/13/2012 DX:Seizure disorder (HCC) Shingles DX:Shingles PCOS (polycystic ovarian syndrome) DX:PCOS (polycystic ovarian syndrome) Astrocytoma (CMS/HCC V24, CM S/HCC V28) 07/13/2012 DX:Astrocytoma (HCC) Complex partial epileptic se izure (CMS/HCC V24, [facility] V28) DX:Complex partial epilepti c seizure (HCC) Absence seizure (CMS/HCC V24 , [facility] V28) DX:Absence seizure (HCC) Decreased level of [...] PM EST Office Visit [facility] - [place] [address] [phone] Tarik Harris, DPM [address] [address] Health Maintenance Due Date Last Done Comments [...] Health Maintenance Results * Hemoglobin A1c (08/06/2022) [facility] Hemoglobin A1C 6.0 <=6.5 % Blood Venous blood specimen / Unknown Result [facility] Provider LAB BLOOD ORDERABLES Johanna l Result * Annual BMP Blood Test (07/30/2022) [facility] Annual BMP Blood Test Abstracted Result [facility] Provider HEALTH MAINTENANCE Final Result * (ABNORMAL) Lipid panel (07/30/2022) [facility] LDL/HDL Ratio 6(A) 0 - 4 Triglycerides 267(A) 0 - 150 mg/dL Cholesterol 234(A) 0 - 200 mg/dL HDL 37(A) >=40 mg/dL LDL Cholesterol 144(A) 0 - 100 mg/dL Blood Venous blood specimen / Unknown [facility] Provider LAB BLOOD ORDERABLES Johanna l Result * Hepatitis C Screening (03/02/2020) [facility] Hepatitis C Screening Abstracted Historical Provider HEALTH MAINTENANCE Final Result * Cervical Cancer Screening: HPV (12/25/2015) Cervical Cancer Screening: HPV No Interpretation , Abstracted Historical Provider HEALTH MAINTENANCE Final Result from Last 3 Months or Most Recently Relevant to Health Maintenance Insurance [facility] Member Subscriber Plan / Payer (Ef fective 2018-Present) Name:STANFORD DEAL Relation to Subscriber:Self Name:Stanford Deal Payer ID:[id number] Group ID:[id number] Type:Not on file Address: [place] [address] [place] [id number] MEDICAID - [place] Care Teams Celebrity Chef Entrepreneur Media Personality Relationship Specialty Start Date End Date Physician, No Pcp PCP - General 03/30/23
--- OUTSIDE RECORDS SUMMARY | 2024-11-16 10:48 | XMS_ITS | Clinical Summary ---
Author Organization [facility] Address [address] [place] [address] Phone Care Team Providers Care Forming Department Supervisor Name Role Phone Brian Gonzalez Primary Care Provider [phone] Brian Gonzalez Unavailable Brian Gonzalez Unavailable Medications [...] age to complete this topic Care Teams Forming Department Supervisor Relationship Specialty Start Date End Date Brian Gonzalez [address] [place] [address] PCP - General 10/14/16 Brian Gonzalez [address] [place] [address] PCP - Clinical PCP 10/14/16 Brian Gonzalez [address] [place] [address] PCP - Insurance PCP 10/14/16
[2024-11-16 12:01] LABS: Ferritin 113 ng/mL (10-122); Magnesium 2.0 mg/dL (1.6-2.6)
[2024-11-16 12:35] LABS: Folate 6.4 ng/mL (> or = 4.0); Vitamin B12 462 pg/mL (200-900)
[2024-11-17 06:34] LABS: Immunoglobulin A 342 mg/dL (47-310)
[2024-11-17 14:23] LABS: Transglutaminase Ab IgG <1.0 U/mL
== END 2024-11-16 09:55 | disposition home or self-care (01) ==
LOC: HO.WFDLDS 09:54
PROVIDERS: Referring Provider Physician Assistant Medical; Visit Provider Physician Assistant
DX: G40.209 Localization-related (focal) (partial) symptomatic epilepsy and epileptic syndromes with complex partial seizures, not intractable, without status epilepticus (principal); G47.19 Other hypersomnia; R53.83 Other fatigue; K76.0 Fatty (change of) liver, not elsewhere classified; R79.89 Other specified abnormal findings of blood chemistry; G47.9 Sleep disorder, unspecified
CPT/HCPCS: 36415; 82306; 82607; 82728; 82746; 82784; 83735; 83921; 84443; 86231; 86364

== ENCOUNTER 2024-11-18 13:23 | Outpatient (REF) | payer OTHER, SELFPAY ==
--- OUTSIDE RECORDS SUMMARY | 2024-11-18 13:26 | XMS_ITS | Clinical Summary ---
Author Organization [facility] Address [address] [employer] [facility] [address] [place] [address] Phone Care Team Providers Care Biodiesel Processing Technician Name Role Phone Brian Gonzalez MD Primary Care Provider [phone] Social History Tobacco Use Types Packs/Day Years [...] file Insurance MEDICARE PART A & B [facility] MEDICARE PART A & B [address] [place], [place] [address]HEALTH MEDICARE PART A & [facility] [place] & [place] PART A & B [place]ALTH MEDICARE PART A & [place]ARE PART A & B [facility] MEDICARE PART A & B [facility] Care Teams Biodiesel Processing Technician Relationship Specialty Start Date End Date Brian Gonzalez MD [address] [place] [address] PCP - General Internal Medicine 10/14/16 Additional Source Comments The information contained in this document represents components of the legal health record. It is not the complete legal health record.[facility]
--- OUTSIDE RECORDS SUMMARY | 2024-11-18 13:26 | XMS_ITS | Clinical Summary ---
Author Organization [facility] Address [address] [place] [address] Phone Care Team Providers Care Curb Worker Name Role Phone Brian Gonzalez Primary Care Provider [phone] Brian Gonzalez Unavailable Brian Gonzalez Unavailable Medications [...] age to complete this topic Care Teams Curb Worker Relationship Specialty Start Date End Date Brian Gonzalez [address] [place] [address] PCP - General 10/14/16 Brian Gonzalez [address] [place] [address] PCP - Clinical PCP 10/14/16 Brian Gonzalez [address] [place] [address] PCP - Insurance PCP 10/14/16
--- OUTSIDE RECORDS SUMMARY | 2024-11-18 13:26 | XMS_ITS | Encounter Summary ---
Demographics Address [address] [place] [address] Home Phone Preferred Language Guamanian Marital Status Unknown Mandaen Affiliation Unknown Race White Ethnic Group Unknown Author Organization [facility] Address [address] [place] [address] Phone Support Name Relationship Address Phone Karon Stearns Mother [address] [place] [address] Prakash Ferrari Father [address] [place] [address] Care Team Providers Care Literature Teacher Name Role Phone Nuria Luna MD Primary Care Provider Encounter Details Date Type Department Care Team (Late st Contact Info) Description 11/13/2016 Conversion Encounter [facility] [place] [address] [place] [address] Social History Tobacco Use Types Packs/Day Years [...] on filedocumented in this encounter Care Teams Literature Teacher Relationship Specialty Start Date End Date Nuria Luna MD [address] [place] [address] PCP - General 11/07/16 06/29/22 documented as of this encounter
--- OUTSIDE RECORDS SUMMARY | 2024-11-18 13:26 | XMS_ITS | Clinical Summary ---
Author Organization [address] [facility] Address [address] [place] [address] Phone Care Team Providers Care Manager Cost Name Role Phone Physician, No Pcp Primary [...] 3 Overview (03/18/2024): [facility] age 13 [facility] Seizure disorder (CMS/HCC V24, CMS/HCC V28) 01/28 Overview (03/18/2024): Last seizure 1 year ago, had hx of astrocytoma resected at 1 yo, has serial cat scans/mris/ eegs Encounters Date Type Department Care Team Description 11/07/2024 1:45 PM EDT Office Visit Orthopedic Surgery - [place] [address] [place] [phone] Tarik Harris, DPM Hypertrophy of nail (Primary Dx) from Last 3 Months Immunizations Name Administration Dates Next Due DTP 09/23/1995, 1,1990,11/14,1990 [id number] (Pentacel) 2mo to less than 5yo 11/15/1991,02/16/1991,1990,10/13 HPV, Quadrivalent 06/02/2008,02/03/2008,11/09/19 08 Hepatitis B (Aezbqrk-W-Trkzf , Recombivax HB-Adult) 19yo and older 10/04/1999 Hepatitis B Pediatric (Enger ix B; Recombivax HB) to less than 20 yo 11/09/1999 Influenza trivalent, 0.5mL, preservative free (Fluarix; FluLaval; Fluzone) ages 6mo and older (Afluria) 3 years and older 01/22/2020,12/11/2015,02/16/2015,12/28,02/03/2008,03/19/2006 MMR, measles mumps and rubel la Live (Priorix; M-M-R II) 12mo and older 09/23/1995,11/15/1991 Meningococcal MCV4P 07/31/2006 OPV 09/23/1995, 2,1990,10/13 [facility] SARS-CoV-2 COVID-19, mRNA, LNP-S, preservative free 07/23/2020 Td Tetanus diptheria (Tdvax) 7yo and older 09/16/2001 Tdap Tetanus diptheria acell ular pertussis (Boostrix; Adacel) 7yo and older 10/27/2021,11/09/2007 Surgical History Surgery Date Site/Laterality Comments OTHER SURGICAL HISTORY PROCEDURE: ---- OTHER ----; COMMENT: craniotomy left temporal astrocytoma Medical History Medical History Date Comments Seizure disorder ([facility] V2 4, CMS/[facility] V28) 02/13/2012 DX:Seizure disorder (HCC) Shingles DX:Shingles PCOS (polycystic ovarian syndrome) DX:PCOS (polycystic ovarian syndrome) Astrocytoma (CMS/HCC V24, CM S/HCC V28) 07/13/2012 DX:Astrocytoma (HCC) Complex partial epileptic se izure (CMS/HCC V24, CMS/[facility] V28) DX:Complex partial epilepti c seizure (HCC) Absence seizure (CMS/HCC V24 , CMS/[facility] V28) DX:Absence seizure (HCC) Decreased level [...] PM EST Office Visit [facility] - [place] [address] [phone] Tarik Harris, DPM [address] [address] Health Maintenance Due Date Last Done Comments [...] Health Maintenance Results * Hemoglobin A1c (08/06/2022) [facility] Hemoglobin A1C 6.0 <=6.5 % Blood Venous blood specimen / Unknown Result [facility] Provider LAB BLOOD ORDERABLES Johanna l Result * Annual BMP Blood Test (07/30/2022) [facility] Annual BMP Blood Test Abstracted Result [facility] Provider HEALTH MAINTENANCE Final Result * (ABNORMAL) Lipid panel (07/30/2022) [facility] LDL/HDL Ratio 6(A) 0 - 4 Triglycerides 267(A) 0 - 150 mg/dL Cholesterol 234(A) 0 - 200 mg/dL HDL 37(A) >=40 mg/dL LDL Cholesterol 144(A) 0 - 100 mg/dL Blood Venous blood specimen / Unknown [facility] Provider LAB BLOOD ORDERABLES Johanna l Result * Hepatitis C Screening (03/02/2020) [facility] Hepatitis C Screening Abstracted Historical Provider HEALTH MAINTENANCE Final Result * Cervical Cancer Screening: HPV (12/25/2015) Cervical Cancer Screening: HPV No Interpretation , Abstracted Historical Provider HEALTH MAINTENANCE Final Result from Last 3 Months or Most Recently Relevant to Health Maintenance Insurance [facility] Member Subscriber Plan / Payer (Ef fective 2018-Present) Name:STANFORD DEAL Relation to Subscriber:Self Name:Stanford Deal Payer ID:[id number] Group ID:[id number] Type:Not on file Address: [place] [id number] [place] [phone] MEDICAID - [place] Care Teams Manager Cost Relationship Specialty Start Date End Date Physician, No Pcp PCP - General 03/30/23
== END 2024-11-18 13:24 | disposition home or self-care (01) ==
LOC: HO.LAB 13:23
PROVIDERS: PCP Physician Assistant; Visit Provider Physician Assistant Medical
DX: G47.19 Other hypersomnia (principal); R53.83 Other fatigue; Z13.6 Encounter for screening for cardiovascular disorders
CPT/HCPCS: 36415; 83090

== ENCOUNTER 2024-11-23 09:23 | Outpatient (AMB) | payer OTHER, SELFPAY ==
--- NOTE | 2024-11-23 09:40 | A.OFFPC_ITS ---
Vital Signs 11/23/24 09:43 Height 5 ft 3.9 in Weight 210 lb 2 oz BMI 36.2 BP 104/68 Blood Pressure Location Rt brachial Position Sitting Respiration 14 Pulse 80 Pulse Source Pulse Oximeter Pulse Oximetry (%) 98 Oxygen Delivery Method Room Air Intake Visit Reasons: labs Intake Note: Follow up up lab results. Preformer Impregnated Fabrics Required: No Allergies lamotrigine (From LAMICTAL) Allergy (Unknown, Verified 11/23/24 09:43) RASH tirzepatide (From Mounjaro) Allergy (Unknown, Verified 11/23/24 09:43) gi upset gadobutrol (From Gadavist) Allergy (Verified 11/23/24 09:43) hives ozempic Allergy (Unknown, Uncoded 11/23/24 09:43) gi issues Medication List - Last Reconciled 11/23/24 by Sunitha Guardado PA-C adalimumab (Humira) inject one - 40 mg/0.8 mL syringe every 2 weeks subcut ammonium lactate 12% 1 appl topical DAILY betamethasone dipropionate 0.05% 1 appl topical BID blood sugar diagnostic (NeemaTouch Ultra Test strips) Use daily as directed to m onitor blood sugars chlorhexidine gluconate 4% (Hibiclens) 1 appl topical Q5M cholecalciferol (vitamin D3) 50 mcg PO DAILY clindamycin phosphate 1% 1 appl topical DAILY diclofenac sodium 1% (Arthritis Pain (diclofenac)) 2 grams topical QID fluocinonide 0.05% 1 appl topical BID fluoxetine 20 mg PO DAILY lisinopril 5 mg PO DAILY lorazepam 1 mg PO BID PRN olanzapine 7.5 mg PO DAILY oxcarbazepine 600 mg PO BID Shower Chair As directed simvastatin 10 mg PO BEDTIME topiramate orally; 1 1/2 tab bid Tobacco use date assessed: 11/23/24 Dental Screening Dental Screen Date: 07/21/24 HPI labs HPI Details Patient is a 34-year-old female who presents today for a follow up. Endo: Last A1c was WNL. She was previously on metformin but did not notice any significant appetite suppression so this was discontinued a couple of months ago. She tried GLP ones but was intolerant. CV: Blood pressure today in the office is 104/68. She is on lisinopril 5 mg daily. Her cholesterol is controlled with simvastatin 10 mg. Tolerating this well. No myalgias. Derm: She is following with Dermatology for her HS. She is well-controlled with Humira, Hibiclens Psych: Stable. She did recently have an increase in the fluoxetine and wonders if this is contributing to her seizures. Neuro: Having breakthrough seizures (not abnormal for her) she states every 6 months she gets 2-4 seizures in a row. She has frequent breakthrough seizures and states that she is scheduled for an MRI and EEG. This has been going on for many years. She is following with Neurology. GI: Seeing Dr. Ocampo in November. She wonders if she has a gluten sensitivity and wonders if that is contributing to her anxiety and depression. She tells me today she is going to try a gluten free diet. [facility] Medical History (Updated 11/15/24 @ 13:38 by Jolie Morris PA-C) History of astrocytoma Primary brain astrocytoma Uncontrolled type 2 diabetes mellitus with hyperglycemia Severe obesity (BMI 35.0-39.9) with comorbidity Seizure disorder Schizo-affective schizophrenia Major depression, recurrent, chronic Hyperlipidemia HTN (hypertension) History of astrocytoma of brain Generalized anxiety disorder Fatty liver Controlled type 2 diabetes mellitus Hidradenitis suppurativa Astrocytoma brain tumor Complex partial seizures Schizoaffective disorder Surgical History S/P brain surgery H/O craniotomy Family History Father HTN (hypertension) Gout Diabetes mellitus Depression Mother HTN (hypertension) Diabetes mellitus Psoriasis Depression Other FH: mental illness Social History Housing: Condominium Alcohol intake: current Patient Tobacco Use Status: Never used Tobacco e-Cigarette/Vaping Use: Never Used Second Hand Smoke Exposure: No service: No Current occupational status: disabled Cognitive needs: No Hearing needs: No Vision needs: Yes (glasses) Questionnaire Thrive Questionnaire Date Thrive assessed: 04/21/24 I am a: Patient What is your living situation today?: I have a steady place to live Within the past 12 months, did the food you bought not last and you didn't have the money to get more?: Never true Within the past 12 months, did you worry whether your food would run out before you got money to buy more?: Never true Do you have trouble paying for medicines?: No Do you have trouble getting transportation to medical appointments?: No Do you have trouble paying your heating and electricity bill?: No Do you have trouble taking care of your child, family member or friend?: No Do you have trouble with day-to-day activities such as bathing, preparing meals, shopping, managing finances, etc.?: No Are you currently unemployed and looking for a job?: No Are you interested in more education?: No Please select the resources that you would like help with: None Currently or been in a relationship where the following occur: No concerns reported THRIVE Score: 0 JENNA-7 AMB Questionnaire JENNA-7 Date JENNA - 7 assessed: 10/21/23 Source: Developed by Drs. Al Garza, Eleanor Newell, Valdez Bautista and colleagues, with an educational tae from [email or web address]. Physical exam (Primary Care) Vital Signs: Last Vital Signs Pulse 80 11/23/24 09:43 Resp 14 11/23/24 09:43 BP 104/68 11/23/24 09:43 Pulse Ox 98 11/23/24 09:43 Oxygen Delivery Method Room Air 11/23/24 09:43 BMI result Body Mass Index 36.2 Tobacco/Smoking Status: Tobacco use Status Tobacco use date assessed 11/23/24 11/23/24 09:49 Patient Tobacco Use Status Never used Tobacco 11/23/24 09:42 e-Cigarette/Vaping Use Never Used 11/23/24 09:42 Thrive Assessment: Date of Thrive Assessment Date Thrive assessed 04/21/24 11/23/24 09:42 Currently or been in a relationship where the following occur: No concerns reported Const Orientation/consciousness: patient oriented x3 HENMT Ears: hearing grossly normal bilaterally Neck Thyroid: Thyroid normal Lymphatic: no lymphadenopathy noted Resp Auscultation: clear to auscultation bilaterally Cardio Rate: regular rate Rhythm: regular rhythm Heart sounds: S1 normal heart sound present and S2 normal heart sound present GI Inspection: Yes normal to inspection Palpation (GI): Soft to palpation and Other GI palpation findings present (nontender, no cva tenderness) Auscultation: normoactive bowel sounds Rectal Exam - Female: deferred Skin General skin exam: no rashes or lesions noted Neuro General: patient oriented x3, gait normal and no focal motor deficits Results Reviewed Results Reviewed: Laboratory Tests 06/06/24 10:11 Sodium 144 Potassium 4.2 Chloride 114 H BUN 25 H Creatinine 0.99 Estimated GFR > 60 Random Glucose 80 Calcium 9.9 Coding Level of Care Code Est Pt Level 4 (87736) Complex EM visit Add On G2211 Diagnoses Complex partial seizures G40.209 Controlled type 2 diabetes mellitus E11.9 Primary hypertension I10 Hypertension type: primary hypertension Mixed hyperlipidemia E78.2 Hyperlipidemia type: mixed hyperlipidemia Assessment & Plan Assessment & Plan (1) Complex partial seizures: Comment: EEG Code(s): G40.209 - Localization-related (focal) (partial) symptomatic epilepsy and epileptic syndromes with complex partial seizures, not intractable, without status epilepticus Category: Medical Plan: Has an EEG and MRI scheduled with Neurology. Following closely. (2) Controlled type 2 diabetes mellitus: Code(s): E11.9 - Type 2 diabetes mellitus without complications Category: Medical Plan: Previously was considered a diabetic and reversed this with diet changes. Not on medication. (3) HTN (hypertension): Code(s): I10 - Essential (primary) hypertension Category: Medical Qualifiers: Hypertension type: primary hypertension Qualified Code(s): I10 - Essential (primary) hypertension Plan: WNL. Continue current regimen (4) Hyperlipidemia: Code(s): E78.5 - Hyperlipidemia, unspecified Category: Medical Qualifiers: Hyperlipidemia type: mixed hyperlipidemia Qualified Code(s): E78.2 - Mixed hyperlipidemia Plan: Continue with the simvastatin. We will recheck lipids. Orders: Orders Comprehensive [place]. Panel Fast 11/23/24 E11.9 - Type 2 diabetes mellitus without complications, E78.2 - Mixed hyperlipidemia, G40.209 - Localization- related (focal) (partial) symptomatic epilepsy and epileptic syndromes with complex partial seizures, not intractable, without status epilepticus, I10 - Essential (primary) hypertension TSH reflex Free T4 11/23/24 E11.9 - Type 2 diabetes mellitus without complications, E78.2 - Mixed hyperlipidemia, G40.209 - Localization-related (focal) (partial) symptomatic epilepsy and epileptic syndromes with complex partial seizures, not intractable, without status epilepticus, I10 - Essential (primary) hypertension Microalbumin, Random (w Creat) 11/23/24 E11.9 - Type 2 diabetes mellitus without complications, E78.2 - Mixed hyperlipidemia, G40.209 - Localization- related (focal) (partial) symptomatic epilepsy and epileptic syndromes with complex partial seizures, not intractable, without status epilepticus, I10 - Essential (primary) hypertension Lipid Panel 11/23/24 E11.9 - Type 2 diabetes mellitus without complications, E78.2 - Mixed hyperlipidemia, G40.209 - Localization-related (focal) (partial) symptomatic epilepsy and epileptic syndromes with complex partial seizures, not intractable, without status epilepticus, I10 - Essential (primary) hypertension Complete Blood Count Auto Diff 11/23/24 E11.9 - Type 2 diabetes mellitus without complications, E78.2 - Mixed hyperlipidemia, G40.209 - Localization- related (focal) (partial) symptomatic epilepsy and epileptic syndromes with complex partial seizures, not intractable, without status epilepticus, I10 - Essential (primary) hypertension Hemoglobin A1c 11/23/24 E11.9 - Type 2 diabetes mellitus without complications, E78.2 - Mixed hyperlipidemia, G40.209 - Localization-related (focal) (partial) symptomatic epilepsy and epileptic syndromes with complex partial seizures, not intractable, without status epilepticus, I10 - Essential (primary) hypertension, R73.01 - Impaired fasting glucose Medications: New diclofenac sodium 1% (Arthritis Pain (diclofenac)) apply to single elbow, wrist or hand; for hand includes palm/fingers/back of hand 2 grams topical QID 150 grams 3RF docusate sodium (Colace) 100 mg PO BID 180 caps 1RF Refilled simvastatin 10 mg PO BEDTIME 90 tabs 2RF lisinopril 5 mg PO DAILY 90 tabs 3RF cholecalciferol (vitamin D3) 50 mcg PO DAILY 90 caps 3RF
[2024-11-23 09:43] VITALS: BP 104/68; PULSE 80; RESP 14; O2SAT 98; BMI 36.2
--- OUTSIDE RECORDS SUMMARY | 2024-11-23 09:58 | XMS_ITS | Encounter Summary ---
Author Organization [facility] Address [address] [place] [address] Care Team Providers Care Wireline Operator Name Role Phone Robinson Zelaya MD Unavailable Unavailable Aracelis Arteaga MD Primary Care Prov ider Patricia Goldberg MD Unavailable Unavailable Reason for Visit * Reason Comments E-prescribe Rx Request Encounter Details Date Type Department Care Team Description 10/22/2023 Refill Dermat[address] [phone] Lidia Mcclain PA-C E-prescribe Rx Request Social [...] on filedocumented in this encounter Care Teams Wireline Operator Relationship Specialty Start Date End Date Aracelis Arteaga MD [address] [place] [address] [id number] PCP - General Internal Medicine 10/28/21 Robinson Zelaya MD Specialist Cardiovascular Disease 08/12/21 Patricia Goldberg MD [address] [place] [address] Specialist Neurology 06/17/23 documented as of this encounter
--- OUTSIDE RECORDS SUMMARY | 2024-11-23 09:58 | XMS_ITS | Encounter Summary ---
Author Organization [facility] Address [address] [place] [address] Care Team Providers Care Deputy Harbormaster Name Role Phone Brian Gonzalez MD Primary Care Provider Ruben Barry MD Unavailable [phone] Robinson Zelaya MD Unavailable Unavailable Aracelis Arteaga MD Primary Care Prov ider Aracelis Arteaga MD Primary Care Prov ider Patricia Goldberg MD Unavailable Unavailable Encounter Details Date Type Department Care Team Description 07/10/2021 Pt. Non Urgent Medic al Question Adult Medicine [address] [address] Brian Gonzalez MD Social History Tobacco Use [...] on filedocumented in this encounter Care Teams Deputy Harbormaster Relationship Specialty Start Date End Date Brian Gonzalez MD PCP - General Internal Medicine 12/11/14 10/16/21 Aracelis Arteaga MD [address] [place] [address] PCP - General Internal Medicine 10/28/21 Aracelis Arteaga MD [address] [place] [address] PCP - General Internal Medicine 10/17/21 10/27/21 Ruben Franco MD [address] [place] [address] [place] [address] Specialist Cardiovascular Disease 08/12/21 2 oRbinson Zelaya MD [address] [place] [address] [place] [address] Specialist Cardiovascular Disease 08/12/21 Patricia Goldberg MD [address] [place] [address] Specialist Neurology 06/17/23 documented as of this encounter
--- OUTSIDE RECORDS SUMMARY | 2024-11-23 09:58 | XMS_ITS | Encounter Summary ---
Author Organization [facility] Address [address] [place] [address] Care Team Providers Care Fire Manager Name Role Phone Brian Gonzalez MD Primary Care Provider Ruben Barry MD Unavailable [phone] Robinson Zelaya MD Unavailable Unavailable Aracelis Arteaga MD Primary Care Prov ider Aracelis Arteaga MD Primary Care Prov ider Patricia Goldberg MD Unavailable Unavailable Encounter Details Date Type Department Care Team Description 01/10/2021 Geospatial Image Analyst Report Medical Records [address] [place] [phone] Prakash Parada MD Social History Tobacco Use [...] on filedocumented in this encounter Care Teams Fire Manager Relationship Specialty Start Date End Date Brian Gonzalez MD PCP - General Internal Medicine 12/11/14 10/16/21 Aracelis Arteaga MD [address] [place] [address] PCP - General Internal Medicine 10/28/21 Aracelis Arteaga MD [address] [place] [address] PCP - General Internal Medicine 10/17/21 10/27/21 Ruben Franco MD [address] [place] [address] [place] [address] Specialist Cardiovascular Disease 08/12/21 2 Robinson Zelaya MD [address] [place] [address] [place] [address] Specialist Cardiovascular Disease 08/12/21 Patricia Goldberg MD [address] [place] [address] Specialist Neurology 06/17/23 documented as of this encounter
--- OUTSIDE RECORDS SUMMARY | 2024-11-23 09:58 | XMS_ITS | Encounter Summary ---
Author Organization [facility] Address [address] [place] [address] Care Team Providers Care Rn Interventional Name Role Phone Robinson Zelaya MD Unavailable Unavailable Aracelis Arteaga MD Primary Care Prov ider Patricia Goldberg MD Unavailable Unavailable Encounter Details Date Type Department Care Team Description 12/03/2021 Telephone [facility] [address] [phone] Tarik Harris DPM [address] [address] Social History Tobacco Use Types Packs/Day Years [...] encounter Miscellaneous Notes * Telephone Encounter - Kathy Darling - 12/04/2021 8:42 AM EDT Hey Ladies, Could we make a sooner appt for Wale, possibly the beginning of next week? Thank you, Kathy * Telephone Encounter - Tarik Harris DPM - 12/04/2021 7:45 AM EDT I would offer this patient an earlier appointment. It is uncommon for Tuli heel cups which is increased padding of the heel to increase pain and discomfort. I would encourage patient to bring what ever device that she has insoles orthotics Tuli heel cups to her next appointment for evaluation and possible modification. I am happy to see this patient sometime this week or next. Thank you! * Telephone Encounter - Kathy Darling - 12/03/2021 2:27 PM EDT Outreached to Wale, she stated she got the inserts on or Thursday. Since then has been wearing them daily, all day. That her feet hurt a lot. I explained to her that her feet take time to adjust to the inserts. That she should be wearing there maybe an hour or so in the morning, afternoon and evening just so her feet can adjust to the change. Wearing them consistantly right when they are gotten are going to cause more pain then helping. * Telephone Encounter - Stephanie George - 12/03/2021 10:22 AM EDT Wale is calling stating Dr. Harris recommended Wale to try ordering insoles from [employer], Wale tried them and states they are not working she is still in extreme pain and would like a call back asto what she should do documented in this encounter Plan of Treatment Not on file documented as of this encounter Visit Diagnoses Not on filedocumented in this encounter Care Teams Rn Interventional Relationship Specialty Start Date End Date Altamirano Butler, Aracelis Julia, MD [address] [place] [address] PCP - General Internal Medicine 10/28/21 Robinson Zelaya MD Specialist Cardiovascular Disease 08/12/21 Patricia Goldberg MD [address] [place] [address] Specialist Neurology 06/17/23 documented as of this encounter
--- OUTSIDE RECORDS SUMMARY | 2024-11-23 09:58 | XMS_ITS | Encounter Summary ---
Author Organization [facility] Address [address] [place] [address] Care Team Providers Care Centrifugal Operator Name Role Phone Robinson Zelaya MD Unavailable Unavailable Aracelis Arteaga MD Primary Care Prov ider Patricia Goldberg MD Unavailable Unavailable Encounter Details Date Type Department Care Team Description 11/29/2021 Release of Information Medical Records [address] [place] [phone] Abstract, Provider Social History Tobacco Use Types [...] on filedocumented in this encounter Care Teams Centrifugal Operator Relationship Specialty Start Date End Date Aracelis Arteaga MD [address] [place] [address] PCP - General Internal Medicine 10/28/21 Robinson Zelaya MD Specialist Cardiovascular Disease 08/12/21 Patricia Goldberg MD [address] [place] [address] Specialist Neurology 06/17/23 documented as of this encounter
--- OUTSIDE RECORDS SUMMARY | 2024-11-23 09:58 | XMS_ITS | Encounter Summary ---
Author Organization [facility] Address [address] [place] [address] Care Team Providers Care Chopper Operator Name Role Phone Robinson Zelaya MD Unavailable Unavailable Aracelis Arteaga MD Primary Care Prov ider Aracelis Arteaga MD Primary Care Prov ider Patricia Goldberg MD Unavailable Unavailable Reason for Visit * Reason Onset Date Comments REFERRAL 10/18/2021 Encounter Details Date Type Department Care Team Description 10/18/2021 Telephone [facility] [address] [address] Tarik Harris DPM [address] [address] REFERRAL Social History Tobacco Use Types Packs/Day [...] on filedocumented in this encounter Care Teams Chopper Operator Relationship Specialty Start Date End Date Aracelis Arteaga MD [address] [place] [id number] PCP - General Internal Medicine 10/28/21 Aracelis Arteaga MD [address] [place] [address] PCP - General Internal Medicine 10/17/21 10/27/21 Robinson Zelaya MD Specialist Cardiovascular Disease 08/12/21 Patricia Goldberg MD [address] [place] [address] Specialist Neurology 06/17/23 documented as of this encounter
--- OUTSIDE RECORDS SUMMARY | 2024-11-23 09:58 | XMS_ITS | Encounter Summary ---
Author Organization [facility] Address [address] [place] [address] Care Team Providers Care Surgery Attendant Name Role Phone Brian Gonzalez MD Primary Care Provider Ruben Barry MD Unavailable [phone] Robinson Zelaya MD Unavailable Unavailable Aracelis Arteaga MD Primary Care Prov ider Aracelis Arteaga MD Primary Care Prov ider Patricia Goldberg MD Unavailable Unavailable Encounter Details Date Type Department Care Team Description 01/18/2016 Ambulatory Blood Pressure Monitoring Medical Records [address] [place] [id number] Abstract, Provider Social History Tobacco Use Types [...] on filedocumented in this encounter Care Teams Surgery Attendant Relationship Specialty Start Date End Date Brian Gonzalez MD PCP - General Internal Medicine 12/11/14 10/16/21 Aracelis Arteaga MD [address] [place] [address] PCP - General Internal Medicine 10/28/21 Aracelis Arteaga MD [address] [place] [address] PCP - General Internal Medicine 10/17/21 10/27/21 Ruben Franco MD [address] [place] [address] Dr Uribe [address] [place] [address] Specialist Cardiovascular Disease 08/12/21 2 Robinson Zelaya MD [address] [place] [address] Dr Uribe [address] [place] [address] Specialist Cardiovascular Disease 08/12/21 Patricia Goldberg MD [address] [place] [address] Specialist Neurology 06/17/23 documented as of this encounter
--- OUTSIDE RECORDS SUMMARY | 2024-11-23 09:58 | XMS_ITS | Encounter Summary ---
Demographics Address [address] [place] [place] [address] Home Phone Preferred Language Samoan Marital Status Unknown Anabaptism Affiliation Unknown Race White Ethnic Group Unknown Author Organization [facility] Address [address] [place] [address] Phone Support Name Relationship Address Phone Karon Stearns Mother [address] [place] [address] Prakash Ferrari Father [address] [place] [address] Care Team Providers Care Pile Trimmer Name Role Phone Nuria Luna MD Primary Care Provider [phone] Encounter Details Date Type Department Care Team (Late st Contact Info) Description 01/15/2010 Documentation [facility] Family Medicine [address] [place], [place] [phone] Family Medicine, Physician [address] [place], [place] [phone] Social History Tobacco Use Types Packs/Day Years [...] on filedocumented in this encounter Care Teams Pile Trimmer Relationship Specialty Start Date End Date Nuria Luna MD [address] [place] [address] JATINDER De Santiago [address] PCP - General 11/07/16 06/29/22 documented as of this encounter
--- OUTSIDE RECORDS SUMMARY | 2024-11-23 09:58 | XMS_ITS | Encounter Summary ---
Author Organization [facility] Address [address] [place] [address] Care Team Providers Care Staff Consultant Name Role Phone Brian Gonzalez MD Primary Care Provider Ruben Barry MD Unavailable Robinson Zelaya MD Unavailable Unavailable Aracelis Arteaga MD Primary Care Prov ider Aracelis Arteaga MD Primary Care Prov ider Patricia Goldberg MD Unavailable Unavailable Encounter Details Date Type Department Care Team Description 02/05/2016 Pickle Processor Report Medical Records [address] [place] [address] Shawn Torres MD Social History Tobacco Use [...] filedocumented in this encounter Care Teams Staff Consultant Relationship Specialty Start Date End Date Brian Gonzalez MD PCP - General Internal Medicine 12/11/14 10/16/21 Aracelis Arteaga MD [address] [place] [address] PCP - General Internal Medicine 10/28/21 Aracelis Arteaga MD [address] [place] [address] PCP - General Internal Medicine 10/17/21 10/27/21 Ruben Franco MD [address] [place] [address] Dr Uribe [address] [place] [address] Specialist Cardiovascular Disease 08/12/21 2 Robinson Zelaya MD [address] [place] [address] Dr Uribe [address] [place] [address] Specialist Cardiovascular Disease 08/12/21 Patricia Goldberg MD [address] [place] [address] Specialist Neurology 06/17/23 documented as of this encounter
--- OUTSIDE RECORDS SUMMARY | 2024-11-23 09:58 | XMS_ITS | Encounter Summary ---
Author Organization [facility] Address [address] [place] [address] Care Team Providers Care Dance Costume Designer Name Role Phone Brian Gonzalez MD Primary Care Provider Ruben Barry MD Unavailable [phone] Robinson Zelaya MD Unavailable Unavailable Aracelis Arteaga MD Primary Care Prov ider Aracelis Arteaga MD Primary Care Prov ider Patricia Goldberg MD Unavailable Unavailable Encounter Details Date Type Department Care Team Description 11/15/2020 Pt. Non Urgent Medic al Question Adult Medicine [address] [address] Brian Gonzalez MD Social History Tobacco Use [...] on filedocumented in this encounter Care Teams Dance Costume Designer Relationship Specialty Start Date End Date Brian Gonzalez MD PCP - General Internal Medicine 12/11/14 10/16/21 Aracelis Arteaga MD [address] [place] [address] PCP - General Internal Medicine 10/28/21 Aracelis Arteaga MD [address] [place] [address] PCP - General Internal Medicine 10/17/21 10/27/21 Ruben Franco MD [address] [place] [address] Dr Uribe [address] [place] [address] Specialist Cardiovascular Disease 08/12/21 2 Robinson Zelaya MD [address] [place] [address] Dr Uribe [address] [place] [address] Specialist Cardiovascular Disease 08/12/21 Patricia Goldberg MD [address] [place] [address] Specialist Neurology 06/17/23 documented as of this encounter
--- OUTSIDE RECORDS SUMMARY | 2024-11-23 09:58 | XMS_ITS | Encounter Summary ---
Demographics Address [address] [place] [address] Home Phone Preferred Language Citizen Of [place] Marital Status Unknown Jehovah'S Witness Affiliation Unknown Race White Ethnic Group Unknown Author Organization [facility] Address [address] [place] [address] Phone Support Name Relationship Address Phone Karon Stearns Mother [address] [place] [address] Prakash Ferrari Father [address] [place] [address] Care Team Providers Care Product Handler Name Role Phone Nuria Luna MD Primary Care Provider [phone] Encounter Details Date Type Department Care Team (Late st Contact Info) Description 11/13/2016 Conversion Encounter [facility] [address] [place] [address] Social History Tobacco Use Types Packs/Day Years [...] on filedocumented in this encounter Care Teams Product Handler Relationship Specialty Start Date End Date Nuria Luna MD [address] [place] [address] PCP - General 11/07/16 06/29/22 documented as of this encounter
--- OUTSIDE RECORDS SUMMARY | 2024-11-23 09:58 | XMS_ITS | Encounter Summary ---
Author Organization [facility] Address [address] [place] [address] Care Team Providers Care Detail Supervisor Name Role Phone Brian Gonzalez MD Primary Care Provider Ruben Barry MD Unavailable [phone] Robinson Zelaya MD Unavailable Unavailable Araceils Arteaga MD Primary Care Prov ider Aracelis Arteaga MD Primary Care Prov ider Patricia Goldberg MD Unavailable Unavailable Encounter Details Date Type Department Care Team Description 09/24/2020 Alternative Energy Engineer Report Medical Records [address] [place] [id number] [place] [address] Social History Tobacco Use Types Packs/Day Years [...] on filedocumented in this encounter Care Teams Detail Supervisor Relationship Specialty Start Date End Date Brian Gonzalez MD PCP - General Internal Medicine 12/11/14 10/16/21 Aracelis Arteaga MD [address] [place] [address] PCP - General Internal Medicine 10/28/21 Aracelis Arteaga MD [address] [place] [address] PCP - General Internal Medicine 10/17/21 10/27/21 Ruben Franco MD [address] [place] [address] Dr Uribe [address] [place] [address] Specialist Cardiovascular Disease 08/12/21 2 Robinson Zelaya MD [address] [place] [address] Dr Uribe [address] [place] [address] Specialist Cardiovascular Disease 08/12/21 Patricia Goldberg MD [address] [place] [address] Specialist Neurology 06/17/23 documented as of this encounter
--- OUTSIDE RECORDS SUMMARY | 2024-11-23 09:58 | XMS_ITS | Encounter Summary ---
Author Organization [facility] Address [address] [place] [address] Care Team Providers Care Colored Liquid Plastic Applier Name Role Phone Brian Gonzalez MD Primary Care Provider Ruben Barry MD Unavailable [phone] Robinson Zelaya MD Unavailable Unavailable Aracelis Arteaga MD Primary Care Prov ider Aracelis Arteaga MD Primary Care Prov ider Patricia Goldberg MD Unavailable Unavailable Encounter Details Date Type Department Care Team Description 09/27/2018 Rubber Stamp Die Inspector Report Medical Records [address] [place] [address] Social History Tobacco Use Types Packs/Day Years [...] on filedocumented in this encounter Care Teams Colored Liquid Plastic Applier Relationship Specialty Start Date End Date Brian Gonzalez MD PCP - General Internal Medicine 12/11/14 10/16/21 Aracelis Arteaga MD [address] [place] [address] PCP - General Internal Medicine 10/28/21 Aracelis Arteaga MD [address] [place] [address] PCP - General Internal Medicine 10/17/21 10/27/21 Ruben Franco MD [address] [place] [address] Dr Uribe [address] [place] [address] Specialist Cardiovascular Disease 08/12/21 2 Robinson Zelaya MD [address] [place] [address] Dr Uribe [address] [place] [address] Specialist Cardiovascular Disease 08/12/21 Patricia Goldberg MD [address] [place] [address] Specialist Neurology 06/17/23 documented as of this encounter
--- OUTSIDE RECORDS SUMMARY | 2024-11-23 09:58 | XMS_ITS | Encounter Summary ---
Author Organization [facility] Address [address] [place] [address] Care Team Providers Care Can Stacker Name Role Phone Brian Gonzalez MD Primary Care Provider Ruben Barry MD Unavailable [phone] Robinson Zelaya MD Unavailable Unavailable Aracelis Arteaga MD Primary Care Prov ider Aracelis Arteaga MD Primary Care Prov ider Patricia Goldberg MD Unavailable Unavailable Encounter Details Date Type Department Care Team Description 09/23/2019 Cardroom Supervisor Report Medical Records [address] [place] [address] [facility] Social History Tobacco Use Types Packs/Day [...] on filedocumented in this encounter Care Teams Can Stacker Relationship Specialty Start Date End Date Brian Gonzalez MD PCP - General Internal Medicine 12/11/14 10/16/21 Aracelis Arteaga MD [address] [place] [address] PCP - General Internal Medicine 10/28/21 Aracelis Arteaga MD [address] [place] [address] PCP - General Internal Medicine 10/17/21 10/27/21 Ruben Franco MD [address] [place] [address] Dr Uribe [address] [place] [address] Specialist Cardiovascular Disease 08/12/21 2 Robinson Zelaya MD [address] [place] [address] Dr Uribe [address] [place] [address] Specialist Cardiovascular Disease 08/12/21 Patricia Goldberg MD [address] [place] [address] Specialist Neurology 06/17/23 documented as of this encounter
--- OUTSIDE RECORDS SUMMARY | 2024-11-23 09:58 | XMS_ITS | Encounter Summary ---
Author Organization [facility] Address [address] [place] [address] Care Team Providers Care Warp Starter Name Role Phone Prakash Perez MD Primary Care Provider Adarsh Blanchard MD Primary Care Provider Brian Larios MD Primary Care Provider Adarsh Smith MD Primary Care Provider Brian Larios MD Primary Care Provider Ruben Barry MD Unavailable [phone] Robinson Zelaya MD Unavailable Unavailable Aracelis Arteaga MD Primary Care Prov ider Aracelis Arteaga MD Primary Care Prov ider Patricia Goldberg MD Unavailable Unavailable Encounter Details Date Type Department Care Team Description 09/28/2012 Ceramic Chemist Report Medical Records [address] [place] [address] Lesly Larios, PH.D Social History Tobacco Use [...] on filedocumented in this encounter Care Teams Warp Starter Relationship Specialty Start Date End Date Prakash Perez MD PCP - General Internal Medicine 01/20/12 04/04/13 Adarsh Valverde MD PCP - General Internal Medicine 04/05/13 Brian Gonzalez MD PCP - General Internal Medicine 01/12/14 12/07/14 Adarsh Valverde MD PCP - General Internal Medicine 12/08/14 Brian Gonzalez MD PCP - General Internal Medicine 12/11/14 10/16/21 Aracelis Arteaga MD [address] [place] [address] [id number] PCP - General Internal Medicine 10/28/21 Aracelis Arteaga MD [address] [place] [address] PCP - General Internal Medicine 10/17/21 10/27/21 Ruben Franco MD [address] [place] [address] [place] [address] Specialist Cardiovascular Disease 08/12/21 2 Robinson Zelaya MD [address] [place] [address] [place] [address] Specialist Cardiovascular Disease 08/12/21 Patricia Goldberg MD [address] [place] [address] Specialist Neurology 06/17/23 documented as of this encounter
--- OUTSIDE RECORDS SUMMARY | 2024-11-23 09:58 | XMS_ITS | Encounter Summary ---
Author Organization [facility] Address [address] [place] [address] Care Team Providers Care Assistant Fitness Manager Name Role Phone Robinson Zelaya MD Unavailable Unavailable Aracelis Arteaga MD Primary Care Prov ider Patricia Goldberg MD Unavailable Unavailable Encounter Details Date Type Department Care Team Description 12/03/2023 Pt. Non Urgent Medical Question [facility] [address] [phone] Tarik Harris DPM [address] [address] Social History Tobacco Use Types Packs/Day Years [...] on filedocumented in this encounter Care Teams Assistant Fitness Manager Relationship Specialty Start Date End Date Aracelis Arteaga MD [address] [place] [address] [id number] PCP - General Internal Medicine 8/1/22 Robinson Zelaya MD Specialist Cardiovascular Disease 08/12/21 Patricia Goldberg MD [address] [place] [address] Specialist Neurology 06/17/23 documented as of this encounter
--- OUTSIDE RECORDS SUMMARY | 2024-11-23 09:58 | XMS_ITS | Encounter Summary ---
Author Organization [facility] Address [address] [place] [address] Care Team Providers Care Small Piece Cutter Name Role Phone Brian Gonzalez MD Primary Care Provider Ruben Barry MD Unavailable [phone] Robinson Zelaya MD Unavailable Unavailable Arcaelis Arteaga MD Primary Care Prov ider Aracelis Arteaga MD Primary Care Prov ider Patricia Goldberg MD Unavailable Unavailable Encounter Details Date Type Department Care Team Description 06/04/2021 Picking Table Worker Report Medical Records [address] [place] [address] Melanie Santacruz PA-C Social History Tobacco Use [...] on filedocumented in this encounter Care Teams Small Piece Cutter Relationship Specialty Start Date End Date Brian Gonzalez MD PCP - General Internal Medicine 12/11/14 10/16/21 Aracelis Arteaga MD [address] [place] [address] PCP - General Internal Medicine 10/28/21 Aracelis Arteaga MD [address] [place] [address] PCP - General Internal Medicine 10/17/21 10/27/21 Ruben Franco MD [address] [place] [address] [address] Uribe [address] [place] [address] Specialist Cardiovascular Disease 08/12/21 2 Robinson Zelaya MD [address] [place] [address] Dr Uribe [address] [place] [address] Specialist Cardiovascular Disease 08/12/21 Patricia Goldberg MD [address] [place] [address] Specialist Neurology 06/17/23 documented as of this encounter
--- OUTSIDE RECORDS SUMMARY | 2024-11-23 09:58 | XMS_ITS | Encounter Summary ---
Author Organization [facility] Address [address] [place] [address] Care Team Providers Care Dye Range Feeder Name Role Phone Adarsh Valverde MD Primary Care Provider Brian Larios MD Primary Care Provider Adarsh Smith MD Primary Care Provider Brian Larios MD Primary Care Provider Ruben Baryr MD Unavailable [phone] Robinson Zelaya MD Unavailable Unavailable Aracelis Arteaga MD Primary Care Prov ider Aracelis Arteaga MD Primary Care Prov ider Patricia Goldberg MD Unavailable Unavailable Encounter Details Date Type Department Care Team Description 07/25/2013 Staff Nurse Midwife Report Medical Records [address] [place] [address] Rene Gupta MD Social History Tobacco Use [...] on filedocumented in this encounter Care Teams Dye Range Feeder Relationship Specialty Start Date End Date Adarsh Valverde MD PCP - General Internal Medicine 04/05/13 Brian Gonzalez MD PCP - General Internal Medicine 01/12/14 12/07/14 Adarsh Valverde MD PCP - General Internal Medicine 12/08/14 Brian Gonzalez MD PCP - General Internal Medicine 12/11/14 10/16/21 Aracelis Arteaga MD [address] [place] [address] PCP - General Internal Medicine 10/28/21 Aracelis Arteaga MD [address] [place] [address] PCP - General Internal Medicine 10/17/21 10/27/21 Ruben Franco MD [address] [place] [address] Dr Uribe [address] [place] [address] Specialist Cardiovascular Disease 08/12/21 2 Robinson Zelaya MD [address] [place] [address] [place] [address] Specialist Cardiovascular Disease 08/12/21 Patricia Goldberg MD [address] [place] [address] Specialist Neurology 06/17/23 documented as of this encounter
--- OUTSIDE RECORDS SUMMARY | 2024-11-23 09:58 | XMS_ITS | Clinical Summary ---
Author Organization [facility] Address [address] [place] [address] Phone Care Team Providers Care Waiter/Waitress Tavern Name Role Phone Brian Gonzalez Primary Care Provider [phone] Brian Gonzalez Unavailable Brian Gonzalez Unavailable Medications [...] age to complete this topic Care Teams Waiter/Waitress Tavern Relationship Specialty Start Date End Date Brian Gonzalez [address] [place] [address] PCP - General 10/14/16 Brian Gonzalez [address] [place] [address] PCP - Clinical PCP 10/14/16 Brian Gonzalez [address] [place] [address] PCP - Insurance PCP 10/14/16
--- OUTSIDE RECORDS SUMMARY | 2024-11-23 09:58 | XMS_ITS | Clinical Summary ---
Author Organization [facility] Address [address] [facility] [address] [place] [address] Phone Care Team Providers Care Skirt Panel Assembler Name Role Phone Brian Gonzalez MD Primary Care Provider [phone] Social History Tobacco Use Types Packs/Day Years [...] file Insurance MEDICARE PART A & B [facility] MEDICARE PART A & B [address] [place], [place] [address]HEALTH MEDICARE PART A & B [facility] [place] A & B [place] MEDICARE PART A & [place] & B [facility] MEDICARE PART A & B [facility] Care Teams Skirt Panel Assembler Relationship Specialty Start Date End Date Brian Gonzalez MD [address] [place] [address] PCP - General Internal Medicine 10/14/16 Additional Source Comments The information contained in this document represents components of the legal health record. It is not the complete legal health record.[facility]
--- OUTSIDE RECORDS SUMMARY | 2024-11-23 09:58 | XMS_ITS | Encounter Summary ---
Author Organization [facility] Address [address] [place] [address] Care Team Providers Care Death Surveys Coder Name Role Phone Brian Gonzalez MD Primary Care Provider Ruben Barry MD Unavailable [phone] Robinson Zelaya MD Unavailable Unavailable Aracelis Arteaga MD Primary Care Prov ider Aracelis Arteaga MD Primary Care Prov ider Patricia Goldberg MD Unavailable Unavailable Reason for Visit * Reason [place] Date Comments Medicare Wellness Visit 09/10/2015 Encounter Details Date Type Department Care Team Description 09/10/2015 Telephone ANNUAL WELLNESS [address] [phone] Wellness Nurse, [address] [phone] Medicare Wellness Visit Social History Tobacco Use [...] 12:48 PM EDT Patient cancelled appointment for 09.12.15, would like a call back to sandraale her visit, call back at [phone] documented in this encounter Plan of Treatment Not on file documented as of this encounter Visit Diagnoses Not on filedocumented in this encounter Care Teams Death Surveys Coder Relationship Specialty Start Date End Date Brian Gonzalez MD PCP - General Internal Medicine 12/11/14 10/16/21 Aracelis Arteaga MD [address] [place] [address] PCP - General Internal Medicine 10/28/21 Aracelis Arteaga MD [address] [place] [address] PCP - General Internal Medicine 10/17/21 10/27/21 Ruben Franco MD [address] [place] [address] Dr Uribe [address] [place] [address] Specialist Cardiovascular Disease 08/12/21 2 Robinson Zelaya MD [address] [place] [address] Dr Uribe [address] [place] [address]63 Specialist Cardiovascular Disease 08/12/21 Patricia Goldberg MD [address] [place] [address] Specialist Neurology 06/17/23 documented as of this encounter
--- OUTSIDE RECORDS SUMMARY | 2024-11-23 09:58 | XMS_ITS | Encounter Summary ---
Author Organization [facility] Address [address] [place] [address] Care Team Providers Care Meterman Name Role Phone Robinson Zelaya MD Unavailable Unavailable Aracelis Arteaga MD Primary Care Prov ider Patricia Goldberg MD Unavailable Unavailable Encounter Details Date Type Department Care Team Description 06/15/2023 Hemmer Chainstitch Report Medical Records [address] [place] [address] Patricia Goldberg MD Social History Tobacco Use [...] on filedocumented in this encounter Care Teams Meterman Relationship Specialty Start Date End Date Aracelis Arteaga MD [address] [place] [address] [phone] PCP - General Internal Medicine 10/28/21 Robinson Zelaya MD Specialist Cardiovascular Disease 08/12/21 Patricia Goldberg MD [address] [place], [place] [address] Specialist Neurology 06/17/23 documented as of this encounter
--- OUTSIDE RECORDS SUMMARY | 2024-11-23 09:58 | XMS_ITS | Encounter Summary ---
Author Organization [facility] Address [address] [place] [address] Care Team Providers Care Reed Press Feeder Name Role Phone Brian Gonzalez MD Primary Care Provider Robinson Brody MD Unavailable Unavailable Aracelis Arteaga MD Primary Care Prov ider Aracelis Arteaga MD Primary Care Prov ider Patricia Goldberg MD Unavailable Unavailable Encounter Details Date Type Department Care Team Description 08/15/2021 SCAN Medical Records [address] [place] [phone] [place] [address] Social History Tobacco Use Types Packs/Day Years [...] on filedocumented in this encounter Care Teams Reed Press Feeder Relationship Specialty Start Date End Date Brian Gonzalez MD PCP - General Internal Medicine 12/11/14 10/16/21 Aracelis Arteaga MD [address] [place] [address]247 PCP - General Internal Medicine 10/28/21 Aracelis Arteaga MD [address] [place] [address]21 PCP - General Internal Medicine 10/17/21 10/27/21 Robinson Zelaya MD Specialist Cardiovascular Disease 08/12/21 Patricia Goldberg MD [address] [place] [address] Specialist Neurology 06/17/23 documented as of this encounter
--- OUTSIDE RECORDS SUMMARY | 2024-11-23 09:58 | XMS_ITS | Encounter Summary ---
Author Organization [facility] Address [address] [place] [address] Care Team Providers Care Brush Cutter Name Role Phone Brian Gonzalez MD Primary Care Provider Ruben Barry MD Unavailable [phone] Robinson Zelaya MD Unavailable Unavailable Aracelis Arteaga MD Primary Care Prov ider Aracelis Arteaga MD Primary Care Prov ider Patricia Goldberg MD Unavailable Unavailable Encounter Details Date Type Department Care Team Description 07/29/2021 Telephone Gastroenterology - [address] [place] [address] Leena Saenz DScPAS Social History [...] on filedocumented in this encounter Care Teams Brush Cutter Relationship Specialty Start Date End Date Brian Gonzalez MD PCP - General Internal Medicine 12/11/14 10/16/21 Aracelis Arteaga MD [address] [place] [address] PCP - General Internal Medicine 10/28/21 Aracelis Arteaga MD [address] [place] [address] 480[address] PCP - General Internal Medicine 10/17/21 10/27/21 Ruben Franco MD [address] [place] [address] [place] [address] Specialist Cardiovascular Disease 08/12/21 2 Robinson Zelaya MD [address] [place] [address] [place] [address] Specialist Cardiovascular Disease 08/12/21 Patricia Goldberg MD [address] [place] [address] Specialist Neurology 06/17/23 documented as of this encounter
--- OUTSIDE RECORDS SUMMARY | 2024-11-23 09:58 | XMS_ITS | Encounter Summary ---
Author Organization [facility] Address [address] [place] [address] Care Team Providers Care Machine Assembler Name Role Phone Robinson Zelaya MD Unavailable Unavailable Aracelis Arteaga MD Primary Care Prov ider Aracelis Arteaga MD Primary Care Prov ider Patricia Goldberg MD Unavailable Unavailable Reason for Visit * Reason [place] Date Comments Advice 10/18/2021 Encounter Details Date Type Department Care Team Description 10/18/2021 Pt. Non Urgent Medic al Question Adult Medicine [address] [address] Sandy Naylor PA Social History Tobacco Use [...] filedocumented in this encounter Care Teams Machine Assembler Relationship Specialty Start Date End Date Aracelis Arteaga MD [address] [place] [address] PCP - General Internal Medicine 10/28/21 Aracelis Arteaga MD [address] [place] [address] PCP - General Internal Medicine 10/17/21 10/27/21 Robinson Zelaya MD Specialist Cardiovascular Disease 08/12/21 Patricia Goldberg MD [address] [place] [address] Specialist Neurology 06/17/23 documented as of this encounter
--- OUTSIDE RECORDS SUMMARY | 2024-11-23 09:58 | XMS_ITS | Encounter Summary ---
Author Organization [facility] Address [address] [place] [address] Care Team Providers Care Paving Rammer Name Role Phone Brian Gonzalez MD Primary Care Provider Ruben Barry MD Unavailable [phone] Robinson Zelaya MD Unavailable Unavailable Aracelis Arteaga MD Primary Care Prov ider Aracelis Arteaga MD Primary Care Prov ider Patricia Goldberg MD Unavailable Unavailable Encounter Details Date Type Department Care Team Description 12/28/2015 Air And Hydronic Balancing Technician Report Medical Records [address] [place] [address] Shawn Torres MD Social History Tobacco Use [...] on filedocumented in this encounter Care Teams Paving Rammer Relationship Specialty Start Date End Date Brian Gonzalez MD PCP - General Internal Medicine 12/11/14 10/16/21 Aracelis Arteaga MD [address] [place] [address] PCP - General Internal Medicine 10/28/21 Aracelis Arteaga MD [address] [place] [address] PCP - General Internal Medicine 10/17/21 10/27/21 Ruben Franco MD [address] [place] [address] Dr Uribe [address] [place] [address] Specialist Cardiovascular Disease 08/12/21 2 Robinson Zelaya MD [address] [place] [address] Dr Uribe [address] [place] [address] Specialist Cardiovascular Disease 08/12/21 Patricia Goldberg MD [address] [place] [address] Specialist Neurology 06/17/23 documented as of this encounter
--- OUTSIDE RECORDS SUMMARY | 2024-11-23 09:58 | XMS_ITS | Clinical Summary ---
Author Organization [facility] Address [address] [place] [address] Care Team Providers Care Manager Sterile Processing Name Role Phone Robinson Zelaya MD Unavailable Unavailable Aracelis Arteaga MD Primary Care Prov ider Patricia Goldberg MD Unavailable Unavailable Allergies Active Allergy Reactions Severity Noted Date Comments Gadobutrol Hives/Urticaria 04/06/2018 Was used for MRI scan Lamictal Xr Hives/Urticaria,Rash /Hedley titis 02/13/2012 Medications Medication Sig Dispensed Refills [...] 03/19/2022 Active Cholecalciferol (Vitamin D3) 50 MCG (1999 UT) Tab Take 1 Tablet by mouth [...] 07/13/2012 Overview: Left temporal lobe- sees [facility] [place]- removal at age 13 month Seizure disorder [...] 11/09/1999 Influenza (> 6 Months) 01/22/2020,2015,02/16/2015,12/28,02/03/2008,03/19/2006 MMR (Lllhrpj-Umizo-Oxrtkas) 09/23/1995, 2 Meningococcal (Menactra) 07/31/2006 Polio (OPV) [...] 68 08/19/2022 11:08 AM EDT Temperature 37.1 C (98.8 F) 08/19/2022 11:08 AM EDT Respiratory Rate 16 07/23/2022 11:17 AM EDT [...] , 04/14/2022 (Completed), Additional history exists INFLUENZA (#1) 2024 02/04/2022, 11/29, 01/22/2020, Additional history exists CHOLESTEROL SCREENING 07/31/2027 07/30/2022 , 10/16/2021, 05/10/2012, Additional history exists DTAP/TDAP/TD (7 - Td or Tdap) 10/28/2031, 11/09/2007, 09/16/2001, Additional history exists PNEUMOCOCCAL VACCINE FOR HIG H RISK PATIENTS (#1) 08/11/2055 Care Teams Manager Sterile Processing Relationship Specialty Start Date End Date Aracelis Arteaga MD [address] [place] [address] PCP - General Internal Medicine 10/28/21 Robinson Zelaya MD Specialist Cardiovascular Disease 08/12/21 Patricia Goldberg MD [address] [place] [address] Specialist Neurology 06/17/23
--- OUTSIDE RECORDS SUMMARY | 2024-11-23 09:58 | XMS_ITS | Encounter Summary ---
Author Organization [facility] Address [address] [place] [address] Care Team Providers Care Turntable Man Name Role Phone Robinson Zelaya MD Unavailable Unavailable Aracelis Arteaga MD Primary Care Prov ider Patricia Goldberg MD Unavailable Unavailable Encounter Details Date Type Department Care Team Description 02/12/2022 Telephone [facility] [address] [address] Tarik Harris DPM [address] [address] Social History Tobacco Use Types Packs/Day Years [...] on filedocumented in this encounter Care Teams Turntable Man Relationship Specialty Start Date End Date Aracelis Arteaga MD [address] [place] [address] PCP - General Internal Medicine 10/28/21 Robinson Zelaya MD Specialist Cardiovascular Disease 08/12/21 Patricia Goldberg MD [address] [place] [address] Specialist Neurology 06/17/23 documented as of this encounter
--- OUTSIDE RECORDS SUMMARY | 2024-11-23 09:58 | XMS_ITS | Clinical Summary ---
Demographics Address [address] [place] [address] Home Phone Preferred Language Panamanian Marital Status Unknown Church Affiliation Unknown Race White Ethnic Group Unknown Author Organization [facility] Address [address] [place] [address] Phone Support Name Relationship Address Phone Karon Stearns Mother [address] [place] [address] Prakash Ferrari Father [address] [place] [address] Care Team Providers Care Optometrist/Practice Owner Name Role Phone Unavailable Primary Care Provider [...] 11/08/2017 11/09/2007, 09/16/2001, 09/23/1995, Additional history exists COVID-19 Vaccine ( season) 2023 Influenza Vaccines (#1) 2024 12/29/19, 02/03/2008, 03/19/2006 HIB Vaccines Completed 11/15/1991, 01/29, 1990, Additional [...]
--- OUTSIDE RECORDS SUMMARY | 2024-11-23 09:58 | XMS_ITS | Encounter Summary ---
Author Organization [facility] Address [address] [place] [address] Care Team Providers Care Fish Worm Grower Name Role Phone Brian Gonzalez MD Primary Care Provider Ruben Barry MD Unavailable [phone] Robinson Zelaya MD Unavailable Unavailable Aracelis Arteaga MD Primary Care Prov ider Aracelis Arteaga MD Primary Care Prov ider Patricia Goldberg MD Unavailable Unavailable Reason for Visit * Reason Onset Date Comments refill request 08/02/2020 Encounter Details Date Type Department Care Team Description 08/02/2020 Refill Allergy [facility] [address] [place] [phone] Lor Contreras MD refill request Social History [...] on filedocumented in this encounter Care Teams Fish Worm Grower Relationship Specialty Start Date End Date Brian Gonzalez MD PCP - General Internal Medicine 12/11/14 10/16/21 Aracelis Arteaga MD [address] [place] [address] PCP - General Internal Medicine 10/28/21 Aracelis Arteaga MD [address] [place] [address] PCP - General Internal Medicine 10/17/21 10/27/21 Ruben Franco MD [address] [place] [address] [place] [address] Specialist Cardiovascular Disease 08/12/21 2 Robinson Zelaya MD [address] [place] [address] [place] [address] Specialist Cardiovascular Disease 08/12/21 Patricia Goldberg MD [address] [place] [address] Specialist Neurology 06/17/23 documented as of this encounter
--- OUTSIDE RECORDS SUMMARY | 2024-11-23 09:58 | XMS_ITS | Encounter Summary ---
Author Organization [facility] Address [address] [place] [address] Care Team Providers Care Concert Manager Name Role Phone Brian Gonzalez MD Primary Care Provider Ruben Barry MD Unavailable [phone] Robinson Zelaya MD Unavailable Unavailable Aracelis Arteaga MD Primary Care Prov ider Aracelis Arteaga MD Primary Care Prov ider Patricia Goldberg MD Unavailable Unavailable Reason for Visit * Reason Onset Date Comments REFERRAL 07/13/2020 Encounter Details Date Type Department Care Team Description 07/13/2020 Telephone Adult [address] [phone] Brian Gonzalez MD REFERRAL Social History Tobacco [...] department. Thanks * Telephone Encounter - Chely Antonino - 07/13/2020 4:37 PM EDT In order [...] Chely Referrals Department * Telephone Encounter - nAgie Waters - 07/13/2020 3:57 PM EDT What insurance does the patient have today? Payor: [facility] [id number] MCR / Plan: ONE [facility] / Product Type: HMO [id number] Effective 12/28/08: BCBS will not retro referral [...] insurance must be obtained and registered in [facility] or their referral can not be processed. Is this a retro request? NO. If yes for what date of service do you need the retro referral? N/A Who is calling to request this referral? [facility] If the caller is not the [...] Address of Specialist: Phone # of Specialist: [phone] Fax #: (if applicable):[phone] Does patient have an appointment scheduled?: YES Date of appointment- (including a retro-request): 09/24/20 Is this appointment related to: documented in this encounter Plan of Treatment Not on file documented as of this encounter Visit Diagnoses Not on filedocumented in this encounter Care Teams Concert Manager Relationship Specialty Start Date End Date Brian Gonzalez MD PCP - General Internal Medicine 12/11/14 10/16/21 Aracelis Arteaga MD [address] [place] [address] PCP - General Internal Medicine 10/28/21 Aracelis Arteaga MD [address] [place] [address] PCP - General Internal Medicine 10/17/21 10/27/21 Ruben Franco MD [address] [place] [address] [place] [address] Specialist Cardiovascular Disease 08/12/21 2 Robinson Zelaya MD [address] [place] [address] [place] [address] Specialist Cardiovascular Disease 08/12/21 Patricia Goldberg MD [address] [place] [address] Specialist Neurology 06/17/23 documented as of this encounter
--- OUTSIDE RECORDS SUMMARY | 2024-11-23 09:58 | XMS_ITS | Encounter Summary ---
Author Organization [facility] Address [address] [place] [address] Care Team Providers Care Vendette Name Role Phone Brian Gonzalez MD Primary Care Provider Adarsh Smith MD Primary Care Provider Brian Larios MD Primary Care Provider Ruben Barry MD Unavailable [phone] Robinson Zelaya MD Unavailable Unavailable Aracelis Arteaga MD Primary Care Prov ider Aracelis Arteaga MD Primary Care Prov ider Patricia Goldberg MD Unavailable Unavailable Encounter Details Date Type Department Care Team Description 06/26/2014 Air Drill Operator Report Medical Records [address] [place] [id number] [place] [address] Social History Tobacco Use Types Packs/Day Years [...] on filedocumented in this encounter Care Teams Vendette Relationship Specialty Start Date End Date Brian Gnozalez MD PCP - General Internal Medicine 01/12/14 12/07/14 Adarsh Valverde MD PCP - General Internal Medicine 12/08/14 5 Brian Gonzalez MD PCP - General Internal Medicine 12/11/14 10/16/21 Aracelis Arteaga MD [address] [place] [address] PCP - General Internal Medicine 10/28/21 Aracelis Arteaga MD [address] [place] [address] PCP - General Internal Medicine 10/17/21 10/27/21 Ruben Franco MD [address] [place] [address] Dr Uribe [address] [place] [address] Specialist Cardiovascular Disease 08/12/21 2 Robinson Zelaya MD [address] [place] [address] Dr Uribe [address] [place] [address] Specialist Cardiovascular Disease 08/12/21 Patricia Goldberg MD [address] [place] [address] Specialist Neurology 06/17/23 documented as of this encounter
--- OUTSIDE RECORDS SUMMARY | 2024-11-23 09:58 | XMS_ITS | Encounter Summary ---
Author Organization [facility] Address [address] [place] [address] Care Team Providers Care Electroplater Automatic Name Role Phone Brian Gonzalez MD Primary Care Provider Ruben Barry MD Unavailable [phone] Robinson Zelaya MD Unavailable Unavailable Aracelis Arteaga MD Primary Care Prov ider Aracelis Arteaga MD Primary Care Prov ider Patricia Goldberg MD Unavailable Unavailable Encounter Details Date Type Department Care Team Description 01/25/2016 Roll Examiner Report Medical Records [address] [place] [address] Abstract, Provider Social History Tobacco Use Types [...] on filedocumented in this encounter Care Teams Electroplater Automatic Relationship Specialty Start Date End Date Brian Gonzalez MD PCP - General Internal Medicine 12/11/14 10/16/21 Aracelis Arteaga MD [address] [place] [address] [phone] PCP - General Internal Medicine 10/28/21 Aracelis Arteaga MD [address] [place] [address] PCP - General Internal Medicine 10/17/21 10/27/21 Ruben Franco MD [address] [place] [address] Dr Uribe [address] [place] [address] Specialist Cardiovascular Disease 08/12/21 2 Robinson Zelaya MD [address] [place] [address] [place] [address] Specialist Cardiovascular Disease 08/12/21 Patricia Goldberg MD [address] [place] [address] Specialist Neurology 06/17/23 documented as of this encounter
--- OUTSIDE RECORDS SUMMARY | 2024-11-23 09:58 | XMS_ITS | Encounter Summary ---
Demographics Address [address] [place] [address] Home Phone Preferred Language Togolese Marital Status Unknown Yazdanism Affiliation Unknown Race White Ethnic Group Unknown Author Organization [facility] Address [address] [place] [address] Phone Support Name Relationship Address Phone Karon Stearns Mother [address] [place] [address] Prakash Ferrari Father [address] [place] [address] Care Team Providers Care Kitchen Steward/Stewardess Name Role Phone Nuria Luna MD Primary Care Provider Encounter Details Date Type Department Care Team (Late st Contact Info) Description 10/29/2010 Documentation [facility] Family Medicine [address] [place], [place] [phone] Family Medicine, Physician [address] [place], [place] 24[address] Social History Tobacco Use Types Packs/Day Years [...] on filedocumented in this encounter Care Teams Kitchen Steward/Stewardess Relationship Specialty Start Date End Date Nuria Luna MD [address] [place] [address] JATINDER De Santiago [address] PCP - General 11/07/16 06/29/22 documented as of this encounter
--- OUTSIDE RECORDS SUMMARY | 2024-11-23 09:58 | XMS_ITS | Encounter Summary ---
Author Organization [facility] Address [address] [place] [address] Care Team Providers Care Patternmaker Metal Name Role Phone Brian Gonzalez MD Primary Care Provider Ruben Barry MD Unavailable [phone] Robinson Zelaya MD Unavailable Unavailable Aracelis Arteaga MD Primary Care Prov ider Aracelis Arteaga MD Primary Care Prov ider Patricia Goldberg MD Unavailable Unavailable Encounter Details Date Type Department Care Team Description 05/12/2019 Hospital Medical Records [address] [place] [address] Jonas Horton Social History Tobacco Use Types [...] on filedocumented in this encounter Care Teams Patternmaker Metal Relationship Specialty Start Date End Date Brian Gonzalez MD PCP - General Internal Medicine 12/11/14 10/16/21 Aracelis Arteaga MD [address] [place] [address] PCP - General Internal Medicine 10/28/21 Aracelis Arteaga MD [address] [place] [address] PCP - General Internal Medicine 10/17/21 10/27/21 Ruben Franco MD [address] [place] [address] Dr Uribe [address] [place] [address] Specialist Cardiovascular Disease 08/12/21 2 Robinson Zelaya MD [address] [place] [address] Dr Uribe [address] [place] [address] Specialist Cardiovascular Disease 08/12/21 Patricia Goldberg MD [address] [place] [address] Specialist Neurology 06/17/23 documented as of this encounter
--- OUTSIDE RECORDS SUMMARY | 2024-11-23 09:58 | XMS_ITS | Encounter Summary ---
Author Organization [facility] Address [address] [place] [address] Care Team Providers Care Deck Worker Name Role Phone Brian Gonzalez MD Primary Care Provider Ruben Barry MD Unavailable [phone] Robinson Zelaya MD Unavailable Unavailable Aracelis Arteaga MD Primary Care Prov ider Aracelis Arteaga MD Primary Care Prov ider Patricia Goldberg MD Unavailable Unavailable Encounter Details Date Type Department Care Team Description 04/05/2019 [facility]AN Medical Records [address] [place] [address] Abstract, Provider Social History Tobacco Use Types [...] on filedocumented in this encounter Care Teams Deck Worker Relationship Specialty Start Date End Date Brian Gonzalez MD PCP - General Internal Medicine 12/11/14 10/16/21 Aracelis Arteaga MD [address] [place] [address] PCP - General Internal Medicine 10/28/21 Aracelis Arteaga MD [address] [place] [address] PCP - General Internal Medicine 10/17/21 10/27/21 Ruben Franco MD [address] [place] [address] [place] [address] Specialist Cardiovascular Disease 08/12/21 2 Robinson Zelaya MD [address] [place] [address] [place] [address] Specialist Cardiovascular Disease 08/12/21 Patricia Goldberg MD [address] [place] [address] Specialist Neurology 06/17/23 documented as of this encounter
--- OUTSIDE RECORDS SUMMARY | 2024-11-23 09:58 | XMS_ITS | Clinical Summary ---
Author Organization [facility] Address [address] [place] [address] Phone Care Team Providers Care Lime Kiln Tender Name Role Phone Physician, No Pcp Primary [...] 3 Overview (03/18/2024): [facility] age 13 [facility] Seizure disorder (CMS/HCC V24, CMS/HCC V28) 01/28 Overview (03/18/2024): Last seizure 1 year ago, had hx of astrocytoma resected at 1 yo, has serial cat scans/mris/ eegs Encounters Date Type Department Care Team Description 11/07/2024 1:45 PM EDT Office Visit Orthopedic Surgery - [place] [address] [place] [phone] Tarik Harris, DPM Hypertrophy of nail (Primary Dx) from Last 3 Months Immunizations Name Administration Dates Next Due DTP 09/23/1995, 1,1990,11/14,1990 VLmY-FNT-PTE (Pentacel) 2mo to less than 5yo 11/15/1991,02/16/1991,1990,10/13 HPV, Quadrivalent 06/02/2008,02/03/2008,11/09/19 08 Hepatitis B (Bvwnkng-H-Qnxdi , Recombivax HB-Adult) 19yo and older 10/04/1999 Hepatitis B Pediatric (Enger ix B; Recombivax HB) to less than 20 yo 11/09/1999 Influenza trivalent, 0.5mL, preservative free (Fluarix; FluLaval; Fluzone) ages 6mo and older (Afluria) 3 years and older 01/22/2020,12/11/2015,02/16/2015,12/28,02/03/2008,03/19/2006 MMR, measles mumps and rubel la Live (Priorix; M-M-R II) 12mo and older 09/23/1995,11/15/1991 Meningococcal MCV4P 07/31/2006 OPV 09/23/1995, 2,1990,10/13 Bioxodes SARS-CoV-2 COVID-19, mRNA, LNP-S, preservative free 07/23/2020 Td Tetanus diptheria (Tdvax) 7yo and older 09/16/2001 Tdap Tetanus diptheria acell ular pertussis (Boostrix; Adacel) 7yo and older 10/27/2021,11/09/2007 Surgical History Surgery Date Site/Laterality Comments OTHER SURGICAL HISTORY PROCEDURE: ---- OTHER ----; COMMENT: craniotomy left temporal astrocytoma Medical History Medical History Date Comments Seizure disorder (CMS/[facility] V2 4, CMS/[facility] V28) 02/13/2012 DX:Seizure disorder (HCC) Shingles DX:Shingles PCOS (polycystic ovarian syndrome) DX:PCOS (polycystic ovarian syndrome) Astrocytoma (CMS/HCC V24, CM S/HCC V28) 07/13/2012 DX:Astrocytoma (HCC) Complex partial epileptic se izure (CMS/HCC V24, CMS/HCC V28) DX:Complex partial epilepti c seizure (HCC) Absence seizure (CMS/HCC V24 , CMS/HCC V28) DX:Absence seizure (HCC) Decreased level of [...] PM EST Office Visit Orthopedic Surgery - [address] [phone] Tarik Harris, DPM [address] [place] [address] Health Maintenance Due Date Last Done Comments [...] Vaccines Completed 06/02/2008, 11/0 08/2007, 11/09/2007 Hepatitis C Screening Completed 03/02/2020 [...] Health Maintenance Results * Hemoglobin A1c (08/06/2022) [facility] Hemoglobin A1C 6.0 <=6.5 % Blood Venous blood specimen / Unknown Result [facility] Provider LAB BLOOD ORDERABLES Johanna l Result * Annual BMP Blood Test (07/30/2022) [facility] Annual BMP Blood Test Abstracted Result [facility] Provider HEALTH MAINTENANCE Final Result * (ABNORMAL) Lipid panel (07/30/2022) [facility] LDL/HDL Ratio 6(A) 0 - 4 Triglycerides 267(A) 0 - 150 mg/dL Cholesterol 234(A) 0 - 200 mg/dL HDL 37(A) >=40 mg/dL LDL Cholesterol 144(A) 0 - 100 mg/dL Blood Venous blood specimen / Unknown Result [facility] Provider LAB BLOOD ORDERABLES Johanna l Result * Hepatitis C Screening (03/02/2020) [facility] Hepatitis C Screening Abstracted Result [facility] Provider HEALTH MAINTENANCE Final Result * Cervical Cancer Screening: HPV (12/25/2015) Cervical Cancer Screening: HPV No Interpretation , Abstracted us Historical Provider MD HEALTH MAINTENANCE Final Result from Last 3 Months or Most Recently Relevant to Health Maintenance Insurance [facility] Member Subscriber Plan / Payer (Ef fective 2018-Present) Name:STANFORD DEAL Relation to Subscriber:Self Name:Stanford Deal Payer ID:[id number] Group ID:[id number] Type:Not on file Address: [facility] [address] [phone] MEDICAID - [place] Care Teams Lime Kiln Tender Relationship Specialty Start Date End Date Physician, No Pcp PCP - General 03/30/23
--- OUTSIDE RECORDS SUMMARY | 2024-11-23 09:59 | XMS_ITS | Encounter Summary ---
Author Organization [facility] Address [address] [place] [address] Care Team Providers Care Drill Press Operator Helper Name Role Phone Brian Gonzalez MD Primary Care Provider Ruben Barry MD Unavailable [phone] Robinson Zelaya MD Unavailable Unavailable Aracelis Arteaga MD Primary Care Prov ider Aracelis Arteaga MD Primary Care Prov ider Patricia Goldberg MD Unavailable Unavailable Encounter Details Date Type Department Care Team Description 09/19/2017 Raspberry Checker Report Medical Records [address] [place] [id number] [place] [address] Social History Tobacco Use Types Packs/Day Years [...] on filedocumented in this encounter Care Teams Drill Press Operator Helper Relationship Specialty Start Date End Date Brian Gonzalez MD PCP - General Internal Medicine 12/11/14 10/16/21 Aracelis Arteaga MD [address] [place] [address] PCP - General Internal Medicine 10/28/21 Aracelis Arteaga MD [address] [place] [address] PCP - General Internal Medicine 10/17/21 10/27/21 Ruben Franco MD [address] [place] [address] Dr Uribe [address] [place] [address] Specialist Cardiovascular Disease 08/12/21 2 Robinson Zelaya MD [address] [place] [address] Dr Uribe [address] [place] [address] Specialist Cardiovascular Disease 08/12/21 Patricia Goldberg MD [address] [place] [address] Specialist Neurology 06/17/23 documented as of this encounter
--- OUTSIDE RECORDS SUMMARY | 2024-11-23 09:59 | XMS_ITS | Encounter Summary ---
Author Organization [facility] Address [address] [place] [address] Care Team Providers Care Clinical Laboratory Technologist Name Role Phone Brian Gonzalez MD Primary Care Provider Ruben Barry MD Unavailable [phone] Robinson Zelaya MD Unavailable Unavailable Aracelis Arteaga MD Primary Care Prov ider Aracelis Arteaga MD Primary Care Prov ider Patricia Goldberg MD Unavailable Unavailable Encounter Details Date Type Department Care Team Description 01/14/2017 Release of Information Medical Records [address] [place] [address] Abstract, Provider Social History Tobacco Use Types [...] on filedocumented in this encounter Care Teams Clinical Laboratory Technologist Relationship Specialty Start Date End Date Brian Gonzalez MD PCP - General Internal Medicine 12/11/14 10/16/21 Aracelis Arteaga MD [address] [place] [address] [phone] PCP - General Internal Medicine 10/28/21 Aracelis Arteaga MD [address] [place] [address] PCP - General Internal Medicine 10/17/21 10/27/21 Ruben Franco MD [address] [place] [address] Dr Uribe [address] [place] [address] Specialist Cardiovascular Disease 08/12/21 2 Robinson Zelaya MD [address] [place] [address] [place] [address] Specialist Cardiovascular Disease 08/12/21 Patricia Goldberg MD [address] [place] [address] Specialist Neurology 06/17/23 documented as of this encounter
--- OUTSIDE RECORDS SUMMARY | 2024-11-23 09:59 | XMS_ITS | Encounter Summary ---
Author Organization [facility] Address [address] [place] [address] Care Team Providers Care Emergency Medical Dispatcher Name Role Phone Brian Gonzalez MD Primary Care Provider Ruben Barry MD Unavailable [phone] Robinson Zelaya MD Unavailable Unavailable Aracelis Arteaga MD Primary Care Prov ider Aracelis Arteaga MD Primary Care Prov ider Patricia Goldberg MD Unavailable Unavailable Encounter Details Date Type Department Care Team Description 03/08/2018 Kiln Pusher Report Medical Records [address] [place] [address] [facility] Social History Tobacco Use Types Packs/Day [...] on filedocumented in this encounter Care Teams Emergency Medical Dispatcher Relationship Specialty Start Date End Date Brian Gonzalez MD PCP - General Internal Medicine 12/11/14 10/16/21 Aracelis Arteaga MD [address] [place] [address] PCP - General Internal Medicine 10/28/21 Aracelis Arteaga MD [address] [place] [address] PCP - General Internal Medicine 10/17/21 10/27/21 Ruben Franco MD [address] [place] [address] Dr Uribe [address] [place] [address] Specialist Cardiovascular Disease 08/12/21 2 Robinson Zelaya MD [address] [place] [address] Dr Uribe [address] [place] [address] Specialist Cardiovascular Disease 08/12/21 Patricia Goldberg MD [address] [place] [address] Specialist Neurology 06/17/23 documented as of this encounter
--- OUTSIDE RECORDS SUMMARY | 2024-11-23 09:59 | XMS_ITS | Encounter Summary ---
Author Organization [facility] Address [address] [place] [address] Care Team Providers Care Trial Examiner Name Role Phone Prakash Perez MD Primary Care Provider Adarsh Blanchard MD Primary Care Provider Brian Larios MD Primary Care Provider Adarsh Smith MD Primary Care Provider Brian Larios MD Primary Care Provider Ruben Barry MD Unavailable [phone] Robinson Zelaya MD Unavailable Unavailable Aracelis Arteaga MD Primary Care Prov ider Aracelis Arteaga MD Primary Care Prov ider Patricia Goldberg MD Unavailable Unavailable Encounter Details Date Type Department Care Team Description 06/17/2007 SCAN Medical Records [address] [place] [address] Don Berman Social History Tobacco Use Types [...] on filedocumented in this encounter Care Teams Trial Examiner Relationship Specialty Start Date End Date Prakash Perez MD PCP - General Internal Medicine 01/20/12 04/04/13 Adarsh Valverde MD PCP - General Internal Medicine 04/05/13 Brian Gonzalez MD PCP - General Internal Medicine 01/12/14 12/07/14 Adarsh Valverde MD PCP - General Internal Medicine 12/08/14 Brian Gonzalez MD PCP - General Internal Medicine 12/11/14 10/16/21 Aracelis Arteaga MD [address] [place] [address] PCP - General Internal Medicine 10/28/21 Aracelis Arteaga MD [address] [place] [address] PCP - General Internal Medicine 10/17/21 10/27/21 Ruben Franco MD [address] [place] [address] Dr Uribe [address] [place] [address] Specialist Cardiovascular Disease 08/12/21 2 Robinson Zelaya MD [address] [place] [address] [place] [address] Specialist Cardiovascular Disease 08/12/21 Patricia Goldberg MD [address] [place] [address] Specialist Neurology 06/17/23 documented as of this encounter
--- OUTSIDE RECORDS SUMMARY | 2024-11-23 09:59 | XMS_ITS | Encounter Summary ---
Author Organization [facility] Address [address] [place] [address] Care Team Providers Care Grounds Crew Supervisor Name Role Phone Prakash Perez MD Primary Care Provider Adarsh Blanchard MD Primary Care Provider Brian Larios MD Primary Care Provider Adarsh [place] MD Primary Care Provider Brian Larios MD Primary Care Provider Ruben Barry MD Unavailable [phone] Robinson Zelaya MD Unavailable Unavailable Aracelis Arteaga MD Primary Care Prov ider Aracelis Arteaga MD Primary Care Prov ider Patricia Goldberg MD Unavailable Unavailable Encounter Details Date Type Department Care Team Description 04/27/2001 SCAN Medical Records [address] [place] [address] Abstract, Provider Social History Tobacco Use Types [...] on filedocumented in this encounter Care Teams Grounds Crew Supervisor Relationship Specialty Start Date End Date Prakash Perez MD PCP - General Internal Medicine 01/20/12 04/04/13 Adarsh Valverde MD PCP - General Internal Medicine 04/05/13 Brian Gonzalez MD PCP - General Internal Medicine 01/12/14 12/07/14 Adarsh Valverde MD PCP - General Internal Medicine 12/08/14 Brian Gonzalez MD PCP - General Internal Medicine 12/11/14 10/16/21 Aracelis Arteaga MD [address] [place] [address] PCP - General Internal Medicine 10/28/21 Aracelis Arteaga MD [address] [place] [address] PCP - General Internal Medicine 10/17/21 10/27/21 Ruben Franco MD [address] [place] [address] Dr Uribe [address] [place] [address] Specialist Cardiovascular Disease 08/12/21 2 Robinson Zelaya MD [address] [place] [address] [place] [address] Specialist Cardiovascular Disease 08/12/21 Patricia Goldberg MD [address] [place] [address] Specialist Neurology 06/17/23 documented as of this encounter
--- OUTSIDE RECORDS SUMMARY | 2024-11-23 09:59 | XMS_ITS | Encounter Summary ---
Demographics Address [address] [place] [id number] Home Phone Preferred Language Cymro Marital Status Unknown Restoration Affiliation Unknown Race White Ethnic Group Unknown Author Organization [facility] Address [address] [place] [address] Phone Support Name Relationship Address Phone Karon Stearns Mother [address] [place] [address] Prakash Ferrari Father [address] [place] [address] Care Team Providers Care Water Purifier Name Role Phone Nuria Luna MD Primary Care Provider [phone] Encounter Details Date Type Department Care Team (Late st Contact Info) Description 11/06/2009 Documentation [facility] [place] [address] [place], [place] [id number] Family Medicine, Physician [address] [place], [place] [address]81 Social History Tobacco Use Types Packs/Day Years [...] on filedocumented in this encounter Care Teams Water Purifier Relationship Specialty Start Date End Date Nuria Luna MD [address] [place] [address] JATINDER De Santiago [address] PCP - General 11/07/16 06/29/22 documented as of this encounter
--- OUTSIDE RECORDS SUMMARY | 2024-11-23 09:59 | XMS_ITS | Encounter Summary ---
Demographics Address [address] [place] [address] Home Phone Preferred Language Puerto Rican Marital Status Unknown Quaker Affiliation Unknown Race White Ethnic Group Unknown Author Organization [facility] Address [address] [place] [address] Phone Support Name Relationship Address Phone Karon Stearns Mother [address] [place] [address] Prakash Ferrari Father [address] [place] [address] Care Team Providers Care Folded Cloth Taper Name Role Phone Nuria Luna MD Primary Care Provider [phone] Encounter Details Date Type Department Care Team (Late st Contact Info) Description 09/11/2009 Documentation [facility] [place] [address] [place], [place] [phone] Family Medicine, Physician [address] [place], [place] [address] Social History Tobacco Use Types Packs/Day Years [...] on filedocumented in this encounter Care Teams Folded Cloth Taper Relationship Specialty Start Date End Date Nuria Luna MD [address] [place] [address] JATINDER De Santiago [address] PCP - General 11/07/16 06/29/22 documented as of this encounter
--- OUTSIDE RECORDS SUMMARY | 2024-11-23 09:59 | XMS_ITS | Encounter Summary ---
Demographics Address [address] [place] [address] Home Phone Preferred Language Cuban Marital Status Unknown Mandaen Affiliation Unknown Race White Ethnic Group Unknown Author Organization [facility] Address [address] [place] [address] Phone Support Name Relationship Address Phone Karon Stearns Mother [address] [place] [address] Prakash Ferrari Father [address] [place] [address] Care Team Providers Care Regional Sales Manager Name Role Phone Nuria Luna MD Primary Care Provider [phone] Encounter Details Date Type Department Care Team (Late st Contact Info) Description 10/03/2009 Documentation [facility] [place] Medicine [address] [place], [place] [id number] Family Medicine, Physician [address] [place], [place] [address] Social History Tobacco Use Types Packs/Day Years [...] on filedocumented in this encounter Care Teams Regional Sales Manager Relationship Specialty Start Date End Date Nuria Luna MD [address] [place] [address] JATINDER De Santiago [address] PCP - General 11/07/16 06/29/22 documented as of this encounter
--- OUTSIDE RECORDS SUMMARY | 2024-11-23 09:59 | XMS_ITS | Encounter Summary ---
Author Organization [facility] Address [address] [place] [address] Care Team Providers Care Investment Analyst Name Role Phone Prakash Perez MD Primary Care Provider Adarsh Blanchard MD Primary Care Provider Brian Larios MD Primary Care Provider Adarsh Smith MD Primary Care Provider Brian Larios MD Primary Care Provider Ruben Barry MD Unavailable [phone] Robinson Zelaya MD Unavailable Unavailable Aracelis Arteaga MD Primary Care Prov ider Aracelis Arteaga MD Primary Care Prov ider Patricia Goldberg MD Unavailable Unavailable Encounter Details Date Type Department Care Team Description 03/08/2009 [facility] Medical Records [address] [place] [address] Don Berman Social History Tobacco Use Types [...] on filedocumented in this encounter Care Teams Investment Analyst Relationship Specialty Start Date End Date Prakash Perez MD PCP - General Internal Medicine 01/20/12 04/04/13 Adarsh Valverde MD PCP - General Internal Medicine 04/05/13 Brian Gonzalez MD PCP - General Internal Medicine 01/12/14 12/07/14 Adarsh Valverde MD PCP - General Internal Medicine 12/08/14 Brian Gonzalez MD PCP - General Internal Medicine 12/11/14 10/16/21 Aracelis Arteaga MD [address] [place] [address] PCP - General Internal Medicine 10/28/21 Aracelis Arteaga MD [address] [place] [address] PCP - General Internal Medicine 10/17/21 10/27/21 Ruben Franco MD [address] [place] [address] Dr Uribe [address] [place] [address] Specialist Cardiovascular Disease 08/12/21 2 Robinson Zelaya MD [address] [place] [address] [place] [address] Specialist Cardiovascular Disease 08/12/21 Patricia Goldberg MD [address] [place] [address] Specialist Neurology 06/17/23 documented as of this encounter
== END 2024-11-23 10:16 | disposition home or self-care (01) ==
LOC: HO.HMCFM 09:24
PROVIDERS: PCP Physician Assistant; Visit Provider Physician Assistant
DX: G40.209 Localization-related (focal) (partial) symptomatic epilepsy and epileptic syndromes with complex partial seizures, not intractable, without status epilepticus (principal); E11.9 Type 2 diabetes mellitus without complications; I10 Essential (primary) hypertension; E78.2 Mixed hyperlipidemia

== ENCOUNTER → 2024-11-23 09:23 | Outpatient (BNVA) | payer OTHER, SELFPAY | PROVIDERS: PCP Physician Assistant; Visit Provider Physician Assistant | DX: E11.9 Type 2 diabetes mellitus without complications (principal); I10 Essential (primary) hypertension; G40.209 Localization-related (focal) (partial) symptomatic epilepsy and epileptic syndromes with complex partial seizures, not intractable, without status epilepticus; E78.2 Mixed hyperlipidemia | CPT/HCPCS: 99212 ==

== ENCOUNTER 2024-12-05 15:57 | Outpatient (REF) | payer OTHER, SELFPAY ==
--- NOTE | ~2024-12-05 | MR_ITS ---
EXAMINATION: MR BRAIN WITHOUT CONTRAST CLINICAL INFORMATION: Malignant neoplasm of the brain COMPARISON: January 20, 2024 and March 18, 2022. TECHNIQUE: MRI of the brain was obtained using routine sequences without contrast. FINDINGS: No restricted diffusion. There is a macrocystic encephalomalacia/resection anterior lateral left temporal lobe with no gross 2 minimal hyperintense T2 FLAIR signal at the resection site. There is extra-axial CSF prominence at the surgical site. No gross mass effect, midline shift, hydrocephalus or herniation. No acute intracranial hemorrhage. Sellar/suprasellar region demonstrated no signal abnormality or gross masses. There is a 3 mm descensus of the cerebellar tonsils below foramen magnum. Flow-void signal within the main cerebral vessels is normal. Gomez-white matter differentiation is normal. MR/MR head/brain wo con IMPRESSION: Posttreatment changes, anterior lateral left temporal lobe. No acute brain abnormality. Low-lying cerebellar tonsils. Electronically signed by: Ramesh Mccarthy MD 12/06/2024 07:06 AM EDT
[2024-12-05 16:09] LABS: MANUAL DIFF FLAG NO
[2024-12-05 17:14] LABS: Hematocrit 41.6 % (37.0-47.0); Hemoglobin 14.3 g/dl (12.0-16.0); Imm Gran Abs Auto 0.02 X10*3/uL (0.00-0.03); Imm Gran Pct Auto 0.3 % (0.0-0.4); Lymphocytes Absolute Auto 2.7 X10*3/uL (1.2-4.9); Mean Corpuscular HGB Conc 34.4 g/dl (31.0-35.0); Mean Corpuscular Hemoglobin 29.9 pg (27.0-33.0); Mean Corpuscular Volume 86.8 fL (80.0-98.0); NRBC Abs Auto 0.000 X10*3/uL (0.0-0.012); NRBC Pct Auto 0.0 /100WBC (0.0-0.2); Platelet Count 194 X10*3/uL (160-400); Red Blood Count 4.79 X10*6/uL (4.20-5.50); White Blood Count 6.8 X10*3/uL (4.8-10.8)
[2024-12-05 17:47] LABS: Alanine Aminotransferase 38 U/L (0-31); Albumin Level 4.8 g/dL (3.5-5.0); Alkaline Phosphatase 92 U/L (39-117); Anion Gap 13 (12-20); Aspartate Amino Transferase 29 U/L (5-31); Blood Urea Nitrogen 15 mg/dL (9-16); Calcium 9.0 mg/dL (8.4-10.2); Carbon Dioxide 21 mmol/L (22-29); Chloride 113 mmol/L (96-108); Cholesterol 182 mg/dL (<200); Estimated Glomerular Filt Rate > 60; HDL Cholesterol 44 mg/dL (>40); Potassium 3.9 mmol/L (3.3-5.1); Sodium 143 mmol/L (135-145); Total Protein 7.7 g/dL (6.5-8.0); Triglycerides 166 mg/dL (<150)
--- OUTSIDE RECORDS SUMMARY | 2024-12-05 18:42 | XMS_ITS | Encounter Summary ---
Demographics Address [address] [place] [address] Home Phone Preferred Language Romanian Marital Status Unknown Restoration Affiliation Unknown Race White Ethnic Group Unknown Author Organization [facility] Address [address] [place] [address] Phone Support Name Relationship Address Phone Karon Stearns Mother [address] [place] [address] Prakash Ferrari Father [address] [place] [address] Care Team Providers Care Fishing Vessel Deckhand Name Role Phone Nuria Luna MD Primary Care Provider Encounter Details Date Type Department Care Team (Late st Contact Info) Description 11/06/2009 Documentation [facility] [place] [address] [place], [place] [id number] Family Medicine, Physician [address] [place], [place] [address]24[address] Social History Tobacco Use Types Packs/Day Years [...] on filedocumented in this encounter Care Teams Fishing Vessel Deckhand Relationship Specialty Start Date End Date Nuria Luna MD [address] [place] [address] JATINDER De Santiago [address] PCP - General 11/07/16 06/29/22 documented as of this encounter
--- OUTSIDE RECORDS SUMMARY | 2024-12-05 18:42 | XMS_ITS | Clinical Summary ---
Demographics Address [address] [place] [address] Home Phone Preferred Language Setswana Marital Status Unknown Synagogue Affiliation Unknown Race White Ethnic Group Unknown Author Organization [facility] Address [address] [place] [address] Phone Support Name Relationship Address Phone Karon Stearns Mother [address] [place] [address] Prakash Ferrari Father [address] [place] [address] Care Team Providers Care Deliverer Merchandise Name Role Phone Unavailable Primary Care Provider [...] 09/23/1995, Additional history exists Influenza Vaccines (#1) 2024 12/29/19, 02/03/2008, 03/19/2006 COVID-19 Vaccine ( season) 2024 HIB Vaccines Completed 11/15/1991, 01/29, 1990, Additional [...]
--- OUTSIDE RECORDS SUMMARY | 2024-12-05 18:42 | XMS_ITS | Encounter Summary ---
Demographics Address [address] [place] [address] Home Phone Preferred Language Filipino Marital Status Unknown Scientology Affiliation Unknown Race White Ethnic Group Unknown Author Organization [facility] Address [address] [place] [address] Phone Support Name Relationship Address Phone Karon Stearns Mother [address] [place] [address] Prakash Ferrari Father [address] [place] [address] Care Team Providers Care Skiver Heel Tap Name Role Phone Nuria Luna MD Primary Care Provider Encounter Details Date Type Department Care Team (Late st Contact Info) Description 09/11/2009 Documentation [facility] [place] [address] [place], [place] [phone] Family Medicine, Physician [address] [place], [place] [address] Social History Tobacco Use Types Packs/Day Years [...] on filedocumented in this encounter Care Teams Skiver Heel Tap Relationship Specialty Start Date End Date Nuria Luna MD [address] [place] [address] JATINDER De Santiago [address] PCP - General 11/07/16 06/29/22 documented as of this encounter
--- OUTSIDE RECORDS SUMMARY | 2024-12-05 18:42 | XMS_ITS | Clinical Summary ---
Author Organization [facility] Address [address] [facility] [address] [place] [address] Phone Care Team Providers Care Upholstery Covers Inspector Name Role Phone Brian Gonzalez MD Primary Care Provider [phone] Social History Tobacco Use Types Packs/Day Years [...] COVID-19 VACCINE ( season) 2023 07/23/2020, 07/02/2020 INFLUENZA VACCINE (#1) 2024 0, 12/11/2015, 02/16/2015, Additional history exists Adult Td,Tdap Booster 10/28/2031 10/27/2021 , 11/09/2007, [...] file Insurance MEDICARE PART A & B [facility] MEDICARE PART A & [place] A [place] B MEDICARE PART A & B HEALTH MEDICARE PART A & [place] [address] [place] [address] MEDICARE PART A & B [facility] PART A & B [facility] MEDICARE PART A & B [facility] Care Teams Upholstery Covers Inspector Relationship Specialty Start Date End Date Brian Gonzalez MD [address] [place] [address] PCP - General Internal Medicine 10/14/16 Additional Source Comments The information contained in this document represents components of the legal health record. It is not the complete legal health record.[facility]
--- OUTSIDE RECORDS SUMMARY | 2024-12-05 18:42 | XMS_ITS | Encounter Summary ---
Demographics Address [address] [place] [address] Home Phone Preferred Language Swazi Marital Status Unknown Latter Day Affiliation Unknown Race White Ethnic Group Unknown Author Organization [facility] Address [address] [place] [address] Phone Support Name Relationship Address Phone Karon Stearns Mother [address] [place] [address] Prakash Ferrari Father [address] [place] [address] Care Team Providers Care Script Artist Name Role Phone Nuria Luna MD Primary Care Provider Encounter Details Date Type Department Care Team (Late st Contact Info) Description 01/15/2010 Documentation [facility] [place] [address] [place], [place] [phone] Family Medicine, Physician [address] [place], [place] [address] Social History Tobacco Use Types Packs/Day Years [...] on filedocumented in this encounter Care Teams Script Artist Relationship Specialty Start Date End Date Nuria Luna MD [address] [place] [address] JATINDER De Santiago [address] PCP - General 11/07/16 06/29/22 documented as of this encounter
--- OUTSIDE RECORDS SUMMARY | 2024-12-05 18:42 | XMS_ITS | Encounter Summary ---
Demographics Address [address] [place] [address] Home Phone Preferred Language Turkmen Marital Status Unknown Confucianism Affiliation Unknown Race White Ethnic Group Unknown Author Organization [facility] Address [address] [place] [address] Phone Support Name Relationship Address Phone Karon Stearns Mother [address] [place] [address] Prakash Ferrari Father [address] [place] [address] Care Team Providers Care Telecommunication Lines Repairer Name Role Phone Nuria Luna MD Primary Care Provider [phone] Encounter Details Date Type Department Care Team (Late st Contact Info) Description 10/29/2010 Documentation [facility] [place] [address] [place], [place] [phone] Family Medicine, Physician [address] [place], [place] [address] Social History Tobacco Use Types Packs/Day Years [...] on filedocumented in this encounter Care Teams Telecommunication Lines Repairer Relationship Specialty Start Date End Date Nuria Luna MD [address] [place] [address] JATINDER De Santiago [address] PCP - General 11/07/16 06/29/22 documented as of this encounter
--- OUTSIDE RECORDS SUMMARY | 2024-12-05 18:42 | XMS_ITS | Encounter Summary ---
Demographics Address [address] [place] [address] Home Phone Preferred Language Prydeinig Marital Status Unknown Amish Affiliation Unknown Race White Ethnic Group Unknown Author Organization [facility] Address [address] [place] [address] Phone Support Name Relationship Address Phone Karon Stearns Mother [address] [place] [address] Prakash Ferrari Father [address] [place] [address] Care Team Providers Care Process Control Supervisor Name Role Phone Nuria Luna MD Primary Care Provider [phone] Encounter Details Date Type Department Care Team (Late st Contact Info) Description 11/13/2016 Conversion Encounter [facility] [place] [address] [place] [address] Social History Tobacco Use Types Packs/Day Years [...] filedocumented in this encounter Care Teams Process Control Supervisor Relationship Specialty Start Date End Date Nuria Luna MD [address] [place] [address] PCP - General 11/07/16 06/29/22 documented as of this encounter
--- OUTSIDE RECORDS SUMMARY | 2024-12-05 18:42 | XMS_ITS | Encounter Summary ---
Demographics Address [address] [place] [address] Home Phone Preferred Language Guamanian Marital Status Unknown Yazidi Affiliation Unknown Race White Ethnic Group Unknown Author Organization [facility] Address [address] [place] [address] Phone Support Name Relationship Address Phone Karon Stearns Mother [address] [place] [address] Prakash Ferrari Father [address] [place] [address] Care Team Providers Care Modern Greek Studies Professor Name Role Phone Nuria Luna MD Primary Care Provider [phone] Encounter Details Date Type Department Care Team (Late st Contact Info) Description 10/03/2009 Documentation [facility] [place] [address] [place], [place] [phone] Family Medicine, Physician [address] [place], [place] [address] Social History Tobacco Use Types Packs/Day Years [...] on filedocumented in this encounter Care Teams Modern Greek Studies Professor Relationship Specialty Start Date End Date Nuria Luna MD [address] [place] [address] JATINDER De Santiago [address] PCP - General 11/07/16 06/29/22 documented as of this encounter
--- OUTSIDE RECORDS SUMMARY | 2024-12-05 18:42 | XMS_ITS | Clinical Summary ---
Author Organization 175 [facility] Address 175 [place] [address] Phone Care Team Providers Care Division Head Name Role Phone Physician, No Pcp Primary [...] 3 Overview (03/18/2024): [facility] at age 13 [facility] Seizure disorder (CMS/HCC V24, CMS/HCC V28) 01/28 Overview (03/18/2024): Last seizure 1 year ago, had hx of astrocytoma resected at 1 yo, has serial cat scans/mris/ eegs Encounters Date Type Department Care Team Description 11/07/2024 1:45 PM EDT Office Visit Orthopedic Surgery - [place] [address] [place] [phone] Tarik Harris, DPM Hypertrophy of nail (Primary Dx) from Last 3 Months Immunizations Name Administration Dates Next Due DTP 09/23/1995, 1,1990,11/14,1990 [id number]-SYO-JIK (Pentacel) 2mo to less than 5yo 11/15/1991,02/16/1991,1990,10/13 HPV, Quadrivalent 06/02/2008,02/03/2008,11/09/19 08 Hepatitis B (Dyjwutf-Y-Ixcgl , Recombivax HB-Adult) 19yo and older 10/04/1999 Hepatitis B Pediatric (Enger ix B; Recombivax HB) to less than 20 yo 11/09/1999 Influenza trivalent, 0.5mL, preservative free (Fluarix; FluLaval; Fluzone) ages 6mo and older (Afluria) 3 years and older 01/22/2020,12/11/2015,02/16/2015,12/28,02/03/2008,03/19/2006 MMR, measles mumps and rubel la Live (Priorix; M-M-R II) 12mo and older 09/23/1995,11/15/1991 Meningococcal MCV4P 07/31/2006 OPV 09/23/1995, 2,1990,10/13 PeopleString SARS-CoV-2 COVID-19, mRNA, LNP-S, preservative free 07/23/2020 Td Tetanus diptheria (Tdvax) 7yo and older 09/16/2001 Tdap Tetanus diptheria acell ular pertussis (Boostrix; Adacel) 7yo and older 10/27/2021,11/09/2007 Surgical History Surgery Date Site/Laterality Comments OTHER SURGICAL HISTORY PROCEDURE: ---- OTHER ----; COMMENT: craniotomy left temporal astrocytoma Medical History Medical History Date Comments Seizure disorder ([facility] V2 4, CMS/[facility] [...] PM EST Office Visit Orthopedic Surgery - [place] [address] [address] Tarik Harris, DPM [address] [address] Health Maintenance Due Date Last Done Comments [...] Annual GFR (Glomerular Filtration Rate) 07/31/2023 07/30/2022 Depression Screening 03/30/2024 Diabetes: Annual Urine Albumin-Creatinine Ratio (uACR) 08/08/2024 Diabetes: Blood Sugar Control Test (HGBA1C) 08/08/2024 08/06/2022 Hypertension/CHF/CAD Annual BMP Blood Test 08/08/2024 07/30/2022 COVID-19 Vaccine ( season) 2024 02/24/2023, 05/04/2021, 07/23/2020, Additional history exists Influenza Vaccine (#1) 2024 , 12/24/2022, 02/04/2022, [...] Health Maintenance Results * Hemoglobin A1c (08/06/2022) [facility] Hemoglobin A1C 6.0 <=6.5 % Blood Venous blood specimen / Unknown Result [facility] Provider LAB BLOOD ORDERABLES Johanna l Result * Annual BMP Blood Test (07/30/2022) [facility] Annual BMP Blood Test Abstracted Result [facility] Provider HEALTH MAINTENANCE Final Result * (ABNORMAL) Lipid panel (07/30/2022) [facility] LDL/HDL Ratio 6(A) 0 - 4 Triglycerides 267(A) 0 - 150 mg/dL Cholesterol 234(A) 0 - 200 mg/dL HDL 37(A) >=40 mg/dL LDL Cholesterol 144(A) 0 - 100 mg/dL Blood Venous blood specimen / Unknown [facility] Provider LAB BLOOD ORDERABLES Johanna l Result * Hepatitis C Screening (03/02/2020) [facility] Hepatitis C Screening Abstracted Historical Provider HEALTH MAINTENANCE Final Result * Cervical Cancer Screening: HPV (12/25/2015) Pathologist [facility] Cervical Cancer Screening: HPV No Interpretation , Abstracted Historical Provider HEALTH MAINTENANCE Final Result from Last 3 Months or Most Recently Relevant to Health Maintenance Insurance [facility] Member Subscriber Plan / Payer (Ef fective 2018-Present) Name:STANFORD DEAL Relation to Subscriber:Self Name:Stanford Deal Payer ID:[id number] Group ID:[id number] Type:Not on file Address: [facility] [address] [id number] MEDICAID - [place] Care Teams Division Head Relationship Specialty Start Date End Date Physician, No Pcp PCP - General 03/30/23
[2024-12-05 18:51] LABS: Microalbum/Creatinine Ratio Ur 22.3 ug/mg cr (<30)
[2024-12-06 05:17] LABS: Hemoglobin A1C 117.1139 umol/L; Total Hemoglobin (HGBA1C) 3727.0786 umol/L
== END 2024-12-05 15:58 | disposition home or self-care (01) ==
LOC: HO.MRI 15:57
PROVIDERS: Absent Provider Physician Assistant; PCP Physician Assistant; Visit Provider Physician Assistant Medical
DX: Z85.841 Personal history of malignant neoplasm of brain (principal); I10 Essential (primary) hypertension; E78.2 Mixed hyperlipidemia; G40.209 Localization-related (focal) (partial) symptomatic epilepsy and epileptic syndromes with complex partial seizures, not intractable, without status epilepticus; E11.9 Type 2 diabetes mellitus without complications
CPT/HCPCS: 36415; 70551; 80053; 80061; 82043; 82570; 83036; 84443; 85025

== ENCOUNTER → 2024-12-05 16:43 | Outpatient (BNV) | payer OTHER, SELFPAY | PROVIDERS: Absent Provider Physician Assistant; PCP Physician Assistant; Visit Provider Radiology Diagnostic Radiology | DX: Z85.841 Personal history of malignant neoplasm of brain (principal) | CPT/HCPCS: 70551 ==

== ENCOUNTER → 2024-12-08 20:30 | Outpatient (REF) | payer OTHER, SELFPAY ==
--- OUTSIDE RECORDS SUMMARY | 2024-12-08 21:43 | XMS_ITS | Encounter Summary ---
Demographics Address [address] [place] [address] Home Phone Preferred Language Swedish Marital Status Unknown Yazidi Affiliation Unknown Race White Ethnic Group Unknown Author Organization [facility] Address [address] [place] [address] Phone Support Name Relationship Address Phone Karon Stearns Mother [address] [place] [address] Prakash Ferrari Father [address] [place] [address] Care Team Providers Care Cargo Tank Mechanic Name Role Phone Nuria Luna MD Primary Care Provider [phone] Encounter Details Date Type Department Care Team (Late st Contact Info) Description 10/29/2010 Documentation [facility] Family Medicine [address] [place], [place] [id number] Family Medicine, Physician [address] [place], [place] [address] Social History Tobacco Use Types Packs/Day Years [...] filedocumented in this encounter Care Teams Cargo Tank Mechanic Relationship Specialty Start Date End Date Nuria Luna MD [address] [place] [address] JATINDER De Santiago [address] PCP - General 11/07/16 06/29/22 documented as of this encounter
--- OUTSIDE RECORDS SUMMARY | 2024-12-08 21:43 | XMS_ITS | Clinical Summary ---
Author Organization [facility] Address [address] [employer] [facility] [address] [place] [address] Phone Care Team Providers Care Software Quality Analyst Name Role Phone Brian Gonzalez MD Primary Care Provider [phone] Social History Tobacco Use Types Packs/Day Years [...] file Insurance MEDICARE PART A & B [facility] MEDICARE PART A & [place] MEDICARE PART A & B HEALTH MEDICARE PART A & [place] [address] [place] [address] MEDICARE PART A & B [facility] A & B [facility] Care Teams Software Quality Analyst Relationship Specialty Start Date End Date Brian Gonzalez MD [address] [place] [address] PCP - General Internal Medicine 10/14/16 Additional Source Comments The information contained in this document represents components of the legal health record. It is not the complete legal health record.[facility]
--- OUTSIDE RECORDS SUMMARY | 2024-12-08 21:43 | XMS_ITS | Encounter Summary ---
Demographics Address [address] [place] [address] Home Phone Preferred Language Kyrgyz Marital Status Unknown Latter-Day Affiliation Unknown Race White Ethnic Group Unknown Author Organization [facility] Address [address] [place] [address] Phone Support Name Relationship Address Phone Karon Stearns Mother [address] [place] [address] Prakash Ferrari Father [address] [place] [address] Care Team Providers Care Mosaicist Name Role Phone Nuria Luna MD Primary Care Provider [phone] Encounter Details Date Type Department Care Team (Late st Contact Info) Description 01/15/2010 Documentation [facility] Family Medicine [address] [place], [place] [phone] Family Medicine, Physician [address] [place], [place] [address] Social History Tobacco Use Types Packs/Day Years [...] on filedocumented in this encounter Care Teams Mosaicist Relationship Specialty Start Date End Date Nuria Luna MD [address] [place] [address] JATINDER De Santiago [address] PCP - General 11/07/16 06/29/22 documented as of this encounter
--- OUTSIDE RECORDS SUMMARY | 2024-12-08 21:43 | XMS_ITS | Encounter Summary ---
Demographics Address [address] [place] [address] Home Phone Preferred Language Belarusian Marital Status Unknown Anabaptist Affiliation Unknown Race White Ethnic Group Unknown Author Organization [facility] Address [address] [place] [address] Phone Support Name Relationship Address Phone Karon Stearns Mother [address] [place] [address] Prakash Ferrari Father [address] [place] [address] Care Team Providers Care Fancy Wire Drawer Name Role Phone Nuria Luna MD Primary Care Provider [phone] Encounter Details Date Type Department Care Team (Late st Contact Info) Description 10/03/2009 Documentation [facility] Family Medicine [address] [place], [place] [id number] Family Medicine, Physician [address] [place], [place] [address] Social History Tobacco Use Types Packs/Day Years [...] on filedocumented in this encounter Care Teams Fancy Wire Drawer Relationship Specialty Start Date End Date Nuria Luna MD [address] [place] [address] JATINDER De Santiago [address] PCP - General 11/07/16 06/29/22 documented as of this encounter
--- OUTSIDE RECORDS SUMMARY | 2024-12-08 21:43 | XMS_ITS | Encounter Summary ---
Demographics Address [address] [place] [address] Home Phone Preferred Language Romansh Marital Status Unknown Synagogue Affiliation Unknown Race White Ethnic Group Unknown Author Organization [facility] Address [address] [place] [address] Phone Support Name Relationship Address Phone Karon Stearns Mother [address] [place] [address] Prakash Ferrari Father [address] [place] [address] Care Team Providers Care Bomb Squad Officer Name Role Phone Nuria Luna MD Primary Care Provider Encounter Details Date Type Department Care Team (Late st Contact Info) Description 11/13/2016 Conversion Encounter [facility] [address] [place] [address] Social History Tobacco Use Types Packs/Day Years [...] on filedocumented in this encounter Care Teams Bomb Squad Officer Relationship Specialty Start Date End Date Nuria Luna MD [address] [place] [address] PCP - General 11/07/16 06/29/22 documented as of this encounter
--- OUTSIDE RECORDS SUMMARY | 2024-12-08 21:43 | XMS_ITS | Clinical Summary ---
Author Organization [address] [facility] Address [address] [place] [address] Phone Care Team Providers Care Rehab Assistant Name Role Phone Physician, No Pcp Primary [...] 3 Overview (03/18/2024): [facility] age 13 [facility] Seizure disorder (CMS/HCC V24, CMS/HCC V28) 01/28 Overview (03/18/2024): Last seizure 1 year ago, had hx of astrocytoma resected at 1 yo, has serial cat scans/mris/ eegs Encounters Date Type Department Care Team Description 11/07/2024 1:45 PM EDT Office Visit Orthopedic Surgery - [place] [address] [place] [phone] Tarik Harris, DPM Hypertrophy of nail (Primary Dx) from Last 3 Months Immunizations Name Administration Dates Next Due DTP 09/23/1995, 1,1990,11/14,1990 BZmR-IPI-SEP (Pentacel) 2mo to less than 5yo 11/15/1991,02/16/1991,1990,10/13 HPV, Quadrivalent 06/02/2008,02/03/2008,11/09/19 08 Hepatitis B (Ndywpwt-E-Wneqh , Recombivax HB-Adult) 19yo and older 10/04/1999 Hepatitis B Pediatric (Enger ix B; Recombivax HB) to less than 20 yo 11/09/1999 Influenza trivalent, 0.5mL, preservative free (Fluarix; FluLaval; Fluzone) ages 6mo and older (Afluria) 3 years and older 01/22/2020,12/11/2015,02/16/2015,12/28,02/03/2008,03/19/2006 MMR, measles mumps and rubel la Live (Priorix; M-M-R II) 12mo and older 09/23/1995,11/15/1991 Meningococcal MCV4P 07/31/2006 OPV 09/23/1995, 2,1990,10/13 [employer]ight Direct ([employer]) SARS-CoV-2 COVID-19, mRNA, LNP-S, preservative free 07/23/2020 Td Tetanus diptheria (Tdvax) 7yo and older 09/16/2001 Tdap Tetanus diptheria acell ular pertussis (Boostrix; Adacel) 7yo and older 10/27/2021,11/09/2007 Surgical History Surgery Date Site/Laterality Comments OTHER SURGICAL HISTORY PROCEDURE: ---- OTHER ----; COMMENT: craniotomy left temporal astrocytoma Medical History Medical History Date Comments Seizure disorder ([facility] V2 4, CMS/[facility] V28) 02/13/2012 DX:Seizure disorder (HCC) Shingles DX:Shingles PCOS (polycystic ovarian syndrome) DX:PCOS (polycystic ovarian syndrome) Astrocytoma (CMS/HCC V24, CM S/HCC V28) 07/13/2012 DX:Astrocytoma (HCC) Complex partial epileptic se izure (CMS/HCC V24, CMS/[facility] V28) DX:Complex partial epilepti c seizure (HCC) Absence seizure (CMS/HCC V24 , CMS/[facility] V28) DX:Absence seizure (HCC) Decreased level [...] PM EST Office Visit Orthopedic Surgery - [place] [address] [phone] Tarik Harris, DPM [address] [address] Health Maintenance Due Date Last [...] Health Maintenance Results * Hemoglobin A1c (08/06/2022) [facility] Hemoglobin A1C 6.0 <=6.5 % Blood Venous blood specimen / Unknown Result [facility] Provider LAB BLOOD ORDERABLES Johanna l Result * Annual BMP Blood Test (07/30/2022) [facility] Annual BMP Blood Test Abstracted Result [facility] Provider HEALTH MAINTENANCE Final Result * (ABNORMAL) Lipid panel (07/30/2022) [facility] LDL/HDL Ratio 6(A) 0 - 4 Triglycerides 267(A) 0 - 150 mg/dL Cholesterol 234(A) 0 - 200 mg/dL HDL 37(A) >=40 mg/dL LDL Cholesterol 144(A) 0 - 100 mg/dL Blood Venous blood specimen / Unknown [facility] Provider LAB BLOOD ORDERABLES Johanna l Result * Hepatitis C Screening (03/02/2020) [facility] Hepatitis C Screening Abstracted Historical Provider HEALTH MAINTENANCE Final Result * Cervical Cancer Screening: HPV (12/25/2015) Pathologist [facility] Cervical Cancer Screening: HPV No Interpretation , Abstracted Historical Provider HEALTH MAINTENANCE Final Result from Last 3 Months or Most Recently Relevant to Health Maintenance Insurance [facility] Member Subscriber Plan / Payer (Ef fective 2018-Present) Name:STANFORD DEAL Relation to Subscriber:Self Name:Stanford Deal Payer ID:[id number] Group ID:[id number] Type:Not on file Address: [facility] [address] [address] MEDICAID - [place] Care Teams Rehab Assistant Relationship Specialty Start Date End Date Physician, No Pcp PCP - General 03/30/23
--- OUTSIDE RECORDS SUMMARY | 2024-12-08 21:43 | XMS_ITS | Encounter Summary ---
Demographics Address [address] [place] [address] Home Phone Preferred Language Armenian Marital Status Unknown Taoist Affiliation Unknown Race White Ethnic Group Unknown Author Organization [facility] Address [address] [place] [address] Phone Support Name Relationship Address Phone Karon Stearns Mother [address] [place] [address] Prakash Ferrari Father [address] [place] [address] Care Team Providers Care Marine Fireman Name Role Phone Nuria Luna MD Primary Care Provider Encounter Details Date Type Department Care Team (Late st Contact Info) Description 09/11/2009 Documentation [facility] Family Medicine [address] [place], [place] [phone] Family Medicine, Physician [address] [place], [place] [address] Social History Tobacco Use Types Packs/Day Years [...] filedocumented in this encounter Care Teams Marine Fireman Relationship Specialty Start Date End Date Nuria Luna MD [address] [place] [address] JATINDER De Santiago [address] PCP - General 11/07/16 06/29/22 documented as of this encounter
--- OUTSIDE RECORDS SUMMARY | 2024-12-08 21:43 | XMS_ITS | Clinical Summary ---
Demographics Address [address] [place] [address] Home Phone Preferred Language Canadian Marital Status Unknown Judaism Affiliation Unknown Race White Ethnic Group Unknown Author Organization [facility] Address [address] [place] [address] Phone Support Name Relationship Address Phone Karon Stearns Mother [address] [place] [address] Prakash Ferrari Father [address] [place] [address] Care Team Providers Care Engineer Third Assistant Name Role Phone Unavailable Primary Care Provider [...]
--- OUTSIDE RECORDS SUMMARY | 2024-12-08 21:43 | XMS_ITS | Clinical Summary ---
Author Organization [facility] Address [address] [place] [address] Phone Care Team Providers Care Shot Hole Shooter Name Role Phone Brian Gonzalez Primary Care Provider [phone] Brian Gonzalez Unavailable Brian Gonzalez Unavailable Medications [...] 6, Entered: 12/20/20 13:23:00 EDT, [facility] 1 Active Immunizations Immunization Administration [...] 12/16/2018 2:45 PM EDT Plan of Treatment Not on file Care Teams Shot Hole Shooter Relationship Specialty Start Date End Date Brian Gonzalez [address] [place] [address] PCP - General 10/14/16 Brian Gonzalez [address] [place] [address] PCP - Clinical PCP 10/14/16 Brian Gonzalez [address] [place] [address] PCP - Insurance PCP 10/14/16
--- OUTSIDE RECORDS SUMMARY | 2024-12-08 21:44 | XMS_ITS | Encounter Summary ---
Demographics Address [address] [place] [address] Home Phone Preferred Language Indonesian Marital Status Unknown Pentecostal Affiliation Unknown Race White Ethnic Group Unknown Author Organization [facility] Address [address] [place] [address] Phone Support Name Relationship Address Phone Karon Stearns Mother [address] [place] [address] Prakash Ferrari Father [address] [place] [address] Care Team Providers Care Inserter Operator Name Role Phone Nuria Luna MD Primary Care Provider [phone] Encounter Details Date Type Department Care Team (Late st Contact Info) Description 11/06/2009 Documentation [facility] [place] [address] [place], [place] [phone] Family Medicine, Physician [address] [place], [place] [address] Social History Tobacco Use Types Packs/Day Years [...] on filedocumented in this encounter Care Teams Inserter Operator Relationship Specialty Start Date End Date Nuria Luna MD [address] [place] [address] JATINDER De Santiago [address] PCP - General 11/07/16 06/29/22 documented as of this encounter
== END ==
LOC: HO.SL 20:30
PROVIDERS: PCP Physician Assistant; Visit Provider Physician Assistant Medical
DX: Z13.89 Encounter for screening for other disorder (principal)

== ENCOUNTER → 2024-12-08 21:29 | Outpatient (BNV) | payer OTHER, SELFPAY | PROVIDERS: PCP Physician Assistant; Visit Provider Psychiatry & Neurology Neurology | DX: G47.33 Obstructive sleep apnea (adult) (pediatric) (principal) | CPT/HCPCS: 95810 ==

== ENCOUNTER 2024-12-22 09:51 | Outpatient (REF) | payer OTHER, SELFPAY ==
--- NOTE | 2024-12-22 09:54 | EEG_ITS ---
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 HX: PT. IS A 34 YR. OLD LT. 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 SHE HAS HAD 3 SEIZURES IN LAST 2 MONTHS. LASTING 1-2 MINS. SHE DOES GET WARNING. UNCONTROLLED DM, SEVERE OBESITY, SCHIZO-AFFECTIVE DIS, CHR DEPRESSION, HYPERLIPADEMIA, HTN, GEN. ANXIETY, HIDRADENITIS SUPPURATIVE, BRAIN SURGURY. Technical description: Tech performing study: AT Photic stimulation: Completed Hyperventilation: Completed State of Consciousness: Awake Skull defect: yes- F3,C3, anterior T3, A1 Sedation:no Handedness:Left Duration of study: < 30 min Description: This is a 16 channel EEG with an EKG lead. Background EEG rhythm is 8-10 hertz 5 to 100 microvolt posteriorly and lower amplitude fast anteriorly. There was slight asymmetry of tracing with amplitude slightly larger in left hemispheric lead than right. Otherwise no definite sharp wave spikes or paroxysmal tendency was noted. Photic stimulation did not produce any significant abnormality. Hyperventilation was unremarkable. Cardiac lead did not reveal any significant abnormality. Impression: No epileptic tendency noted though there was slight asymmetry of amplitudes, which can happened and migraine or with a structural lesion. Imaging correlation is also recommended. [facility]
--- OUTSIDE RECORDS SUMMARY | 2024-12-22 11:46 | XMS_ITS | Clinical Summary ---
Author Organization [address] [facility] Address [address] [place] [address] Phone Care Team Providers Care Naval Designer Name Role Phone Physician, No Pcp Primary [...] 3 Overview (03/18/2024): [facility] age 13 [facility] Seizure disorder (CMS/HCC V24, CMS/HCC V28) 01/28 Overview (03/18/2024): Last seizure 1 year ago, had hx of astrocytoma resected at 1 yo, has serial cat scans/mris/ eegs Encounters Date Type Department Care Team Description 11/07/2024 1:45 PM EDT Office Visit Orth[facility] [place] [address] [place] [phone] Tarik Harris, DPM Hypertrophy of nail (Primary Dx) from Last 3 Months Immunizations Name Administration Dates Next Due DTP 09/23/1995, 1,1990,11/14,1990 UMqP-OXF-EVS (Pentacel) 2mo to less than 5yo 11/15/1991,02/16/1991,1990,10/13 HPV, Quadrivalent 06/02/2008,02/03/2008,11/09/19 08 Hepatitis B (Gcoehog-O-Zcgsb , Recombivax HB-Adult) 19yo and older 10/04/1999 Hepatitis B Pediatric (Enger ix B; Recombivax HB) to less than 20 yo 11/09/1999 Influenza trivalent, 0.5mL, preservative free (Fluarix; FluLaval; Fluzone) ages 6mo and older (Afluria) 3 years and older 01/22/2020,12/11/2015,02/16/2015,12/28,02/03/2008,03/19/2006 MMR, measles mumps and rubel la Live (Priorix; M-M-R II) 12mo and older 09/23/1995,11/15/1991 Meningococcal MCV4P 07/31/2006 OPV 09/23/1995, 2,1990,10/13 Informous SARS-CoV-2 COVID-19, mRNA, LNP-S, preservative free 07/23/2020 Td Tetanus diptheria (Tdvax) 7yo and older 09/16/2001 Tdap Tetanus diptheria acell ular pertussis (Boostrix; Adacel) 7yo and older 10/27/2021,11/09/2007 Surgical History Surgery Date Site/Laterality Comments OTHER SURGICAL HISTORY PROCEDURE: ---- OTHER ----; COMMENT: craniotomy left temporal astrocytoma Medical History Medical History Date Comments Seizure disorder ([facility] V2 4, CMS/[facility] V28) 02/13/2012 DX:Seizure disorder (HCC) Shingles DX:Shingles PCOS (polycystic ovarian syndrome) DX:PCOS (polycystic ovarian syndrome) Astrocytoma (CMS/HCC V24, CM S/HCC V28) 07/13/2012 DX:Astrocytoma (HCC) Complex partial epileptic se izure (CMS/HCC V24, CMS/[facility] V28) DX:Complex partial epilepti c seizure (HCC) Absence seizure (CMS/HCC V24 , CMS/[facility] V28) DX:Absence seizure (HCC) Decreased level of [...] PM EST Office Visit Orth[facility] [place] [address] [address] Tarik Harris, DPM [address] [address] Health Maintenance Due Date Last [...] Health Maintenance Results * Hemoglobin A1c (08/06/2022) [facility] Hemoglobin A1C 6.0 <=6.5 % Blood Venous blood specimen / Unknown Result [facility] Provider LAB BLOOD ORDERABLES Johanna l Result * Annual BMP Blood Test (07/30/2022) [facility] Annual BMP Blood Test Abstracted Result [facility] Provider HEALTH MAINTENANCE Final Result * (ABNORMAL) Lipid panel (07/30/2022) [facility] LDL/HDL Ratio 6(A) 0 - 4 Triglycerides 267(A) 0 - 150 mg/dL Cholesterol 234(A) 0 - 200 mg/dL HDL 37(A) >=40 mg/dL LDL Cholesterol 144(A) 0 - 100 mg/dL Blood Venous blood specimen / Unknown [facility] Provider LAB BLOOD ORDERABLES Johanna l Result * Hepatitis C Screening (03/02/2020) [facility] Hepatitis C Screening Abstracted Historical Provider HEALTH MAINTENANCE Final Result * Cervical Cancer Screening: HPV (12/25/2015) Pathologist Pending sale to [facility] Cervical Cancer Screening: HPV No Interpretation , Abstracted Historical Provider HEALTH MAINTENANCE Final Result from Last 3 Months or Most Recently Relevant to Health Maintenance Insurance [facility] Member Subscriber Plan / Payer (Ef fective 2018-Present) Name:STANFORD DEAL Relation to Subscriber:Self Name:Stanford Deal Payer ID:[id number] Group ID:[id number] Type:Not on file Address: [facility] [address] [address] MEDICAID - [place] Care Teams Naval Designer Relationship Specialty Start Date End Date Physician, No Pcp PCP - General 03/30/23
--- OUTSIDE RECORDS SUMMARY | 2024-12-22 11:47 | XMS_ITS | Encounter Summary ---
Demographics Address [address] [place] [address] Home Phone Preferred Language Divehi Marital Status Unknown Sikh Affiliation Unknown Race White Ethnic Group Unknown Author Organization [facility] Address [address] [place] [address] Phone Support Name Relationship Address Phone Karon Stearns Mother [address] [place] [address] Prakash Ferrari Father [address] [place] [address] Care Team Providers Care Blackjack Supervisor Name Role Phone Nuria Luna MD Primary Care Provider Encounter Details Date Type Department Care Team (Late st Contact Info) Description 01/15/2010 Documentation [facility] [address] [place], [place] [id number] Family Medicine, Physician [address] [place], [place] [address] Social History Tobacco Use Types Packs/Day Years [...] on filedocumented in this encounter Care Teams Blackjack Supervisor Relationship Specialty Start Date End Date Nuria Luna MD [address] [place] [address] JATINDER De Santiago [address] PCP - General 11/07/16 06/29/22 documented as of this encounter
--- OUTSIDE RECORDS SUMMARY | 2024-12-22 11:47 | XMS_ITS | Data Portability ---
Author Organization [facility], [place] Address [address] [place] [address] [place] [address] Care Team Providers Care Jewel Hole Driller Name Role Phone MARK SINGH Referring Provider Unavailable MARK SINGH Primary Care Provider [phone] RICHARD DOMINGUEZ OTHER Assessment Encounter Date Assessment [...] same address as is shown in the [facility] EMR for us to fax a note. [...] glaucoma and she has also seen her tree climber and has reported that there is nothing to treat other than dry eyes. Discussed her mother's question of whether and underlying seizure would present itself as a hallucination to Tal: this would be exceedingly rare. Confirmed today that we do have her records from [facility] from Dr. Ruth from 09/24/2020 (brain MRI from April 30, 2017 is summarized in data review.) Has had more recent EEG and brain MRI at [facility] about 2 years ago. We [...] same address as is shown in the [facility] EMR for us to fax a note. We will try to obtain his updated address and include him with it for copies of all of our notes. LETICIA Stearns June 04, 2021 We will obtain electrolyte levels with particular attention to sodium to establish a baseline while you are on ox carbamazepine. We have faxed this to the [facility] laboratory at [address]. in [place] at your request. This address was newly [...] pharmacy today We will request records from [facility] with your MRI and EEG from about [...] assessment/plan in particular. Prakash Parada MD, PhD [facility] Not available 06/05/2021 14:36:58 Plan of Treatment Reminders Order Date Submit Date Provider Last Modified By Organization Details Last Modified Time Details Appointments None recorded. Lab BMP, serum or plasma - R94.4 Attn Phlebotomy 2021 022 sally 1 [facility], [address], [place], [address], 13:49:46 Referral None recorded. Procedures None recorded. Surgeries None recorded. Imaging None recorded. Medication Orders oxcarbazepi ne 600 mg tablet 2021 022 [facility], [address] [place], [address], 13:35:57 topiramate 100 mg tablet 2021 [facility], [address] [place], [address], 13:36:53 topiramate 50 mg tablet 2021 [facility], [address] [place], [address], 13:37:27 oxcarbazepi ne 600 mg tablet 2020 [facility], [address] [place], [address], 12:46:13 topiramate 100 mg tablet 2020 [facility], [address] [place], [address], 12:46:15 topiramate 50 mg tablet 2020 [facility], [address] [place], [address], 12:46:13 Patient TargetsNo targets recorded. Patient InstructionsNo [...] and Address Organization Details Recorded Time Seizure 09633793 Active Nella Veliz [facility] 01/10/2021 11:17:10 Problem Notes None recorded. Procedures Surgical History Date Name Laterality Status Provider Name and Address Organization Details Recorded Time craniotomy completed Nella Veliz [facility] 01/10/2021 11:18:51 Imaging Results None recorded. Procedure Notes None recorded. Medical Equipment None Reported. Allergies Allergen ID Allergen Name Allergen Category Reaction Reaction Severity Criticality Documentation Date Start Date Code Code System Note Provider Name and Address Organization Details Recorded Time 606 gadobutro l medicatio n Not available Not available Not available 01/10/2021 13445 Randall Veliz [facility] 11:25:59 607 Lamictal medicatio n Not available Not available Not available 01/10/2021 37155 2 Randall Veliz [facility] 11:26:07 Medications Name Sig [...] Updated DateTime 01/10/2021 162.56 cm 36 kg/m2 93086.4 g Nella Veliz [facility] 01/10/2021 11:10:21 Social History Question Answer Notes LastModified by Organizat ion Details LastModified Time Tobacco Smoking Status Never Smoker Nella zepeda [place] [facility] 01/10/2021 11:18:09 What Is Your Level Of [...] Diagnosis SNOMED-CT Code Diagnosis ICD10 Code Diagnosis IMO Codes Diagnosis Note 2312 Prakash Parada MD [facility] [address] [place] [address] [place] [address] 01/10/2021 11:08:49 01/10/2021 13:08:35 Focal onset impaired awareness epileptic seizure 959387124 G40.209 Absence seizure 89407468 G40.A09 Decreased level of consciousness 302647744 R40.4 4261 MELANIE SANTACRUZ PA-C [facility] [address] [place] [address] [place] [address] 06/04/2021 10:09:35 06/06/2021 16:48:46 Focal onset impaired awareness epileptic seizure 524772007 G40.209 Absence seizure 94405457 G40.A09 Decreased level of consciousness 832579208 R40.4 Health Concerns Section Related Observation LastModified by Organization Katieai ls LastModified Time None Recorded Concern Status LastModified by Organization Details LastModified Time None Recorded Advance Directives Directive None Recorded Payers Insurance Date Sequence Insurance Name Policy Number Policy Hamm Covered Member ID Hamm Member ID Guarantor Name 06/27/2021 1 [facility] - DOS PRIOR TO 2022 - DUAL ELIGIBLE (MEDICARE REPLACEMENT/AD VANTAGE - HMO) Wale Gaston [id number] Wale Stearns Notes Date Note Type Note [...] This stereotypic character was unchanged until about 2018 when seizures started becoming more like the [...] all been done by previous neurologist at [facility] who is moving to [place], last visit in August 2020 and from [...] been actively adjusting medications. Prakash Parada MD [address] [place] [address] [place], [address], [facility] 01/10/2021 13:07:21 06/04/2021 text/html Follow up [...] not last. She has been to her tree climber who does not have any specific recommendation other than btnt-wxh-pggpqde drops for dry eyes. Her mother has noticed that she seems to have hallucinations but only transiently and sometimes wonders if this is hallucinations blend into the seizure activity and given her history of left temporal lobe astrocytoma, wonders if this could be related. Her most recent MRI and EEG were done at [facility] 2 years ago. Which confirm that we have records from [facility] from 4 years ago. She continues [...] This stereotypic character was unchanged until about 2018 when seizures started becoming more like the [...] all been done by previous neurologist at [facility] who is moving to [place], last visit in August 2020 and from [...] been actively adjusting medications. Prakash Parada MD [address] [place] [address] [place], [address], [facility] 06/05/2021 14:37:13 OBGyn Episode No OBEpisode recorded.
--- OUTSIDE RECORDS SUMMARY | 2024-12-22 11:47 | XMS_ITS | Encounter Summary ---
Demographics Address [address] [place] [address] Home Phone Preferred Language Chinese Marital Status Unknown Buddhism Affiliation Unknown Race White Ethnic Group Unknown Author Organization [facility] Address [address] [place] [address] Phone Support Name Relationship Address Phone Karon Stearns Mother [address] [place] [address] Prakash Ferrari Father [address] [place] [address] Care Team Providers Care Auto Self Service Station Attendant Name Role Phone Nuria Luna MD Primary Care Provider Encounter Details Date Type Department Care Team (Late st Contact Info) Description 10/03/2009 Documentation [facility] Family Medicine [address] [place], [place] [phone] Family Medicine, Physician [address] [place], [place] [address] Social History Tobacco Use Types Packs/Day Years [...] on filedocumented in this encounter Care Teams Auto Self Service Station Attendant Relationship Specialty Start Date End Date Nuria Luna MD [address] [place] [address] JATINDER De Santiago [address] PCP - General 11/07/16 06/29/22 documented as of this encounter
--- OUTSIDE RECORDS SUMMARY | 2024-12-22 11:47 | XMS_ITS | Encounter Summary ---
Demographics Address [address] [place] [address] Home Phone Preferred Language Vietnamese Marital Status Unknown Shinto Affiliation Unknown Race White Ethnic Group Unknown Author Organization [facility] Address [address] [place] [address] Phone Support Name Relationship Address Phone Karon Stearns Mother [address] [place] [address] Prakash Ferrari Father [address] [place] [address] Care Team Providers Care Holder Pile Driving Name Role Phone Nuria Luna MD Primary Care Provider [phone] Encounter Details Date Type Department Care Team (Late st Contact Info) Description 10/29/2010 Documentation [facility] Family Medicine [address] [place], [place] [phone] Family Medicine, Physician [address] [place], [place] [address] Social History Tobacco Use Types Packs/Day Years [...] on filedocumented in this encounter Care Teams Holder Pile Driving Relationship Specialty Start Date End Date Nuria Luna MD [address] [place] [address] JATINDER De Santiago [address] PCP - General 11/07/16 06/29/22 documented as of this encounter
--- OUTSIDE RECORDS SUMMARY | 2024-12-22 11:47 | XMS_ITS | Encounter Summary ---
Demographics Address [address] [place] [address] Home Phone Preferred Language Mongolian Marital Status Unknown Anabaptism Affiliation Unknown Race White Ethnic Group Unknown Author Organization [facility] Address [address] [place] [address] Phone Support Name Relationship Address Phone Karon Stearns Mother [address] [place] [address] Prakash Ferrari Father [address] [place] [address] Care Team Providers Care Powerhouse Attendant Name Role Phone Nuria Luna MD Primary Care Provider [phone] Encounter Details Date Type Department Care Team (Late st Contact Info) Description 09/11/2009 Documentation [facility] Family Medicine [address] [place], [place] [phone] Family Medicine, Physician [address] [place], [place] [address] Social History Tobacco Use Types Packs/Day Years [...] on filedocumented in this encounter Care Teams Powerhouse Attendant Relationship Specialty Start Date End Date Nuria Luna MD [address] [place] [address] JATINDER De Santiago [address] PCP - General 11/07/16 06/29/22 documented as of this encounter
--- OUTSIDE RECORDS SUMMARY | 2024-12-22 11:47 | XMS_ITS | Clinical Summary ---
Author Organization [facility] Address [address] [facility] [address] [place] [address] Phone Care Team Providers Care Kitchenhand Name Role Phone Brian Gonzalez MD Primary Care Provider [phone] Social History Tobacco Use Types Packs/Day Years [...] SCREENING (18-65 YEARS) 2008 PAP SMEAR 08/11/2011 INFLUENZA VACCINE (#1) 2024 , 12/11/2015, 02/16/2015, Additional history exists COVID-19 VACCINE ( season) 2024 07/23/2020, 07/02/2020 Adult Td,Tdap Booster 10/28/2031 10/27/2021 [...] Insurance MEDICARE PART A & B [facility] MEDICARE PART A & [place] MEDICARE PART A & B HEALTH MEDICARE PART A & [place] [address] [place] [address] MEDICARE PART A & [facility] & B [facility] Care Teams Kitchenhand Relationship Specialty Start Date End Date Brian Gonzalez MD [address] [place] [address] PCP - General Internal Medicine 10/14/16 Additional Source Comments The information contained in this document represents components of the legal health record. It is not the complete legal health record.[facility]
--- OUTSIDE RECORDS SUMMARY | 2024-12-22 11:47 | XMS_ITS | Encounter Summary ---
Demographics Address [address] [place] [address] Home Phone Preferred Language Wolof Marital Status Unknown Jew Affiliation Unknown Race White Ethnic Group Unknown Author Organization [facility] Address [address] [place] [address] Phone Support Name Relationship Address Phone Karon Stearns Mother [address] [place] [address] Prakash Ferrari Father [address] [place] [address] Care Team Providers Care Scissors Grinder Name Role Phone Nuria Luna MD Primary Care Provider Encounter Details Date Type Department Care Team (Late st Contact Info) Description 11/06/2009 Documentation [facility] Family Medicine [address] [place], [place] [phone] Family Medicine, Physician [address] [place], [place] [address] Social History Tobacco Use Types Packs/Day Years [...] on filedocumented in this encounter Care Teams Scissors Grinder Relationship Specialty Start Date End Date Nuria Luna MD [address] [place] [address] JATINDER De Santiago [address] PCP - General 11/07/16 06/29/22 documented as of this encounter
--- OUTSIDE RECORDS SUMMARY | 2024-12-22 11:47 | XMS_ITS | Encounter Summary ---
Demographics Address [address] [place] [address] Home Phone Preferred Language Spanish Marital Status Unknown Restorationism Affiliation Unknown Race White Ethnic Group Unknown Author Organization [facility] Address [address] [place] [address] Phone Support Name Relationship Address Phone Karon Stearns Mother [address] [place] [address] Prakash Ferrari Father [address] [place] [address] Care Team Providers Care Supervisor Twisting Department Name Role Phone Nuria Luna MD Primary Care Provider Encounter Details Date Type Department Care Team (Late st Contact Info) Description 11/13/2016 Conversion Encounter [facility] [address] [place] [address] Social History Tobacco Use Types Packs/Day Years [...] filedocumented in this encounter Care Teams Supervisor Twisting Department Relationship Specialty Start Date End Date Nuria Luna MD [address] [place] [address] PCP - General 11/07/16 06/29/22 documented as of this encounter
--- OUTSIDE RECORDS SUMMARY | 2024-12-22 11:47 | XMS_ITS | Clinical Summary ---
Demographics Address [address] [place] [address] Home Phone Preferred Language St Helenian Marital Status Unknown Jewish Affiliation Unknown Race White Ethnic Group Unknown Author Organization [facility] Address [address] [place] [address] Phone Support Name Relationship Address Phone Karon Stearns Mother [address] [place] [address] Prakash Ferrari Father [address] [place] [address] Care Team Providers Care Medical And Health Services Manager Name Role Phone Unavailable Primary Care Provider [...]
--- OUTSIDE RECORDS SUMMARY | 2024-12-22 11:47 | XMS_ITS | Clinical Summary ---
Author Organization [facility] Address [address] [place] [address] Phone Care Team Providers Care Utility Person Name Role Phone Brian Gonzalez Primary Care Provider [phone] Brian Gonzalez Unavailable Brian Gonzalez Unavailable Medications [...] 6, Entered: 12/20/20 13:23:00 EDT, [facility] 1 Active Immunizations Immunization Administration [...] of Treatment Not on file Care Teams Utility Person Relationship Specialty Start Date End Date Brian Gonzalez [address] [place] [address] PCP - General 10/14/16 Brian Gonzalez [address] [place] [address] PCP - Clinical PCP 10/14/16 Brian Gonzalez [address] [place] [address] PCP - Insurance PCP 10/14/16
== END 2024-12-22 09:52 | disposition home or self-care (01) ==
LOC: HO.NEURO 09:51
PROVIDERS: PCP Physician Assistant; Visit Provider Physician Assistant Medical
DX: G40.209 Localization-related (focal) (partial) symptomatic epilepsy and epileptic syndromes with complex partial seizures, not intractable, without status epilepticus (principal)
CPT/HCPCS: 95816

== ENCOUNTER → 2024-12-22 09:54 | Outpatient (BNV) | payer OTHER, SELFPAY | PROVIDERS: PCP Physician Assistant; Visit Provider Psychiatry & Neurology Neurology | DX: G40.209 Localization-related (focal) (partial) symptomatic epilepsy and epileptic syndromes with complex partial seizures, not intractable, without status epilepticus (principal) | CPT/HCPCS: 95816 ==

== ENCOUNTER 2025-01-23 12:36 | Outpatient (AMB) | payer OTHER, SELFPAY ==
[2025-01-23 12:49] VITALS: BP 100/60; PULSE 76; O2SAT 97; BMI 36.3
--- NOTE | 2025-01-23 12:49 | MHC.OFFVIS ---
Vital Signs 01/23/25 12:49 Height 5 ft 3 in Weight 205 lb BMI 36.3 BP 100/60 Blood Pressure Location Rt brachial Position Sitting Pulse 76 Pulse Source Pulse Oximeter Pulse Oximetry (%) 97 Oxygen Delivery Method Room Air Intake Visit Reasons: 6 mo follow up Cascade Operator Required: No Accompanied by: Mother Allergies lamotrigine (From LAMICTAL) Allergy (Unknown, Verified 01/23/25 12:53) RASH tirzepatide (From Mounjaro) Allergy (Unknown, Verified 01/23/25 12:53) gi upset gadobutrol (From Gadavist) Allergy (Verified 01/23/25 12:53) hives ozempic Allergy (Unknown, Uncoded 01/23/25 12:53) gi issues HPI Comments Details: 34y/o female with seizure disorder and 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 [place] her mother is here and helps with history. MRI and EEG reviewed with pt today. PSG reviewed [facility] pt, c/w mild mike AHI is 8 and REM AHI is 54 with oxygen nadirs to 74%, start cpap therapy and monitor for compliance. Thursday night 21 January she was having trouble falling asleep, she went to bathroom, she passed out then lost consciousness for a few seconds, could not see or hear anything, denies drooling, biting her tongue and incontinence. She forgot to take her Oxcarbazepine 600mg and topiramate that day. She has lost 205lbs and continues with Prozac 20mg po daily at am. Her mood has been improved with this dose, she can focus on work, and still is shy with people and social interactions. She works 5-9pm, 3-4 days a week, mom drives her to work. She is now able to interact with people and even to the mall to run her own errands. She is trying to learn and discover new social activities and now trying to decide what career choices she would like to make. Her sleep is good, she falls asleep at 7pm and goes to sleep at 9pm to 10pm though continuously fragmented. PMH Astrocytoma 4cm resected in 1991 [facility] in [place]. September 01 2024, October 20, 2024 and Nov 04, 2024, she says she has had 4 seizures in the last 2-3 months, and each lasting about 1-2min at maximum intervals. She moves her l. arm and taps her feet during the episodes, she has a blank facial expression with an uncomfortable but intentional and deep swallowing reflex as if she is trying to push her saliva down the throat. She has temperature sensation fluctuations in her r. arm and hands feel hot and in seconds turn extremely cold. She has a post-ictal like phase where she has to sit down and relaxes due to fatigue, and after 5-10min She denies convulsions, shaking, drooling, biting of tongue, gritting of teeth, grunting, and or urinary incontinence or fecal incontinence due to loss of bladder or bowel function. She usually goes to bed at 11pm and wakes up at 9am denies difficulties with sleep, and AH have decreased. She is well managed on Olanzapine and follows up with her therapist regularly. She denies parasomnias, snoring, gasping for air or choking. She feels chronically fatigued, grinds her teeth and clenches at night, denies jaw pain. She is usually seizure free for 6monhts, then will have one single episode each month. 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 She has tried monjarou, ozempic, zepbound, and could not tolerate these meds due to s/e of sulfuric burp. Seizure protocol Topiramate 150mg po BID. Oxcarbazapine- Trileptal- 600mg po BID Olanzapine for schizo-affective disorder due to paranoia, and AH, with s/e of increased appetite and weight gain. Lorazepam for anxiety and Dr. lazar Humira injections once / week subcutaneously per Support Director. She plans to speak with Dr. Richard Rosario, her psychiatrist so she can change her medication from Prozac 10mg to Lexapro and or Escitalopram, which she has trialed in the past with good effects. Previous medical history: She started having episodes at 9 mths of age - the episode was right hand raising followed by head turning to right and staring, unresponsively which lasted 30-60 seconds.She would vomit and experience fatigue usually immediately after the episode. 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 No chemo or radiation therapy, she was followed up at [facility] by Dr. Ruth neurologist and Dr. Shook. She continued to have seizures though the seismology changed over time. No episodes of generalized tonic clonic seizures. She was tried on multiple medications this includes lamictal, tegretol, depakote, keppra. Currently she is on topiramate 150mg bid and trileptal 600mg bid. Psychotic break down, with paranoia and hallucinations, hospitalized and started seeing [facility] Dr. Dasilva and now well managed by Dr. Rosario. [facility] Medical History (Updated 01/23/25 @ 13:57 by Jolie Morris PA-C) History of astrocytoma Primary brain astrocytoma Uncontrolled type 2 diabetes mellitus with hyperglycemia Severe obesity (BMI 35.0-39.9) with comorbidity Seizure disorder Schizo-affective schizophrenia Major depression, recurrent, chronic Hyperlipidemia HTN (hypertension) History of astrocytoma of brain Generalized anxiety disorder Fatty liver Controlled type 2 diabetes mellitus Hidradenitis suppurativa Astrocytoma brain tumor Complex partial seizures Schizoaffective disorder Surgical History S/P brain surgery H/O craniotomy Family History Father HTN (hypertension) Gout Diabetes mellitus Depression Mother HTN (hypertension) Diabetes mellitus Psoriasis Depression Other FH: mental illness Social History Housing: Condominium Alcohol intake: current Patient Tobacco Use Status: Never used Tobacco e-Cigarette/Vaping Use: Never Used Second Hand Smoke Exposure: No service: No Current occupational status: disabled Cognitive needs: No Hearing needs: No Vision needs: Yes (glasses) Physical Exam Vital Signs: Last Vital Signs Pulse 76 01/23/25 12:49 BP 100/60 01/23/25 12:49 Pulse Ox 97 01/23/25 12:49 Oxygen Delivery Method Room Air 01/23/25 12:49 BMI result Body Mass Index 36.3 Const General: cooperative, comfortable and no acute distress Nutritional Appearance: overweight Orientation/consciousness: patient oriented x3 HEENT Face and sinus: Yes face symmetric Teeth and gingiva: other (mallampti score is 3) Eyes Pupils: Equal, round and reactive pupils present Neck Neck: Yes full ROM Resp Effort & Inspection: normal respiratory effort and able to speak in complete sentences Neuro General: patient oriented x3 and moves all extremities Cranial nerves: Yes Equal, round and reactive pupils present, Yes Normal accommodation reflex present, Yes Normal facial strength present, Yes Midline tongue present, Yes Ability to bilaterally rotate head present and Yes Ability to bilaterally elevate shoulders present Cognition (Neuro): normal cognition Gait exam (Neuro): Normal gait present Motor exam (neuro): 5/5 motor strength present throughout and Normal motor muscle tone present throughout Psych Appearance: well kempt Mental Status: mental status grossly normal Speech and movement: Normal speech and movement present Attitude: cooperative Thought process: Normal thought process present Thought content: Normal thought content present Results Reviewed Results Reviewed: MR/MR head/brain wo con IMPRESSION: Posttreatment changes, anterior lateral left temporal lobe. No acute brain abnormality. Low-lying cerebellar tonsils. EEG Impression: No epileptic tendency noted though there was slight asymmetry of amplitudes, which can happened and migraine or with a structural lesion. Imaging correlation is also recommended. PSG reviewed [facility] pt, c/w mild mike AHI is 8 and REM AHI is 54 with oxygen nadirs to 74%, start cpap therapy and monitor for compliance Assessment & Plan Assessment & Plan (1) Excessive daytime sleepiness: Comment: MIKE Code(s): G47.19 - Other hypersomnia Category: Medical (2) Hypersomnia: Comment: multifactorial medications Code(s): G47.10 - Hypersomnia, unspecified Category: Medical (3) Snoring: Code(s): R06.83 - Snoring Category: Medical (4) Complex partial seizures: Comment: EEG Code(s): G40.209 - Localization-related (focal) (partial) symptomatic epilepsy and epileptic syndromes with complex partial seizures, not intractable, without status epilepticus Category: Medical Qualifiers: Epilepsy type: partial symptomatic Status epilepticus: without status epilepticus Qualified Code(s): G40.219 - Localization-related (focal) (partial) symptomatic epilepsy and epileptic syndromes with complex partial seizures, intractable, without status epilepticus (5) History of astrocytoma of brain: Comment: MRI Code(s): Z85.841 - Personal history of malignant neoplasm of brain Category: Medical (6) Frequent headaches: Code(s): R51.9 - Headache, unspecified Category: Medical Plan MIKE psg reviewed with pt she has chronic fatigue will start her cpap therapy in one week, she will call and let me know if she is ready to start therapy. I will write her the rx cpap and she will decide to use it. Headaches monitor frequency and severity in a month. EEG reviewed with pt mild amplitude differences in temporal lobes can cuase activity of migraines, headaches and may mimick seizure activity due to past h/o astrocytoma resection, pt. education provided today. Seizure Protocol: No driving and continue meds as directed. Do not miss meds, set alarm on your phone. Continue Trileptal to 600mg bid Continue Topiramate 150mg qam and 150mg qhs f/u with Psychiatry for medication SSRI 20mg PO Fluoxetine is working at this time. per Dr. Richard Rosario's suggestions. Labs reviwed with pt today. start magnesium for sleep disturbances, may continue melatonin 5mg po daily at bedtime. f/u in 3 months Medications: New magnesium 200mg po daily at bedtime. 200 mg PO DAILY 90 tabs 3RF anxiety 3 months MDD 200mg G47.10 - Hypersomnia, unspecified Patient Instructions: Marlys made her have a SE of firecrackers in her body. She is able to tolerate Melatonin 5mg She will take Ativan 1mg po BID as needed. She is taking the B12 1000mcg and recommend starting magnesium 200mg po, along with adaptogens like Nortropics, and or ashwaganda to decrease the anxiety. Coding Level of Care Code Est Pt Level 4 (94424) Diagnoses Excessive daytime sleepiness G47.19 Hypersomnia G47.10 Snoring R06.83 Partial symptomatic epilepsy with complex partial seizures, intractable, without status epilepticus G40.219 Epilepsy type: partial symptomatic Status epilepticus: without status epilepticus History of astrocytoma of brain Z85.841 Frequent headaches R51.9
--- OUTSIDE RECORDS SUMMARY | 2025-01-23 16:01 | XMS_ITS | Clinical Summary ---
Demographics Address [address] [place] [address] Home Phone Preferred Language Nigerian Marital Status Unknown Cheondoism Affiliation Unknown Race White Ethnic Group Unknown Author Organization [facility] Address [address] [place] [address] Phone Support Name Relationship Address Phone Karon Stearns Mother [address] [place] [address] Prakash Ferrari Father [address] [place] [address] Care Team Providers Care Exceptional Student Education Teacher Name Role Phone Unavailable Primary Care Provider [...] 2024 12/29/19, 02/03/2008, 03/19/2006 COVID-19 Vaccine ( - 2024- season) 2024 HIB Vaccines Completed 11/15/1991, 01/29, [...]
--- OUTSIDE RECORDS SUMMARY | 2025-01-23 16:01 | XMS_ITS | Data Portability ---
Author Organization [facility] [employer] Address [address] [place] [address] [place] [address] Care Team Providers Care Heading Machine Operator Name Role Phone MARK SINGH Referring Provider Unavailable MARK SINGH Primary Care Provider [phone] RICHARD DOMINGUEZ OTHER Assessment Encounter Date Assessment [...] same address as is shown in the [facility] EMR for us to fax a note. [...] glaucoma and she has also seen her credit review manager and has reported that there is nothing to treat other than dry eyes. Discussed her mother's question of whether and underlying seizure would present itself as a hallucination to Tal: this would be exceedingly rare. Confirmed today that we do have her records from [facility] from Dr. Ruth from 09/24/2020 (brain MRI from April 30, 2017 is summarized in data review.) Has had more recent EEG and brain MRI at [facility] about 2 years ago. We will [...] same address as is shown in the [facility] EMR for us to fax a note. We will try to obtain his updated address and include him with it for copies of all of our notes. LETICIA Stearns June 04, 2021 We will obtain electrolyte levels with particular attention to sodium to establish a baseline while you are on ox carbamazepine. We have faxed this to the [facility] laboratory at [address] in [place] at your request. This address was newly [...] pharmacy today We will request records from [facility] with your MRI and EEG from [...] assessment/plan in particular. Prakash Parada MD, PhD [facility] mrossen Not available 06/05/2021 14:36:58 Plan of Treatment Reminders Order Date Submit Date Provider Last Modified By Organization Details Last Modified Time Details Appointments None recorded. Lab BMP, serum or plasma - R94.4 Attn Phlebotomy 2021 022 sally 1 [facility], [address], [place], [address], 13:49:46 Referral None recorded. Procedures None recorded. Surgeries None recorded. Imaging None recorded. Medication Orders oxcarbazepi ne 600 mg tablet 2021 022 [facility], [address] [place], [address], 13:35:57 topiramate 100 mg tablet 2021 [facility], [address] [place], [address], 13:36:53 topiramate 50 mg tablet 2021 [place], [address] [place], [address], 13:37:27 oxcarbazepi ne 600 mg tablet 2020 [place] [facility], [address] [place], [address], 12:46:13 topiramate 100 mg tablet 2020 [place] [facility], [address] [place], [address], 12:46:15 topiramate 50 mg tablet 2020 [place] [facility], [address] [place], [address], 12:46:13 Patient TargetsNo targets recorded. Patient InstructionsNo [...] and Address Organization Details Recorded Time Seizure 81669653 Active Nella Veliz [facility] 01/10/2021 11:17:10 Problem Notes None recorded. Procedures Surgical History Date Name Laterality Status Provider Name and Address Organization Details Recorded Time craniotomy completed Nella Veliz [facility] 01/10/2021 11:18:51 Imaging Results None recorded. Procedure Notes None recorded. Medical Equipment None Reported. Allergies Allergen ID Allergen Name Allergen Category Reaction Reaction Severity Criticality Documentation Date Start Date Code Code System Note Provider Name and Address Organization Details Recorded Time 606 gadobutro l medicatio n Not available Not available Not available 01/10/2021 01019 Randall Veliz [facility] 11:25:59 607 Lamictal medicatio n Not available Not available Not available 01/10/2021 08586 2 Randall Veliz [facility] 11:26:07 Medications Name Sig Start [...] Updated DateTime 01/10/2021 162.56 cm 36 kg/m2 83982.[address] [facility] 01/10/2021 11:10:21 Social History Question Answer Notes LastModified by Organizat ion Details LastModified Time Tobacco Smoking Status Never Smoker Nella zepeda [place] [facility] 01/10/2021 11:18:09 What Is Your Level [...] Not available 01/10 11:20:47 Maternal Aunt Malignant neoplasm of breast Not available 01/10 11:21:05 Maternal [...] Codes Diagnosis Note 2312 Prakash Parada MD [facility] [address] [place] [address] [place] [address] 01/10/2021 11:08:49 01/10/2021 13:08:35 Focal onset impaired awareness epileptic seizure 042868274 G40.209 Absence seizure 91759770 G40.A09 Decreased level of consciousness 690972477 R40.4 4261 MELANIE SANTACRUZ PA-C [facility] [address] [place] [address] [place] [address] 06/04/2021 10:09:35 06/06/2021 16:48:46 Focal onset impaired awareness epileptic seizure 450345214 G40.209 Absence seizure 84690392 G40.A09 Decreased level of consciousness 630634121 R40.4 Health Concerns Section Related Observation LastModified by Organization Katieai ls LastModified Time None Recorded Concern Status LastModified by Organization Details LastModified Time None Recorded Advance Directives Directive None Recorded Payers Insurance Date Sequence Insurance Name Policy Number Policy Hamm Covered Member ID Hamm Member ID Guarantor Name 06/27/2021 1 [facility] - DOS PRIOR TO 2022 - DUAL ELIGIBLE (MEDICARE REPLACEMENT/AD VANTAGE - HMO) Wale Gaston [id number] Wale Stearns Notes Date Note Type Note [...] all been done by previous neurologist at [facility] who is moving to [place], last visit in August 2020 and from [...] been actively adjusting medications. Prakash Parada MD [address] [place] [address] [place], [address], [facility] 01/10/2021 13:07:21 06/04/2021 text/html Follow up [...] not last. She has been to her credit review manager who does not have any specific recommendation other than [id number] drops for dry eyes. Her mother has noticed that she seems to have hallucinations but only transiently and sometimes wonders if this is hallucinations blend into the seizure activity and given her history of left temporal lobe astrocytoma, wonders if this could be related. Her most recent MRI and EEG were done at [facility] 2 years ago. Which confirm that we have records from [facility] from 4 years ago. She continues [...] all been done by previous neurologist at [facility] who is moving to [place], last visit in August 2020 and from [...] been actively adjusting medications. Prakash Parada MD [address] [place] [address] [place], [address], [facility] - [facility] 06/05/2021 14:37:13 OBGyn Episode No OBEpisode recorded.
--- OUTSIDE RECORDS SUMMARY | 2025-01-23 16:01 | XMS_ITS | Clinical Summary ---
Author Organization [facility] Address [address] [address] Phone Care Team Providers Care Forging Press Setter Up Name Role Phone Brian Gonzalez MD Primary Care Provider [phone] Social History Tobacco Use Types Packs/Day Years [...] file Insurance MEDICARE PART A & B [facility] MEDICARE PART A & [place] MEDICARE PART A & B HEALTH MEDICARE PART A & [place] [address] [place] [address] MEDICARE PART A & [facility] B [facility] Care Teams Forging Press Setter Up Relationship Specialty Start Date End Date Brian Gonzalez MD [address] [place] [address] PCP - General Internal Medicine 10/14/16 Additional Source Comments The information contained in this document represents components of the legal health record. It is not the complete legal health record.[facility]
--- OUTSIDE RECORDS SUMMARY | 2025-01-23 16:01 | XMS_ITS | Data Portability ---
Author Organization [place] [facility], Allergy Address [address] [address] Assessment Encounter Date Assessment Date Assessment LastModified [...] up as needed for any future concerns. [email or web address] Not available 07/13/2024 15:33:10 Plan of Treatment [...] Organization Details Recorded Time Abnormal auditory perception 76826699 Active 2024 Keke zepeda [place] - [facility] 14:19:41 Bilateral tinnitus 6737528442820 Active 2024 ANEL DEUTSCH PA-C [address] [place] [address], [phone], [place] - [facility] 15:33:15 Problem Notes None recorded. Procedures Surgical History Date Name Laterality Status Provider Name and Address Organization Details Recorded Time 07/13/2024 Air & Speech Audio with Tymps - 98494, 53710 & 04993 completed Keke Lee [place] - [facility] 07/13/2024 14:19:30 Imaging Results None recorded. Procedure Notes None [...] ICD10 Code Diagnosis IMO Codes Diagnosis Note [id number] ANEL DEUTSCH PA-C [facility] [address] [place] [address] 07/13/2024 13:53:19 07/13/2024 15:08:14 Abnormal auditory perception 75474478 H93.299 Audiologic al evaluation results: Right ear: Normal hearing with excellent word recognitio n. Left ear: Normal hearing with excellent word recognitio n. Tympanomet ry: Right Ear:Type A Left Ear:Type Ad Bilateral tinnitus 36271 28723 102 H93.13 Health Concerns Section Related Observation LastModified by Organization Detai ls LastModified Time None Recorded Concern Status LastModified by Organization Details LastModified Time None Recorded Advance Directives Directive None Recorded Payers Insurance Date Sequence Insurance Name Policy Number Policy Hamm Covered Member ID Hamm Member ID Guarantor Name 07/13/2024 1 [facility] [place] ([place]PL[place] VANTAGE - HMO) Wale Warrensimmons [id number] Wale Michellezsimmons 07/13/2024 [address] [facility] - DOS ON OR AFTER 2022 - ONE CARE (MEDICARE REPLACEMENT/AD VANTAGE - HMO) Wale Warrensimmons [id number] Wale Stearns Notes Date Note Type Note Provider Name and Address Organization Details Recorded Time 07/13/2024 text/html ROS as noted in the HPI 33-year-old female presents for evaluation of tinnitus. It is bilateral and worse at night for the past few months. Denies otalgia, otorrhea, vertigo, and changes in hearing. Denies prior otologic surgeries or history of chronic ear infections. Denies history of noise exposure. ANEL DEUTSCH PA-C [address], [address], [facility] - [facility] 07/13/2024 15:34:07 OBGyn Episode No OBEpisode recorded.
--- OUTSIDE RECORDS SUMMARY | 2025-01-23 16:01 | XMS_ITS | Encounter Summary ---
Demographics Address [address] [place] [address] Home Phone Preferred Language Estonian Marital Status Unknown Baptist Affiliation Unknown Race White Ethnic Group Unknown Author Organization [facility] Address [address] [place] [address] Phone Support Name Relationship Address Phone Karon Stearns Mother [address] [place] [address] Prakash Ferrari Father [address] [place] [address] Care Team Providers Care Director Epidemiology Name Role Phone Nuria Luna MD Primary Care Provider [phone] Encounter Details Date Type Department Care Team (Late st Contact Info) Description 10/29/2010 Documentation [facility] [address] [place], [place] [id number] Family Medicine, Physician [address] [place], [place] [address] Social History Tobacco Use Types Packs/Day Years [...] filedocumented in this encounter Care Teams Director Epidemiology Relationship Specialty Start Date End Date Nuria Luna MD [address] [place] [address] JATINDER De Santiago [address] PCP - General 11/07/16 06/29/22 documented as of this encounter
--- OUTSIDE RECORDS SUMMARY | 2025-01-23 16:01 | XMS_ITS | Encounter Summary ---
Demographics Address [address] [place] [address] Home Phone Preferred Language Polish Marital Status Unknown Faith Affiliation Unknown Race White Ethnic Group Unknown Author Organization [facility] Address [address] [place] [address] Phone Support Name Relationship Address Phone Karon Stearns Mother [address] [place] [address] Prakash Ferrari Father [address] [place] [address] Care Team Providers Care Emergency Technician Name Role Phone Nuria Luna MD Primary Care Provider Encounter Details Date Type Department Care Team (Late st Contact Info) Description 01/15/2010 Documentation [facility] [place] Family Medicine [address] [place], [place] [id number] Family Medicine, Physician [address] [place], [place] [phone] Social History Tobacco Use Types Packs/Day Years [...] filedocumented in this encounter Care Teams Emergency Technician Relationship Specialty Start Date End Date Nuria Luna MD [address] [place] [address] JATINDER De Santiago [address] PCP - General 11/07/16 06/29/22 documented as of this encounter
--- OUTSIDE RECORDS SUMMARY | 2025-01-23 16:01 | XMS_ITS | Encounter Summary ---
Demographics Address [address] [place] [address] Home Phone Preferred Language Arabic Marital Status Unknown Latter Day Affiliation Unknown Race White Ethnic Group Unknown Author Organization [facility] Address [address] [place] [address] Phone Support Name Relationship Address Phone Karon Stearns Mother [address] [place] [address] Prakash Ferrari Father [address] [place] [address] Care Team Providers Care Permit Technician Name Role Phone Nuria Luna MD Primary Care Provider Encounter Details Date Type Department Care Team (Late st Contact Info) Description 11/13/2016 Conversion Encounter [facility] [place] [address] [place] [address] Social History Tobacco Use Types Packs/Day Years [...] on filedocumented in this encounter Care Teams Permit Technician Relationship Specialty Start Date End Date Nuria Luna MD [address] [place] [address] PCP - General 11/07/16 06/29/22 documented as of this encounter
--- OUTSIDE RECORDS SUMMARY | 2025-01-23 16:01 | XMS_ITS | Encounter Summary ---
Demographics Address [address] [place] [place] [address] Home Phone Preferred Language Wolof Marital Status Unknown Scientologist Affiliation Unknown Race White Ethnic Group Unknown Author Organization [facility] Address [address] [place] [address] Phone Support Name Relationship Address Phone Karon Stearns Mother [address] [place] [address] Prakash Ferrari Father [address] [place] [address] Care Team Providers Care Exploration Engineer Name Role Phone Nuria Luna MD Primary Care Provider [phone] Encounter Details Date Type Department Care Team (Late st Contact Info) Description 09/11/2009 Documentation [facility] [place] [address] [place], [place] [phone] Family Medicine, Physician [address] [place], [place] [address] Social History Tobacco Use Types Packs/Day Years [...] on filedocumented in this encounter Care Teams Exploration Engineer Relationship Specialty Start Date End Date Nuria Luna MD [address] [place] [address] JATINDER De Santiago [address] PCP - General 11/07/16 06/29/22 documented as of this encounter
--- OUTSIDE RECORDS SUMMARY | 2025-01-23 16:01 | XMS_ITS | Encounter Summary ---
Demographics Address [address] [place] [address] Home Phone Preferred Language Urdu Marital Status Unknown Zoroastrian Affiliation Unknown Race White Ethnic Group Unknown Author Organization [facility] Address [address] [place] [address] Phone Support Name Relationship Address Phone Karon Stearns Mother [address] [place] [address] Prakash Ferrari Father [address] [place] [address] Care Team Providers Care Comber Fixer Name Role Phone Nuria uLna MD Primary Care Provider Encounter Details Date Type Department Care Team (Late st Contact Info) Description 11/06/2009 Documentation [facility] [place] Family Medicine [address] [place], [place] [address] Family Medicine, Physician [address] [place], [place] [address] Social History Tobacco Use Types Packs/Day Years [...] on filedocumented in this encounter Care Teams Comber Fixer Relationship Specialty Start Date End Date Nuria Luna MD [address] [place] [address] JATINDER De Santiago [address] PCP - General 11/07/16 06/29/22 documented as of this encounter
--- OUTSIDE RECORDS SUMMARY | 2025-01-23 16:01 | XMS_ITS | Encounter Summary ---
Demographics Address [address] [place] [address] Home Phone Preferred Language Croatian Marital Status Unknown Cheondoism Affiliation Unknown Race White Ethnic Group Unknown Author Organization [facility] Address [address] [place] [address] Phone Support Name Relationship Address Phone Karon Stearns Mother [address] [place] [address] Prakash Ferrari Father [address] [place] [address] Care Team Providers Care Systems Lead Name Role Phone Nuria Luna MD Primary Care Provider [phone] Encounter Details Date Type Department Care Team (Late st Contact Info) Description 10/03/2009 Documentation [facility] [place] [address] [place], [place] [phone] Family Medicine, Physician [address] [place], [place] [address] Social History Tobacco Use Types Packs/Day Years [...] Date End Date Nuria Luna MD [address] [place] [address] JATINDER De Santiago [address] PCP - General 11/07/16 06/29/22 documented as of this encounter
--- OUTSIDE RECORDS SUMMARY | 2025-01-23 16:01 | XMS_ITS | Clinical Summary ---
Author Organization [facility] Address [address] [place] [address] Phone Care Team Providers Care Supervisor Carding Name Role Phone Physician, No Pcp Primary [...] 3 Overview (03/18/2024): [facility] age 13 [facility] Seizure disorder (CMS/HCC V24, CMS/HCC V28) 01/28 Overview (03/18/2024): Last seizure 1 year ago, had hx of astrocytoma resected at 1 yo, has serial cat scans/mris/ eegs Encounters Date Type Department Care Team Description 11/07/2024 1:45 PM EDT Office Visit Orthopedic Surgery - [place] [address] [place] [phone] Tarik Harris, DPM Hypertrophy of nail (Primary Dx) from Last 3 Months Immunizations Immunization Administration Dates Next Due DTP 09/23/1995, 1,1990,11/14,1990 PCzU-RZO-SIQ (Pentacel) 2mo to less than 5yo 11/15/1991,02/16/1991,1990,10/13 HPV, Quadrivalent 06/02/2008,02/03/2008,11/09/19 08 Hepatitis B (Qrmfxku-Y-Sgafh , Recombivax HB-Adult) 19yo and older 10/04/1999 Hepatitis B Pediatric (Enger ix B; Recombivax HB) to less than 20 yo 11/09/1999 Influenza trivalent, 0.5mL, preservative free (Fluarix; FluLaval; Fluzone) ages 6mo and older (Afluria) 3 years and older 01/22/2020,12/11/2015,02/16/2015,12/28,02/03/2008,03/19/2006 MMR, measles mumps and rubel la Live (Priorix; M-M-R II) 12mo and older 09/23/1995,11/15/1991 Meningococcal MCV4P 07/31/2006 OPV 09/23/1995, 2,1990,10/13 [facility] SARS-CoV-2 COVID-19, mRNA, LNP-S, preservative free 07/23/2020 Td Tetanus diptheria (Tdvax) 7yo and older 09/16/2001 Tdap Tetanus diptheria acell ular pertussis (Boostrix; Adacel) 7yo and older 10/27/2021,11/09/2007 Surgical History Surgery Date Site/Laterality Comments OTHER SURGICAL HISTORY PROCEDURE: ---- OTHER ----; COMMENT: craniotomy left temporal astrocytoma Medical History Medical History Date Comments Seizure disorder ([facility] V2 4, CMS/[facility] V28) 02/13/2012 DX:Seizure disorder (HCC) Shingles DX:Shingles PCOS (polycystic ovarian syndrome) DX:PCOS (polycystic ovarian syndrome) Astrocytoma (CMS/[facility] V24, CM S/HCC V28) 07/13/2012 DX:Astrocytoma (HCC) Complex partial epileptic se izure (CMS/[facility] V24, CMS/[facility] V28) DX:Complex partial epilepti c seizure (HCC) Absence seizure (CMS/HCC V24 , CMS/[facility] V28) DX:Absence seizure (HCC) Decreased level of [...] 10/28/2031 10/27/2021, 11/09/2007, 09/16/2001, Additional history exists RSV Immunization Adult Patients (1 - 1-dose 75+ series) 2065 HIB Vaccines Completed 11/15/1991, 10/28, 02/16/1991, Additional history exists IPV Vaccines Completed 09/23/1995, 10/28, 11/15/1991, Additional history exists MMR Vaccines Completed 09/23/1995, 11/15/1991 Hepatitis B Vaccines Completed 02/25/2000, 11/09/1999, 10/04/1999, Additional history exists Meningococcal ACWY Vaccine Aged Out 07/31/2006 N o longer eligible based on patient's age to complete this topic HPV Vaccines Completed 06/02/2008, 08/2007, 11/09/2007 Hepatitis C Screening Completed 03/02/2020 [...] Health Maintenance Results * Hemoglobin A1c (08/06/2022) [facility] Hemoglobin A1C 6.0 <=6.5 % Blood Venous blood specimen / Unknown Result [facility] Provider LAB BLOOD ORDERABLES Johanna l Result * Annual BMP Blood Test (07/30/2022) Pathologist [facility] Annual BMP Blood Test Abstracted Result [facility] Provider HEALTH MAINTENANCE Final Result * (ABNORMAL) Lipid panel (07/30/2022) [facility] LDL/HDL Ratio 6(A) 0 - 4 Triglycerides 267(A) 0 - 150 mg/dL Cholesterol 234(A) 0 - 200 mg/dL HDL 37(A) >=40 mg/dL LDL Cholesterol 144(A) 0 - 100 mg/dL Blood Venous blood specimen / Unknown Result [facility] Provider LAB BLOOD ORDERABLES Johanna l Result * Hepatitis C Screening (03/02/2020) [facility] Hepatitis C Screening Abstracted Result [facility] Deborah [facility]INTENANCE Final Result * Cervical Cancer Screening: HPV (12/25/2015) [facility] Cervical Cancer Screening: HPV No Interpretation , Abstracted [facility] Deborah [facility] MAINTENANCE Final Result from Last 3 Months or Most Recently Relevant to Health Maintenance Insurance [facility] Member Subscriber Plan / Payer (Ef fective 2018-Present) Name:STANFORD DEAL Relation to Subscriber:Self Name:Stanford Deal Payer ID:[id number] Group ID:[id number] Type:Not on file Address: [address] [place] [address] MEDICA[place] - [place] Care Teams Supervisor Carding Relationship Specialty Start Date End Date Physician, No Pcp PCP - General 03/30/23
--- OUTSIDE RECORDS SUMMARY | 2025-01-23 16:01 | XMS_ITS | Clinical Summary ---
Author Organization [facility] Address [address] [place] [address] Phone Care Team Providers Care Sas Architect Name Role Phone Brian Gonzalez Primary Care Provider [phone] Brian Gonzalez Unavailable Brian Gonzalez Unavailable Medications [...] 6, Entered: 12/20/20 13:23:00 EDT, [id number] Active Immunizations Immunization Administration [...] of Treatment Not on file Care Teams Sas Architect Relationship Specialty Start Date End Date Brian Gonzalez [address] [place] [address] PCP - General 10/14/16 Brian Gonzalez [address] [place] [address] PCP - Clinical PCP 10/14/16 Brian Gonzalez [address] [place] [id number] PCP - Insurance PCP 10/14/16
== END 2025-01-23 13:59 | disposition home or self-care (01) ==
LOC: HO.HSMS 12:37
PROVIDERS: PCP Physician Assistant; Visit Provider Physician Assistant Medical
DX: G47.19 Other hypersomnia (principal); G47.10 Hypersomnia, unspecified; R06.83 Snoring; G40.219 Localization-related (focal) (partial) symptomatic epilepsy and epileptic syndromes with complex partial seizures, intractable, without status epilepticus; Z85.841 Personal history of malignant neoplasm of brain; R51.9 Headache, unspecified
CPT/HCPCS: 99214

== ENCOUNTER → 2025-01-23 12:36 | Outpatient (BNVA) | payer OTHER, SELFPAY | PROVIDERS: PCP Physician Assistant; Visit Provider Physician Assistant Medical | DX: G47.19 Other hypersomnia (principal); R40.0 Somnolence; R06.03 Acute respiratory distress; R51.9 Headache, unspecified; G40.219 Localization-related (focal) (partial) symptomatic epilepsy and epileptic syndromes with complex partial seizures, intractable, without status epilepticus; Z85.841 Personal history of malignant neoplasm of brain | CPT/HCPCS: 99212 ==

== ENCOUNTER 2025-02-01 09:52 | Outpatient (AMB) | payer OTHER, SELFPAY ==
[2025-02-01 10:04] VITALS: BMI 36.3
--- NOTE | 2025-02-01 10:04 | A.OFFVIS_ITS ---
Vital Signs 02/01/25 10:04 Height 5 ft 3 in Weight 205 lb BMI 36.3 Intake Visit Reasons: Type II diabetes Intake Note: Wale is a 34 year old female who presents today as a new patient for a diabetic foot exam. Patient states she does not check her sugars at home her last known glucose was 101 and her A1c was 5.0%. Patient denies any numbness or tingling in her feet and she denies any medical history of wounds or amputations to her feet. Patient main concern is her bilateral plantar fasciitis and has been going on for a few years. She has tried PT and cortisone injections and has found relief for her symptoms. Allergies lamotrigine (From LAMICTAL) Allergy (Unknown, Verified 01/23/25 12:53) RASH tirzepatide (From Mounjaro) Allergy (Unknown, Verified 01/23/25 12:53) gi upset gadobutrol (From Gadavist) Allergy (Verified 01/23/25 12:53) hives meloxicam Adverse Reaction (Verified 02/01/25 10:06) anger ozempic Allergy (Unknown, Uncoded 01/23/25 12:53) gi issues HPI HPI Type II diabetes: Details: 34-year-old female with past medical history of hyperlipidemia, hypertension, diabetes mellitus type 2 on diet control, presents for bilateral heel pain. The patient states she has had pain for several months to years in his had multiple injection treatments in the past with another welding engineer. She has had custom orthotics in the past, which she no longer has. 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 Since then, her heel pain has returned and has been causing her pain worse at the end of the day. She is now also experiencing ankle pain, right worse than left. [facility] Medical History (Updated 02/01/25 @ 10:44 by Zak Orozco DPM) History of astrocytoma Primary brain astrocytoma Uncontrolled type 2 diabetes mellitus with hyperglycemia Severe obesity (BMI 35.0-39.9) with comorbidity Seizure disorder Schizo-affective schizophrenia Major depression, recurrent, chronic Hyperlipidemia HTN (hypertension) History of astrocytoma of brain Generalized anxiety disorder Fatty liver Controlled type 2 diabetes mellitus Hidradenitis suppurativa Astrocytoma brain tumor Complex partial seizures Schizoaffective disorder Surgical History S/P brain surgery H/O craniotomy Family History Father HTN (hypertension) Gout Diabetes mellitus Depression Mother HTN (hypertension) Diabetes mellitus Psoriasis Depression Other FH: mental illness Social History Housing: [facility] Alcohol intake: current Patient Tobacco Use Status: Never used Tobacco e-Cigarette/Vaping Use: Never Used Second Hand Smoke Exposure: No service: No Current occupational status: disabled Cognitive needs: No Hearing needs: No Vision needs: Yes (glasses) Review of Systems Const All systems reviewed & are unremarkable except as noted in HPI and below Physical Exam Vital Signs: BMI result Body Mass Index 36.3 Extrem Other: *Bilateral Lower Extremity Focused Exam Vascular: DP/PT 2/4, CFT less than 3 seconds all digits, temperature gradient warm to cool. No pedal edema. Derm: No erythema or clinical signs of infection Neuro: Protective sensation grossly intact to bilateral lower extremities. Negative Tinel sign. MSK: pes planus foot type with right heel valgus (approximately 3-4*) on weight-bearing. Both heels invert on double heel rise. No too many toe sign. No medial talar bulge. Moderate tenderness upon palpation of the plantar medial calcaneal tubercle bilateral feet, mild tenderness on palpation along the posterior tibial tendon in the retromalleolar region. No pain to the PT insertion. No pain along the plantar fascia bands were along the arch. Results Reviewed Results Reviewed: Laboratory Tests 12/05/24 16:07 Hemoglobin A1c % 5.0 Assessment & Plan Assessment & Plan (1) Plantar fasciitis, bilateral: Code(s): M72.2 - Plantar fascial fibromatosis Category: Medical Plan: * Discussed etiology of the patient's foot pain. Differential diagnosis includes plantar fasciitis, neuritis, tendinitis. * Patient was educated on the nature and etiology of plantar fasciitis, which involves inflammation and microtearing of the plantar fascia due to repetitive stress and overuse. * The patient was counseled on conservative management of plantar fasciitis, including daily stretching exercises targeting the plantar fascia and Achilles tendon, use of supportive and properly fitting footwear, and consideration of custom or prefabricated orthotics to improve foot biomechanics. * Discussed that if symptoms persist despite these measures, further interventions such as corticosteroid injections may be considered. * Instructed the patient on home stretching and range of motion exercises including calf-stretches, frozen water bottle therapy, band-therapy. * Rx Medrol Dosepak * Follow up in 3 weeks (2) Posterior tibial tendinitis of both lower extremities: Code(s): M76.821 - Posterior tibial tendinitis, right leg; M76.822 - Posterior tibial tendinitis, left leg Category: Medical Plan: * Recommended treating her flatfoot arch at this point. * The patient may require physical therapy and/or an MRI in the future if her PT tendonitis symptoms persist. A steroid injection into the PT tendon is not recommended due to risk of tendon tears that can develop a full rupture. (3) Pes planus of both feet: Code(s): M21.41 - Flat foot [pes planus] (acquired), right foot; M21.42 - Flat foot [pes planus] (acquired), left foot Category: Medical Plan: * Instructed to purchase Powerstep orthotics with heel and arch support. * May require custom orthotics in the future Medications: New methylprednisolone (Medrol (Colin)) Take 6 tablets on day 1, 5 tablets on day 2, 4 tablets on day 3, 3 tablets on day 4, 2 tablets on day 5, and 1 tablet on day 6. 4 mg PO PER PKG DIR 21 ea 0RF bilateral tendinitis M72.2 - Plantar fascial fibromatosis Coding Level of Care Code New Pt Level 4 (77040) Diagnoses Plantar fasciitis, bilateral M72.2 Posterior tibial tendinitis of both lower extremities M76.821; M76.822 Pes planus of both feet M21.41; M21.42 Time Spent (min) 30
--- OUTSIDE RECORDS SUMMARY | 2025-02-01 11:12 | XMS_ITS | Clinical Summary ---
Author Organization [facility] Address [address] [place] [address] Phone Care Team Providers Care Electric Drill Operator Name Role Phone Physician, No Pcp Primary [...] 3 Overview (03/18/2024): [facility] age 13 [facility] Seizure disorder (CMS/HCC V24, CMS/HCC V28) 01/28 Overview (03/18/2024): Last seizure 1 year ago, had hx of astrocytoma resected at 1 yo, has serial cat scans/mris/ eegs Encounters Date Type Department Care Team Description 11/07/2024 1:45 PM EDT Office Visit Orthopedic Surgery - [place] [address] [place] [phone] Tarik Harris, DPM Hypertrophy of nail (Primary Dx) from Last 3 Months Immunizations Immunization Administration Dates Next Due DTP 09/23/1995, 1,1990,11/14,1990 TOoC-YAB-RDE (Pentacel) 2mo to less than 5yo 11/15/1991,02/16/1991,1990,10/13 HPV, Quadrivalent 06/02/2008,02/03/2008,11/09/19 08 Hepatitis B (Axtljdp-N-Tyftg , Recombivax HB-Adult) 19yo and older 10/04/1999 Hepatitis B Pediatric (Enger ix B; Recombivax HB) to less than 20 yo 11/09/1999 Influenza trivalent, 0.5mL, preservative free (Fluarix; FluLaval; Fluzone) ages 6mo and older (Afluria) 3 years and older 01/22/2020,12/11/2015,02/16/2015,12/28,02/03/2008,03/19/2006 MMR, measles mumps and rubel la Live (Priorix; M-M-R II) 12mo and older 09/23/1995,11/15/1991 Meningococcal MCV4P 07/31/2006 OPV 09/23/1995, 2,1990,10/13 [employer] SARS-CoV-2 COVID-19, mRNA, LNP-S, preservative free 07/23/2020 Td Tetanus diptheria (Tdvax) 7yo and older 09/16/2001 Tdap Tetanus diptheria acell ular pertussis (Boostrix; Adacel) 7yo and older 10/27/2021,11/09/2007 Surgical History Surgery Date Site/Laterality Comments OTHER SURGICAL HISTORY PROCEDURE: ---- OTHER ----; COMMENT: craniotomy left temporal astrocytoma Medical History Medical History Date Comments Seizure disorder ([facility] V2 4, CMS/[facility] V28) 02/13/2012 DX:Seizure disorder (HCC) Shingles DX:Shingles PCOS (polycystic ovarian syndrome) DX:PCOS (polycystic ovarian syndrome) Astrocytoma (CMS/[facility] V24, CM S/HCC V28) 07/13/2012 DX:Astrocytoma (HCC) Complex partial epileptic se izure (CMS/[facility] V24, CMS/[facility] V28) DX:Complex partial epilepti c seizure (HCC) Absence seizure (CMS/HCC V24 , [facility] V28) DX:Absence seizure (HCC) Decreased level of [...] Health Maintenance Results * Hemoglobin A1c (08/06/2022) [facility] Hemoglobin A1C 6.0 <=6.5 % Blood Venous blood specimen / Unknown Result [facility] Provider LAB BLOOD ORDERABLES Johanna l Result * Annual BMP Blood Test (07/30/2022) Pathologist [facility] Annual BMP Blood Test Abstracted Result [facility] Provider HEALTH MAINTENANCE Final Result * (ABNORMAL) Lipid panel (07/30/2022) [facility] LDL/HDL Ratio 6(A) 0 - 4 Triglycerides 267(A) 0 - 150 mg/dL Cholesterol 234(A) 0 - 200 mg/dL HDL 37(A) >=40 mg/dL LDL Cholesterol 144(A) 0 - 100 mg/dL Blood Venous blood specimen / Unknown Result [facility] Provider LAB BLOOD ORDERABLES Johanna l Result * Hepatitis C Screening (03/02/2020) [facility] Hepatitis C Screening Abstracted Result [facility] Deborah [facility] MAINTENANCE Final Result * Cervical Cancer Screening: HPV (12/25/2015) [facility] Cervical Cancer Screening: HPV No Interpretation , Abstracted [facility] Deborah [facility] MAINTENANCE Final Result from Last 3 Months or Most Recently Relevant to Health Maintenance Insurance [facility] Member Subscriber Plan / Payer (Ef fective 2018-Present) Name:STANFORD DEAL Relation to Subscriber:Self Name:Stanford Deal Payer ID:[id number] Group ID:[id number] Type:Not on file Address: [address] [place] [address] MEDICAID - [place] Care Teams Electric Drill Operator Relationship Specialty Start Date End Date Physician, No Pcp PCP - General 03/30/23
--- OUTSIDE RECORDS SUMMARY | 2025-02-01 11:13 | XMS_ITS | Encounter Summary ---
Demographics Address [address] [place] [address] Home Phone Preferred Language Tamazight Marital Status Unknown Methodist Affiliation Unknown Race White Ethnic Group Unknown Author Organization [facility] Address [address] [place] [address] Phone Support Name Relationship Address Phone Karon Stearns Mother [address] [place] [address] Prakash Ferrari Father [address] [place] [address] Care Team Providers Care Intercell Connector Placer Name Role Phone Nuria Luna MD Primary Care Provider Encounter Details Date Type Department Care Team (Late st Contact Info) Description 10/03/2009 Documentation [facility] Family Medicine [address] [place], [place] [id number] Family Medicine, Physician [address] [place], [place] [phone] Social History Tobacco Use Types Packs/Day Years [...] on filedocumented in this encounter Care Teams Intercell Connector Placer Relationship Specialty Start Date End Date Nuria Luna MD [address] [place] [address] JATINDER De Santiago [address] PCP - General 11/07/16 06/29/22 documented as of this encounter
--- OUTSIDE RECORDS SUMMARY | 2025-02-01 11:13 | XMS_ITS | Encounter Summary ---
Demographics Address [address] [place] [address] Home Phone Preferred Language Telugu Marital Status Unknown Latter-Day Affiliation Unknown Race White Ethnic Group Unknown Author Organization [facility] Address [address] [place] [address] Phone Support Name Relationship Address Phone Karon Stearns Mother [address] [place] [address] Prakash Ferrari Father [address] [place] [address] Care Team Providers Care Avionics Mechanic Name Role Phone Nuria Luna MD Primary Care Provider Encounter Details Date Type Department Care Team (Late st Contact Info) Description 09/11/2009 Documentation [facility] [place] [address] [place], [place] [id number] Family Medicine, Physician [address] [place], [place] [address] Social History Tobacco Use Types Packs/Day Years [...] on filedocumented in this encounter Care Teams Avionics Mechanic Relationship Specialty Start Date End Date Nuria Luna MD [address] [place] [address] JATINDER De Santiago [address] PCP - General 11/07/16 06/29/22 documented as of this encounter
--- OUTSIDE RECORDS SUMMARY | 2025-02-01 11:13 | XMS_ITS | Clinical Summary ---
Demographics Address [address] [place] [address] Home Phone Preferred Language Armenian Marital Status Unknown Yazidism Affiliation Unknown Race White Ethnic Group Unknown Author Organization [facility] Address [address] [place] [address] Phone Support Name Relationship Address Phone Karon Stearns Mother [address] [place] [address] Prakash Ferrari Father [address] [place] [address] Care Team Providers Care On Air Talent Name Role Phone Unavailable Primary Care Provider [...]
--- OUTSIDE RECORDS SUMMARY | 2025-02-01 11:13 | XMS_ITS | Encounter Summary ---
Demographics Address [address] [place] [address] Home Phone Preferred Language Armenian Marital Status Unknown Jew Affiliation Unknown Race White Ethnic Group Unknown Author Organization [facility] Address [address] [place] [address] Phone Support Name Relationship Address Phone Karon Stearns Mother [address] [place] [address] Prakash Ferrari Father [address] [place] [address] Care Team Providers Care Consumer Relations Specialist Name Role Phone Nuria Luna MD Primary Care Provider [phone] Encounter Details Date Type Department Care Team (Late st Contact Info) Description 10/29/2010 Documentation [facility] [place] [address] [place], [place] [phone] Family Medicine, Physician [address] [place], [place] [address] Social History Tobacco Use Types Packs/Day Years [...] on filedocumented in this encounter Care Teams Consumer Relations Specialist Relationship Specialty Start Date End Date Nuria Luna MD [address] [place] [address] JATINDER De Santiago [address] PCP - General 11/07/16 06/29/22 documented as of this encounter
--- OUTSIDE RECORDS SUMMARY | 2025-02-01 11:13 | XMS_ITS | Encounter Summary ---
Demographics Address [address] [place] [place] [address] Home Phone Preferred Language Setswana Marital Status Unknown Scientology Affiliation Unknown Race White Ethnic Group Unknown Author Organization [facility] Address [address] [place] [address] Phone Support Name Relationship Address Phone Karon Stearns Mother [address] [place] [address] Prakash Ferrari Father [address] [place] [address] Care Team Providers Care Engineering Executive Name Role Phone Nuria Luna MD Primary Care Provider Encounter Details Date Type Department Care Team (Late st Contact Info) Description 01/15/2010 Documentation [facility] [place] Family Medicine [address] [place], [place] [id number] Family Medicine, Physician [address] [place], [place] [address] Social History Tobacco Use Types Packs/Day Years [...] on filedocumented in this encounter Care Teams Engineering Executive Relationship Specialty Start Date End Date Nuria Luna MD [address] [place] [address] JATINDER De Santiago [address] PCP - General 11/07/16 06/29/22 documented as of this encounter
--- OUTSIDE RECORDS SUMMARY | 2025-02-01 11:13 | XMS_ITS | Encounter Summary ---
Demographics Address [address] [place] [address] Home Phone Preferred Language Upper Sorbian Marital Status Unknown Jainism Affiliation Unknown Race White Ethnic Group Unknown Author Organization [facility] Address [address] [place] [address] Phone Support Name Relationship Address Phone Karon Stearns Mother [address] [place] [address] Prakash Ferrari Father [address] [place] [address] Care Team Providers Care Production Control Coordinating Clerk Name Role Phone Nuria Luna MD Primary Care Provider Encounter Details Date Type Department Care Team (Late st Contact Info) Description 11/06/2009 Documentation [facility] [place] [address] [place], [place] [phone] Family Medicine, Physician [address] [place], [place] [address] Social History Tobacco Use Types Packs/Day Years [...] on filedocumented in this encounter Care Teams Production Control Coordinating Clerk Relationship Specialty Start Date End Date Nuria Luna MD [address] [place] [address] JATINDER De Santiago [address] PCP - General 11/07/16 06/29/22 documented as of this encounter
--- OUTSIDE RECORDS SUMMARY | 2025-02-01 11:13 | XMS_ITS | Encounter Summary ---
Demographics Address [address] [place] [address] Home Phone Preferred Language Kinyarwanda Marital Status Unknown Jainism Affiliation Unknown Race White Ethnic Group Unknown Author Organization [facility] Address [address] [place] [address] Phone Support Name Relationship Address Phone Karon Stearns Mother [address] [place] [address] Prakash Ferrari Father [address] [place] [address] Care Team Providers Care Java Consultant Name Role Phone Nuria Luna MD Primary Care Provider Encounter Details Date Type Department Care Team (Late st Contact Info) Description 11/13/2016 Conversion Encounter [facility] [place] [address] [place] [address] Social History Tobacco Use Types Packs/Day Years [...] filedocumented in this encounter Care Teams Java Consultant Relationship Specialty Start Date End Date Nuria Luna MD [address] [place] [address] PCP - General 11/07/16 06/29/22 documented as of this encounter
--- OUTSIDE RECORDS SUMMARY | 2025-02-01 11:13 | XMS_ITS | Clinical Summary ---
Author Organization [facility] Address [address] [place] [address] Phone Care Team Providers Care Education Spec Name Role Phone Brian Gonzalez Primary Care Provider [phone] Brian Gonzalez Unavailable Brian Gonzalez Unavailable Medications [...] 6, Entered: 12/20/20 13:23:00 EDT, [facility] 1 Active Immunizations Immunization Administration [...] of Treatment Not on file Care Teams Education Spec Relationship Specialty Start Date End Date Brian Gonzalez [address] [place] [address] PCP - General 10/14/16 Brian Gonzalez [address] [place] [address] PCP - Clinical PCP 10/14/16 Brian Gonzalez [address] [place] [address] PCP - Insurance PCP 10/14/16
--- OUTSIDE RECORDS SUMMARY | 2025-02-01 11:13 | XMS_ITS | Clinical Summary ---
Author Organization [facility] Address [address] [facility] [address] [place] [address] Phone Care Team Providers Care Principal Consulting Engineer Name Role Phone Brian Gonzalez MD Primary Care Provider [phone] Social History Tobacco Use Types Packs/Day Years [...] file Insurance MEDICARE PART A & B [facility] MEDICARE PART A & [place] MEDICARE PART A & B HEALTH MEDICARE PART A & [place] [address] [place] [address] MEDICARE PART [facility] & [facility] B [facility] Care Teams Principal Consulting Engineer Relationship Specialty Start Date End Date Brian Gonzalez MD [address] [place] [address] PCP - General Internal Medicine 10/14/16 Additional Source Comments The information contained in this document represents components of the legal health record. It is not the complete legal health record.[facility]
== END 2025-02-01 10:37 | disposition home or self-care (01) ==
LOC: HO.HPODS 09:53
PROVIDERS: PCP Physician Assistant; Visit Provider Student in an Organized Health Care Education/Training Program
DX: M72.2 Plantar fascial fibromatosis (principal); M76.821 Posterior tibial tendinitis, right leg; M76.822 Posterior tibial tendinitis, left leg; M21.41 Flat foot [pes planus] (acquired), right foot; M21.42 Flat foot [pes planus] (acquired), left foot
CPT/HCPCS: 99204

== ENCOUNTER → 2025-02-01 09:52 | Outpatient (BNVA) | payer OTHER, SELFPAY | PROVIDERS: PCP Physician Assistant; Visit Provider Student in an Organized Health Care Education/Training Program | DX: M72.2 Plantar fascial fibromatosis (principal); M76.821 Posterior tibial tendinitis, right leg; M76.822 Posterior tibial tendinitis, left leg; M21.41 Flat foot [pes planus] (acquired), right foot; M21.42 Flat foot [pes planus] (acquired), left foot | CPT/HCPCS: 99202 ==

== ENCOUNTER 2025-03-06 11:00 | Outpatient (AMB) | payer OTHER, SELFPAY ==
[2025-03-06 11:04] VITALS: BMI 36.3
--- NOTE | 2025-03-06 11:04 | A.OFFVIS_ITS ---
Vital Signs 03/06/25 11:04 Height 5 ft 3 in Weight 205 lb BMI 36.3 Intake Visit Reasons: Plantar fasciitis Intake Note: Wale is a 34 year old female who presents to the office today for a follow up for plantar fasciitis. At last visit pt was instructed to purchase Powerstep orthotics and a Medrol Colin was prescribed. Pt states she purchased the insoles and has found them very uncomfortable however she also purchased supportive shoe wear and has been finding relief. She is no longer experiencing pain at this time. Allergies lamotrigine (From LAMICTAL) Allergy (Unknown, Verified 03/06/25 11:05) RASH tirzepatide (From Mounjaro) Allergy (Unknown, Verified 03/06/25 11:05) gi upset gadobutrol (From Gadavist) Allergy (Verified 03/06/25 11:05) hives meloxicam Adverse Reaction (Verified 03/06/25 11:05) anger ozempic Allergy (Unknown, Uncoded 01/23/25 12:53) gi issues HPI HPI Plantar fasciitis: Details: 34-year-old female with past medical history of hyperlipidemia, hypertension, diabetes mellitus type 2 on diet control, returns for bilateral heel pain. She states that she is no longer having heel pain after she purchased the [employer] shoes. She also tried the Powerstep orthotics however she did not find relief from them and was unable to wear them for more than a few days. 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 Since then, her heel pain has returned and has been causing her pain worse at the end of the day. [facility] Medical History (Updated 03/06/25 @ 13:30 by Zak Orozco DPM) History of astrocytoma Primary brain astrocytoma Uncontrolled type 2 diabetes mellitus with hyperglycemia Severe obesity (BMI 35.0-39.9) with comorbidity Seizure disorder Schizo-affective schizophrenia Major depression, recurrent, chronic Hyperlipidemia HTN (hypertension) History of astrocytoma of brain Generalized anxiety disorder Fatty liver Controlled type 2 diabetes mellitus Hidradenitis suppurativa Astrocytoma brain tumor Complex partial seizures Schizoaffective disorder Surgical History S/P brain surgery H/O craniotomy Family History Father HTN (hypertension) Gout Diabetes mellitus Depression Mother HTN (hypertension) Diabetes mellitus Psoriasis Depression Other FH: mental illness Social History Housing: Condominium Alcohol intake: current Patient Tobacco Use Status: Never used Tobacco e-Cigarette/Vaping Use: Never Used Second Hand Smoke Exposure: No service: No Current occupational status: disabled Cognitive needs: No Hearing needs: No Vision needs: Yes (glasses) Review of Systems Const All systems reviewed & are unremarkable except as noted in HPI and below Physical Exam Vital Signs: BMI result Body Mass Index 36.3 Extrem Other: *Bilateral Lower Extremity Focused Exam Vascular: DP/PT 2/4, CFT less than 3 seconds all digits, temperature gradient warm to cool. No pedal edema. Derm: No erythema or clinical signs of infection Neuro: Protective sensation grossly intact to bilateral lower extremities. Negative Tinel sign. MSK: pes planus foot type with right heel valgus (approximately 3-4*) on weight-bearing. Both heels invert on double heel rise. No too many toe sign. No medial talar bulge. No tenderness upon palpation of the plantar medial calcaneal tubercle bilateral feet, no tenderness on palpation along the posterior tibial tendon in the retromalleolar region. No pain to the PT insertion. No pain along the plantar fascia bands were along the arch. Faintly palpable mass, non mobile to the medial calcaneus along the glabrous junction. Assessment & Plan Assessment & Plan (1) Plantar fasciitis, bilateral: Code(s): M72.2 - Plantar fascial fibromatosis Category: Medical Plan: * Recommended continuing Powerstep orthotics * Continue range of motion and stretching exercises as needed (2) Posterior tibial tendinitis of both lower extremities: Code(s): M76.821 - Posterior tibial tendinitis, right leg; M76.822 - Posterior tibial tendinitis, left leg Category: Medical Plan: * Resolved (3) Pes planus of both feet: Code(s): M21.41 - Flat foot [pes planus] (acquired), right foot; M21.42 - Flat foot [pes planus] (acquired), left foot Category: Medical Plan: * Recommended trialing 1 more week. Of Powerstep orthotics with heel and arch support. * May require custom orthotics in the future (4) Mass of both feet: Code(s): R22.43 - Localized swelling, mass and lump, lower limb, bilateral Category: Medical Plan: * Faintly palpable soft tissue mass bilateral medial heels * Rx bilateral x-rays Orders: Orders XR Foot Kevin 3V Today M72.2 - Plantar fascial fibromatosis Coding Level of Care Code Est Pt Level 3 (41318) Diagnoses Plantar fasciitis, bilateral M72.2 Posterior tibial tendinitis of both lower extremities M76.821; M76.822 Pes planus of both feet M21.41; M21.42 Mass of both feet R22.43 Time Spent (min) 20
== END 2025-03-06 11:16 | disposition home or self-care (01) ==
LOC: HO.HPODS 11:00
PROVIDERS: PCP Physician Assistant; Visit Provider Student in an Organized Health Care Education/Training Program
DX: M72.2 Plantar fascial fibromatosis (principal); M76.821 Posterior tibial tendinitis, right leg; M76.822 Posterior tibial tendinitis, left leg; M21.41 Flat foot [pes planus] (acquired), right foot; M21.42 Flat foot [pes planus] (acquired), left foot; R22.43 Localized swelling, mass and lump, lower limb, bilateral
CPT/HCPCS: 99213

== ENCOUNTER → 2025-03-06 11:00 | Outpatient (BNVA) | payer OTHER, SELFPAY | PROVIDERS: PCP Physician Assistant; Visit Provider Student in an Organized Health Care Education/Training Program | DX: M72.2 Plantar fascial fibromatosis (principal); M76.821 Posterior tibial tendinitis, right leg; M76.822 Posterior tibial tendinitis, left leg; R22.43 Localized swelling, mass and lump, lower limb, bilateral; M21.41 Flat foot [pes planus] (acquired), right foot; M21.42 Flat foot [pes planus] (acquired), left foot | CPT/HCPCS: 99212 ==

== ENCOUNTER 2025-03-08 13:11 | Outpatient (REF) | payer OTHER, SELFPAY ==
--- NOTE | ~2025-03-08 | XR_ITS ---
EXAMINATION: XR ANKLE, RIGHT CLINICAL INFORMATION: M25.571 - Pain in right ankle and joints of right foot COMPARISON: None available. TECHNIQUE: AP, lateral, and mortise views lower extremity joint, ankle. FINDINGS: Ankle mortise is congruent. There is no widening of the syndesmosis. Talar dome is intact. There is a plantar fascial and Achilles tendon calcaneal enthesophyte(s). XR/XR ankle RT min 3V IMPRESSION: There are calcaneal spurs which is a nonspecific finding. Electronically signed by: Dave Monterroso MD 03/08/2025 01:52 PM EST
--- NOTE | ~2025-03-08 | XR_ITS ---
Exam: XR FOOT 3 OR MORE VIEWS BILATERAL, bilateral foot x-rays TECHNIQUE: AP, OBL and lateral views lower extremity, bilateral feet INDICATION: M72.2 - Plantar fascial fibromatosis COMPARISON: None available. FINDINGS: RIGHT FOOT: Small marginal degenerative cystic type change is noted in the medial base of the fourth distal phalanx. Small rectangular density projects over the base of the lateral metatarsals on the AP and oblique view, but not visible on the lateral view suggesting that it is extrinsic to the foot. There are small calcaneal spurs. LEFT FOOT: Joint spaces are preserved. There are no erosions. Bone mineral density is within normal limits. Minute calcaneal spur is seen at the plantar fascial attachment. XR/XR Foot Kevin 3V IMPRESSION: Right foot: Small calcaneal spurs, a nonspecific finding. Left foot: Minute plantar calcaneal spur, a nonspecific finding. Electronically signed by: Dave Monterroso MD 03/08/2025 01:56 PM EST
--- OUTSIDE RECORDS SUMMARY | 2025-03-08 20:40 | XMS_ITS | Encounter Summary ---
Author Organization [employer] [facility] Prior to 01/29/2024 Address [address] [place] [address] Care Team Providers Care Regulatory Scientist Name Role Phone Brian Gonzalez MD Primary Care Provider Ruben Barry MD Unavailable [phone] Robinson Zelaya MD Unavailable Unavailable Aracelis Arteaga MD Primary Care Prov ider Aracelis Arteaga MD Primary Care Prov ider Patricia Goldberg MD Unavailable Unavailable Encounter Details Date Type Department Care Team Description 11/24/2018 Hospital Medical Records [address] [place] [address] Social History Tobacco Use Types Packs/Day Years [...] on filedocumented in this encounter Care Teams Regulatory Scientist Relationship Specialty Start Date End Date Brian Gonzalez MD PCP - General Internal Medicine 12/11/14 10/16/21 Aracelis Arteaga MD [address] [place] [address] PCP - General Internal Medicine 10/28/21 Aracelis Arteaga MD [address] [place] [address] PCP - General Internal Medicine 10/17/21 10/27/21 Ruben Franco MD [address] [place] [address] Dr Uribe [address] [place] [address] Specialist Cardiovascular Disease 08/12/21 2 Robinson Zelaya MD [address] [place] [address] Dr Uribe [address] [place] [address] Specialist Cardiovascular Disease 08/12/21 Patricia Goldberg MD [address] [place] [address] Specialist Neurology 06/17/23 documented as of this encounter
--- OUTSIDE RECORDS SUMMARY | 2025-03-08 20:40 | XMS_ITS | Encounter Summary ---
Author Organization [facility] Prior to 01/29/2024 Address [address] [place] [address] Care Team Providers Care Paper And Pulp Mill Operator Name Role Phone Brian Gonzalez MD Primary Care Provider Ruben Barry MD Unavailable [phone] Robinson Zelaya MD Unavailable Unavailable Aracelis Arteaga MD Primary Care Prov ider Aracelis Arteaga MD Primary Care Prov ider Patricia Goldberg MD Unavailable Unavailable Encounter Details Date Type Department Care Team Description 09/24/2020 Senior Accounting Analyst Report Medical Records [address] [place] [address] Social History Tobacco Use Types Packs/Day Years [...] filedocumented in this encounter Care Teams Paper And Pulp Mill Operator Relationship Specialty Start Date End Date Brian Gonzalez MD PCP - General Internal Medicine 12/11/14 10/16/21 Aracelis Arteaga MD [address] [place] [address] PCP - General Internal Medicine 10/28/21 Aracelis Arteaga MD [address] [place] [address] PCP - General Internal Medicine 10/17/21 10/27/21 Ruben Franco MD [address] [place] [address] Dr Uribe [address] [place] [address] Specialist Cardiovascular Disease 08/12/21 2 Robinson Zelaya MD [address] [place] [address] [place] [address] Specialist Cardiovascular Disease 08/12/21 Patricia oGldberg MD [address] [place] [address] Specialist Neurology 06/17/23 documented as of this encounter
--- OUTSIDE RECORDS SUMMARY | 2025-03-08 20:40 | XMS_ITS | Clinical Summary ---
Author Organization [facility] Address [address] [place] [address] Phone Care Team Providers Care Enrolled Nurse Name Role Phone Brian Gonzalez Primary Care Provider [phone] Brian Gonzalez Unavailable Brian Gonzalez Unavailable Medications [...] 6, Entered: 12/20/20 13:23:00 EDT, [facility] 1 Active Immunizations Immunization Administration [...] of Treatment Not on file Care Teams Enrolled Nurse Relationship Specialty Start Date End Date Brian Gonzalez [address] [place] [address] PCP - General 10/14/16 Brian Gonzalez [address] [place] [address] PCP - Clinical PCP 10/14/16 Brian Gonzalez [address] [place] [address] PCP - Insurance PCP 10/14/16
--- OUTSIDE RECORDS SUMMARY | 2025-03-08 20:40 | XMS_ITS | Encounter Summary ---
Author Organization [facility] Prior to 01/29/2024 Address [address] [place] [address] Care Team Providers Care Director Of Consulting Services Name Role Phone Adarsh Valverde MD Primary Care Provider Brian Larios MD Primary Care Provider Adarsh Smith MD Primary Care Provider Brian Larios MD Primary Care Provider Ruben Barry MD Unavailable [phone] Robinson Zelaya MD Unavailable Unavailable Aracelis Arteaga MD Primary Care Prov ider Aracelis Arteaga MD Primary Care Prov ider Patricia Goldberg MD Unavailable Unavailable Encounter Details Date Type Department Care Team Description 07/25/2013 Grass Farmer Report Medical Records [address] [place] [address] Rene Gupta MD Social History Tobacco Use [...] in this encounter Care Teams Director Of Consulting Services Relationship Specialty Start Date End Date Adarsh Valverde MD PCP - General Internal Medicine 04/05/13 Brian Gonzalez MD PCP - General Internal Medicine 01/12/14 12/07/14 Adarsh Valverde MD PCP - General Internal Medicine 12/08/14 Brian Gonzalez MD PCP - General Internal Medicine 12/11/14 10/16/21 Aracelis Arteaga MD [address] [place] [address] PCP - General Internal Medicine 10/28/21 Aracelis Arteaga MD [address] [place] [address] PCP - General Internal Medicine 10/17/21 10/27/21 Ruben Franco MD [address] [place] [address] Dr Uribe [address] [place] [address] Specialist Cardiovascular Disease 08/12/21 2 Robinson Zelaya MD [address] [place] [address] [place] [address] Specialist Cardiovascular Disease 08/12/21 Patricia Goldberg MD [address] [place] [address] Specialist Neurology 06/17/23 documented as of this encounter
--- OUTSIDE RECORDS SUMMARY | 2025-03-08 20:40 | XMS_ITS | Encounter Summary ---
Author Organization [facility] Prior to 01/29/2024 Address [address] [place] [address] Care Team Providers Care Municipal Services Manager Name Role Phone Brian Gonzalez MD Primary Care Provider Ruben Barry MD Unavailable [phone] Robinson Zelaya MD Unavailable Unavailable Aracelis Arteaga MD Primary Care Prov ider Aracelis Arteaga MD Primary Care Prov ider Patricia Goldberg MD Unavailable Unavailable Reason for Visit * Reason Onset Date Comments refill request 08/02/2020 Encounter Details Date Type Department Care Team Description 08/02/2020 Refill Allergy [place] [address] [place] [id number] Lor Contreras MD refill request Social History [...] on filedocumented in this encounter Care Teams Municipal Services Manager Relationship Specialty Start Date End Date Brian Gonzalez MD PCP - General Internal Medicine 12/11/14 10/16/21 Aracelis Arteaga MD [address] [place] [address] PCP - General Internal Medicine 10/28/21 Aracelis Arteaga MD [address] [place] [address] PCP - General Internal Medicine 10/17/21 10/27/21 Ruben Franco MD [address] [place] [address] [place] [address] Specialist Cardiovascular Disease 08/12/21 2 Robinson Zelaya MD [address] [place] [address] [place] [address] Specialist Cardiovascular Disease 08/12/21 Patricia Goldberg MD [address] [place] [address] Specialist Neurology 06/17/23 documented as of this encounter
--- OUTSIDE RECORDS SUMMARY | 2025-03-08 20:40 | XMS_ITS | Encounter Summary ---
Author Organization [employer] [facility] Prior to 01/29/2024 Address [address] [place] [address] Care Team Providers Care Fish Hatchery Superintendent Name Role Phone Brian Gonzalez MD Primary Care Provider Ruben Barry MD Unavailable [phone] Robinson Zelaya MD Unavailable Unavailable Aracelis Arteaga MD Primary Care Prov ider Aracelis Arteaga MD Primary Care Prov ider Patricia Goldberg MD Unavailable Unavailable Reason for Visit * Reason Onset Date Comments REFERRAL 07/13/2020 Encounter Details Date Type Department Care Team Description 07/13/2020 Telephone Adult [address] [id number] Brian Gonzalez MD REFERRAL Social History Tobacco [...] Miscellaneous Notes * Telephone Encounter - Angie Jt - 07/16/2020 12:29 PM EDT I will [...] insurance does the patient have today? Payor: [email or web address] [facility] / Plan: [facility] / Product Type: HMO [id number] Effective 12/28/08: BCBS will not retro referral [...] insurance must be obtained and registered in [facility] or their referral can not be processed. Is this a retro request? NO. If yes for what date of service do you need the retro referral? N/A Who is calling to request this referral? [facility] If the caller is not the [...] Address of Specialist: Phone # of Specialist: [phone] Fax #: (if applicable):[phone] Does patient have an appointment scheduled?: YES Date of appointment- (including a retro-request): 09/24/20 Is this appointment related to: documented in this encounter Plan of Treatment Not on file documented as of this encounter Visit Diagnoses Not on filedocumented in this encounter Care Teams Fish Hatchery Superintendent Relationship Specialty Start Date End Date Brian Gonzalez MD PCP - General Internal Medicine 12/11/14 10/16/21 Aracelis Arteaga MD [address] [place] [address] PCP - General Internal Medicine 10/28/21 Aracelis Arteaga MD [address] [place] [address] PCP - General Internal Medicine 10/17/21 10/27/21 Ruben Franco MD [address] [place] [address] [place] [address] Specialist Cardiovascular Disease 08/12/21 2 Robinson Zelaya MD [address] [place] [address] [place] [address] Specialist Cardiovascular Disease 08/12/21 Patricia Goldberg MD [address] [place] [address] Specialist Neurology 06/17/23 documented as of this encounter
--- OUTSIDE RECORDS SUMMARY | 2025-03-08 20:40 | XMS_ITS | Encounter Summary ---
Author Organization [employer] [facility] Prior to 01/29/2024 Address [address] [place] [address] Care Team Providers Care Head School Custodian Name Role Phone Brian Gonzalez MD Primary Care Provider Ruben Barry MD Unavailable [phone] Robinson Zelaya MD Unavailable Unavailable Aracelis Arteaga MD Primary Care Prov ider Aracelis Arteaga MD Primary Care Prov ider Patricia Goldberg MD Unavailable Unavailable Encounter Details Date Type Department Care Team Description 05/12/2019 Hospital Medical Records [address] [place] [address] Jonas Horton Social History Tobacco Use Types [...] on filedocumented in this encounter Care Teams Head School Custodian Relationship Specialty Start Date End Date Brian Gonzalez MD PCP - General Internal Medicine 12/11/14 10/16/21 Aracelis Arteaga MD [address] [place] [address] PCP - General Internal Medicine 10/28/21 Aracelis Arteaga MD [address] [place] [address] PCP - General Internal Medicine 10/17/21 10/27/21 Ruben Franco MD [address] [place] [address] Dr Uribe [address] [place] [address] Specialist Cardiovascular Disease 08/12/21 2 Robinson Zelaya MD [address] [place] [address] [place] [address] Specialist Cardiovascular Disease 08/12/21 Patricia Goldberg MD [address] [place] [address]11 Specialist Neurology 06/17/23 documented as of this encounter
--- OUTSIDE RECORDS SUMMARY | 2025-03-08 20:41 | XMS_ITS | Encounter Summary ---
Author Organization [facility] Prior to 01/29/2024 Address [address] [place] [address] Care Team Providers Care Overnight Stocker Name Role Phone Prakash Perez MD Primary Care Provider Adarsh Blanchard MD Primary Care Provider Brian Larios MD Primary Care Provider Adarsh Smith MD Primary Care Provider Brian Larios MD Primary Care Provider Ruben Barry MD Unavailable [phone] Robinson Zelaya MD Unavailable Unavailable Aracelis Arteaga MD Primary Care Prov ider Aracelis Arteaga MD Primary Care Prov ider Patricia Goldberg MD Unavailable Unavailable Encounter Details Date Type Department Care Team Description 09/28/2012 Trimmer Climber Report Medical Records [address] [place] [address] Lesly Larios, PH.D Social History Tobacco Use [...] on filedocumented in this encounter Care Teams Overnight Stocker Relationship Specialty Start Date End Date Prakash Perez MD PCP - General Internal Medicine 01/20/12 04/04/13 Adarsh Valverde MD PCP - General Internal Medicine 04/05/13 Brian Gonzalez MD PCP - General Internal Medicine 01/12/14 12/07/14 Adarsh Valverde MD PCP - General Internal Medicine 12/08/14 Brian Gonzalez MD PCP - General Internal Medicine 12/11/14 10/16/21 Aracelis Arteaga MD [address] [place] [address] PCP - General Internal Medicine 10/28/21 Aracelis Arteaga MD [address] [place] [address] 79263 PCP - General Internal Medicine 10/17/21 10/27/21 Ruben Franco MD [address] [place] [address] [place] [address] Specialist Cardiovascular Disease 08/12/21 2 Robinson Zelaya MD [address] [place] [address] [place] [address] Specialist Cardiovascular Disease 08/12/21 Patricia Goldberg MD [address] [place] [address]27 Specialist Neurology 06/17/23 documented as of this encounter
--- OUTSIDE RECORDS SUMMARY | 2025-03-08 20:41 | XMS_ITS | Encounter Summary ---
Author Organization [facility] Prior to 01/29/2024 Address [address] [place] [address] Care Team Providers Care Ortho Nurse Name Role Phone Prakash Perez MD Primary Care Provider Adarsh Blanchard MD Primary Care Provider Brian Larios MD Primary Care Provider Adarsh Smith MD Primary Care Provider Brian Larios MD Primary Care Provider Ruben Barry MD Unavailable [phone] Robinson Zelaya MD Unavailable Unavailable Aracelis Arteaga MD Primary Care Prov ider Aracelis Arteaga MD Primary Care Prov ider Patricia Goldberg MD Unavailable Unavailable Encounter Details Date Type Department Care Team Description 12/02/2012 Valance Cutter Report Medical Records [address] [place] [address] Rene Gupta MD Social History Tobacco Use [...] on filedocumented in this encounter Care Teams Ortho Nurse Relationship Specialty Start Date End Date Prakash Perez MD PCP - General Internal Medicine 01/20/12 04/04/13 Adarsh Valverde MD PCP - General Internal Medicine 04/05/13 Brian Gonzalez MD PCP - General Internal Medicine 01/12/14 12/07/14 Adarsh Valverde MD PCP - General Internal Medicine 12/08/14 Brian Gonzalez MD PCP - General Internal Medicine 12/11/14 10/16/21 Aracelis Arteaga MD [address] [place] [address] 92266 PCP - General Internal Medicine 10/28/21 Aracelis Arteaga MD [address] [place] [address] 62444 PCP - General Internal Medicine 10/17/21 10/27/21 Ruben Franco MD [address] [place] [address] [place] [address] Specialist Cardiovascular Disease 08/12/21 2 Robinson Zelaya MD [address] [place] [address] [place] [address] Specialist Cardiovascular Disease 08/12/21 Patricia Goldberg MD [address] [place] [address] Specialist Neurology 06/17/23 documented as of this encounter
--- OUTSIDE RECORDS SUMMARY | 2025-03-08 20:41 | XMS_ITS | Encounter Summary ---
Author Organization [employer] Prior to 01/29/2024 Address [address] [place] [address] Care Team Providers Care Automatic Machine Attendant Name Role Phone Robinson Zelaya MD Unavailable Unavailable Aracelis Arteaga MD Primary Care Prov ider Patricia Goldberg MD Unavailable Unavailable Encounter Details Date Type Department Care Team Description 11/29/2021 Release of Information Medical Records [address] [place] [address] Abstract, Provider Social History Tobacco Use Types [...] filedocumented in this encounter Care Teams Automatic Machine Attendant Relationship Specialty Start Date End Date Aracelis Arteaga MD [address] [place] [address] PCP - General Internal Medicine 10/28/21 Robinson Zelaya MD Specialist Cardiovascular Disease 08/12/21 Patricia Goldberg MD [address] [place] [address] Specialist Neurology 06/17/23 documented as of this encounter
--- OUTSIDE RECORDS SUMMARY | 2025-03-08 20:41 | XMS_ITS | Encounter Summary ---
Author Organization [facility] Prior to 01/29/2024 Address [address] [place] [address] Care Team Providers Care Shell Worker Name Role Phone Brain Gonzalez MD Primary Care Provider Ruben Barry MD Unavailable [phone] Robinson Zelaya MD Unavailable Unavailable Aracelis Arteaga MD Primary Care Prov ider Aracelis Arteaga MD Primary Care Prov ider Patricia Goldberg MD Unavailable Unavailable Encounter Details Date Type Department Care Team Description 07/29/2021 Telephone Gastroenterology [address] [place] [phone] Leena Saenz DScPAS Social History Tobacco [...] on filedocumented in this encounter Care Teams Shell Worker Relationship Specialty Start Date End Date Brian Gonzalez MD PCP - General Internal Medicine 12/11/14 10/16/21 Aracelis Arteaga MD [address] [place] [address] PCP - General Internal Medicine 10/28/21 Aracelis Arteaga MD [address] [place] [address] PCP - General Internal Medicine 10/17/21 10/27/21 Ruben Franco MD [address] [place] [address] Dr Uribe [address] [place] [address] Specialist Cardiovascular Disease 08/12/21 2 Robinson Zelaya MD [address] [place] [address] Dr Uribe [address] [place] [address] Specialist Cardiovascular Disease 08/12/21 Patricia Goldberg MD [address] [place] [address] Specialist Neurology 06/17/23 documented as of this encounter
--- OUTSIDE RECORDS SUMMARY | 2025-03-08 20:41 | XMS_ITS | Encounter Summary ---
Author Organization [employer] [facility] Prior to 01/29/2024 Address [address] [place] [address] Care Team Providers Care Lithopone Mill Worker Name Role Phone Robinson Zelaya MD Unavailable Unavailable Aracelis Arteaga MD Primary Care Prov ider Patricia Goldberg MD Unavailable Unavailable Encounter Details Date Type Department Care Team Description 12/03/2021 Pt. Non Urgent Medic al Question Adult Medicine [address] [address] Sandy Naylor PA Social History Tobacco Use [...] on filedocumented in this encounter Care Teams Lithopone Mill Worker Relationship Specialty Start Date End Date Aracelis Arteaga MD [address] [place] [address] PCP - General Internal Medicine 10/28/21 Robinson Zelaya MD Specialist Cardiovascular Disease 08/12/21 Patricia Goldberg MD [address] [place] [address] Specialist Neurology 06/17/23 documented as of this encounter
--- OUTSIDE RECORDS SUMMARY | 2025-03-08 20:41 | XMS_ITS | Encounter Summary ---
Author Organization [facility] Prior to 01/29/2024 Address [address] [place] [address] Care Team Providers Care Engine Generator Assembler Name Role Phone Robinson Zelaya MD Unavailable Unavailable Aracelis Arteaga MD Primary Care Prov ider Aracelis Arteaga MD Primary Care Prov ider Patricia Goldberg MD Unavailable Unavailable Reason for Visit * Reason Onset Date Comments REFERRAL 10/18/2021 Encounter Details Date Type Department Care Team Description 10/18/2021 Telephone [facility] [address] [phone] Tarik Harris DPM [address] [id number] REFERRAL Social History Tobacco Use Types Packs/Day [...] on filedocumented in this encounter Care Teams Engine Generator Assembler Relationship Specialty Start Date End Date Aracelis Arteaga MD [address] [place] [address] PCP - General Internal Medicine 10/28/21 Aracelis Arteaga MD [address] [place] [address] PCP - General Internal Medicine 10/17/21 10/27/21 Robinson Zelaya MD Specialist Cardiovascular Disease 08/12/21 Patricia Goldberg MD [address] [place] [address] Specialist Neurology 06/17/23 documented as of this encounter
--- OUTSIDE RECORDS SUMMARY | 2025-03-08 20:41 | XMS_ITS | Encounter Summary ---
Author Organization [facility] [employer] [facility] Prior to 01/29/2024 Address [address] [place] [address] Care Team Providers Care Supervisor Telephone Answering Service Name Role Phone Robinson Zelaya MD Unavailable Unavailable Aracelis Arteaga MD Primary Care Prov ider Patricia Goldberg MD Unavailable Unavailable Reason for Visit * Reason Onset Date Comments Provider Call Back 11/29/2021 Encounter Details Date Type Department Care Team Description 11/29/2021 Telephone Adult Medicine [address] [address] Aracelis Arteaga MD [address] [place] [address] [phone] Provider Call Back Social History Tobacco Use [...] filedocumented in this encounter Care Teams Supervisor Telephone Answering Service Relationship Specialty Start Date End Date Aracelis Arteaga MD [address] [place] [address]187 PCP - General Internal Medicine 10/28/21 Robinson Zelaya MD Specialist Cardiovascular Disease 08/12/21 Patricia Goldberg MD [address] [place] [address] Specialist Neurology 06/17/23 documented as of this encounter
--- OUTSIDE RECORDS SUMMARY | 2025-03-08 20:42 | XMS_ITS | Encounter Summary ---
Author Organization [facility] Prior to 01/29/2024 Address [address] [place] [address] Care Team Providers Care Industrial Maintenance Electrician Name Role Phone Brian Gonzalez MD Primary Care Provider Ruben Barry MD Unavailable [phone] Robinson Zelaya MD Unavailable Unavailable Aracelis Arteaga MD Primary Care Prov ider Aracelis Arteaga MD Primary Care Prov ider Patricia Goldberg MD Unavailable Unavailable Encounter Details Date Type Department Care Team Description 09/19/2015 Wellness Visit Medical Records [address] [place] [address] Brian Gonzalez MD Social History Tobacco Use [...] filedocumented in this encounter Care Teams Industrial Maintenance Electrician Relationship Specialty Start Date End Date Brian Gonzalez MD PCP - General Internal Medicine 12/11/14 10/16/21 Aracelis Arteaga MD [address] [place] [address]3819 PCP - General Internal Medicine 10/28/21 Aracelis Arteaga MD [address] [place] [address] 47834 PCP - General Internal Medicine 10/17/21 10/27/21 Ruben Franco MD [address] [place] [address] Dr Uribe [address] [place] [address] Specialist Cardiovascular Disease 08/12/21 2 Robinson Zelaya MD [address] [place] [address] [place] [address] Specialist Cardiovascular Disease 08/12/21 Patricia Goldberg MD [address] [place] [address] Specialist Neurology 06/17/23 documented as of this encounter
--- OUTSIDE RECORDS SUMMARY | 2025-03-08 20:42 | XMS_ITS | Encounter Summary ---
Author Organization [facility] Prior to 01/29/2024 Address [address] [place] [address] Care Team Providers Care Pe Manager Name Role Phone Brian Gonzalez MD Primary Care Provider Robinson Brody MD Unavailable Unavailable Aracelis Arteaga MD Primary Care Prov ider Aracelis Arteaga MD Primary Care Prov ider Patricia Goldberg MD Unavailable Unavailable Encounter Details Date Type Department Care Team Description 08/15/2021 SCAN Medical Records [address] [place] [phone] [place] [address] Social History Tobacco Use Types Packs/Day Years [...] on filedocumented in this encounter Care Teams Pe Manager Relationship Specialty Start Date End Date Brian Gonzalez MD PCP - General Internal Medicine 12/11/14 10/16/21 Aracelis Arteaga MD [address] [place] [address] PCP - General Internal Medicine 10/28/21 Aracelis Arteaga MD [address] [place] [address] PCP - General Internal Medicine 10/17/21 10/27/21 Robinson Zelaya MD Specialist Cardiovascular Disease 08/12/21 Patricia Goldberg MD [address] [place] [address] Specialist Neurology 06/17/23 documented as of this encounter
--- OUTSIDE RECORDS SUMMARY | 2025-03-08 20:42 | XMS_ITS | Encounter Summary ---
Author Organization [facility] [employer] [facility] Prior to 01/29/2024 Address [address] [place] [address] Care Team Providers Care Software Designer Name Role Phone Brian Gonzalez MD Primary Care Provider Ruben Barry MD Unavailable [phone] Robinson Zelaya MD Unavailable Unavailable Aracelis Arteaga MD Primary Care Prov ider Aracelis Arteaga MD Primary Care Prov ider Patricia Goldberg MD Unavailable Unavailable Encounter Details Date Type Department Care Team Description 06/04/2021 Hearing Screener Report Medical Records [address] [place] [address] Melanie Santacruz PA-C Social History Tobacco Use [...] on filedocumented in this encounter Care Teams Software Designer Relationship Specialty Start Date End Date Brian Gonzalez MD PCP - General Internal Medicine 12/11/14 10/16/21 Aracelis Arteaga MD [address] [place] [address] PCP - General Internal Medicine 10/28/21 Aracelis Arteaga MD [address] [place] [address]201 PCP - General Internal Medicine 10/17/21 10/27/21 Ruben Franco MD [address] [place] [address] Dr Uribe [address] [place] [address] Specialist Cardiovascular Disease 08/12/21 2 Robinson Zelaya MD [address] [place] [address] Dr Uribe [address] [place] [address] 21696 Specialist Cardiovascular Disease 08/12/21 Patricia Goldberg MD [address] [place] [address] Specialist Neurology 06/17/23 documented as of this encounter
--- OUTSIDE RECORDS SUMMARY | 2025-03-08 20:42 | XMS_ITS | Encounter Summary ---
Author Organization [facility] Prior to 01/29/2024 Address [address] [place] [address] Care Team Providers Care Managing Partner Name Role Phone Robinson Zelaya MD Unavailable Unavailable Aracelis Arteaga MD Primary Care Prov ider Patricia Goldberg MD Unavailable Unavailable Reason for Visit * Reason Onset Date Comments Cough 12/27/2021 Fever 12/27/2021 Encounter Details Date Type Department Care Team Description 12/27/2021 Telephone Triage [address] [place] [address] Aracelis Arteaga MD [address] [place] [address] [phone] Cough; Fever Social History Tobacco Use Types [...] Miscellaneous Notes * Telephone Encounter - Lucille Michael Lopez - 12/27/2021 9:49 AM EDT [facility] - Telephone Triage Documentation CHIEF COMPLAINT:pos COVID Home care sx rx call as needed Er with any severe sx Call as neded [facility] website for treatment and reccomendations PCP: Aracelis Butler LMP/EDC: Current Outpatient Medications Medication Sig Dispense Refill ??? clotrimazole (LOTRIMIN) 1 % cream Apply to toenails daily for 3 months 30 g 3 ??? meloxicam (MOBIC) 7.5 MG tablet Take 1 Tablet by mouth daily for 360 days. 30 Tablet 1 lorazepam (ATIVAN) 1 MG tablet 1mg tab [...] call back if worsens or no improvement. REFERENCE:[facility] Telephone Triage Protocols for Nurses by Keke [...] traveled recently to another state outside of [place], [place], [place], [place], [place], [place], [place]? NO o If yes, did you quarantine [...] vehicle accident? NO If yes, gather 3rd republican insurance information Date of accident/Injury: n/a How long has patient had these symptoms?: few days PCP: Aracelis Butler Payor: [facility] [employer] MCR / Plan: [facility] / Product Type: HMO [id number] documented in this encounter Plan of Treatment Not on file documented as of this encounter Visit Diagnoses Not on filedocumented in this encounter Care Teams Managing Partner Relationship Specialty Start Date End Date Aracelis Arteaga MD [address] [place] [address] PCP - General Internal Medicine 10/28/21 Robinson Zelaya MD Specialist Cardiovascular Disease 08/12/21 Patricia Goldberg MD [address] [place] [address]862 Specialist Neurology 06/17/23 documented as of this encounter
--- OUTSIDE RECORDS SUMMARY | 2025-03-08 20:43 | XMS_ITS | Encounter Summary ---
Author Organization [facility] Prior to 01/29/2024 Address [address] [place] [address] Care Team Providers Care Needle Control Cheniller Name Role Phone Robinson Zelaya MD Unavailable Unavailable Aracelis Arteaga MD Primary Care Prov ider Patricia Goldberg MD Unavailable Unavailable Encounter Details Date Type Department Care Team Description 12/03/2023 Pt. Non Urgent Medical Question [facility] [address] [phone] Tarik Harris DPM [address] [address] Social History Tobacco Use Types Packs/Day Years [...] on filedocumented in this encounter Care Teams Needle Control Cheniller Relationship Specialty Start Date End Date Aracelis Arteaga MD [address] [place] [address] [phone] PCP - General Internal Medicine 10/28/21 Robinson Zelaya MD Specialist Cardiovascular Disease 08/12/21 Patricia Goldberg MD [address] [place] [address]10 Specialist Neurology 06/17/23 documented as of this encounter
--- OUTSIDE RECORDS SUMMARY | 2025-03-08 20:43 | XMS_ITS | Encounter Summary ---
Demographics Address [address] [place] [address] Home Phone Preferred Language Chadian Marital Status Unknown Pentecostal Affiliation Unknown Race White Ethnic Group Unknown Author Organization [facility] Address [address] [place] [address] Phone Support Name Relationship Address Phone Karon Stearns Mother [address] [place] [address] Prakash Ferrari Father [address] [place] [address] Care Team Providers Care Dynamic Etching Processor Name Role Phone Nuria Luna MD Primary Care Provider [phone] Encounter Details Date Type Department Care Team (Late st Contact Info) Description 11/13/2016 Conversion Encounter [facility] [place] [address] [place] [address] Social History Tobacco Use Types Packs/Day Years [...] on filedocumented in this encounter Care Teams Dynamic Etching Processor Relationship Specialty Start Date End Date Nuria Luna MD [address] [place] [address] PCP - General 11/07/16 06/29/22 documented as of this encounter
--- OUTSIDE RECORDS SUMMARY | 2025-03-08 20:43 | XMS_ITS | Data Portability ---
Author Organization [place] [facility] Address [address] [address] Assessment Encounter Date Assessment Date Assessment LastModified [...] up as needed for any future concerns. [email or web address] Not available 07/13/2024 15:33:10 Plan of Treatment [...] Organization Details Recorded Time Abnormal auditory perception 21147428 Active 2024 Keke zepeda [place] - [facility] 14:19:41 Bilateral tinnitus [id number] Active 2024 ANEL DEUTSCH PA-C [address] [place] [address], [phone], [place] - [facility] 15:33:15 Problem Notes None recorded. Procedures Surgical History Date Name Laterality Status Provider Name and Address Organization Details Recorded Time 07/13/2024 Air & Speech Audio with Tymps - 99755, 04862 & 26650 completed Keke Lee [place] - [facility] 07/13/2024 14:19:30 Imaging Results None recorded. [...] ICD10 Code Diagnosis IMO Codes Diagnosis Note [id number] ANEL DEUTSCH PA-C [facility] [address] [place] [address] 07/13/2024 13:53:19 07/13/2024 15:08:14 Abnormal auditory perception 12165842 H93.299 Audiologic al evaluation results: Right ear: Normal hearing with excellent word recognitio n. Left ear: Normal hearing with excellent word recognitio n. Tympanomet ry: Right Ear:Type A Left Ear:Type Ad Bilateral tinnitus 08304 [id number] H93.13 Health Concerns Section Related Observation LastModified by Organization Detai ls LastModified Time None Recorded Concern Status LastModified by Organization Details LastModified Time None Recorded Advance Directives Directive None Recorded Payers Insurance Date Sequence Insurance Name Policy Number Policy Hamm Covered Member ID Hamm Member ID Guarantor Name 07/13/2024 1 [employer] - [facility] [place] ([place]IC[place]AC[place] VANTAGE - HMO) Wale Warrensimmons [id number] Wale Michellezsimmons 07/13/2024 1 [facility] - DOS ON OR AFTER 2022 - [employer] (MEDICARE REPLACEMENT/AD VANTAGE - HMO) Wale Warrensimmons [id number] Wale Stearns Notes Date Note Type Note [...] of noise exposure. ANEL DEUTSCH PA-C [address], [address], [facility] - [facility] 07/13/2024 15:34:07 OBGyn Episode No OBEpisode recorded.
--- OUTSIDE RECORDS SUMMARY | 2025-03-08 20:43 | XMS_ITS | Encounter Summary ---
Author Organization [employer] [facility] Prior to 01/29/2024 Address [address] [place] [address] Care Team Providers Care Section Plotter Operator Name Role Phone Brian Gonzalez MD Primary Care Provider Ruben Barry MD Unavailable [phone] Robinson Zelaya MD Unavailable Unavailable Aracelis Arteaga MD Primary Care Prov ider Aarcelis Arteaga MD Primary Care Prov ider Patricia Goldberg MD Unavailable Unavailable Encounter Details Date Type Department Care Team Description 01/18/2016 Ambulatory Blood Pressure Monitoring Medical Records [address] [place] [address]67 Abstract, Provider Social History Tobacco Use Types [...] on filedocumented in this encounter Care Teams Section Plotter Operator Relationship Specialty Start Date End Date Brian Gonzalez MD PCP - General Internal Medicine 12/11/14 10/16/21 Aracelis Arteaga MD [address] [place] [address] 30571 PCP - General Internal Medicine 10/28/21 Aracelis Arteaga MD [address] [place] [address]17 PCP - General Internal Medicine 10/17/21 10/27/21 Ruben Franco MD [address] [place] [address] Dr Uribe [address] [place] [address] Specialist Cardiovascular Disease 08/12/21 2 Robinson Zelaya MD [address] [place] [address] Dr Uribe [address] [place] [address] 6[address]60 Specialist Cardiovascular Disease 08/12/21 Patricia Goldberg MD [address] [place] [address] Specialist Neurology 06/17/23 documented as of this encounter
--- OUTSIDE RECORDS SUMMARY | 2025-03-08 20:43 | XMS_ITS | Encounter Summary ---
Demographics Address [address] [place] [address] Home Phone Preferred Language Malaysian Marital Status Unknown Taoist Affiliation Unknown Race White Ethnic Group Unknown Author Organization [facility] Address [address] [place] [address] Phone Support Name Relationship Address Phone Karon Stearns Mother [address] [place] [address] Prakash Ferrari Father [address] [place] [address] Care Team Providers Care Tobacco Classer Name Role Phone Nuria Luna MD Primary Care Provider Encounter Details Date Type Department Care Team (Late st Contact Info) Description 10/29/2010 Documentation [facility] [address] [place], [place] [phone] Family Medicine, Physician [address] [place], [place] [address] Social History Tobacco Use Types Packs/Day Years [...] on filedocumented in this encounter Care Teams Tobacco Classer Relationship Specialty Start Date End Date Nuria Luna MD [address] [place] [address] JATINDER De Santiago [address] PCP - General 11/07/16 06/29/22 documented as of this encounter
--- OUTSIDE RECORDS SUMMARY | 2025-03-08 20:43 | XMS_ITS | Encounter Summary ---
Author Organization [facility] Prior to 01/29/2024 Address [address] [place] [address] Care Team Providers Care Cork Insulation Installer Name Role Phone Robinson Zelaya MD Unavailable Unavailable Aracelis Arteaga MD Primary Care Prov ider Patricia Goldberg MD Unavailable Unavailable Encounter Details Date Type Department Care Team Description 03/12/2023 Director Of Casino Marketing Report Medical Records [address] [place] [address] Patricia Goldberg MD Social History Tobacco Use [...] filedocumented in this encounter Care Teams Cork Insulation Installer Relationship Specialty Start Date End Date Aracelis Arteaga MD [address] [place], [place] [phone] PCP - General Internal Medicine 10/28/21 Robinson Zelaya MD Specialist Cardiovascular Disease 08/12/21 Patricia Goldberg MD [address] [place], [place] [phone] Specialist Neurology 06/17/23 documented as of this encounter
--- OUTSIDE RECORDS SUMMARY | 2025-03-08 20:43 | XMS_ITS | Clinical Summary ---
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 Seizure disorder 02/13/2012 Overview (03/18/2024): Last seizure 1 year ago, had hx of astrocytoma resected at 1 yo, has serial cat scans/mris/ eegs Immunizations Immunization Administration Dates Next Due DTP 09/23/1995, 1,1990,11/14,1990 LYmC-VHW-ZDV (Pentacel) 2mo to less than 5yo 11/15/1991,02/16/1991,1990,10/13 HPV, Quadrivalent 06/02/2008,02/03/2008,11/09/19 08 Hepatitis B (Wnlovic-R-Pypvc , Recombivax HB-Adult) 19yo and older 10/04/1999 Hepatitis B Pediatric (Enger ix B; Recombivax HB) to less than 20 yo 11/09/1999 Influenza trivalent, 0.5mL, preservative free (Fluarix; FluLaval; Fluzone) ages 6mo and older (Afluria) 3 years and older 01/22/2020,12/11/2015,02/16/2015,12/28,02/03/2008,03/19/2006 MMR, measles mumps and rubel la Live (Priorix; M-M-R II) 12mo and older 09/23/1995,11/15/1991 Meningococcal MCV4P 07/31/2006 OPV 09/23/1995, 2,1990,10/13 Gesplan SARS-CoV-2 COVID-19, mRNA, LNP-S, preservative free 07/23/2020 Td Tetanus diptheria (Tdvax) 7yo and older 09/16/2001 Tdap Tetanus diptheria acell ular pertussis (Boostrix; Adacel) 7yo and older 10/27/2021,11/09/2007 Surgical History Surgery Date Site/Laterality Comments OTHER SURGICAL HISTORY PROCEDURE: ---- OTHER ----; COMMENT: craniotomy left temporal astrocytoma Medical History Medical History Date Comments Seizure disorder (CMS/HCC V2 4, CMS/HCC V28) 02/13/2012 DX:Seizure disorder (HCC) Shingles DX:Shingles [...] 2009 Cervical Cancer Screening: Pap Smear 12/24/2018 12/25/2015 HIV Screening 03/08/2022 Social Influencers of [...] Routine 07/30/2022 HEPATITIS C SCREENING Routine 03/02/2020 PAP SMEAR Routine 12/25/2015 from Last 3 Months or Most Recently Relevant to Health Maintenance Results * Hemoglobin A1c (08/06/2022) Pathologist [facility] Hemoglobin A1C 6.0 <=6.5 % Blood Venous blood specimen / Unknown Result [facility] Provider LAB BLOOD ORDERABLES Johanna l Result * Annual BMP Blood Test (07/30/2022) Pathologist [facility] Annual BMP Blood Test Abstracted Result [facility] Provider HEALTH MAINTENANCE Final Result * (ABNORMAL) Lipid panel (07/30/2022) [facility] LDL/HDL Ratio 6(A) 0 - 4 Triglycerides 267(A) 0 - 150 mg/dL Cholesterol 234(A) 0 - 200 mg/dL HDL 37(A) >=40 mg/dL LDL Cholesterol 144(A) 0 - 100 mg/dL Blood Venous blood specimen / Unknown Result [facility] Provider LAB BLOOD ORDERABLES Johanna l Result * Hepatitis C Screening (03/02/2020) Pathologist [facility] Hepatitis C Screening Abstracted [facility] Provider HEALTH MAINTENANCE Final Result * Pap Smear (12/25/2015) [facility] Pap smear Negative, Abstracted Result [facility] Provider HEALTH MAINTENANCE Final Result from Last 3 Months or Most Recently Relevant to Health Maintenance Insurance [facility] Member Subscriber Plan / Payer (Ef fective 2018-Present) Name:STANFORD DEAL Relation to Subscriber:Self Name:ToyinStanford Payer ID:[id number] Group ID:[id number] Type:Not on file Address: [address] [place] [address] MEDICAID - [place] Care Teams Power Shear Operator Relationship Specialty Start Date End Date Physician, No Pcp PCP - General 03/30/23
--- OUTSIDE RECORDS SUMMARY | 2025-03-08 20:43 | XMS_ITS | Encounter Summary ---
Demographics Address [address] [place] [address] Home Phone Preferred Language Cymro Marital Status Unknown Restorationist Affiliation Unknown Race White Ethnic Group Unknown Author Organization [facility] Address [address] [place] [address] Phone Support Name Relationship Address Phone Karon Stearns Mother [address] [place] [address] Prakash Ferrari Father [address] [place] [address] Care Team Providers Care Animal Maintenance Supervisor Name Role Phone Nuria Luna MD Primary Care Provider Encounter Details Date Type Department Care Team (Late st Contact Info) Description 01/15/2010 Documentation [facility] Family Medicine [address] [place], [place] [phone] Family Medicine, Physician [address] [place], [place] [address]81 Social History Tobacco Use Types Packs/Day Years [...] filedocumented in this encounter Care Teams Animal Maintenance Supervisor Relationship Specialty Start Date End Date Nuria Luna MD [address] [place] [address] JATINDER De Santiago [address] PCP - General 11/07/16 06/29/22 documented as of this encounter
--- OUTSIDE RECORDS SUMMARY | 2025-03-08 20:43 | XMS_ITS | Clinical Summary ---
Demographics Address [address] [place] [address] Home Phone Preferred Language Yakut Marital Status Unknown Episcopal Affiliation Unknown Race White Ethnic Group Unknown Author Organization [facility] Address [address] [place] [address] Phone Support Name Relationship Address Phone Karon Stearns Mother [address] [place] [address] Prakash Ferrari Father [address] [place] [address] Care Team Providers Care Professor Of Forestry Name Role Phone Unavailable Primary Care Provider [...]
--- OUTSIDE RECORDS SUMMARY | 2025-03-08 20:43 | XMS_ITS | Clinical Summary ---
Author Organization [facility] Address [address] [email or web address] [facility] [address] [place] [address] Phone Care Team Providers Care Heel Seat Fitter Name Role Phone Brian Gonzalez MD Primary Care Provider [phone] Social History Tobacco Use Types Packs/Day Years [...] file Insurance MEDICARE PART A & B [facility] MEDICARE PART A & B [place] B MEDICARE PART A & B HEALTH MEDICARE PART A & [place] [address] [place] [address] MEDICARE PART A & B [facility] MED[facility] PART A & B [facility] MEDIC[facility] PART A & B [facility] Care Teams Heel Seat Fitter Relationship Specialty Start Date End Date Brian Gonzalez MD [address] [place] [address] PCP - General Internal Medicine 10/14/16 Additional Source Comments The information contained in this document represents components of the legal health record. It is not the complete legal health record.[facility]
--- OUTSIDE RECORDS SUMMARY | 2025-03-08 20:44 | XMS_ITS | Encounter Summary ---
Author Organization [facility] Prior to 01/29/2024 Address [address] [place] [address] Care Team Providers Care Hand Knitter Name Role Phone Robinson Zelaya MD Unavailable Unavailable Aracelis Arteaga MD Primary Care Prov ider Patricia Goldberg MD Unavailable Unavailable Reason for Visit * Reason Comments E-prescribe Rx Request Encounter Details Date Type Department Care Team Description 10/29/[address] [phone] Lidia Mcclain PA-C E-prescribe Rx Request Social [...] on filedocumented in this encounter Care Teams Hand Knitter Relationship Specialty Start Date End Date Aracelis Arteaga MD [address] [place] [address] [phone] PCP - General Internal Medicine 10/28/21 Robinson Zelaya MD Specialist Cardiovascular Disease 08/12/21 Patricia Goldberg MD [address] [place] [address] Specialist Neurology 06/17/23 documented as of this encounter
--- OUTSIDE RECORDS SUMMARY | 2025-03-08 20:44 | XMS_ITS | Encounter Summary ---
Author Organization [facility] Prior to 01/29/2024 Address [address] [place] [address] Care Team Providers Care Generation Mechanic Helper Name Role Phone Robinson Zelaya MD Unavailable Unavailable Aracelis Arteaga MD Primary Care Prov ider Patricia Goldberg MD Unavailable Unavailable Reason for Visit * Reason Comments E-prescribe Rx Request Encounter Details Date Type Department Care Team Description 10/22/2023 Refill Dermatology [address] [phone] Lidia Mcclain PA-C E-prescribe Rx Request Social [...] on filedocumented in this encounter Care Teams Generation Mechanic Helper Relationship Specialty Start Date End Date Aracelis Arteaga MD [address] [place] [address] [phone] PCP - General Internal Medicine 10/28/21 Robinson Zelaya MD Specialist Cardiovascular Disease 08/12/21 Patricia Goldberg MD [address] [place] [address] Specialist Neurology 06/17/23 documented as of this encounter
--- OUTSIDE RECORDS SUMMARY | 2025-03-08 20:44 | XMS_ITS | Encounter Summary ---
Author Organization [employer] [facility] Prior to 01/29/2024 Address [address] [place] [address] Care Team Providers Care Inpatient Care Manager Rn Name Role Phone Brian Gonzalez MD Primary Care Provider Ruben Barry MD Unavailable [phone] Robinson Zelaya MD Unavailable Unavailable Aracelis Arteaga MD Primary Care Prov ider Aracelis Arteaga MD Primary Care Prov ider Patricia Goldberg MD Unavailable Unavailable Encounter Details Date Type Department Care Team Description 09/19/2017 Plumber Pipe Fitting Report Medical Records [address] [place], [place] [phone] [facility] Social History Tobacco Use Types Packs/Day [...] on filedocumented in this encounter Care Teams Inpatient Care Manager Rn Relationship Specialty Start Date End Date Brian Gonzalez MD PCP - General Internal Medicine 12/11/14 10/16/21 Aracelis Arteaga MD [address] [place] [address] PCP - General Internal Medicine 10/28/21 Aracelis Arteaga MD [address] [place] [address] PCP - General Internal Medicine 10/17/21 10/27/21 Ruben Franco MD [address] [place] [address] Dr Uribe [address] [place] [address] Specialist Cardiovascular Disease 08/12/21 2 Robinson Zelaya MD [address] [place] [address] Dr Uribe [address] [place] [address]363 Specialist Cardiovascular Disease 08/12/21 Patricia Goldberg MD [address] [place] [address] Specialist Neurology 06/17/23 documented as of this encounter
--- OUTSIDE RECORDS SUMMARY | 2025-03-08 20:44 | XMS_ITS | Encounter Summary ---
Author Organization [facility] [employer] [facility] Prior to 01/29/2024 Address [address] [place] [address] Care Team Providers Care Wastewater Analyst Lab Analyst Name Role Phone Prakash Perez MD Primary Care Provider Adarsh Blanchard MD Primary Care Provider Brian Larios MD Primary Care Provider Adarsh Smith MD Primary Care Provider Brian Larios MD Primary Care Provider Ruben Barry MD Unavailable [phone] Robinson Zelaya MD Unavailable Unavailable Aracelis Arteaga MD Primary Care Prov ider Aracelis Arteaga MD Primary Care Prov ider Patricia Goldberg MD Unavailable Unavailable Encounter Details Date Type Department Care Team Description 06/17/2007 SCAN Medical Records [address] [place] [address] Don Berman Social History Tobacco Use Types [...] on filedocumented in this encounter Care Teams Wastewater Analyst Lab Analyst Relationship Specialty Start Date End Date Prakash Perez MD PCP - General Internal Medicine 01/20/12 04/04/13 Adarsh Valverde MD PCP - General Internal Medicine 04/05/13 Brian Gonzalez MD PCP - General Internal Medicine 01/12/14 12/07/14 Adarsh Valverde MD PCP - General Internal Medicine 12/08/14 Brian Gonzalez MD PCP - General Internal Medicine 12/11/14 10/16/21 Aracelis Arteaga MD [address] [place] [address]12 PCP - General Internal Medicine 10/28/21 Aracelis Arteaga MD [address] [place] [address] 23798 PCP - General Internal Medicine 10/17/21 10/27/21 Ruben Franco MD [address] [place] [address] [place] [address] Specialist Cardiovascular Disease 08/12/21 2 Robinson Zelaya MD [address] [place] [address] [place] [address] Specialist Cardiovascular Disease 08/12/21 Patricia Goldberg MD [address] [place] [address] Specialist Neurology 06/17/23 documented as of this encounter
--- OUTSIDE RECORDS SUMMARY | 2025-03-08 20:44 | XMS_ITS | Encounter Summary ---
Author Organization [facility] Prior to 01/29/2024 Address [address] [place] [address] Care Team Providers Care Patcher Helper Name Role Phone Brian Gonzalez MD Primary Care Provider Ruben Barry MD Unavailable [phone] Robinson Zelaya MD Unavailable Unavailable Aracelis Arteaga MD Primary Care Prov ider Aracelis Arteaga MD Primary Care Prov ider Patricia Goldberg MD Unavailable Unavailable Encounter Details Date Type Department Care Team Description 01/25/2016 Dealer Relationship Manager Report Medical Records [address] [place] [address] Abstract, Provider Social History Tobacco Use Types [...] on filedocumented in this encounter Care Teams Patcher Helper Relationship Specialty Start Date End Date Brian Gonzalez MD PCP - General Internal Medicine 12/11/14 10/16/21 Aracelis Arteaga MD [address] [place] [address] 18148 PCP - General Internal Medicine 10/28/21 Aracelis Arteaga MD [address] [place] [address] 58014 PCP - General Internal Medicine 10/17/21 10/27/21 Ruben Franco MD [address] [place] [address] Dr Uribe [address] [place] [address]187 Specialist Cardiovascular Disease 08/12/21 2 Robinson Zelaya MD [address] [place] [address] Dr Uribe [address] [place] [address]00 Specialist Cardiovascular Disease 08/12/21 Patricia Goldberg MD [address] [place] [address] 70094 Specialist Neurology 06/17/23 documented as of this encounter
--- OUTSIDE RECORDS SUMMARY | 2025-03-08 20:44 | XMS_ITS | Encounter Summary ---
Author Organization [facility] [employer] [facility] Prior to 01/29/2024 Address [address] [place] [address] Care Team Providers Care Traffic Sign Supervisor Name Role Phone Brian Gonzalez MD Primary Care Provider Ruben Barry MD Unavailable [phone] Robinson Zelaya MD Unavailable Unavailable Aracelis Arteaga MD Primary Care Prov ider Aracelis Arteaga MD Primary Care Prov ider Patricia Goldberg MD Unavailable Unavailable Encounter Details Date Type Department Care Team Description 12/28/2015 Stone Setter Apprentice Report Medical Records [address] [place] [address] Shawn Torres MD Social History Tobacco Use [...] on filedocumented in this encounter Care Teams Traffic Sign Supervisor Relationship Specialty Start Date End Date Brian Gonzalez MD PCP - General Internal Medicine 12/11/14 10/16/21 Aracelis Arteaga MD [address] [place] [address] 88042 PCP - General Internal Medicine 10/28/21 Aracelis Arteaga MD [address] [place] [address]254 PCP - General Internal Medicine 10/17/21 10/27/21 Ruben Franco MD [address] [place] [address] Dr Uribe [address] [place] [address]53 Specialist Cardiovascular Disease 08/12/21 2 Robinson Zelaya MD [address] [place] [address] [place] [address] Specialist Cardiovascular Disease 08/12/21 Patricia Goldberg MD [address] [place] [address] Specialist Neurology 06/17/23 documented as of this encounter
--- OUTSIDE RECORDS SUMMARY | 2025-03-08 20:44 | XMS_ITS | Encounter Summary ---
Author Organization [facility] Prior to 01/29/2024 Address [address] [place] [address] Care Team Providers Care Groover Runner Name Role Phone Prakash Perez MD Primary Care Provider Adarsh Blanchard MD Primary Care Provider Brian Larios MD Primary Care Provider Adarsh Smith MD Primary Care Provider Brian Larios MD Primary Care Provider Ruben Barry MD Unavailable [phone] Robinson Zelaya MD Unavailable Unavailable Aracelis Arteaga MD Primary Care Prov ider Aracelis Arteaga MD Primary Care Prov ider Patricia Goldberg MD Unavailable Unavailable Encounter Details Date Type Department Care Team Description 03/22/2012 Behavioral Sciences Instructor Report Medical Records [address] [place] [address] Rene Gupta MD Social History Tobacco Use [...] on filedocumented in this encounter Care Teams Groover Runner Relationship Specialty Start Date End Date Prakash Perez MD PCP - General Internal Medicine 01/20/12 04/04/13 Adarsh Valverde MD PCP - General Internal Medicine 04/05/13 Brian Gonzalez MD PCP - General Internal Medicine 01/12/14 12/07/14 Adarsh Valverde MD PCP - General Internal Medicine 12/08/14 Brian Gonzalez MD PCP - General Internal Medicine 12/11/14 10/16/21 Aracelis Arteaga MD [address] [place] [address] PCP - General Internal Medicine 10/28/21 Aracelis Arteaga MD [address] [place] [address] 49181 PCP - General Internal Medicine 10/17/21 10/27/21 Ruben Franco MD [address] [place] [address] [place] [address] Specialist Cardiovascular Disease 08/12/21 2 Robinson Zelaya MD [address] [place] [address] [place] [address] Specialist Cardiovascular Disease 08/12/21 Patricia Goldberg MD [address] [place] [address] Specialist Neurology 06/17/23 documented as of this encounter
--- OUTSIDE RECORDS SUMMARY | 2025-03-08 20:45 | XMS_ITS | Encounter Summary ---
Demographics Address [address] [place] [address] Home Phone Preferred Language Mexican Marital Status Unknown Jehovah'S Witness Affiliation Unknown Race White Ethnic Group Unknown Author Organization [facility] Address [address] [place] [address] Phone Support Name Relationship Address Phone Karon Stearns Mother [address] [place] [address] Prakash Ferrari Father [address] [place] [address] Care Team Providers Care Piercing Mill Operator Name Role Phone Nuria Luna MD Primary Care Provider Encounter Details Date Type Department Care Team (Late st Contact Info) Description 11/06/2009 Documentation [facility] Family Medicine [address] [place], [place] [phone] Family Medicine, Physician [address] [place], [place] [address] Social History Tobacco Use Types Packs/Day Years [...] on filedocumented in this encounter Care Teams Piercing Mill Operator Relationship Specialty Start Date End Date Nuria Luna MD [address] [place] [address] JATINDER De Santiago [address] PCP - General 11/07/16 06/29/22 documented as of this encounter
--- OUTSIDE RECORDS SUMMARY | 2025-03-08 20:45 | XMS_ITS | Encounter Summary ---
Author Organization [facility] Prior to 01/29/2024 Address [address] [place] [address] Care Team Providers Care Coding Director Name Role Phone Brian Gonzalez MD Primary Care Provider Ruben Barry MD Unavailable [phone] Robinson Zelaya MD Unavailable Unavailable Aracelis Arteaga MD Primary Care Prov ider Aracelis Arteaga MD Primary Care Prov ider Patricia Goldberg MD Unavailable Unavailable Encounter Details Date Type Department Care Team Description 01/14/2017 Release of Information Medical Records [address] [place] [address] Abstract, Provider Social History Tobacco Use Types [...] filedocumented in this encounter Care Teams Coding Director Relationship Specialty Start Date End Date Brian Gonzalez MD PCP - General Internal Medicine 12/11/14 10/16/21 Aracelis Arteaga MD [address] [place] [address] PCP - General Internal Medicine 10/28/21 Aracelis Arteaga MD [address] [place] [address] PCP - General Internal Medicine 10/17/21 10/27/21 Ruben Franco MD [address] [place] [address] Dr Uribe [address] [place] [address] Specialist Cardiovascular Disease 08/12/21 2 Robinson Zelaya MD [address] [place] [address] Dr Uribe [address] [place] [address] Specialist Cardiovascular Disease 08/12/21 Patricia Goldberg MD [address] [place] [address] Specialist Neurology 06/17/23 documented as of this encounter
--- OUTSIDE RECORDS SUMMARY | 2025-03-08 20:45 | XMS_ITS | Encounter Summary ---
Demographics Address [address] [place] [address] Home Phone Preferred Language New Zealander Marital Status Unknown Latter-Day Affiliation Unknown Race White Ethnic Group Unknown Author Organization [facility] Address [address] [place] [address] Phone Support Name Relationship Address Phone Karon Stearns Mother [address] [place] [address] Prakash Ferrari Father [address] [place] [address] Care Team Providers Care Boat Tester Name Role Phone Nuria Luna MD Primary Care Provider Encounter Details Date Type Department Care Team (Late st Contact Info) Description 10/03/2009 Documentation [facility] [place] [facility] [address] [place], [place] [id number] Family Medicine, Physician [address] [place], [place] [address] Social History Tobacco Use Types Packs/Day Years [...] on filedocumented in this encounter Care Teams Boat Tester Relationship Specialty Start Date End Date Nuria Luna MD [address] [place] [address] JATINDER De Santiago [id number] PCP - General 11/07/16 06/29/22 documented as of this encounter
--- OUTSIDE RECORDS SUMMARY | 2025-03-08 20:45 | XMS_ITS | Encounter Summary ---
Demographics Address [address] [place] [address] Home Phone Preferred Language Puerto Rican Marital Status Unknown Restorationist Affiliation Unknown Race White Ethnic Group Unknown Author Organization [facility] Address [address] [place] [address] Phone Support Name Relationship Address Phone Karon Stearns Mother [address] [place] [address] Prakash Ferrari Father [address] [place] [address] Care Team Providers Care Pyrometer Mechanic Name Role Phone Nuria Luna MD Primary Care Provider Encounter Details Date Type Department Care Team (Late st Contact Info) Description 09/11/2009 Documentation [facility] [address] [place], [place] [id number] Family Medicine, Physician [address] [place], [place] [id number] Social History Tobacco Use Types Packs/Day Years [...] on filedocumented in this encounter Care Teams Pyrometer Mechanic Relationship Specialty Start Date End Date Nuria Luna MD [address] [place] [address] JATINDER De Santiago [id number] PCP - General 11/07/16 06/29/22 documented as of this encounter
== END 2025-03-08 13:12 | disposition home or self-care (01) ==
LOC: HO.XRAY 13:11
PROVIDERS: PCP Physician Assistant; Visit Provider Student in an Organized Health Care Education/Training Program
DX: M72.2 Plantar fascial fibromatosis (principal); M25.571 Pain in right ankle and joints of right foot
CPT/HCPCS: 73610; 73630

== ENCOUNTER → 2025-03-08 13:20 | Outpatient (BNV) | payer OTHER, SELFPAY | PROVIDERS: PCP Physician Assistant; Visit Provider Radiology Diagnostic Radiology | DX: M25.571 Pain in right ankle and joints of right foot (principal); M72.2 Plantar fascial fibromatosis | CPT/HCPCS: 73610; 73630 ==